=== PATIENT | female | born 1950 | race Caucasian/White ===

== ENCOUNTER → 2020-08-22 09:56 | Outpatient (CLI) | payer MEDICARE, SELFPAY ==
[2020-08-22 10:28] LABS: Color, Urine Yellow (Yellow); Glucose, Dipstick Normal (Normal); Ketone-Dipstick Negative (Negative); Leukocyte Esterase-Dipstick 100 /ul (Negative); Nitrite-Dipstick Negative (Negative); Occult Blood-Urine Negative /ul (Negative); Protein-Dipstick Negative (Negative); Specific Gravity, Urine 1.025 (1.002-1.030); Urine Bilirubin Dipstick Negative (Negative); Urine Clarity Sl. Cloudy (Clear); Urine Urobilinogen Normal (Normal)
[2020-08-22 10:30] LABS: Absolute Lymphocyte Count 1.51 X10^3/uL (0.83-4.51); Absolute Neutrophil Count 2.8 X10^3/uL (2.0-7.7); Basophil# 0.07 X10^3/uL; Basophil% 1.4 % (0-1); Eosinophil# 0.18 X10^3/uL; Eosinophils% 3.5 % (0-5); Hematocrit 39.9 % (37-47); Hemoglobin 13.3 g/dL (12.0-15.0); Lymphocyte # 1.51 X10^3/ul (4.0); Lymphocyte % 29.2 % (19-41); Mean Corp Hgb Conc 33.3 g/dL (32-36); Mean Corpuscular Hgb 30.6 pg (27.0-32.0); Mean Corpuscular Volume 91.9 fL (81-99); Mean Platelet Vol. 11.6 fl (6.2-12.0); Monocyte# 0.58 X10^3/uL; Monocyte% 11.2 % (0-10); NRBC Flagged by Analyzer 0 % (0-5); Neutrophil # 2.82 X10^3/uL (2.7-7.7); Neutrophil % 54.5 % (47-70); Platelet Count 196 K/mm3 (150-450); RBC Distribution Width CV 13.5 % (11.6-14.6); RBC Distribution Width SD 45.6 fl (35.1-43.9); Red Blood Count 4.34 M/mm3 (4.2-5.4); White Blood Count 5.2 K/mm3 (4.4-11.0)
[2020-08-22 11:12] LABS: ALB/GLOB Ratio 1.1 RATIO (0.9-2.4); AST(SGOT) 22 U/L (15-37); Alanine Aminotransfer ALT/SGPT 30 U/L (13-56); Alkaline Phosphatase 77 U/L (45-117); Anion Gap 7 (5-15); BUN 17 mg/dL (7-18); BUN/Creat Ratio 20.6 RATIO (10-20); Calcium,Total 9.1 mg/dL (8.5-10.1); Chloride 108 mmol/L (98-107); Cholesterol 253 mg/dL (200); Creatinine, Serum 0.82 mg/dL (0.55-1.02); EST Glomerular Filtration Rate 73 mL/min (>60); Est Glom Filt Rate - Afr Amer 88 mL/min (>60); Globulin 3.8 g/dL (2.2-4.2); Glucose 106 mg/dL (74-106); High Density Lipoprotein 78 mg/dL; Potassium 3.9 mmol/L (3.5-5.1); Protein, Total 7.8 g/dL (6.4-8.2); Sodium Level 138 mmol/L (136-145); Thyroid Stim Hormone (TSH) 2.66 uIU/mL (0.358-3.74); Triglycerides 74 mg/dL; Very Low Density Lipoprotein 15 mg/dL (5-40)
== END ==
PROVIDERS: PCP Family Medicine; Referring Provider Family Medicine; Visit Provider Family Medicine
DX: Z00.00 Encounter for general adult medical examination without abnormal findings (principal); R03.0 Elevated blood-pressure reading, without diagnosis of hypertension
CPT/HCPCS: 36415; 80053; 80061; 81002; 84443; 85025

== ENCOUNTER → 2020-09-25 09:54 | Outpatient (CLI) | payer MEDICARE, SELFPAY ==
--- NOTE | 2020-09-25 09:57 | ECHOD_ITS ---
Version 2 Reason For Study: Murmur Procedure This was a 2D Doppler, Color Flow transthoracic echocardiogram. Exam performed in department. Left Ventricle Normal LV size. Left ventricular systolic function is lower limits of normal. The estimated ejection fraction is 50 %. Septal motion consistent with IVCD. There is mild global hypokinesis of the left ventricle. Right Ventricle Normal RV size. Normal systolic function. Atria Normal left atrium. Normal right atrium. Mitral Valve Bileaflet diffuse mitral valve thickening. Posterior leaflet mitral valve prolapse. Moderately severe (3+) anteriorly directed mitral valve insufficiency. Tricuspid Valve Normal tricuspid valve. Mild (1+) tricuspid valve insufficiency. Pulmonary artery systolic pressure is 30 mmHg. Pulmonic Valve Normal pulmonic valve. Great Vessels Normal aortic root. The pulmonary artery is normal size. Normal inferior vena cava. Pericardium/Pleural No pericardial effusion. Medication 22 gauge I.V. with prn adaptor inserted into right arm. Performed a rapid injection of agitated mix of 9 cc saline and 1cc air to assess for atrial septal defect. MMode/2D Measurements & Calculations LVIDd: 4.7 cm IVSd: 1.3 cm Ao root diam: 3.5 cm LVIDs: 3.4 cm LVPWd: 1.1 cm RVDd: 3.1 cm FS: 27.7 % LAV(MOD-bp): 47.6 ml LVAd ap4: 28.1 cm2 LVAd ap2: 33.2 cm2 LAV(MOD-bp) Indexed: 26.9 ml/m2 LVLd ap4: 8.0 cm LVLd ap2: 8.1 cm LAV(MOD-sp2): 30.9 ml EDV(MOD-sp4): 82.7 ml EDV(MOD-sp2): 112.8 ml LAV(MOD-sp4): 56.7 ml EDV(sp4-el): 83.2 ml EDV(sp2-el): 115.1 ml LVAs ap4: 19.9 cm2 LVAs ap2: 20.4 cm2 LVLs ap4: 7.0 cm LVLs ap2: 7.0 cm ESV(MOD-sp4): 49.4 ml ESV(MOD-sp2): 50.8 ml ESV(sp4-el): 47.8 ml ESV(sp2-el): 50.0 ml EF(MOD-sp4): 40.3 % EF(MOD-sp2): 55.0 % EF(sp4-el): 42.5 % SV(MOD-sp4): 33.3 ml SV(MOD-sp2): 62.0 ml SV(sp4-el): 35.4 ml LA dimension(2D): 3.4 cm LA A4 area: 18.8 cm2 RA A4 area: 17.1 cm2 Doppler Measurements & Calculations MV E max cam: 76.1 cm/sec Lat Peak E' Cam: 7.9 cm/sec Med Peak E' Cam: 5.0 cm/sec MV A max cam: 117.1 cm/sec E/E' lat: 9.7 E/E' med: 15.3 MV E/A: 0.65 Ao V2 max: 111.6 cm/sec LV V1 max: 88.4 cm/sec PA V2 max: 88.0 cm/sec Ao max P.0 mmHg LV V1 max P.1 mmHg TR max cam: 249.3 cm/sec TR max P.0 mmHg ECHO/Echo Complete Interpretation Summary Normal LV size. Left ventricular systolic function is lower limits of normal. Posterior leaflet mitral valve prolapse. Moderately severe (3+) anteriorly directed mitral valve insufficiency. Pulmonary artery systolic pressure is 30 mmHg. The estimated ejection fraction is 50 %. Septal motion consistent with IVCD. Ordering Physician: Dianne Marmolejo Referring Physician: Dianne Marmolejo Performed By: Heather Goldman RDCS
== END ==
PROVIDERS: PCP Family Medicine; Referring Provider Family Medicine; Visit Provider Family Medicine
DX: R01.1 Cardiac murmur, unspecified (principal)
CPT/HCPCS: 93306; A4216

== ENCOUNTER → 2020-10-23 09:50 | Outpatient (CLI) | payer MEDICARE, SELFPAY ==
[2020-10-03 12:47] VITALS: BMI 30.2
[2020-10-22 10:31] LABS: Anion Gap 8 (5-15); BUN 19 mg/dL (7-18); BUN/Creat Ratio 19.4 RATIO (10-20); Calcium,Total 8.8 mg/dL (8.5-10.1); Chloride 110 mmol/L (98-107); Creatinine, Serum 0.98 mg/dL (0.55-1.02); EST Glomerular Filtration Rate 60 mL/min (>60); Est Glom Filt Rate - Afr Amer 72 mL/min (>60); Glucose 114 mg/dL (74-106); Potassium 3.9 mmol/L (3.5-5.1); Sodium Level 141 mmol/L (136-145)
--- NOTE | 2020-10-23 09:55 | ECHOTEE_ITS ---
Reason For Study: MVP Medication MONTEZ probe 6VT-D (SN [id number]) passed without difficulty. No complications were noted. Cetacaine Topical [place] given X3 orally. Versed 2 mg given slow IVP. Fentanyl 50 mcg given slow IVP. Performed a rapid injection of agitated mix of 9 cc saline and 1cc air to assess for atrial septal defect. Left Ventricle Normal LV size. The estimated ejection fraction is 47 %. There is mild global hypokinesis of the left ventricle. Right Ventricle Normal RV size. Normal systolic function. Atria Normal atrial septum. Bubble contrast study negative for right to left interatrial shunt. Normal left atrium. No thrombus is detected in the left atrial appendage. Normal right atrium. Mitral Valve Posterior leaflet mitral valve prolapse. Moderately severe (3+) anteriorly directed mitral valve insufficiency. Tricuspid Valve Normal tricuspid valve. Mild (1+) tricuspid valve insufficiency. Aortic Valve Normal aortic valve. Trisinus/trileaflet aortic valve. Pulmonic Valve Normal pulmonic valve. Vessels Normal aortic root. Pericardium No pericardial effusion. ECHO/Echo Transesophageal (MONTEZ) Interpretation Summary Normal LV size. There is mild global hypokinesis of the left ventricle. Posterior leaflet mitral valve prolapse. Moderately severe (3+) anteriorly directed mitral valve insufficiency. Mild (1+) tricuspid valve insufficiency. The estimated ejection fraction is 47 %. Ordering Physician: Aubrey Beltre Referring Physician: Dianne Marmolejo Performed By: Heather Goldman RDCS
[2020-10-23 12:55] LABS: Absolute Lymphocyte Count 1.01 X10^3/uL (0.83-4.51); Absolute Neutrophil Count 3.4 X10^3/uL (2.0-7.7); Basophil# 0.05 X10^3/uL; Eosinophil# 0.03 X10^3/uL; Eosinophils% 0.6 % (0-5); Hematocrit 37.8 % (37-47); Hemoglobin 12.5 g/dL (12.0-15.0); Lymphocyte # 1.01 X10^3/ul (0.83-4.51); Lymphocyte % 20.6 % (19-41); Mean Corp Hgb Conc 33.1 g/dL (32-36); Mean Corpuscular Hgb 29.8 pg (27.0-32.0); Mean Platelet Vol. 11.4 fl (6.2-12.0); Monocyte# 0.44 X10^3/uL; NRBC Flagged by Analyzer 0 % (0-5); Neutrophil # 3.36 X10^3/uL (2.7-7.7); Neutrophil % 68.6 % (47-70); Platelet Count 213 K/mm3 (150-450); RBC Distribution Width SD 42.8 fl (35.1-43.9); White Blood Count 4.9 K/mm3 (4.4-11.0)
--- NOTE | 2020-10-23 13:08 | RAD_ITS ---
EXAM: XR CHEST, 2 VIEWS : 1950 CLINICAL INDICATION: dyspnea TECHNIQUE: Frontal and lateral views of the chest. This report was created using [employer] report generation technology. COMPARISON: None. FINDINGS: LUNGS AND PLEURAL SPACES: Unremarkable. No consolidation or edema. No pneumothorax. No effusion. HEART: Moderate enlargement of the cardiac silhouette. MEDIASTINUM: Central airways and mediastinal contour are unremarkable. BONES/JOINTS: Degenerative changes of the spine. SOFT TISSUES: Unremarkable. RAD/Chest PA and Lateral IMPRESSION: No acute findings in the chest. at 0728 Reported and signed by: Clovis Juarez MD Electronically Signed: Clovis Juarez MD at 7:27 EDT Tel , Service support ,
== END ==
PROVIDERS: PCP Family Medicine; Referring Provider Internal Medicine Cardiovascular Disease; Visit Provider Internal Medicine Cardiovascular Disease
DX: I34.1 Nonrheumatic mitral (valve) prolapse (principal); E78.5 Hyperlipidemia, unspecified; I34.0 Nonrheumatic mitral (valve) insufficiency; I44.7 Left bundle-branch block, unspecified; R00.2 Palpitations; R03.0 Elevated blood-pressure reading, without diagnosis of hypertension; U07.1 COVID-19; R93.1 Abnormal findings on diagnostic imaging of heart and coronary circulation
CPT/HCPCS: 36415; 71046; 80048; 85025; 87426; 93312; 93320; 93325; C9803; J7040; A4216

== ENCOUNTER 2020-10-30 10:23 | Day surgery (SDC) | payer MEDICARE, SELFPAY ==
[2020-10-03 12:47] VITALS: BMI 30.2
[2020-10-29 08:27] VITALS: BMI 30.2
--- NOTE | 2020-10-30 13:06 | CL.D_ITS ---
Patient Name: SHINE LAWS Study Date: 10/30/2020 Performing: Aubrey Beltre MD Ht: 61.81 inches 157 cm : 1950 Wt: 165.35 lbs 75 kg Age: 70 Gender: female BSA: 1.76 PROCEDURE(S) PERFORMED [id number]/COR/LV CLINICAL PROFILE AND INDICATIONS Indications: Valvular Disease Heart Failure: None Stress/Imaging Stress/Image Study Performed: No CAD Presentations: Symptom unlikely to be ischemic. CONCLUSIONS Normal coronary arteries Mitral Valve Insufficiency Moderate RECOMMENDATIONS Consult for mitral valve repair DESCRIPTION OF PROCEDURE The patient arrived to the procedure lab. The risks and benefits of the procedure as well as a full d escription of our services here and current unavailability of surgical backup were fully explained to the patient and/or their significant other prior to the catheterization. The Timeout was completed, verifying the correct patient and procedure. The patient's procedural site was prepped and draped in the usual fashion. Local anesthetic was given subcutaneously to right radial region with Lidocaine 2% . Using a modified Seldinger technique, arterial access was obtained via the right radial artery, a 6 Fr sheath was inserted. Left Coronary Artery selective angiography was performed in multiple views u sing a 5 Fr. 4.0 Harvard catheter. Right Coronary Artery selective angiography was then performed in mu ltiple views using a 5 Fr. 4.0 Harvard catheter. Left Ventriculography was performed in DAILY projection using a 5 Fr. Pigtail catheter. LV to AO pullback pressures were then recorded.The arterial sheath was pulled and a TR Band was applied for hemostasis - 13cc air CORONARY ANGIOGRAPHY DOMINANCE: Right Dominant LEFT HEART ASSESSMENT Left Ventricular Ejection Fraction: by LV Gram 55 % Normal LV wall motion Normal Left Ventricular systolic function LEFT MAIN: Angiographically normal LEFT ANTERIOR DESCENDING ARTERY: No significant disease noted CIRCUMFLEX ARTERY: No significant disease noted RIGHT CORONARY ARTERY: No significant disease noted VALVE FINDINGS: Mitral Valve Prolapse Moderate Mitral Valve Insufficiency - Grade 3 COMPLICATIONS No Complications PROCEDURE MEDICATIONS Fentanyl 50 mcg IV Versed 1 mg IV Versed 1 mg IV Oxygen: 2 L/min via nasal cannula Heparin given IA 10/30/2020 12:17:04 Verapamil 2.5mg, Ntg 100mcgs, 3000 units of Heparin given IA 10/30/2020 12:17:04 SUMMARY OF HEMODYNAMIC DATA Time AIR REST ECG 10:49:15 Art 157/74 (104) 12:07:23 AO 134/76 (101) SA 12:19:40 LV 135/0, 13 12:28:44 LV 135/0, 7 12:28:50 LV 133/2, 8 12:30:51 LV 133/3, 10 12:30:56 LVp 149/3, 11 12:31:03 AOp 141/71 (99) 12:31:08 Signed By Aubrey Beltre MD On 10/30/2020 13:05:01 Aubrey Beltre MD
== END 2020-10-30 14:15 | disposition home or self-care (01) ==
PROVIDERS: PCP Family Medicine; Referring Provider Internal Medicine Cardiovascular Disease; Visit Provider Internal Medicine Cardiovascular Disease
DX: I34.0 Nonrheumatic mitral (valve) insufficiency (principal); R06.02 Shortness of breath; E78.5 Hyperlipidemia, unspecified; I44.7 Left bundle-branch block, unspecified; R03.0 Elevated blood-pressure reading, without diagnosis of hypertension; Z86.16 Personal history of COVID-19
CPT/HCPCS: 93005; 93458; 99152; 99153; J7040; Q9967; C1769; C1894

== ENCOUNTER → 2021-03-10 10:01 | Outpatient (CLI) | payer MEDICARE, SELFPAY ==
--- NOTE | 2021-03-10 10:03 | VDLE_ITS ---
Reason For Study: elevated D-Dimer RIGHT LEFT GSV is normal. GSV is normal. CFV is compressible, spontaneous, phasic, CFV is compressible, spontaneous, phasic, competent and demonstrates normal competent, and demonstrates normal augmentation. augmentation. FV is compressible, spontaneous, phasic, FV is compressible, spontaneous, phasic, competent and demonstrates normal competent and demonstrates normal augmentation. augmentation. POP V is compressible, spontaneous, phasic, POP V is compressible, spontaneous, phasic, competent and demonstrates normal competent and demonstrates normal augmentation. augmentation. T/P Trunk is compressible. T/P Trunk is compressible. PTV is compressible. PTV is compressible. RT PerV is compressible. LT PerV is compressible. Procedure This is a venous duplex using B-mode, color flow and spectral Doppler. Exam performed in department. The exam was diagnostic. A preliminary report was called and/or faxed to Dr. Beltre. VL/Venous Duplex US - Jose Extrem Interpretation Summary No evidence for acute deep venous thrombosis bilateral lower extremities with p atent and compressible bilateral great saphenous veins. Ordering Physician: Aubrey Beltre Performed By: Ge Mata RVT
== END ==
PROVIDERS: PCP Family Medicine; Referring Provider Internal Medicine Cardiovascular Disease; Visit Provider Internal Medicine Cardiovascular Disease
DX: R79.89 Other specified abnormal findings of blood chemistry (principal); E78.5 Hyperlipidemia, unspecified; I34.0 Nonrheumatic mitral (valve) insufficiency; I34.1 Nonrheumatic mitral (valve) prolapse; I44.7 Left bundle-branch block, unspecified; R00.2 Palpitations; R03.0 Elevated blood-pressure reading, without diagnosis of hypertension; R55 Syncope and collapse; U07.1 COVID-19; R06.02 Shortness of breath
CPT/HCPCS: 93970

== ENCOUNTER 2021-07-15 10:53 | Outpatient (CLI) | payer MEDICARE, SELFPAY ==
[2021-07-15 12:38] LABS: Anion Gap 6 (5-15); BUN 15 mg/dL (7-18); BUN/Creat Ratio 19.9 RATIO (10-20); Chloride 107 mmol/L (98-107); Creatinine, Serum 0.75 mg/dL (0.55-1.02); EST Glomerular Filtration Rate 80 mL/min (>60); Est Glom Filt Rate - Afr Amer 97 mL/min (>60); Glucose 107 mg/dL (74-106); Magnesium 2.3 mg/dL (1.6-2.6); Sodium Level 140 mmol/L (136-145)
== END 2021-07-15 23:59 | disposition home or self-care (01) ==
PROVIDERS: PCP Family Medicine; Referring Provider Internal Medicine Cardiovascular Disease; Visit Provider Internal Medicine Cardiovascular Disease
DX: R42 Dizziness and giddiness (principal); I42.8 Other cardiomyopathies; I48.91 Unspecified atrial fibrillation; I97.89 Other postprocedural complications and disorders of the circulatory system, not elsewhere classified; Z98.890 Other specified postprocedural states
CPT/HCPCS: 36415; 80048; 83735; 93225; 93226

== ENCOUNTER 2021-08-20 08:57 | Outpatient (CLI) | payer MEDICARE, SELFPAY ==
--- NOTE | 2021-08-20 09:03 | CR.ITP_ITS ---
Diagnosis - General Information Admitting Diagnosis: HEART VALVE REPAIR - MITRAL VALVE Secondary Diagnosis: HYPERLIPIDEMIA, NON-ISCHEMIC CARDIOMYOPATHY, PALPITATIONS, LEFT BUNDLE BRANCH BLOCK, SYNCOPE Personal Learning Style:: Audio/Visual, Written Barriers to Learning: Vision Impairment Stage of change r/t lifestyle modifications:: Action Gave educational material for:: Treating Heart Disease, Emotions & Heart Disease, Stress Management & Relaxation, Sleep Disorders & Heart Disease, How The Heart Works, What it means to have Heart Disease, How Coronary Artery Disease is Diagnosed, Heart Procedures, What Heart Medications Do, Risk Factors & Modifications, Living an Active Life, Nutrition - Education/Goals Individual Counseling: Initial Assessment: Abnormal Cholesterol Levels, High Blood Pressure, Overweight/Obesity - BMI 30.0 Cardiac Rehabilitation Goals: 1. Maintain the individual as the primary focus of care. 2. To improve the patient's quality of life. 3. Identification of cardiac risk factors and provide cardiac risk factor management. 4. Enhance the psychosocial status of the patient. 5. Reconditioning enough to allow the patient to resume customary activities. 6. Control symptoms of cardiac disease Personal Goals: Initial Assessment: Improve energy level, Improve muscle stren gth and endurance, Improve diet and eating habits (eat healthier), Control risk factors (learn risk factor modification) Scale for measuring improvement of personal goals: Enter appropriate number in Comments. 2 = Unchanged. 3 = Slightly Better. 4 = Moderate Improvement. 5 = Met my Goal - Diagnosis & Disease Process Outcomes/Goals: Pt IDs own risk factors & lifestyle modifications by Session 10, Verbalizes symptoms of angina & response by session 3., Pt independently manages Plan/Interventions: Assist Pt to ID & engage in lifestyle modification to reduce CVD risk, Instruct on individual risk factors, Review symptoms of angina & emergency actions - Safety Referral to Physical Therapy: No Referral to [facility] Case Management: No Fall Risk Assessed:: Yes Assistive Devices:: None Exercise - Initial Assessment - Visit Date of Eval: 08/20/21 Session #:: 0 - PRE-CARDIAC REHAB EVALUATION Mets: Pre-: >7 METS for 30 minutes by discharge - Physician Prescribed Exercise Modalities: Treadmill, Airdyne, NuStep, SciFit Frequency: 3x/week for 12 weeks [36 sessions] Intensity: 60-80% of age predicted maximum heart rate reserve Current METSs:: 3.0 Target Heart Rate:: 98-127 Resting Blood Pressure: 143/90 EKG Type: NORMAL SINUS RHYTHM W/LBBB Current Physical Activity or Exercising minutes: PHYSICALLY ACTIVE > 1-HOUR DAILY - Outcomes & Goals Goals:: Verbalizes understanding of THR, RPE & goal METS by session 6, Documents in home exercise log/reports 30 min aerobic 5 day/wk by DC, Demonstrates accurate pulse taking by DC - Intervention & Plan Exercise Program Goals: Instruct on personal THR & RPE, Instruct on MET level & personal MET goal, Show patient to take own pulse /validate performance until accurate, Instruct on home exercise - Physical Activity Home Exercise Physical Activity - Home Exercise: Safe Exercise, Warm-up, Self-monitoring, Cool-Down, Home Exercise > 30 min Daily, Sitting Time <3 hours/daily - Outcomes & Goals Outcomes/Goals: Demonstrates correct Warm-up/exercise Cool-Down (S3) if = 2.5 METs, Verbalizes symptoms of exercise intolerance by Session 3 (S3) - Intervention & Plan Plan/Intervention: Instruct warm-up & cool-down if exercising at > 2 METs, Instruct on symptoms of exercise intolerance & actions to take, Instruct & monitor on saf, Assess intial functional capacity & safety risk Nutrition - Initial Assessment - Program Goals Nutrition Program Goals: LDL <100 optimal. 100 - 129 Near optimal. 130 - 159 Borderline High. 160 - 189 High. Total Cholesterol <200 desirable. 200 - 239 Borderline High. >/= 240 High. HDL < 40 Low >/=60 High. Triglycerides <150 desirable. <199 optimal. VlDL 5 - 40. HgbA1C <7%. BMI <25 Patient has diagnosis of Hyperlipidemia (ICD E78)?: Yes - Visit Date of Assessment:: 08/20/21 Session #:: 0 - PRE-CARDIAC REHAB EVALUATION - Cholesterol/Lipids Triglycerides (mg/dL): 74 - 08/22/2020 Total Cholesterol (mg/dL): 253 LDL Cholesterol (mg/dL): 160 HDL Cholesterol (mg/dL): 78 Determine presence & major risk factors that modify LDL goal: Hypertension or hypertensive medication, Family history of premature CHD in Male < 55 years: female <65 yearsFa, Age men > 45 years; women >/= 55 years Outcomes/Goals: Pt IDs own risk factors & lifestyle modifications by Session 10, Verbalizes symptoms of angina & response by session 3., Pt independently manages Intervention/Plan: Instruct on personal lipid levels & lipid goals/NCEP guidelines, Instruct on cholesterol Referral to dietitian:: Yes - MEDICAL NUTRITION THERAPY - Diabetes (Other Core Measures) Diabetes Type: Not Applicable - Weight Mgt (Other Care) Not Applicable: No Height: 5 ft 2 in Weight:: 162 lb BMI: 29.6 Diagnosis Overweight/Obesity BMI> 30% ICD-10 E66: Yes Diagnosis High BMI/Morbid Obesity BMI> 35% ICD-10 Z68: No Outcomes/Goals: Pt sets, maintains & shows weight loss goal & trend during rehab Intervention/Plan: Instruct on ideal BMI & set weight loss goal w/patient, Assist pt to ID & incorporate diet changes for weight loss by S9, Refer to Structured Weight Loss program as appropriate, Encourage goal of using 250- 300dcal per session for weight loss - Healthy Eating Habits Will attend diet classes:: Yes Outcomes/Goals:: Consume diet rich in vegs,fruits,whole grain/high fiber,fish,lean meat, Limit sat/trans fats,cholesterol & added salts & sugars Intervention/Plan:: Assess current eating habits - Education Gave educational materials for:: Healthy eating Nutrition - 30-Day Assessment Nutrition - 60-Day Assessment Nutrition - 90-Day Assessment Nutrition - Final Assessment Medical - Initial Assessment - Visit Date of Eval: 08/20/21 Session #:: 0 - PRE-CARDIAC REHAB EVALUATION - Medication Compliance H/O mental health issues: depression, anxiety, or addiction?: No Doesn?t believe in the benefits of treatment?: No Believes medications are unnecessary or harmful?: No Has a concern about medication side effects?: No Expresses concern over the cost of medications?: No Outcomes/Goals: Verbalizes medications,desired effect & common side effects @ DC, Pt self-reports following medication regimen, Keeps card in wallet w/medications listed by DC Interventions/plans: Instruct on medication effects & side effects, Review medication list w/patient every two weeks - Tobacco Use Tobacco Use: Non-smoker - Hypertension Resting Blood Pressure:: 143/90 [place] [employer] Hypertension Guidelines: [place] [employer] Hypertension Guidelines. Normal BP Less than 120/80. Elevated BP 120/80. Hypertension Stage 1: BP 130-139/80-89. Hypertesnion Stage 2: BP 140 or higher/90 or higher. Hypertension Crisis: BP higher than 180/120 Outcomes/Goals: Able to verbalize/achieve optimal blood pressure <130/80, Incorporates diet changes & exercise for blood pressure control by DC Interventions/plan: Instruct on optimal blood pressure, hypertension & medications - Tobacco Cessation Referral Smoking Cessation Referral:: No Individual Education/Counseling:: No Education Schedule Given:: Yes Medical- 30-Day Assessment Medical- 60-Day Assessment Medical- 90-Day Assessment Medical - Final Assessment Psychosocial - Initial Assess - VIsit Date of Eval: 08/20/21 Session #:: 0 - PRE-CARDIAC REHAB EVALUATION Not Applicable: Yes History of previous Mental disease:: No History of Emotional Disorders: Anxious, Depression - QUITE A TRAUMATIC EXPERIENCE DEALING WITH DIAGNOSIS AND ON GOING LIGHTHEADEDNESS, BUT HAVE OVERCEOM THOSE EMOTIONS Self-reported stressors: Recent Illness - Psychosocial Test Tool Used:: Text A [employer] QOL Cardiac, PHQ-9 Questionnaire phq-9 Severity: Severity. 1-4 Minimal Depression. 5-9 Mild Depression. 10-14 Moderate Depression. 15-19 Moderately Sever Depression. 20-27 Severe Depression. Rule: - Referral to Behavioral Health PS - Interventions: Yes Attend Stress Management Classes, No Referral to Behavioral Health if PHQ-9 score >9:, No Referral to [facility], No Referral to Physician if PHQ-9 if score is 5-9: - Outcomes/Goals: See list Psychosocial Outcomes/Goals:: ID's personal stressors & 2 strategies to manage stress by discharge - Intervention/Plan: See List Interventions/Plan:: Assess stressors,coping strategies & signs of derpression on admission, Instruct/assist pt to develop coping & personal stress Mgt strategies, Instruct patient to recognize signs & symptoms of depression, Instruct patient to recog Psychosocial - 30-Day Assess Psychosocial - 60-Day Assess Psychosocial - 90-Day Assess Psychosocial - Final Assessmen Patient Health Questionnaire Initial Assessment 1. Little interest or pleasure in doing things: Not at all 2. Feeling down, depressed, or hopeless: Several days 3. Trouble falling or staying asleep, or sleeping too much: Not at all 4. Feeling tired or having little energy: Several days 6. Feeling bad about yourself -- or that you are a failure or have let yourself or your family down: Not at all 7. Trouble concentrating on things, such as reading the newspaper or watching television: Several days 8. Moving or speaking so slowly that other people could have noticed. Or the opposite - being so fidgety or restless that you have been moving around a lot more than usual: Not at all 9. Thoughts that you would be better off , or of hurting yourself in some way: Not at all How difficult have these problems made it for you to do your work, take care of things at home, or get along with other people?: Not difficult at all Total Score: 3 LO-Q SV Test - Statements CAD is a disease of the arteries in the heart: False Examples of risk factors for heart disease: True Angina is chest pain or discomfort: True The benefits of resistance training include: True Eating more meat and dairy products: False Anti-platelet medications such as aspirin are important: True The only effective way to manage stress: False An exercise warm-up slowly increases heart rate: True Prepared, processed foods usually have high sodium: True Depression is common after a heart attack: I Don't Know The statin medications lower cholesterol: True To control blood pressure, lower the amount of sodium: True If someone gets chest discomfort during walking: False Transfats are partially hydrogenated vegetable oils: True Sleep apnea that is not treated increases the risk: True To control cholesterol, one should become a vegetarian: False Someone knows if he/she is exercising at the right level: True Diabetes cannot be prevented with exercise & health eating: False Stress is a large risk for heart attack: True A diet that can help lower blood pressure is rich in: True - Total Score Total Correct Responses: 18 Self-Efficacy Initial Assessment We would like to know how confident you are in doing certain activities. Please select your confidence level for:: Select your confidence level for the following using the scale 1-10 where 1 is not at all confident and 10 is totally confident. Your score is the average of all 6 responses. Fatigue: How confident are you that you can keep the fatigue caused by your disease from interfering with the things you want to do? Select Number: 6 Physical Discomfort or Pain: How confident are you that you can keep the physical discomfort or pain of your disease from interfering with the things you want to do? Select Number: 9 Emotional Distress: How confident are you that you can keep the emotional distress caused by your disease from interfering with the things you want to do? Select Number: 8 Other Symptoms or Health Problems: How confident are you that you can keep other symptoms or health problems from interfering with the things you want to do? Select Number: 8 Different Tasks and Activities: How confident are you that you can do the different tasks and activities needed to manage your health condition so as to reduce your need to see a doctor? Select Number: 9 Medication: How confident are you that you can do things other than just taking medication to reduce how much your illness affects your everyday life? Select Number: 9 Total Score:: 8 Nutrition Survey - Nutrition Survey Initial Have you lost >10 lbs over the past 2 months without trying?: No Are you following a special diet at home for diabetes, low fat, or low salt?: No Are you interested in meeting with a dietitian for help understanding your diet?: No Do you eat less than 3 meals a day?: No Do you eat fatty meats (botello, sausage, ribs, etc), fried foods, desserts, large amounts of salad dressings, margarine, butter, or cheese most days?: Yes Do you have food allergies? [Enter types in comment field]: No Do you eat in restaurants more than 3 times a week?: No Do you season food with salt, seasoning salt, or garlic salt?: Yes Do you used canned, boxed, frozen meals, or soups, seasoning packets?: No Total Score:: 2
--- NOTE | 2021-08-20 09:03 | PCM.CR.HP2 ---
CR - History & Physical - General Arrival date:: 08/20/21 Arrival time:: 09:07 Date of Referral:: 07/20/21 Date of CR Evaluation:: 08/20/21 Referring Physician: DR. AUBREY KEENE Primary Diagnosis: HEART VALVE REPAIR - History of Present Cardiac Event Onset Date: Enter Onset Date of cardiac illnesses in Comment field below Heart valve replacement or repair:: Yes - MITRAL VALVE REPAIRED ON 03/24/2021 Type of Symptoms:: winter: NOTICED PALPITATIONS/SKIPPED BEATS - Interventions with present event:: EKG DONE BY PCP REFERRED TO DR. KEENE Were there any complications?: NONE - Sleep Disorder Evaluation Hx of Sleep Apnea: No Do you snore loudly (louder than talking or can be heard through closed doors)?: No Do you often feel tired/ fatigued/ sleepy during daytime?: Yes Has anyone observed you stop breathing during sleep?: No History of Hypertension (for STOP score): Yes STOP Results: Positive - Medications Home Medications: Ambulatory Orders Medication Instructions Recorded lactobacillus combination no.8 3 3,000 mmu cells PO DAILY 10/03/20 billion cell capsule - Allergies Allergies/Adverse Reactions: Allergies No Known Allergies Allergy (Verified 08/13/21 08:27) Advanced Directives - Advanced Directives Power of Hand Shoe Cutter: Yes Living Will: No Advance Directives Information Provided: No Advance Directives on File: No DNR Order?:: No - MOLST See MOLST form: No Past Medical History - Covid-19 Screening Fever: No Unexplained muscle aches: No Current respiratory symptoms: No Upper respiratory infections symptoms: No Gastro-intestinal symptoms: No Awo-Ygmb-Lnkssu symptoms: No Has tested positive for COVID-19 in last 30 days: No Date of testin05/18/20 - TESTED POSITIVE ASYMPTOMATIC; TWO VACCINES LATER WAITING TO GET THE BOOSTER Had contact w/person w/symptoms or Covid-19 (+) last 14 days: No Has High Risk Exposures ID'd by Health dept/Inf Control team: No 65 years or older:: Yes Lives in Assisted Living facility:: No Has a chronic lung disease or moderate to severe asthma:: No Has a serious heart condition:: Yes Immunocompromised:: No Severely obese (Body Mass Index of 40 or higher):: No Diabetic:: No Has chronic kidney disease undergoing dialysis:: No Has liver disease:: No - Past Medical Illness Medical History: Past Medical History (Last Reviewed 08/13/21 @ 14:[address] Aubery Keene MD) COVID-19 virus detected Onset Date: 05/2020 U07.1 Elevated blood pressure reading in office without diagnosis of hypertension R03.0 Elevated d-dimer R79.89 Hyperlipidemia E78.5 Intermittent palpitations R00.2 Left bundle branch block (LBBB) I44.7 Non-ischemic cardiomyopathy I42.8 Obesity E66.9 Postoperative atrial fibrillation Onset Date: 03/25/21 I97.89, I48.91 brief episode overnight of rate controlled AF, self conversion to SR 03/25/2021 Syncope Onset Date: 03/06/21 R55 - Past Surgical History Surgical History: Past Surgical History (Last Reviewed 08/13/21 @ 14:[address] Aubrey Keene MD) History of carpal tunnel release Z98.890 History of left heart catheterization Onset Date: 10/30/20 Z98.890 History of mitral valve repair Onset Date: 03/24/21 Z98.890 Annuloplasty w/ [place]wick 27 mm Posterior Leaflet Resection Triangular P2 03/23/21 History of tubal ligation Z98.51 - Family History Summary Family History: Family History (Last Reviewed 08/13/21 @ 14:[address] Aubrey Keene MD) Sister Heart disease MVP Brother Heart disease PPM Father Myocardial infarction, Onset Age: 89 Sister Heart disease MVP Son Thyroid disorder Graves disease Son Thyroid disorder Hypothyroid Social History - Smoking History Smoking Status: Never smoker - Alcohol Use Alcohol Usage: No - Substance Abuse Hx Substance Use: No - Occupation Occupation (List type of work in comments):: Retired - Hobbies, Recreation, Social Activities Hobbies: Reading, Other - GARDENING Recreational Activities: I am able to engage in all my recreational activities - NOT TO PREVIOUS ABILITY BUT CAN DO THEM ALL. Social Environment - Status Marital Status: - Current Living Arrangements Living Environment:: Spouse - Children How many children do you have?: 3 Do any of your children live nearby?: Yes - Safety Do you feel safe in your surroundings?: Yes - Assistance Do you need any assistance at home?: NONE Review of Systems - Review of Systems Hints: Right click = Denies (Slash). Left click = Reports ([place]) Review of Present Symptoms: Reports: Shortness of Breath with Exertion - A LITTLE BIT BUT NOT TO THE POINT WHERE IT STOPS MY ACTIVITY., Operative Discomfort - STILL HAVE SOME DISCOMFORT OR TENDERNESS DOING SOME AACTIVITIES NOW HAVEN'T DONE SINCE THE SURGERY., Wound Healing, Dizziness/Lightheadedness - PERIODS OF SYNCOPE; recently taken off all of her medications, most recent was the metoprolol tartrate 24mg BID which she has noticed an increase in her heart rate and blood presures., Fatigue, Heart Arrhythmia/Irregularities - LEFT BUNDLE BRANCH BLOCK, POST OPERATIVE ATRIAL FIBRILLATION, Appetite - Normal, Sleep - Normal. Denies: Shortness of Breath at Rest, Appetite - Special Diet, Sexual Changes - Pain Is Patient Pain Free?: Yes Pain Location: none Pain Level: 0/10 Risk Factor Assessment - Vital Signs Temperature: 97.6 F Respiratory Rate: 18 Pulse Ox: 95 Blood Pressure: 143/90 - Pulse Pulse Rate: 82 Pulse Rhythm: Regular - Hypertension How long have you been treated?: 2020 On medication(s)?: NONE AT PRESENT TIME Blood Pressure Sitting - Left Arm: 143/90 - Blood Cholesterol/Lipids Total Cholesterol (mg/dL) Goal = less than 200 mg/dL: 253 - 08/22/2020 HDL Cholesterol (mg/dL) Goal = less than 40 mg/dL: 78 LDL Cholesterol (mg/dL) Goal = less than 70 mg/dL: 160 Triglycerides (mg/dL) Goal = less than 150 mg/dL: 74 - Diabetes Nutrition Referral for Diabetes: No - Obesity Height: 5 ft 2 in Weight:: 162 lb Weight in Pounds: 162.0 lbs Weight Source: Stated by Patient Body Mass Index (BMI): 29.6 Nutritional Referral for Obesity: Yes - Physical Inactivity Physical Inactivity: Reg Exercise 30 min/day, Recreational activity - Risk Stratification Risk Guidelines: Lowest Risk: Risk Factor for Diabetes, Risk Factor for Sedentary Lifestyle, Risk Factor for Depression, Moderate Risk: Risk Factor for Dyslipidemia, Highest Risk: Risk Factor for Obesity, Risk Factor for Hypertension - Family History Family History: Family History (Last Reviewed 08/13/21 @ 14:[address] Aubrey Keene MD) Sister Heart disease Brother Heart disease Father Myocardial infarction, Onset Age: 89 Sister Heart disease Son Thyroid disorder Son Thyroid disorder Motivation - Motivation to Participate On a scale of 1 to 10, how prepared are you to commit to attending program?: 9 What do you see as the benefits of succesfully completing the program? In other words, what do you hope to get out of participating in the program?: INCREASING MY STAMINA Are there issues you are dealing with that will interfere with completing the program?: LIGHTHEADEDNESS DIZZYNESS NOT SURE OF THE ROOT CAUSE Do you have a spouse or signficant other, family or friends who will help support you to complete the program?: YES
[2021-08-20 09:31] VITALS: BP 143/90; PULSE 82; RESP 18; TEMP 36.4; O2SAT 95; BMI 29.6
[2021-08-20 10:29] VITALS: BP 143/90; BMI 29.6
== END 2021-08-20 23:59 | disposition home or self-care (01) ==
PROVIDERS: PCP Family Medicine; Referring Provider Internal Medicine Cardiovascular Disease; Visit Provider Internal Medicine Cardiovascular Disease
DX: R00.2 Palpitations (principal); I42.9 Cardiomyopathy, unspecified; E78.5 Hyperlipidemia, unspecified; I44.7 Left bundle-branch block, unspecified; R55 Syncope and collapse; E66.9 Obesity, unspecified; Z68.29 Body mass index [BMI] 29.0-29.9, adult

== ENCOUNTER 2021-09-11 10:30 | Outpatient (RCR) | payer MEDICARE, SELFPAY ==
[2021-08-20 10:15] VITALS: BMI 29.6
== END 2021-09-12 23:59 ==
LOC: CR 10:30
PROVIDERS: PCP Family Medicine; Referring Provider Internal Medicine Cardiovascular Disease; Visit Provider Internal Medicine Cardiovascular Disease
DX: R42 Dizziness and giddiness (principal); I97.89 Other postprocedural complications and disorders of the circulatory system, not elsewhere classified; I48.91 Unspecified atrial fibrillation; Z98.890 Other specified postprocedural states; I42.8 Other cardiomyopathies; I34.1 Nonrheumatic mitral (valve) prolapse; I34.0 Nonrheumatic mitral (valve) insufficiency; I44.7 Left bundle-branch block, unspecified; R03.0 Elevated blood-pressure reading, without diagnosis of hypertension; E78.5 Hyperlipidemia, unspecified
CPT/HCPCS: 93798

== ENCOUNTER → 2021-09-16 | Outpatient (CLI) | payer MEDICARE, SELFPAY ==
[2021-08-20 10:29] VITALS: BMI 29.6
--- NOTE | 2021-09-16 12:52 | ECHOD_ITS ---
Reason For Study: MV REPAIR Procedure This was a 2D Doppler, Color Flow transthoracic echocardiogram. Exam performed in department. Left Ventricle Normal LV size. The estimated ejection fraction is 47 %. Septal motion consistent with IVCD. Mid- Anterior : Mildly hypokinetic. Mid-anteroseptal : Mildly hypokinetic. The rest of the wall segments are normal. Right Ventricle Normal RV size. Normal systolic function. Atria Normal left atrium. Normal right atrium. Mitral Valve Trivial eccentric mitral valve insufficiency. Status post mitral valve repair with annuloplasty ring. Tricuspid Valve Normal tricuspid valve. Mild tricuspid valve insufficiency. Aortic Valve Normal aortic valve. Trisinus/trileaflet aortic valve. Pulmonic Valve Normal pulmonic valve. Great Vessels Normal aortic root. The pulmonary artery is normal size. Inferior vena cava collapse with sniff. Pericardium/Pleural No pericardial effusion. MMode/2D Measurements & Calculations LVIDd: 5.5 cm IVSd: 1.3 cm Ao root diam: 3.6 cm LVIDs: 3.7 cm LVPWd: 0.95 cm RVDd: 3.6 cm FS: 31.8 % LAV(MOD-sp4): 46.4 ml LVAd ap4: 26.4 cm2 SV(MOD-sp4): 30.9 ml LVLd ap4: 7.4 cm EDV(MOD-sp4): 90.4 ml EDV(sp4-el): 80.3 ml LVAs ap4: 22.4 cm2 LVLs ap4: 7.6 cm ESV(MOD-sp4): 59.5 ml ESV(sp4-el): 56.2 ml EF(MOD-sp4): 34.1 % EF(sp4-el): 30.1 % SV(sp4-el): 24.1 ml LA A4 area: 16.3 cm2 LA dimension(2D): 3.8 cm RA A4 area: 16.9 cm2 Doppler Measurements & Calculations MV E max cam: 86.6 cm/sec Lat Peak E' Cam: 5.0 cm/sec Med Peak E' Cam: 5.1 cm/sec E/E' lat: 17.4 E/E' med: 17.0 MV V2 max: 187.9 cm/sec MV P1/2t max cam: 178.1 cm/sec Ao V2 max: 95.0 cm/sec MV max P.2 mmHg MV P1/2t: 51.9 msec Ao max P.6 mmHg MV V2 mean: 96.3 cm/sec MV mean P.8 mmHg MV dec slope: 1006 cm/sec2 MV V2 VTI: 27.5 cm MVA(P1/2t): 4.2 cm2 PA V2 max: 56.9 cm/sec TR max cam: 191.9 cm/sec TR max P.7 mmHg ECHO/Echo Complete Interpretation Summary Normal LV size. The estimated ejection fraction is 47 %. Septal motion consistent with IVCD. Status post mitral valve repair with annuloplasty ring. Trivial eccentric mitral valve insufficiency. Ordering Physician: Patt^Aubrey^^^ Performed By: YVON
== END | disposition home or self-care (01) ==
LOC: CVS 12:50
PROVIDERS: PCP Family Medicine; Visit Provider Internal Medicine Cardiovascular Disease
DX: I34.1 Nonrheumatic mitral (valve) prolapse (principal); I42.8 Other cardiomyopathies; I48.91 Unspecified atrial fibrillation; R42 Dizziness and giddiness; I97.89 Other postprocedural complications and disorders of the circulatory system, not elsewhere classified; I34.0 Nonrheumatic mitral (valve) insufficiency; I44.7 Left bundle-branch block, unspecified; R03.0 Elevated blood-pressure reading, without diagnosis of hypertension; E78.5 Hyperlipidemia, unspecified; Z98.890 Other specified postprocedural states
CPT/HCPCS: 93306

== ENCOUNTER 2021-10-09 10:30 | Outpatient (RCR) | payer MEDICARE, SELFPAY ==
--- NOTE | 2021-09-17 10:22 | CR.ITP_ITS ---
Diagnosis Exercise - 30-day Assessment - Visit Date of Eval: 09/17/21 Session #:: 11 - Physician Prescribed Exercise Modalities: Treadmill, NuStep, SciFit Frequency: 3x/week for 12 weeks [36 sessions] Intensity: 60-80% of age predicted maximum heart rate reserve Current METSs:: 2.5 Target Heart Rate:: 98-127 Current RPE:: 12-13 Maximum Excercise HR:: 134 Resting Blood Pressure: 140/84 - Patient currently off all medications highly sensitive. Maximum Exercise Blood Pressure: 160/94 EKG Type: Sinus tachycardia with BBB occasional PVCs T wave inversion Current Physical Activity or Exercising minutes: 42 - Outcomes & Goals Goals:: Verbalizes understanding of THR, RPE & goal METS by session 6, Documents in home exercise log/reports 30 min aerobic 5 day/wk by DC, Demonstrates accurate pulse taking by DC - Intervention & Plan Exercise Program Goals: Instruct on personal THR & RPE, Instruct on MET level & personal MET goal, Show patient to take own pulse /validate performance until accurate, Instruct on home exercise - 30-day Reassessments 30 day Reassessments:: Progressing - Physical Activity Home Exercise Physical Activity - Home Exercise: Safe Exercise, Warm-up, Self-monitoring, Cool-Down, Home Exercise > 30 min Daily, Sitting Time <3 hours/daily - Outcomes & Goals Outcomes/Goals: Demonstrates correct Warm-up/exercise Cool-Down (S3) if = 2.5 METs, Verbalizes symptoms of exercise intolerance by Session 3 (S3), Demonstrate safe equipment use (S3) & follows exercise prescrition (6) - Intervention & Plan Plan/Intervention: Instruct warm-up & cool-down if exercising at > 2 METs, Instruct on symptoms of exercise intolerance & actions to take, Instruct & monitor on saf, Assess intial functional capacity & safety risk - 30-day Reassessments 30 day Reassessments:: Progressing Nutrition - Initial Assessment Nutrition - 30-Day Assessment - Program Goals Nutrition Program Goals: LDL <100 optimal. 100 - 129 Near optimal. 130 - 159 Borderline High. 160 - 189 High. Total Cholesterol <200 desirable. 200 - 239 Borderline High. >/= 240 High. HDL < 40 Low >/=60 High. Triglycerides <150 desirable. <199 optimal. VlDL 5 - 40. HgbA1C <7%. BMI <25 Patient has diagnosis of Hyperlipidemia (ICD E78)?: Yes - Visit Date of Assessment:: 09/17/21 Session #:: 11 - Cholesterol/Lipids Triglycerides (mg/dL): 74 Total Cholesterol (mg/dL): 253 LDL Cholesterol (mg/dL): 160 HDL Cholesterol (mg/dL): 78 Determine presence & major risk factors that modify LDL goal: Age men > 45 years; women >/= 55 years Outcomes/Goals: Pt IDs own risk factors & lifestyle modifications by Session 10, Verbalizes symptoms of angina & response by session 3., Pt independently manages Intervention/Plan: Instruct on personal lipid levels & lipid goals/NCEP guidelines, Instruct on cholesterol Referral to dietitian:: Yes 30-day Reassessments:: Progressing - Weight Mgt (Other Care) Not Applicable: Yes Height: 5 ft 2 in Weight:: 168 lb BMI: 30.7 Diagnosis Overweight/Obesity BMI> 30% ICD-10 E66: Yes Diagnosis High BMI/Morbid Obesity BMI> 35% ICD-10 Z68: No Outcomes/Goals: Pt sets, maintains & shows weight loss goal & trend during rehab Intervention/Plan: Instruct on ideal BMI & set weight loss goal w/patient, Assist pt to ID & incorporate diet changes for weight loss by S9 30 day Reassessments:: Progressing - Healthy Eating Habits Will attend diet classes:: Yes Outcomes/Goals:: Consume diet rich in vegs,fruits,whole grain/high fiber,fish,lean meat, Limit sat/trans fats,cholesterol & added salts & sugars Intervention/Plan:: Assess current eating habits 30-day Reassessments:: Progressing - Education Gave educational materials for:: Healthy eating Nutrition - 60-Day Assessment Nutrition - 90-Day Assessment Nutrition - Final Assessment Medical - Initial Assessment Medical- 30-Day Assessment - Visit Date of Eval: 09/17/21 Session #:: 11 - Medication Compliance Preventative Medication(s):: Aspirin H/O mental health issues: depression, anxiety, or addiction?: No Doesn?t believe in the benefits of treatment?: No Believes medications are unnecessary or harmful?: No Has a concern about medication side effects?: No Expresses concern over the cost of medications?: No Outcomes/Goals: Verbalizes medications,desired effect & common side effects @ DC, Pt self-reports following medication regimen, Keeps card in wallet w/medications listed by DC Comments:: Patient highly sensitive to medications; caused dizziness nausea. Patient is currently not taking anything but her 81mg aspirin. Interventions/plans: Instruct on medication effects & side effects, Review medication list w/patient every two weeks, Instruct importance of taking meds as ordered & assist problem solving 30-day Reassessments:: Progressing - Tobacco Use Tobacco Use: Non-smoker - Hypertension Hypertension Diagnosis:: Hypertension ICD-10 I10 Resting Blood Pressure:: 140/84 [employer] Hypertension Guidelines: [place] [employer] Hypertension Guidelines. Normal BP Less than 120/80. Elevated BP 120/80. Hypertension Stage 1: BP 130-139/80-89. Hypertesnion Stage 2: BP 140 or higher/90 or higher. Hypertension Crisis: BP higher than 180/120 Peak Exercise Blood Pressure:: 160/94 Outcomes/Goals: Able to verbalize/achieve optimal blood pressure <130/80, Incorporates diet changes & exercise for blood pressure control by DC Interventions/plan: Instruct on optimal blood pressure, hypertension & medications, Instruct on effects of sodium, alcohol, stress, exercise &hypertension 30 day Reassessments:: Progressing - Tobacco Cessation Referral Smoking Cessation Referral:: No Individual Education/Counseling:: No Education Schedule Given:: Yes Medical- 60-Day Assessment Medical- 90-Day Assessment Medical - Final Assessment Psychosocial - Initial Assess Psychosocial - 30-Day Assess - VIsit Date of Eval: 09/17/21 Session #:: 11 Not Applicable: Yes History of previous Mental disease:: No - Psychosocial Test Tool Used:: PHQ-9 Questionnaire phq-9 Severity: Severity. 1-4 Minimal Depression. 5-9 Mild Depression. 10-14 Moderate Depression. 15-19 Moderately Sever Depression. 20-27 Severe Depression. Rule: - Referral to Behavioral Health PS - Interventions: Yes Attend Stress Management Classes, No Referral to Behavioral Health if PHQ-9 score >9:, No Referral to [facility], No Referral to Physician if PHQ-9 if score is 5-9: - Outcomes/Goals: See list Psychosocial Outcomes/Goals:: ID's personal stressors & 2 strategies to manage stress by discharge - Intervention/Plan: See List Interventions/Plan:: Assess stressors,coping strategies & signs of derpression on admission, Instruct/assist pt to develop coping & personal stress Mgt strategies, Instruct patient to recognize signs & symptoms of depression, Instruct patient to recog - 30-day Reassessments: 30 day Reassessments:: Progressing Psychosocial - 60-Day Assess Psychosocial - 90-Day Assess Psychosocial - Final Assessmen Patient Health Questionnaire 30-Day Re-eval Assessment 1. Little interest or pleasure in doing things: Not at all 2. Feeling down, depressed, or hopeless: Not at all 3. Trouble falling or staying asleep, or sleeping too much: Not at all 4. Feeling tired or having little energy: Several days 5. Poor appetite or overeating: Not at all 6. Feeling bad about yourself -- or that you are a failure or have let yourself or your family down: Not at all 7. Trouble concentrating on things, such as reading the newspaper or watching television: Not at all 8. Moving or speaking so slowly that other people could have noticed. Or the opposite - being so fidgety or restless that you have been moving around a lot more than usual: Not at all 9. Thoughts that you would be better off , or of hurting yourself in some way: Not at all How difficult have these problems made it for you to do your work, take care of things at home, or get along with other people?: Not difficult at all Total Score: 1 Self-Efficacy 30-Day Re-eval Assessment We would like to know how confident you are in doing certain activities. Please select your confidence level for:: Select your confidence level for the following using the scale 1-10 where 1 is not at all confident and 10 is totally confident. Your score is the average of all 6 responses. Fatigue: How confident are you that you can keep the fatigue caused by your disease from interfering with the things you want to do? Select Number: 7 Physical Discomfort or Pain: How confident are you that you can keep the physical discomfort or pain of your disease from interfering with the things you want to do? Select Number: 8 Emotional Distress: How confident are you that you can keep the emotional distress caused by your disease from interfering with the things you want to do? Select Number: 9 Other Symptoms or Health Problems: How confident are you that you can keep other symptoms or health problems from interfering with the things you want to do? Select Number: 9 Different Tasks and Activities: How confident are you that you can do the different tasks and activities needed to manage your health condition so as to reduce your need to see a doctor? Select Number: 10 Medication: How confident are you that you can do things other than just taking medication to reduce how much your illness affects your everyday life? Select Number: 10 Total Score:: 8 Nutrition Survey
[2021-09-17 10:31] VITALS: BP 140/84; BP 160/94; BMI 30.7
== END 2021-10-13 23:59 ==
LOC: CR 10:30
PROVIDERS: PCP Family Medicine; Referring Provider Internal Medicine Cardiovascular Disease; Visit Provider Internal Medicine Cardiovascular Disease
DX: R42 Dizziness and giddiness (principal); I97.89 Other postprocedural complications and disorders of the circulatory system, not elsewhere classified; I48.91 Unspecified atrial fibrillation; Z98.890 Other specified postprocedural states; I42.8 Other cardiomyopathies; I34.1 Nonrheumatic mitral (valve) prolapse; I34.0 Nonrheumatic mitral (valve) insufficiency; I44.7 Left bundle-branch block, unspecified; R03.0 Elevated blood-pressure reading, without diagnosis of hypertension; E78.5 Hyperlipidemia, unspecified
CPT/HCPCS: 93798

== ENCOUNTER → 2021-10-23 | Outpatient (CLI) | payer MEDICARE, SELFPAY ==
[2021-10-21 07:20] VITALS: BMI 30.4
[2021-10-23 10:19] LABS: Absolute Lymphocyte Count 1.33 X10^3/uL (0.83-4.51); Absolute Neutrophil Count 2.9 X10^3/uL (2.0-7.7); Basophil# 0.05 X10^3/uL; Eosinophil# 0.19 X10^3/uL; Eosinophils% 3.8 % (0-5); Hematocrit 42.2 % (37-47); Hemoglobin 13.7 g/dL (12.0-15.0); Lymphocyte # 1.33 X10^3/ul (0.83-4.51); Lymphocyte % 26.3 % (19-41); Mean Corp Hgb Conc 32.5 g/dL (32-36); Mean Corpuscular Hgb 29.7 pg (27.0-32.0); Mean Corpuscular Volume 91.5 fL (81-99); Mean Platelet Vol. 12.3 fl (6.2-12.0); Monocyte# 0.58 X10^3/uL; Monocyte% 11.5 % (0-10); NRBC Flagged by Analyzer 0 % (0-5); Neutrophil % 57.2 % (47-70); Platelet Count 208 K/mm3 (150-450); RBC Distribution Width CV 14.2 % (11.6-14.6); RBC Distribution Width SD 47.5 fl (35.1-43.9); Red Blood Count 4.61 M/mm3 (4.2-5.4); White Blood Count 5.1 K/mm3 (4.4-11.0)
[2021-10-23 10:39] LABS: Hemoglobin A1c 5.8 % (3.8-5.6)
[2021-10-23 11:05] LABS: AST(SGOT) 19 U/L (15-37); Alanine Aminotransfer ALT/SGPT 31 U/L (13-56); Albumin, Serum 3.7 g/dL (3.2-5.0); Alkaline Phosphatase 70 U/L (45-117); Anion Gap 4 (5-15); BUN 16 mg/dL (7-18); BUN/Creat Ratio 18.3 RATIO (10-20); Calcium,Total 8.9 mg/dL (8.5-10.1); Chloride 107 mmol/L (98-107); Cholesterol 229 mg/dL (200); Creatinine, Serum 0.87 mg/dL (0.55-1.02); EST Glomerular Filtration Rate 68 mL/min (>60); Est Glom Filt Rate - Afr Amer 82 mL/min (>60); Globulin 3.7 g/dL (2.2-4.2); Glucose 93 mg/dL (74-106); High Density Lipoprotein 68 mg/dL; Potassium 4.1 mmol/L (3.5-5.1); Protein, Total 7.4 g/dL (6.4-8.2); Sodium Level 139 mmol/L (136-145); Thyroid Stim Hormone (TSH) 2.79 uIU/mL (0.358-3.74); Triglycerides 78 mg/dL; Very Low Density Lipoprotein 16 mg/dL (5-40)
== END | disposition home or self-care (01) ==
LOC: LAB 09:17
PROVIDERS: PCP Family Medicine; Referring Provider Family Medicine; Visit Provider Family Medicine
DX: E78.5 Hyperlipidemia, unspecified (principal); R73.01 Impaired fasting glucose; R42 Dizziness and giddiness
CPT/HCPCS: 36415; 80053; 80061; 83036; 84443; 85025

== ENCOUNTER 2021-11-11 10:30 | Outpatient (RCR) | payer MEDICARE, SELFPAY ==
[2021-09-17 10:31] VITALS: BMI 30.7
[2021-10-14 01:05] VITALS: BP 140/84; BP 160/94
--- NOTE | 2021-10-21 07:11 | CR.ITP_ITS ---
Diagnosis Exercise - 60-day Assessment - Visit Date of Eval: 10/21/21 Session #:: 24 - Physician Prescribed Exercise Modalities: Treadmill, NuStep, SciFit Frequency: 3x/week for 12 weeks [36 sessions] Intensity: 60-80% of age predicted maximum heart rate reserve Current METSs:: 4.5 Target Heart Rate:: 98-127 Current RPE:: 13-14 Maximum Excercise HR:: 137 Resting Blood Pressure: 126/80 Maximum Exercise Blood Pressure: 142/80 EKG Type: Sinus rhythm to sinus tach w/BBB occasional PVCs. Vent quadrigeminy Current Physical Activity or Exercising minutes: 38:00 - Outcomes & Goals Goals:: Verbalizes understanding of THR, RPE & goal METS by session 6, Documents in home exercise log/reports 30 min aerobic 5 day/wk by DC, Demonstrates accu rate pulse taking by DC - Intervention & Plan Exercise Program Goals: Instruct on personal THR & RPE, Instruct on MET level & personal MET goal, Show patient to take own pulse /validate performance until accurate, Instruct on home exercise - 30-day Reassessments 30 day Reassessments:: Progressing - Physical Activity Home Exercise Physical Activity - Home Exercise: Safe Exercise, Warm-up, Self-monitoring, Cool-Down, Home Exercise > 30 min Daily, Sitting Time <3 hours/daily - Outcomes & Goals Outcomes/Goals: Demonstrates correct Warm-up/exercise Cool-Down (S3) if = 2.5 METs, Verbalizes symptoms of exercise intolerance by Session 3 (S3), Demonstrate safe equipment use (S3) & follows exercise prescrition (6) - Intervention & Plan Plan/Intervention: Instruct warm-up & cool-down if exercising at > 2 METs, Instruct on symptoms of exercise intolerance & actions to take, Instruct & monitor on saf, Assess intial functional capacity & safety risk - 30-day Reassessments 30 day Reassessments:: Progressing - Patient is improving each week. She has made significant improvement since starting CR. Nutrition - Initial Assessment Nutrition - 30-Day Assessment Nutrition - 60-Day Assessment - Program Goals Nutrition Program Goals: LDL <100 optimal. 100 - 129 Near optimal. 130 - 159 Borderline High. 160 - 189 High. Total Cholesterol <200 desirable. 200 - 239 Borderline High. >/= 240 High. HDL < 40 Low >/=60 High. Triglycerides <150 desirable. <199 optimal. VlDL 5 - 40. HgbA1C <7%. BMI <25 Patient has diagnosis of Hyperlipidemia (ICD E78)?: Yes - Visit Date of Assessment:: 10/21/21 Session #:: 21 - Cholesterol/Lipids Determine presence & major risk factors that modify LDL goal: Hypertension or hypertensive medication, Age men > 45 years; women >/= 55 years Outcomes/Goals: Pt IDs own risk factors & lifestyle modifications by Session 10, Verbalizes symptoms of angina & response by session 3. Intervention/Plan: Instruct on personal lipid levels & lipid goals/NCEP guidelines, Instruct on cholesterol - Diabetes (Other Core Measures) Diabetes Type: Not Applicable - Weight Mgt (Other Care) Not Applicable: Yes Height: 5 ft 2 in Weight:: 166 lb 8 oz BMI: 30.4 Diagnosis Overweight/Obesity BMI> 30% ICD-10 E66: Yes Diagnosis High BMI/Morbid Obesity BMI> 35% ICD-10 Z68: No Outcomes/Goals: Pt sets, maintains & shows weight loss goal & trend during rehab Intervention/Plan: Instruct on ideal BMI & set weight loss goal w/patient, Assist pt to ID & incorporate diet changes for weight loss by S9, Refer to Structured Weight Loss program as appropriate, Encourage goal of using 250- 300dcal per session for weight loss, Other additional plan/interventions 30 day Reassessments:: Progressing - Healthy Eating Habits Will attend diet classes:: Yes Outcomes/Goals:: Consume diet rich in vegs,fruits,whole grain/high fiber,fish,lean meat, Limit sat/trans fats,cholesterol & added salts & sugars Intervention/Plan:: Assess current eating habits 30-day Reassessments:: Progressing - Education Gave educational materials for:: Healthy eating Nutrition - 90-Day Assessment Nutrition - Final Assessment Medical - Initial Assessment Medical- 30-Day Assessment Medical- 60-Day Assessment - Visit Date of Eval: 10/21/21 Session #:: 21 - Medication Compliance Preventative Medication(s):: Aspirin, Statin/lipid, Beta radha H/O mental health issues: depression, anxiety, or addiction?: No Doesn?t believe in the benefits of treatment?: No Believes medications are unnecessary or harmful?: No Has a concern about medication side effects?: No Expresses concern over the cost of medications?: No Outcomes/Goals: Verbalizes medications,desired effect & common side effects @ DC, Pt self-reports following medication regimen, Keeps card in wallet w/medications listed by DC Interventions/plans: Instruct on medication effects & side effects, Review medication list w/patient every two weeks, Instruct importance of taking meds as ordered & assist problem solving 30-day Reassessments:: Progressing - Tobacco Use Tobacco Use: Non-smoker - Hypertension Hypertension Diagnosis:: Hypertension ICD-10 I10 Resting Blood Pressure:: 126/80 - controlled [place] [employer] Hypertension Guidelines: [place] [employer] Hypertension Guidelines. Normal BP Less than 120/80. Elevated BP 120/80. Hypertension Stage 1: BP 130-139/80-89. Hypertesnion Stage 2: BP 140 or higher/90 or higher. Hypertension Crisis: BP higher than 180/120 Peak Exercise Blood Pressure:: 140/82 Outcomes/Goals: Able to verbalize/achieve optimal blood pressure <130/80, Incorporates diet changes & exercise for blood pressure control by DC Interventions/plan: Instruct on optimal blood pressure, hypertension & medications, Instruct on effects of sodium, alcohol, stress, exercise &hypertension 30 day Reassessments:: Progressing - Tobacco Cessation Referral Smoking Cessation Referral:: No Individual Education/Counseling:: No Education Schedule Given:: Yes - Actively participating in group education Medical- 90-Day Assessment Medical - Final Assessment Psychosocial - Initial Assess Psychosocial - 30-Day Assess Psychosocial - 60-Day Assess - VIsit Date of Eval: 10/21/21 Session #:: 21 Not Applicable: Yes History of previous Mental disease:: No - Psychosocial Test Tool Used:: PHQ-9 Questionnaire phq-9 Severity: Severity. 1-4 Minimal Depression. 5-9 Mild Depression. 10-14 Moderate Depression. 15-19 Moderately Sever Depression. 20-27 Severe Depression. Rule: - Referral to Behavioral Health PS - Interventions: Yes Attend Stress Management Classes, No Referral to Behavioral Health if PHQ-9 score >9:, No Referral to [facility], No Referral to Physician if PHQ-9 if score is 5-9: - Outcomes/Goals: See list Psychosocial Outcomes/Goals:: ID's personal stressors & 2 strategies to manage stress by discharge - Intervention/Plan: See List Interventions/Plan:: Assess stressors,coping strategies & signs of derpression on admission, Instruct/assist pt to develop coping & personal stress Mgt strategies, Instruct patient to recognize signs & symptoms of depression, Instruct patient to recog - 30-day Reassessments: 30 day Reassessments:: Progressing Psychosocial - 90-Day Assess Psychosocial - Final Assessmen Patient Health Questionnaire 60-Day Re-eval Assessment 1. Little interest or pleasure in doing things: Not at all 2. Feeling down, depressed, or hopeless: Not at all 3. Trouble falling or staying asleep, or sleeping too much: Not at all 4. Feeling tired or having little energy: Several days 5. Poor appetite or overeating: Not at all 6. Feeling bad about yourself -- or that you are a failure or have let yourself or your family down: Not at all 7. Trouble concentrating on things, such as reading the newspaper or watching television: Not at all 8. Moving or speaking so slowly that other people could have noticed. Or the opposite - being so fidgety or restless that you have been moving around a lot more than usual: Not at all 9. Thoughts that you would be better off , or of hurting yourself in some way: Not at all Total Score: 1 Self-Efficacy 60-Day Re-eval Assessment We would like to know how confident you are in doing certain activities. Please select your confidence level for:: Select your confidence level for the following using the scale 1-10 where 1 is not at all confident and 10 is totally confident. Your score is the average of all 6 responses. Fatigue: How confident are you that you can keep the fatigue caused by your disease from interfering with the things you want to do? Select Number: 8 Physical Discomfort or Pain: How confident are you that you can keep the physical discomfort or pain of your disease from interfering with the things you want to do? Select Number: 9 Emotional Distress: How confident are you that you can keep the emotional distress caused by your disease from interfering with the things you want to do? Select Number: 9 Other Symptoms or Health Problems: How confident are you that you can keep other symptoms or health problems from interfering with the things you want to do? Select Number: 9 Different Tasks and Activities: How confident are you that you can do the different tasks and activities needed to manage your health condition so as to reduce your need to see a doctor? Select Number: 9 Medication: How confident are you that you can do things other than just taking medication to reduce how much your illness affects your everyday life? Select Number: 10 Total Score:: 9 Nutrition Survey
[2021-10-21 07:20] VITALS: BP 126/80; BP 140/82; BMI 30.4
== END 2021-11-12 23:59 ==
LOC: CR 10:30
PROVIDERS: PCP Family Medicine; Referring Provider Internal Medicine Cardiovascular Disease; Visit Provider Internal Medicine Cardiovascular Disease
DX: R42 Dizziness and giddiness (principal); I97.89 Other postprocedural complications and disorders of the circulatory system, not elsewhere classified; I48.91 Unspecified atrial fibrillation; I42.8 Other cardiomyopathies; I34.1 Nonrheumatic mitral (valve) prolapse; I34.0 Nonrheumatic mitral (valve) insufficiency; I44.7 Left bundle-branch block, unspecified; E78.5 Hyperlipidemia, unspecified; R03.0 Elevated blood-pressure reading, without diagnosis of hypertension; Z98.890 Other specified postprocedural states
CPT/HCPCS: 93798

== ENCOUNTER 2021-11-18 10:30 | Outpatient (RCR) | payer MEDICARE, SELFPAY ==
[2021-10-21 07:20] VITALS: BMI 30.4
[2021-11-13 00:37] VITALS: BP 126/80; BP 140/82
== END 2021-12-13 23:59 ==
LOC: CR 10:30
PROVIDERS: PCP Family Medicine; Referring Provider Internal Medicine Cardiovascular Disease; Visit Provider Internal Medicine Cardiovascular Disease
DX: R42 Dizziness and giddiness (principal); I97.89 Other postprocedural complications and disorders of the circulatory system, not elsewhere classified; I48.91 Unspecified atrial fibrillation; I42.8 Other cardiomyopathies; I34.1 Nonrheumatic mitral (valve) prolapse; I34.0 Nonrheumatic mitral (valve) insufficiency; I44.7 Left bundle-branch block, unspecified; E78.5 Hyperlipidemia, unspecified; R03.0 Elevated blood-pressure reading, without diagnosis of hypertension; Z98.890 Other specified postprocedural states
CPT/HCPCS: 93798

== ENCOUNTER → 2021-11-27 | Outpatient (CLI) | payer MEDICARE, SELFPAY ==
[2021-09-17 10:31] VITALS: BMI 30.7
[2021-10-21 07:20] VITALS: BMI 30.4
--- NOTE | 2021-11-27 14:01 | CDU_ITS ---
Reason For Study: Dizziness Rt. Velocities/BP Lt. Velocities/BP Prox CCA 79.9/23.9 cm/sec. Prox CCA 70.6/23.4 cm/sec. Mid CCA 72.1/23.9 cm/sec. Mid CCA 61.9/28.9 cm/sec. Dist CCA 44.3/19 cm/sec. Dist CCA 50.9/23.4 cm/sec. Prox ICA 35.2/13.3 cm/sec. Prox ICA 48.5/20.1 cm/sec. Mid ICA 50.9/22.9 cm/sec. Mid ICA 46.6/22 cm/sec. Dist ICA 83.1/35.2 cm/sec. Dist ICA 70.2/33.3 cm/sec. Rt. ICA/CCA = 1.15. Lt. ICA/CCA = 1.13. Prox ECA 49.8/17.9 cm/sec. Prox ECA 52/16.8 cm/sec. Rt. Vert. 19.3 cm/sec. Lt. Vert. 43.6/18.7 cm/sec. Right Extracranial There is intimal thickening but no significant atherosclerotic plaque noted in the right common carotid artery. There is intimal thickening but no significant atherosclerotic plaque noted in the right internal carotid artery. There is intimal thickening but no significant atherosclerotic plaque noted in the right external carotid artery. Antegrade flow is noted in the right vertebral artery. Left Extracranial There is intimal thickening but no significant atherosclerotic plaque noted in the left common carotid artery. There is intimal thickening but no significant atherosclerotic plaque noted in the left internal carotid artery. There is intimal thickening but no significant atherosclerotic plaque noted in the left external carotid artery. Antegrade flow is noted in the left vertebral artery. Procedure Carotid Duplex 29840. This is a Carotid Duplex examination using B-mode, color flow and specral Doppler. Exam performed in department. VL/Carotid Duplex Ultrasound Interpretation Summary Mild (<50%) stenosis right extracranial internal carotid. Mild (<50%) stenosis left extracranial internal carotid. Patent and antegrade vertebrals bilaterally. Ordering Physician: Dianne Marmolejo Referring Physician: Dianne Marmolejo Performed By: Lucy Rivera RVT
== END | disposition home or self-care (01) ==
PROVIDERS: PCP Family Medicine; Referring Provider Family Medicine; Visit Provider Family Medicine
DX: R01.1 Cardiac murmur, unspecified (principal); R42 Dizziness and giddiness
CPT/HCPCS: 93880

== ENCOUNTER → 2022-04-01 | Outpatient (CLI) | payer MEDICARE, SELFPAY ==
[2021-10-21 07:20] VITALS: BMI 30.4
[2022-04-01 10:46] LABS: Hematocrit 41.2 % (37-47); Hemoglobin 13.5 g/dL (12.0-15.0); Mean Corp Hgb Conc 32.8 g/dL (32-36); Mean Corpuscular Hgb 30.8 pg (27.0-32.0); Mean Corpuscular Volume 93.8 fL (81-99); Mean Platelet Vol. 11.7 fl (6.2-12.0); Platelet Count 212 K/mm3 (150-450); RBC Distribution Width SD 45.2 fl (35.1-43.9); Red Blood Count 4.39 M/mm3 (4.2-5.4); White Blood Count 5.7 K/mm3 (4.4-11.0)
[2022-04-01 11:47] LABS: Anion Gap 5 (5-15); BUN 20 mg/dL (7-18); BUN/Creat Ratio 22.8 RATIO (10-20); Calcium,Total 9.2 mg/dL (8.5-10.1); Chloride 106 mmol/L (98-107); Creatinine, Serum 0.88 mg/dL (0.55-1.02); EST Glomerular Filtration Rate 67 mL/min (>60); Est Glom Filt Rate - Afr Amer 82 mL/min (>60); Glucose 118 mg/dL (74-106); Magnesium 2.4 mg/dL (1.6-2.6); Potassium 4.5 mmol/L (3.5-5.1); Sodium Level 139 mmol/L (136-145); Thyroid Stim Hormone (TSH) 3.22 uIU/mL (0.358-3.74)
== END | disposition home or self-care (01) ==
LOC: LAB 10:32
PROVIDERS: PCP Family Medicine; Visit Provider Internal Medicine Cardiovascular Disease
DX: R00.0 Tachycardia, unspecified (principal); I42.8 Other cardiomyopathies; I48.91 Unspecified atrial fibrillation; R55 Syncope and collapse; R42 Dizziness and giddiness; I97.89 Other postprocedural complications and disorders of the circulatory system, not elsewhere classified
CPT/HCPCS: 36415; 80048; 83735; 84443; 85027

== ENCOUNTER → 2022-04-07 | Outpatient (CLI) | payer MEDICARE, SELFPAY ==
[2021-10-21 07:20] VITALS: BMI 30.4
--- NOTE | 2022-04-07 09:55 | ECHOD_ITS ---
Reason For Study: SYNCOPE/NEAR SYNCOPE Procedure This was a 2D Doppler, Color Flow transthoracic echocardiogram. Exam performed in department. Left Ventricle Normal LV size. The estimated ejection fraction is 45 %. Stage 1 diastolic dysfunction. Septal motion consistent with IVCD. There is mild global hypokinesis of the left ventricle. Right Ventricle Normal RV size. Normal systolic function. Atria Normal left atrium. Normal right atrium. Mitral Valve Mild (1+) eccentric mitral valve insufficiency. Status post mitral valve repair with annuloplasty ring. Tricuspid Valve Normal tricuspid valve. Mild tricuspid valve insufficiency. Pulmonary artery systolic pressure is 24 mmHg. Aortic Valve Normal aortic valve. Trisinus/trileaflet aortic valve. Pulmonic Valve Normal pulmonic valve. Great Vessels Normal aortic root. Pericardium/Pleural No pericardial effusion. MMode/2D Measurements & Calculations LVIDd: 5.3 cm IVSd: 0.94 cm Ao root diam: 3.2 cm LVIDs: 4.1 cm LVPWd: 0.86 cm RVDd: 3.7 cm FS: 23.9 % LAV(MOD-bp): 51.8 ml LVAd ap4: 32.9 cm2 SV(MOD-sp4): 49.3 ml LAV(MOD-bp) Indexed: 29.8 ml/m2 LVLd ap4: 8.1 cm LAV(MOD-sp2): 51.4 ml EDV(MOD-sp4): 114.8 ml LAV(MOD-sp4): 52.8 ml EDV(sp4-el): 113.4 ml LVAs ap4: 23.5 cm2 LVLs ap4: 7.3 cm ESV(MOD-sp4): 65.6 ml ESV(sp4-el): 64.5 ml EF(MOD-sp4): 42.9 % EF(sp4-el): 43.1 % SV(sp4-el): 48.9 ml LA A4 area: 17.9 cm2 LA dimension(2D): 4.2 cm RA A4 area: 18.8 cm2 Time Measurements MV dec time: 0.33 sec Doppler Measurements & Calculations MV E max cam: 78.3 cm/sec Lat Peak E' Cam: 9.1 cm/sec Med Peak E' Cam: 5.0 cm/sec MV A max cam: 137.0 cm/sec E/E' lat: 8.6 E/E' med: 15.6 MV E/A: 0.57 MV V2 max: 147.2 cm/sec MV P1/2t max cam: 96.5 cm/sec Ao V2 max: 81.6 cm/sec MV max P.7 mmHg MV P1/2t: 78.3 msec Ao max P.7 mmHg MV V2 mean: 81.7 cm/sec MV mean P.1 mmHg MV dec slope: 360.8 cm/sec2 MV V2 VTI: 35.2 cm MVA(P1/2t): 2.8 cm2 LV V1 max: 64.5 cm/sec PA V2 max: 59.3 cm/sec TR max cam: 229.6 cm/sec LV V1 max P.7 mmHg TR max P.1 mmHg ECHO/Echo Complete Interpretation Summary Status post mitral valve repair with annuloplasty ring. Normal LV size. The estimated ejection fraction is 45 %. There is mild global hypokinesis of the left ventricle. Stage 1 diastolic dysfunction. Pulmonary artery systolic pressure is 24 mmHg. Mild (1+) eccentric mitral valve insufficiency. Compared to previous study, the left ventricular systolic function is the same. . Ordering Physician: Aubrey Beltre Referring Physician: LUIS GRAJEDA Performed By: Jina Brenner RDCS
== END | disposition home or self-care (01) ==
PROVIDERS: PCP Family Medicine; Visit Provider Internal Medicine Cardiovascular Disease
DX: R06.02 Shortness of breath (principal); I42.8 Other cardiomyopathies; R55 Syncope and collapse; R42 Dizziness and giddiness; R00.0 Tachycardia, unspecified; Z98.890 Other specified postprocedural states; I34.1 Nonrheumatic mitral (valve) prolapse; I34.0 Nonrheumatic mitral (valve) insufficiency
CPT/HCPCS: 93306

== ENCOUNTER → 2022-06-10 | Outpatient (CLI) | payer MEDICARE, SELFPAY ==
[2021-10-21 07:20] VITALS: BMI 30.4
== END | disposition home or self-care (01) ==
LOC: LABSPEC 15:58
PROVIDERS: PCP Family Medicine; Visit Provider Family Medicine
DX: R35.0 Frequency of micturition (principal)
CPT/HCPCS: 87086

== ENCOUNTER → 2022-07-30 | Outpatient (CLI) | payer MEDICARE, SELFPAY ==
[2021-10-21 07:20] VITALS: BMI 30.4
[2022-07-30 16:54] LABS: Anion Gap 5 (5-15); BUN 19 mg/dL (7-18); BUN/Creat Ratio 22.9 RATIO (10-20); Calcium,Total 9.2 mg/dL (8.5-10.1); Chloride 110 mmol/L (98-107); Creatinine, Serum 0.83 mg/dL (0.55-1.02); EST Glomerular Filtration Rate 72 mL/min (>60); Est Glom Filt Rate - Afr Amer 87 mL/min (>60); Glucose 112 mg/dL (74-106); Potassium 4.3 mmol/L (3.5-5.1); Sodium Level 142 mmol/L (136-145)
== END | disposition home or self-care (01) ==
LOC: LAB 15:50
PROVIDERS: PCP Family Medicine; Visit Provider Nurse Practitioner Family
DX: I42.8 Other cardiomyopathies (principal); I44.7 Left bundle-branch block, unspecified; R55 Syncope and collapse; Z98.890 Other specified postprocedural states
CPT/HCPCS: 36415; 80048

== ENCOUNTER → 2022-08-19 | Outpatient (CLI) | payer MEDICARE, SELFPAY ==
[2021-10-21 07:20] VITALS: BMI 30.4
--- NOTE | 2022-08-19 15:41 | MRI_ITS ---
STUDY: MRI BRAIN WITH AND WITHOUT CONTRAST (ATTENTION INTERNAL AUDITORY CANALS - I.A.C.''s) REASON FOR EXAM: Female, 72 years old. HEARING LOSS RT EAR TECHNIQUE: Standardized multiplanar fat and water weighted pulse sequences were obtained. 15 mL of IV Clariscan was administered for the contrast portion of the examination. COMPARISON: None. FINDINGS: Normal bilateral temporal bones. Normal bilateral internal auditory canals. There is no demonstrated intracanalicular or cisternal vestibular schwannoma (acoustic neuroma). There is no enhancement of the bilateral VIIth or VIIIth cranial nerves. Normal bilateral cochlea, vestibules and semicircular canals. Normal size of the ventricles and extra-axial spaces for the patient''s age. Few white matter T2 FLAIR hyperintensity foci in the left forceps major more than the right forceps major are chronic white matter ischemic changes. Normal bilateral basal ganglia. Normal thalami. Normal flow voids within the major intracranial circulation suggesting patency by spin echo criteria. Normal venous enhancement. There is no enhancing intra-axial or extra-axial abnormality. There is no extra-axial fluid accumulation. Normal sella turcica, pituitary gland, infundibular stalk, optic chiasm and hypothalamus. Normal tectal plate and pineal gland. Normal midbrain, ayah and medulla. Normal cerebellum. Normal basal cisterns. No demonstrated orbital abnormality, within the constraints of a routine brain study. Normal visualized paranasal sinuses. Normal calvarium and skull base. Normal visualized soft tissue structures. Normal visualized upper cervical spine. MRI/Brain W/WO Contrast IMPRESSION: Chronic white matter ischemic changes in the left forceps major more than the right forceps major otherwise negative unenhanced and enhanced MRI of the bilateral internal auditory canals (I.A.C''s). Electronically Signed: Des Acuna MD at 15:37 EDT ,
== END | disposition home or self-care (01) ==
LOC: MRI 15:24
PROVIDERS: PCP Family Medicine; Referring Provider Family Medicine; Visit Provider Family Medicine
DX: R42 Dizziness and giddiness (principal); H91.91 Unspecified hearing loss, right ear
CPT/HCPCS: 70553; A9575

== ENCOUNTER 2022-10-23 15:31 | Inpatient (IN) | payer MEDICARE, SELFPAY ==
[2021-10-21 07:20] VITALS: BMI 30.4
[2022-10-23] VITALS (14 sets, daily range): BP systolic 127–166; BP diastolic 80–107; PULSE 68–90; RESP 12–18; TEMP 36.6–36.9; O2SAT 95–98; BMI 31.2; BMI 30.6
--- NOTE | 2022-10-23 15:48 | ED.VIS.CHEST ---
HPI History of Present Illness Chief Complaint: Chest Other Informant: patient Onset/Context/Timing Onset: Today and Hours (1) Activity at onset: sudden Timing: Continuous Quality: Positive for Burning and Heaviness Location: - (Upper thoracic back and left arm) Worsened By: Nothing Relieved By: Nothing Associated Symptoms: Positive for Lightheadedness; Negative for Nausea, Vomiting, Diaphoresis, Dyspnea, Cough, Fever, Acid Reflux or Palpitations Narrative Narrative: Patient presents with pain in her upper back and tingling and heaviness in her left arm that began rather suddenly today. Patient states it began approxi-1 hour prior to arrival. Patient states it has been constant. Patient describes it as burning. Patient states nothing makes it better and nothing makes it worse. Patient denies any radiation of pain into her chest. Patient denies any nausea or vomiting. Patient states she felt somewhat clammy initially but did not actually break out into a sweat. Patient denies any cough or fever. Patient denies any shortness of breath. Patient admits to some mild lightheadedness but states she has had that problem intermittently for a while now. CVD Risk Factors: Positive for Hypertension; Negative for Diabetes, Hypercholesterolemia, Family History 1' </=55 or Smoking PE Risk Factors: Negative for Recent Travel/Surgery, Recent Immobilization, Prior DVT or PE or Cancer [facility] Medical History COVID-19 virus detected (05/2020) Elevated blood pressure reading in office without diagnosis of hypertension Elevated d-dimer Hyperlipidemia Intermittent palpitations Left bundle branch block (LBBB) Non-ischemic cardiomyopathy Obesity Postoperative atrial fibrillation (03/25/21) Syncope (03/06/21) Home Medications lactobacillus combination no.8 3 billion cell capsule (Adult Probiotic) 3,000 mmu cells PO DAILY 10/03/20 [History Last Taken Unknown] cholecalciferol (vitamin D3) 25 mcg (1,000 unit) capsule 25 mcg PO DAILY 01/29/22 [History Last Taken Unknown] carvedilol 6.25 mg tablet 6.25 mg PO BID #180 tabs 06/09/22 [Rx Last Taken Unknown] sacubitril 24 mg-valsartan 26 mg tablet (Entresto) 1 tab PO BID #60 tabs 08/04/22 [Rx Last Taken Unknown] Allergy/AdvReac Type Severity Reaction Status Date / Time No Known Allergies Allergy Verified 10/23/22 15:34 Family History (Reviewed 07/30/22 @ 15:26 by Kavin Tanner COMMUNITY MENTAL HEALTH WORKER, COMMUNITY MENTAL HEALTH WORKER-C) Sister Heart disease MVP Brother Heart disease PPM Father Myocardial infarction, Onset Age: 89 Sister Heart disease MVP Son Thyroid disorder Graves disease Son Thyroid disorder Hypothyroid Surgical History History of carpal tunnel release History of left heart catheterization (10/30/20) History of mitral valve repair (03/24/21) History of tubal ligation Social History Smoking Status: Never smoker alcohol intake: never substance use type: does not use caffeine: Yes Type: coffee Number of servings: 1 ROS ROS ED Constitutional Constitutional ED: Denies chills or fever(s) Eyes Eyes: Denies blurry vision or change in vision ENT ENT ED: Denies rhinorrhea or sore throat Cardiovascular Cardiovascular: Denies chest pain or palpitations Respiratory/Chest Respiratory/Chest: Reports dyspnea; Denies cough Gastrointestinal Gastrointestinal: Denies nausea or vomiting Genitourinary Genitourinary ED: Denies dysuria or hematuria Musculoskeletal Musculoskeletal: Reports back pain; Denies neck pain Integumentary Denies abscess or rash Neurologic Neurologic: Denies headache(s) or weakness Allergic/Immunologic Allergic/Immunologic ED: Denies mouth swelling or urticaria EXAM Physical Exam Const Vital Signs: 10/23/22 15:32 10/23/22 16:04 10/23/22 16:15 Temperature 98 F Temperature Source Temporal Pulse Rate 74 74 Respiratory Rate 16 12 Blood Pressure 166/99 H 148/92 H Blood Pressure Mean 121 110 Pulse Ox 98 98 Oxygen Delivery Method Room Air 10/23/22 16:30 10/23/22 17:00 10/23/22 17:15 Temperature Temperature Source Pulse Rate 71 68 Respiratory Rate 16 15 Blood Pressure 138/90 H 128/81 H 135/85 H Blood Pressure Mean 104 96 100 Pulse Ox 97 97 Oxygen Delivery Method 10/23/22 17:30 10/23/22 17:45 10/23/22 18:00 Temperature Temperature Source Pulse Rate 69 68 69 Respiratory Rate 16 17 18 Blood Pressure 127/80 H 131/86 H Blood Pressure Mean 95 101 Pulse Ox 95 97 97 Oxygen Delivery Method 10/23/22 18:15 10/23/22 19:04 10/23/22 19:00 Temperature Temperature Source Pulse Rate 90 85 Respiratory Rate 13 Blood Pressure 140/94 H 133/84 H 133/84 H Blood Pressure Mean 108 100 Pulse Ox 98 Oxygen Delivery Method Room Air Positive well nourished and well developed General Appearance ED: well developed HEENT Reports moist mucous membranes Neck supple and no JVD Resp normal respiratory effort and clear to auscultation bilaterally Cardio regular rate and regular rhythm GI normal to inspection, nondistended, normoactive bowel sounds and non-tender Palpation: soft Extremity normal to inspection General Extremety ED: Negative for edema or tenderness General Extremity: Negative for edema Neuro oriented x3, CN's II-XII intact bilaterally and no sensory deficits noted Sensorium / Orientation: awake and alert Motor Exam: strength 5/5 throughout Psych mental status grossly normal Skin no rashes or lesions noted Heart Score History: Moderately Suspicious ECG: Nonspecific Repolarization Age: >/= 65 years Risk Factors: 1 or 2 Risk Factors Score: 5 MDM MDM MDM Narrative Medical decision making narrative: Differential diagnosis includes cardiac dysrhythmia, cardiac ischemia, pulmonary embolism, aortic dissection, pneumonia, pneumothorax, congestive heart failure, and electrolyte abnormality. EKG will be obtained to assess for cardiac dysrhythmia and cardiac ischemia. Chest x-ray will be obtained to assess for pneumonia and widened mediastinum. CBC will be obtained to assess for leukocytosis and anemia. Basic metabolic profile will be obtained to assess for electrolyte abnormality and renal function. High-sensitivity troponin will be obtained to assess for cardiac ischemia. 2-hour repeat high-sensitivity troponin will be obtained to assess for ongoing cardiac ischemia. D-dimer will be obtained to assess for pulmonary embolism. Lab Data Attestation: I reviewed the patient's lab results. Lab results narrative: CBC was reviewed and was within normal limits. Basic metabolic profile was reviewed and was essentially within normal limits. D-dimer was reviewed and was normal for her age at 0.66. High-sensitivity troponin was reviewed and was normal at 13. 2-hour repeat high-sensitivity troponin was reviewed and was elevated at 266. Labs: Laboratory Results - last 24 hr 10/23/22 10/23/22 10/23/22 15:58 15:58 15:58 WBC 5.0 RBC 4.20 Hgb 13.3 Hct 39.6 MCV 94.3 MCH 31.7 MCHC 33.6 RDW Std Deviation 45.8 H RDW Coeff of Yehuda 13.2 Plt Count 213 MPV 11.6 Immature Gran % (Auto) 0.200 Neut % (Auto) 52.8 Lymph % (Auto) 30.3 [place] % (Auto) 11.3 H Eos % (Auto) 3.6 Baso % (Auto) 1.8 H Absolute Neuts (auto) 2.6 Absolute Lymphs (auto) 1.50 Nucleated RBC % 0 PT INR APTT D-Dimer Quant (PE/DVT) 0.66 H* Sodium 141 Potassium 4.2 Chloride 109 H Carbon Dioxide 26.0 Anion Gap 6 BUN 20 H Creatinine 1.03 H Estim Creat Clear Calc 39.05 Est GFR (MDRD) Af Amer 68 Est GFR (MDRD) Non-Af 56 L BUN/Creatinine Ratio 19.4 Glucose 127 H Calcium 9.3 Troponin I High Sens 13 10/23/22 10/23/22 18:10 18:58 WBC RBC Hgb Hct MCV MCH MCHC RDW Std Deviation RDW Coeff of Yehuda Plt Count MPV Immature Gran % (Auto) Neut % (Auto) Lymph % (Auto) [place] % (Auto) Eos % (Auto) Baso % (Auto) Absolute Neuts (auto) Absolute Lymphs (auto) Nucleated RBC % PT 13.5 INR 1.0 APTT 28.3 D-Dimer Quant (PE/DVT) Sodium Potassium Chloride Carbon Dioxide Anion Gap BUN Creatinine Estim Creat Clear Calc Est GFR (MDRD) Af Amer Est GFR (MDRD) Non-Af BUN/Creatinine Ratio Glucose Calcium Troponin I High Sens 266 H* Radiography Diagnostic Testing: Clinical Impression(s) from Imaging Studies Chest X-Ray 10/23/22 16:10 IMPRESSION: No definite acute or significant abnormality seen. Electronically Signed: Anders Rene MD at 16:48 EDT , Portable 1 view chest x-ray was obtained. On my independent interpretation, lung [place] are clear. There is normal cardiac silhouette. Bony thorax is normal. There is no acute process noted. Radiologist also interpreted the x-ray and agrees. EKG Initial EKG: Attestation: I personally reviewed and interpreted this EKG as follows: Interpretation: Sinus Rhythm (79) and LBBB Comments: EKG was obtained. On my independent interpretation, it showed a normal sinus rhythm with a rate of 79. RI interval was normal at 190 ms. QRS interval slightly prolonged at 154 milliseconds. QTc interval was 486 ms. There is left axis deviation at -44. There are nonspecific ST-T wave changes. Prior EKG tracings: available for review Prior: Unchanged (03/27/2021) Treatment and Re-Evaluation :: Patient was given aspirin and sublingual nitroglycerin here in the emergency department. On reevaluation, patient states that she still feels where the pain in her back was. Patient denies any pain currently. Patient was placed on nitroglycerin ointment. Patient was advised of the need for admission to the hospital. Patient is agreeable with the plan. Case will be discussed with Dr. Beltre who is on-call for cardiology. Case will be discussed with the hospitalist. Dr. Beltre agreed with heparin and admission to the hospitalist. He will see the patient tomorrow in the hospital. He had no further recommendations. Hospitalist will admit the patient to the PCU for further evaluation. Discharge Plan Dx/Rx/DC Orders Clinical Impression: Elevated troponin, Thoracic back pain Disposition Disposition: [facility]
--- NOTE | 2022-10-23 15:56 | EKG12_ITS ---
Test Reason : CP Blood Pressure : / mmHG Vent. Rate : 081 BPM Atrial Rate : 081 BPM P-R Int : 188 ms QRS Dur : 156 ms QT Int : 430 ms P-R-T Axes : 055 -48 103 degrees QTc Int : 499 ms Normal sinus rhythm Left axis deviation Left bundle branch block Abnormal ECG Confirmed by YECENIA GREENE, JALYN ([id number]), writer editor KITA SUH ([id number]) on 10/25/2022 1:21:36 PM Referred By: DEYVI Confirmed By:JALYN KEENE MD
--- NOTE | 2022-10-23 16:02 | NURSING ---
NO OLD EKGS
[2022-10-23 16:07] LABS: Absolute Neutrophil Count 2.6 X10^3/uL (2.0-7.7); Basophil# 0.09 X10^3/uL; Basophil% 1.8 % (0-1); Eosinophil# 0.18 X10^3/uL; Eosinophils% 3.6 % (0-5); Hematocrit 39.6 % (37-47); Hemoglobin 13.3 g/dL (12.0-15.0); Lymphocyte % 30.3 % (19-41); Mean Corp Hgb Conc 33.6 g/dL (32-36); Mean Corpuscular Hgb 31.7 pg (27.0-32.0); Mean Corpuscular Volume 94.3 fL (81-99); Mean Platelet Vol. 11.6 fl (6.2-12.0); Monocyte# 0.56 X10^3/uL; Monocyte% 11.3 % (0-10); NRBC Flagged by Analyzer 0 % (0-5); Neutrophil # 2.61 X10^3/uL (2.7-7.7); Neutrophil % 52.8 % (47-70); Platelet Count 213 K/mm3 (150-450); RBC Distribution Width CV 13.2 % (11.6-14.6); RBC Distribution Width SD 45.8 fl (35.1-43.9)
--- NOTE | 2022-10-23 16:10 | RAD_ITS ---
STUDY: X-RAY CHEST REASON FOR EXAM: Female, 72 years old. chest pain TECHNIQUE: Single AP portable view of the chest. COMPARISON: 10/23/2020. FINDINGS: The lungs are clear and expanded. There is no demonstrated pleural abnormality. There is mild to moderate cardiac enlargement. Since prior study patient has had median sternotomy and placement of prosthetic valve. Normal mediastinum and nicolás. Normal visualized pulmonary arteries. There is atherosclerotic tortuosity of the aortic arch and descending thoracic aorta. Normal visualized thoracic spine. Normal visualized ribs, clavicles, and shoulders. There is no demonstrated abnormality of the visualized soft tissue structures of the upper abdomen. RAD/Chest 1 View (Portable) IMPRESSION: No definite acute or significant abnormality seen. Electronically Signed: Anders Rene MD at 16:48 EDT ,
[2022-10-23] MEDS: Aspirin 81 MG TAB.CHEW 324 MG PO (16:11)
[2022-10-23 16:20] LABS: Anion Gap 6 (5-15); BUN 20 mg/dL (7-18); BUN/Creat Ratio 19.4 RATIO (10-20); Calcium,Total 9.3 mg/dL (8.5-10.1); Chloride 109 mmol/L (98-107); Creatinine, Serum 1.03 mg/dL (0.55-1.02); EST Glomerular Filtration Rate 56 mL/min (>60); Est Glom Filt Rate - Afr Amer 68 mL/min (>60); Estimated Creatinine Clearance 39.05 ml/min; Glucose 127 mg/dL (74-106); Potassium 4.2 mmol/L (3.5-5.1); Sodium Level 141 mmol/L (136-145); Troponin-I HS (w/2H Reflex) 13 pg/mL (3.0-54.0)
[2022-10-23 16:30] LABS: D-Dimer Quantitative (DVT/PE) 0.66 FEU/ug/m (0.27-0.49)
[2022-10-23 18:01] LABS: Reflex Troponin-HS? (from REC) Y
[2022-10-23 18:47] LABS: Troponin-I HS 266 pg/mL (3.0-54.0)
[2022-10-23] MEDS: Nitroglycerin Oint 1 INCH PACKET TRANSDERM. (19:04)
[2022-10-23 19:13] LABS: Partial Thromboplast Time 28.3 Seconds (24.1-36.2); Prothrombin Time (Protime)PT. 13.5 SECONDS (11.7-14.9)
[2022-10-23] MEDS: HEPARIN/D5w 25,000 UNITS 25,000 UNITS/250 ML IV.SOLN. 9 UNITS CONT INF (19:34)
[2022-10-23] MEDS: Heparin Injection (Vial) 5,000 UNIT/ML VIAL 4000 UNIT IV (19:35)
--- NOTE | 2022-10-23 19:49 | EKG12_ITS ---
Test Reason : CHEST OTHER Blood Pressure : / mmHG Vent. Rate : 079 BPM Atrial Rate : 079 BPM P-R Int : 190 ms QRS Dur : 154 ms QT Int : 424 ms P-R-T Axes : 058 -44 100 degrees QTc Int : 486 ms Normal sinus rhythm Left axis deviation Left bundle branch block Abnormal ECG Confirmed by YECENIA GREENE, JALYN ([id number]), film editor KITA SUH ([id number]) on 10/25/2022 1:22:06 PM Referred By: TACHO Confirmed By:JALYN KEENE MD
--- NOTE | 2022-10-23 19:49 | PCM.HP.STD ---
HPI - General General Date of Admission: 10/23/22 Date of Service: 10/23/22 Chief Complaint: Upper back pain HPI Narrative SHINE LAWS, is a 72 F with a significant history of hypertension, and and mitral valve repair who presents emergency department with upper back pain that started about an hour before presentation. The pain radiated to her left arm where she had heaviness and tingling. The pain started suddenly. The pain started after lunch while standing. She rated the pain as 9-10 on onset. The pain remained steady. She denies any aggravating ameliorating factors to the pain. Also she felt hot for a couple of minutes. She denies any nausea, vomiting or shortness of breath with the pain. At the emergency department she was given aspirin and nitroglycerin which she thinks had brought the pain down. 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 Since May 2021 patient has had some lightheadedness on and off for which is a cause has not been found after multiple test. [facility] Medical History COVID-19 virus detected (05/2020) Elevated blood pressure reading in office without diagnosis of hypertension Elevated d-dimer Hyperlipidemia Intermittent palpitations Left bundle branch block (LBBB) Non-ischemic cardiomyopathy Obesity Postoperative atrial fibrillation (03/25/21) Syncope (03/06/21) Home Medications carvedilol 6.25 mg tablet 6.25 mg PO BID #180 tabs 06/09/22 [Rx Last Taken Unknown] sacubitril 24 mg-valsartan 26 mg tablet (Entresto) 1 tab PO BID 10/23/22 [History Last Taken Unknown] Allergy/AdvReac Type Severity Reaction Status Date / Time No Known Allergies Allergy Verified 10/23/22 15:34 Family History Sister Heart disease MVP Brother Heart disease PPM Father Myocardial infarction, Onset Age: 89 Sister Heart disease MVP Son Thyroid disorder Graves disease Son Thyroid disorder Hypothyroid Surgical History History of carpal tunnel release History of left heart catheterization (10/30/20) History of mitral valve repair (03/24/21) History of tubal ligation Social History Smoking Status: Never smoker alcohol intake: never substance use type: does not use caffeine: Yes Type: coffee Number of servings: 1 ROS ROS Narrative Pertinent positives and pertinent negatives as noted in HPI. All other systems were reviewed and are negative Vital Signs Vital Signs Vital Signs: 10/23/22 15:32 10/23/22 16:04 10/23/22 16:15 Temperature 98 F Temperature Source Temporal Pulse Rate 74 74 Respiratory Rate 16 12 Blood Pressure 166/99 H 148/92 H Blood Pressure Mean 121 110 Pulse Ox 98 98 Oxygen Delivery Method Room Air 10/23/22 16:30 10/23/22 17:00 10/23/22 17:15 Temperature Temperature Source Pulse Rate 71 68 Respiratory Rate 16 15 Blood Pressure 138/90 H 128/81 H 135/85 H Blood Pressure Mean 104 96 100 Pulse Ox 97 97 Oxygen Delivery Method 10/23/22 17:30 10/23/22 17:45 10/23/22 18:00 Temperature Temperature Source Pulse Rate 69 68 69 Respiratory Rate 16 17 18 Blood Pressure 127/80 H 131/86 H Blood Pressure Mean 95 101 Pulse Ox 95 97 97 Oxygen Delivery Method 10/23/22 18:15 10/23/22 19:04 10/23/22 19:00 Temperature Temperature Source Pulse Rate 90 85 Respiratory Rate 13 Blood Pressure 140/94 H 133/84 H 133/84 H Blood Pressure Mean 108 100 Pulse Ox 98 Oxygen Delivery Method Room Air 10/23/22 19:30 Temperature 98.5 F Temperature Source Oral Pulse Rate 77 Respiratory Rate 13 Blood Pressure 143/100 H Blood Pressure Mean 113 Pulse Ox 97 Oxygen Delivery Method Room Air Weight Weight: 77.564 kg Body Mass Index (BMI) 31.2 Physical Exam Narrative Physical exam: General: Well-nourished, well-developed. Head: Normocephalic, atraumatic, no tenderness Eyes: Vision is grossly intact. EOMI ENT, no trauma, moist mucous membranes, no rhinorrhea Neck: Nontender, No thyromegaly. CVS: Regular rate and rhythm. S1-S2 present. No murmur, gallop or rub. Respiratory : clear to auscultation bilaterally, chest wall nontender Abdomen: Soft, nontender, nondistended, normal bowel sounds, no masses : Deferred Back: Nontender, no CVA tenderness, no midline spinal tenderness, deformities, step-offs Extremities: Nontender full range of motion, no trauma Skin: Normal color, no trauma, abrasions Neuro: Alert, oriented, cranial nerves II through XII grossly intact. Psychiatry: Normal mood. Normal affect. Not depressed. Not anxious. Results Lab / Micro Data Result Diagrams: 10/23/22 15:58 10/23/22 15:58 Labs: Laboratory Results - last 24 hr 10/23/22 15:58: WBC 5.0, RBC 4.20, Hgb 13.3, Hct 39.6, MCV 94.3, MCH 31.7, MCHC 33.6, RDW Std Deviation 45.8 H, RDW Coeff of Yehuda 13.2, Plt Count 213, MPV 11.6, Immature Gran % (Auto) 0.200, Neut % (Auto) 52.8, Lymph % (Auto) 30.3, [place] % (Auto) 11.3 H, Eos % (Auto) 3.6, Baso % (Auto) 1.8 H, Absolute Neuts (auto) 2.6, Absolute Lymphs (auto) 1.50, Nucleated RBC % 0 10/23/22 15:58: D-Dimer Quant (PE/DVT) 0.66 H* 10/23/22 15:58: Sodium 141, Potassium 4.2, Chloride 109 H, Carbon Dioxide 26.0, Anion Gap 6, BUN 20 H, Creatinine 1.03 H, Estim Creat Clear Calc 39.05, Est GFR (MDRD) Af Amer 68, Est GFR (MDRD) Non-Af 56 L, BUN/Creatinine Ratio 19.4, Glucose 127 H, Calcium 9.3, Troponin I High Sens 13 10/23/22 18:10: Troponin I High Sens 266 H* 10/23/22 18:58: PT 13.5, INR 1.0, APTT 28.3 Radiology Impression Chest X-Ray 10/23/22 16:10 IMPRESSION: No definite acute or significant abnormality seen. Electronically Signed: Anders Rene MD at 16:48 EDT , Assessment & Plan Assessment/Plan (1) Non-STEMI (non-ST elevated myocardial infarction): (2) Elevated troponin: (3) Non-ischemic cardiomyopathy: PLAN: Plan Elevated troponin Non-STEMI Initial high sensitive troponin was 13. 2-hour repeat was 266. Trend. Place on a monitored bed at progressive care unit Actual CXR image was independently visualized. No acute cardiopulmonary process was noted. Agrees with radiology interpretation. Actual EKG tracing was independently visualized. EKG tracing showed left bundle branch block which is unchanged from previous. ASA 81 mg p.o. daily ordered Nitroglycerin ointment placed on patient's at the emergency department and continued. Morphine as needed for pain ordered We will check lipid panel. Statin: Started on high intensity statin. Will check CMP. Anticoagulation: Per cardiology recommendation patient was started on heparin drip at the emergency department, continued. We will keep n.p.o. for now. If pain remains steady and troponin is steady consider resuming diet until then further interventions will be done. Serial cardiac enzymes ordered Stat EKG as needed for chest pain Cardiology consult History of nonischemic cardiomyopathy with borderline reduced ejection fraction. Last echocardiogram on file was on 04/07/2022. Echocardiogram at that time showed ejection fraction of 45% with stage I diastolic dysfunction and septal motion sickness with IVCD. There was mild global hypokinesis of the left ventricle. There was mild 1+ eccentric mitral valve insufficiency. Status post mitral valve repair with annuloplasty ring. Normal transcatheter valve. Mild tricuspid valve insufficiency. Pulm artery study pressure was 24 mmHg. Additionally echocardiogram on 09/16/2021 showed estimated ejection fraction of 47%. Will continue home Entresto and carvedilol. Repeat echocardiogram. Hypertension Blood pressure is not within goal Home blood pressure medication continued. As needed hydralazine ordered. Trend blood pressure and adjust blood pressure medications. DVT prophylaxis: Not indicated as patient has be started on heparin drip from the emergency department; and heparin drip has been continued Charges/Coding Visit Charges Inpatient E&M: 14646 Init Hosp L3
--- NOTE | 2022-10-23 20:22 | ECHOD_ITS ---
Version 2 Reason For Study: Chest pain Procedure This was a 2D Doppler, Color Flow transthoracic echocardiogram. The study was technically difficult. Exam performed portable in ICU/CCU. Left Ventricle Normal LV size. The estimated ejection fraction is 20 %. Severe segmental systolic dysfunction (see wall motion). [place] : Akinetic. Anterior [place] : Severely Hypokinetic. Mid-Anterior : Severely Hypokinetic. Anterio-Basal: Normal. Infero-Basal: Normal. Right Ventricle Normal RV size. Normal systolic function. Atria Normal left atrium. Normal right atrium. Mitral Valve Status post mitral valve repair with annuloplasty ring. Tricuspid Valve Normal tricuspid valve. Mild (1+) tricuspid valve insufficiency. Pulmonary artery systolic pressure is 34 mmHg. Aortic Valve Trisinus/trileaflet aortic valve. Pulmonic Valve Normal pulmonic valve. Great Vessels Normal aortic root. The pulmonary artery is normal size. Normal inferior vena cava. Pericardium/Pleural No pericardial effusion. MMode/2D Measurements & Calculations LVIDd: 5.0 cm IVSd: 0.97 cm Ao root diam: 3.6 cm LVIDs: 4.1 cm LVPWd: 1.2 cm RVDd: 3.3 cm FS: 19.5 % LAV(MOD-bp): 68.8 ml LVAd ap4: 42.5 cm2 LVAd ap2: 37.4 cm2 LAV(MOD-bp) Indexed: 38.5 ml/m2 LVLd ap4: 9.2 cm LVLd ap2: 8.6 cm LAV(MOD-sp2): 56.6 ml EDV(MOD-sp4): 163.3 ml EDV(MOD-sp2): 138.6 ml LAV(MOD-sp4): 81.3 ml EDV(sp4-el): 166.7 ml EDV(sp2-el): 138.9 ml LVAs ap4: 35.4 cm2 LVAs ap2: 31.5 cm2 LVLs ap4: 8.4 cm LVLs ap2: 8.1 cm ESV(MOD-sp4): 123.0 ml ESV(MOD-sp2): 103.4 ml ESV(sp4-el): 126.5 ml ESV(sp2-el): 104.9 ml EF(MOD-sp4): 24.7 % EF(MOD-sp2): 25.4 % EF(sp4-el): 24.1 % SV(MOD-sp4): 40.3 ml SV(MOD-sp2): 35.1 ml SV(sp4-el): 40.2 ml LA dimension(2D): 4.0 cm LA A4 area: 22.4 cm2 RA A4 area: 19.0 cm2 Time Measurements MV dec time: 0.18 sec Doppler Measurements & Calculations MV E max cam: 71.1 cm/sec Lat Peak E' Cam: 4.2 cm/sec Med Peak E' Cam: 3.7 cm/sec MV A max cam: 135.4 cm/sec E/E' lat: 16.8 E/E' med: 19.2 MV E/A: 0.52 MV V2 max: 159.0 cm/sec MV P1/2t max cam: 85.4 cm/sec Ao V2 max: 80.2 cm/sec MV max P.1 mmHg MV P1/2t: 58.1 msec Ao max P.6 mmHg MV V2 mean: 90.8 cm/sec MV dec slope: 430.9 cm/sec2 Ao V2 mean: 67.4 cm/sec MV mean P.9 mmHg Ao mean P.9 mmHg MV V2 VTI: 27.8 cm MVA(P1/2t): 3.8 cm2 Ao V2 VTI: 15.7 cm LV V1 max: 73.9 cm/sec PA V2 max: 48.2 cm/sec PI end-d cam: 155.3 cm/sec LV V1 max P.2 mmHg TR max cam: 273.5 cm/sec TR max P.9 mmHg ECHO/Echo Complete W/ Contrast Interpretation Summary The estimated ejection fraction is 20 %. Normal LV size. Severe segmental systolic dysfunction (see wall motion). Pulmonary artery systolic pressure is 34 mmHg. Mild (1+) tricuspid valve insufficiency. Status post mitral valve repair with annuloplasty ring. Above suggestive of [place]. Compared to previous study, the left ventricular systolic function has worsened.. [place] Physician: Christiano Sapp Referring Physician: Dianne Marmolejo Performed By: Mery Tanner, SANDRA, RVT
[2022-10-23] MEDS: SACUBITRIL/VALSARTAN 24/26 MG TABLET 1 EACH PO (22:08)
[2022-10-23] MEDS: Atorvastatin Calcium 40 MG Tablet PO (22:08)
[2022-10-23] MEDS: Carvedilol 6.25 MG Tablet PO (22:08)
[2022-10-24] VITALS (10 sets, daily range): BP systolic 103–116; BP diastolic 68–80; PULSE 73–82; RESP 16; TEMP 36.1–37; O2SAT 94–97
[2022-10-24] MEDS: Nitroglycerin Oint 1 INCH PACKET TD ×4 (00:09→16:42)
[2022-10-24 01:52] LABS: Partial Thromboplast Time 180.5 Seconds (24.1-36.2)
[2022-10-24 02:05] LABS: Troponin-I HS 5343 pg/mL (3.0-54.0)
[2022-10-24] MEDS: 0.9% Saline Lock 10 ML Syringe IV (03:34)
[2022-10-24 03:48] LABS: Absolute Lymphocyte Count 2.01 X10^3/uL (0.83-4.51); Absolute Neutrophil Count 5.7 X10^3/uL (2.0-7.7); Basophil# 0.06 X10^3/uL; Basophil% 0.7 % (0-1); Eosinophil# 0.15 X10^3/uL; Eosinophils% 1.7 % (0-5); Hematocrit 37.5 % (37-47); Hemoglobin 12.6 g/dL (12.0-15.0); Lymphocyte # 2.01 X10^3/ul (0.83-4.51); Lymphocyte % 22.6 % (19-41); Mean Corp Hgb Conc 33.6 g/dL (32-36); Mean Corpuscular Hgb 31.7 pg (27.0-32.0); Mean Corpuscular Volume 94.2 fL (81-99); Mean Platelet Vol. 12.6 fl (6.2-12.0); Monocyte# 0.92 X10^3/uL; Monocyte% 10.4 % (0-10); NRBC Flagged by Analyzer 0 % (0-5); Neutrophil # 5.72 X10^3/uL (2.7-7.7); Neutrophil % 64.4 % (47-70); Platelet Count 199 K/mm3 (150-450); RBC Distribution Width CV 13.2 % (11.6-14.6); RBC Distribution Width SD 45.5 fl (35.1-43.9); Red Blood Count 3.98 M/mm3 (4.2-5.4); White Blood Count 8.9 K/mm3 (4.4-11.0)
[2022-10-24 04:00] LABS: AST(SGOT) 31 U/L (15-37); Alanine Aminotransfer ALT/SGPT 25 U/L (13-56); Albumin, Serum 3.4 g/dL (3.2-5.0); Alkaline Phosphatase 61 U/L (45-117); Anion Gap 7 (5-15); BUN 20 mg/dL (7-18); Calcium,Total 8.8 mg/dL (8.5-10.1); Chloride 113 mmol/L (98-107); Cholesterol 218 mg/dL (200); Creatinine, Serum 0.74 mg/dL (0.55-1.02); EST Glomerular Filtration Rate 82 mL/min (>60); Est Glom Filt Rate - Afr Amer 99 mL/min (>60); Estimated Creatinine Clearance 40.22 ml/min; Globulin 3.3 g/dL (2.2-4.2); Glucose 95 mg/dL (74-106); High Density Lipoprotein 71 mg/dL; Potassium 3.8 mmol/L (3.5-5.1); Protein, Total 6.7 g/dL (6.4-8.2); Sodium Level 143 mmol/L (136-145); Triglycerides 56 mg/dL; Very Low Density Lipoprotein 11 mg/dL (5-40)
[2022-10-24] MEDS: SACUBITRIL/VALSARTAN 24/26 MG TABLET 1 EACH PO ×2 (08:03→20:33)
[2022-10-24] MEDS: Carvedilol 6.25 MG Tablet PO ×2 (08:03→16:42)
[2022-10-24] MEDS: Aspirin E.C. 81 MG Tablet PO (08:03)
[2022-10-24 09:53] LABS: Partial Thromboplast Time 64.3 Seconds (24.1-36.2)
--- NOTE | 2022-10-24 10:16 | CT_ITS ---
STUDY: CTA CHEST REASON FOR EXAM: Female, 72 years old. NSTEMI, mitral valve repair 2020, A. FIB, hypertension RADIATION DOSAGE (If Supplied By Facility): CTDIvol = ( 9.42 ) mGy, DLP = ( 328.22 ) mGycm TECHNIQUE: The examination was performed with the intravenous administration of IV 100mL Isovue-370. Post-processing of the angiographic images was performed, with multiplanar reformation and 3D reconstruction. Individualized dose optimization techniques were used for this CT. COMPARISON: Chest x-ray FINDINGS: Normal enhancement of the main pulmonary artery and right and left pulmonary arteries. Normal enhancement of the bilateral peripheral pulmonary arteries. There is no demonstrated pulmonary embolism. There is atherosclerotic calcification of the aortic arch with tortuosity. There is no demonstrated aortic dissection. Sternal cerclage wires are present from a prior sternotomy. There is mitral valve prosthesis. There are calcifications of the coronary arteries. Normal mediastinum. Normal hilar regions. Normal visualized trachea and bronchi. The lungs are well expanded. There is lower lung atelectasis. Normal pleura. Normal chest wall structures. There are degenerative changes of thoracic spine. Normal visualized upper abdomen. CT/CTA Chest W/WO Contrast IMPRESSION: CTA chest examination, without a demonstrated pulmonary embolism or arterial dissection. Lower lung atelectasis. Electronically Signed: Pedro Meyer MD at 12:56 EDT ,
--- NOTE | 2022-10-24 10:22 | CON.PCM.CA_ITS ---
Assessment & Plan Assessment/Plan (1) Non-STEMI (non-ST elevated myocardial infarction): PLAN: She presents with chest and back discomfort and has cardiac elevated enzymes suggestive of a non-ST elevation myocardial infarction. She did have normal coronary arteries approximately 2-1/2 years ago. I would like us to obtain a CT scan of the chest to exclude a pulmonary embolism. If this is excluded then we will proceed with a left heart catheterization in the a.m. I have explained this to her and her family they understand and agree to proceed. (2) History of mitral valve repair: PLAN: She is status post mitral valve repair with a Mike annuloplasty ring. P2 was resected. She has had follow-up echocardiograms which have demonstrated well-seated ring and is stable valve apparatus (3) Non-ischemic cardiomyopathy: PLAN: She does have evidence of nonischemic cardiomyopathy with an estimated ejection fraction of 45 to 50%. We will continue her current medication with the beta-radha as well as the Entresto. (4) Left bundle branch block (LBBB): PLAN: She does have a chronic left bundle branch block. We will continue to follow the above Thank you for allowing me to participate in the care of your patient. Please don't hesitate to call if any issues arise. HPI Consult Data Date of Consult: 10/24/22 HPI Narrative HPI Narrative: SHINE LAWS, is a 72 F who presents with chest and back discomfort. She says that she was partaking in her usual activities of daily living when she started having this discomfort with some radiation to the arm. She has not been under any unusual stress and has had occasional dizziness but no diaphoresis no near syncope or syncope she has not had any leg discomfort she has intermittent leg swelling. As you remember she was diagnosed with mitral regurgitation.? She underwent a cardiac catheterization which demonstrated essentially normal coronary arteries.? She was referred to the [facility] and underwent mitral valve repair with annuloplasty ring in March 2021.? She did quite well postoperatively.? ? Her echocardiogram from September 2021 demonstrated an ejection fraction of 47% with global mild systolic dysfunction.? Mitral valve was well-se ated.? She does have a left bundle branch block. She has been on medications and has been investigated for intermittent dizziness. An event monitor demonstrating no significant abnormalities. [facility] Medical History COVID-19 virus detected (05/2020) Elevated blood pressure reading in office without diagnosis of hypertension Elevated d-dimer Hyperlipidemia Intermittent palpitations Left bundle branch block (LBBB) Non-ischemic cardiomyopathy Obesity Postoperative atrial fibrillation (03/25/21) Syncope (03/06/21) Home Medications carvedilol 6.25 mg tablet 6.25 mg PO BID #180 tabs 06/09/22 [Rx Last Taken Unknown] sacubitril 24 mg-valsartan 26 mg tablet (Entresto) 1 tab PO BID 10/23/22 [History Last Taken Unknown] Allergy/AdvReac Type Severity Reaction Status Date / Time No Known Allergies Allergy Verified 10/23/22 15:34 Family History Sister Heart disease MVP Brother Heart disease PPM Father Myocardial infarction, Onset Age: 89 Sister Heart disease MVP Son Thyroid disorder Graves disease Son Thyroid disorder Hypothyroid Surgical History History of carpal tunnel release History of left heart catheterization (10/30/20) History of mitral valve repair (03/24/21) History of tubal ligation Social History Smoking Status: Never smoker alcohol intake: never substance use type: does not use caffeine: Yes Type: coffee Number of servings: 1 ROS Constitutional Constitutional: Denies fever(s) or weight loss Eyes Eyes: Reports systems reviewed and no addt'l complaints, except as documented ENT HEENT: Reports systems reviewed and no addt'l complaints, except as documented Cardiovascular Cardiovascular: Reports chest pain at rest; Denies chest pain with activity, dyspnea at rest, dyspnea on exertion, edema, palpitations or paroxysmal nocturnal dyspnea Respiratory/Chest Respiratory/Chest: Denies dyspnea on exertion, productive cough, shortness of breath at rest or shortness of breath with exertion Gastrointestinal Gastrointestinal: Denies change in bowel habits, nausea, vomiting or weight changes Genitourinary Genitourinary: Denies difficulty urinating Musculoskeletal Musculoskeletal: Denies joint stiffness or muscle weakness Integumentary Integumentary: Denies lesions Neurologic Neurologic: Denies dizziness or syncope Psychiatric Psychiatric: Denies anxiety Endocrine Endocrinology: Denies excessive sweating or fatigue Hematologic/Lymphatic Hematologic/Lymphatic: Denies anemia Allergic/Immunologic Allergic/Immunologic: Denies seasonal rhinorrhea Physical Exam Const alert, oriented x3 and no apparent distress General Appearance: cooperative HEENT hearing grossly normal bilaterally Head and Scalp: atraumatic Eyes EOMs intact bilaterally Neck General: normal visual inspection Chest inspection of chest normal and palpation of chest normal Resp normal respiratory effort Auscultation: clear to auscultation bilaterally Cardio regular rate, regular rhythm, S1 normal heart sound and S2 normal heart sound Jugular Venous Distention: JVD GI normal to inspection, nondistended, normoactive bowel sounds Extremity normal capillary refill and no pedal edema Peripheral Pulses: Yes pulses 2+ throughout and femoral pulses present Skin no rashes or lesions noted Neuro oriented x3 and CN's II-XII intact bilaterally Psych Appearance: grossly normal and appropriate Risk Stratification Risk Stratification Applicable: Yes Age >/= 65: Yes >/= 3 CAD Risk Factors (HTN, HLD, DM, family hx of CAD, or current smoker): No Aspirin Use in the Past 7 Days: No Severe Angina (>/= episodes in 24 hours): No EKG ST Changes >/= 0.5mm: No Positive Cardiac Marker: Yes BELLA Risk Stratification Score: 2 BELLA % Risk: 8% Risk Objective Data Vital Signs: Vital Signs Temp Pulse Resp BP Pulse Ox O2 Del Method 98.6 F 73 16 105/80 97 Room Air 10/24/22 07:52 10/24/22 07:52 10/24/22 07:52 10/24/22 07:52 10/24/22 07:52 10/24/22 07:56 Oxygen Delivery Method Room Air Weight: 167 lb 8.821 oz Body Mass Index (BMI) 30.6 Intake & Output: Intake and Output for Last 24 Hours 10/22/22 10/23/22 10/24/22 23:59 23:59 23:59 Intake Total 57.75 / 57.75 Balance 57.75 / 57.75 Lab / Micro Data Result Diagrams: 10/24/22 01:34 10/24/22 01:34 Labs: Laboratory Results - last 24 hr 10/23/22 15:58: WBC 5.0, RBC 4.20, Hgb 13.3, Hct 39.6, MCV 94.3, MCH 31.7, MCHC 33.6, RDW Std Deviation 45.8 H, RDW Coeff of Yehuda 13.2, Plt Count 213, MPV 11.6, Immature Gran % (Auto) 0.200, Neut % (Auto) 52.8, Lymph % (Auto) 30.3, Sutter % (Auto) 11.3 H, Eos % (Auto) 3.6, Baso % (Auto) 1.8 H, Absolute Neuts (auto) 2.6, Absolute Lymphs (auto) 1.50, Nucleated RBC % 0 10/23/22 15:58: D-Dimer Quant (PE/DVT) 0.66 H* 10/23/22 15:58: Sodium 141, Potassium 4.2, Chloride 109 H, Carbon Dioxide 26.0, Anion Gap 6, BUN 20 H, Creatinine 1.03 H, Estim Creat Clear Calc 39.05, Est GFR (MDRD) Af Amer 68, Est GFR (MDRD) Non-Af 56 L, BUN/Creatinine Ratio 19.4, Glucose 127 H, Calcium 9.3, Troponin I High Sens 13 10/23/22 18:10: Troponin I High Sens 266 H* 10/23/22 18:58: PT 13.5, INR 1.0, APTT 28.3 10/24/22 01:34: WBC 8.9, RBC 3.98 L, Hgb 12.6, Hct 37.5, MCV 94.2, MCH 31.7, MCHC 33.6, RDW Std Deviation 45.5 H, RDW Coeff of Yehuda 13.2, Plt Count 199, MPV 12.6 H, Immature Gran % (Auto) 0.200, Neut % (Auto) 64.4, Lymph % (Auto) 22.6, M lashonda % (Auto) 10.4 H, Eos % (Auto) 1.7, Baso % (Auto) 0.7, Absolute Neuts (auto) 5.7, Absolute Lymphs (auto) 2.01, Nucleated RBC % 0 10/24/22 01:34: Sodium 143, Potassium 3.8, Chloride 113 H, Carbon Dioxide 23.0, Anion Gap 7, BUN 20 H, Creatinine 0.74, Estim Creat Clear Calc 40.22, Est GFR (MDRD) Af Amer 99, Est GFR (MDRD) Non-Af 82, BUN/Creatinine Ratio 27.0 H, Glucose 95, Calcium 8.8, Total Bilirubin 0.50, AST 31, ALT 25, Alkaline Phosphatase 61, Total Protein 6.7, Albumin 3.4, Globulin 3.3, Albumin/Globulin Ratio 1.0, Triglycerides 56, Cholesterol 218 H, LDL Cholesterol 136 H, VLDL Cholesterol 11, HDL Cholesterol 71 10/24/22 01:34: APTT 180.5 H* 10/24/22 01:34: Troponin I High Sens 5343 H* 10/24/22 09:35: APTT 64.3 H Cardiology Labs/Tests 10/23/22 15:58: WBC 5.0, RBC 4.20, Hgb 13.3, Hct 39.6, MCV 94.3, MCH 31.7, MCHC 33.6, Plt Count 213, MPV 11.6, Immature Gran % (Auto) 0.200, Neut % (Auto) 52.8, Lymph % (Auto) 30.3, Sutter % (Auto) 11.3 H, Eos % (Auto) 3.6, Baso % (Auto) 1.8 H , Absolute Neuts (auto) 2.6, Nucleated RBC % 0 10/23/22 15:58: D-Dimer Quant (PE/DVT) 0.66 H* 10/23/22 15:58: Sodium 141, Potassium 4.2, Chloride 109 H, Carbon Dioxide 26.0, Anion Gap 6, BUN 20 H, Creatinine 1.03 H, Est GFR (MDRD) Af Amer 68, Est GFR (MDRD) Non-Af 56 L, BUN/Creatinine Ratio 19.4, Glucose 127 H, Calcium 9.3 10/23/22 18:58: PT 13.5, INR 1.0, APTT 28.3 10/24/22 01:34: WBC 8.9, RBC 3.98 L, Hgb 12.6, Hct 37.5, MCV 94.2, MCH 31.7, MCHC 33.6, Plt Count 199, MPV 12.6 H, Immature Gran % (Auto) 0.200, Neut % ( Auto) 64.4, Lymph % (Auto) 22.6, Sutter % (Auto) 10.4 H, Eos % (Auto) 1.7, Baso % (Auto) 0.7, Absolute Neuts (auto) 5.7, Nucleated RBC % 0 10/24/22 01:34: Sodium 143, Potassium 3.8, Chloride 113 H, Carbon Dioxide 23.0, Anion Gap 7, BUN 20 H, Creatinine 0.74, Est GFR (MDRD) Af Amer 99, Est GFR (MDRD) Non-Af 82, BUN/Creatinine Ratio 27.0 H, Glucose 95, Calcium 8.8, Total Bilirubin 0.50, Triglycerides 56, Cholesterol 218 H, LDL Cholesterol 136 H, VLDL Cholesterol 11, HDL Cholesterol 71 10/24/22 01:34: APTT 180.5 H* 10/24/22 09:35: APTT 64.3 H Rhythm: EKG: ECHO: Stress Test: Cardiac Cath: PCI: CT Surgery: Holter monitor: EPS: PPM: CXR: Chest CT Scan: Radiography Diagnostic Testing: Radiology Impression Chest X-Ray 10/23/22 16:10 IMPRESSION: No definite acute or significant abnormality seen. Electronically Signed: Anders Rene MD at 16:48 EDT ,
--- NOTE | 2022-10-24 11:02 | NURSING ---
pt off floor for CTA chest.
--- NOTE | 2022-10-24 13:16 | PN_ITS ---
Subjective Subjective Patient seen and examined. She was admitted with a complaint of chest pain. She is being admitted to be managed for nonstemi. She hasnt had any chest pain again overnight. Cardiology on board. Objective Data Objective Data Vital Signs: Vital Signs Temp Pulse Resp BP Pulse Ox O2 Del Method 97.7 F L 82 16 112/77 97 Room Air 10/24/22 11:05 10/24/22 11:05 10/24/22 11:05 10/24/22 11:05 10/24/22 11:05 10/24/22 11:05 Oxygen Delivery Method Room Air Weight: 167 lb 8.821 oz Body Mass Index (BMI) 30.6 Intake & Output: Intake and Output for Last 24 Hours 10/22/22 10/23/22 10/24/22 23:59 23:59 23:59 Intake Total 488.48 / 488.48 Balance 488.48 / 488.48 Lab / Micro Data Result Diagrams: 10/24/22 01:34 10/24/22 01:34 Labs: Laboratory Results - last 24 hr 10/23/22 15:58: WBC 5.0, RBC 4.20, Hgb 13.3, Hct 39.6, MCV 94.3, MCH 31.7, MCHC 33.6, RDW Std Deviation 45.8 H, RDW Coeff of Yehuda 13.2, Plt Count 213, MPV 11.6, Immature Gran % (Auto) 0.200, Neut % (Auto) 52.8, Lymph % (Auto) 30.3, Gray % (Auto) 11.3 H, Eos % (Auto) 3.6, Baso % (Auto) 1.8 H, Absolute Neuts (auto) 2.6, Absolute Lymphs (auto) 1.50, Nucleated RBC % 0 10/23/22 15:58: D-Dimer Quant (PE/DVT) 0.66 H* 10/23/22 15:58: Sodium 141, Potassium 4.2, Chloride 109 H, Carbon Dioxide 26.0, Anion Gap 6, BUN 20 H, Creatinine 1.03 H, Estim Creat Clear Calc 39.05, Est GFR (MDRD) Af Amer 68, Est GFR (MDRD) Non-Af 56 L, BUN/Creatinine Ratio 19.4, Glucose 127 H, Calcium 9.3, Troponin I High Sens 13 10/23/22 18:10: Troponin I High Sens 266 H* 10/23/22 18:58: PT 13.5, INR 1.0, APTT 28.3 10/24/22 01:34: WBC 8.9, RBC 3.98 L, Hgb 12.6, Hct 37.5, MCV 94.2, MCH 31.7, MCHC 33.6, RDW Std Deviation 45.5 H, RDW Coeff of Yehuda 13.2, Plt Count 199, MPV 12.6 H, Immature Gran % (Auto) 0.200, Neut % (Auto) 64.4, Lymph % (Auto) 22.6, Gray % (Auto) 10.4 H, Eos % (Auto) 1.7, Baso % (Auto) 0.7, Absolute Neuts (auto) 5.7, Absolute Lymphs (auto) 2.01, Nucleated RBC % 0 10/24/22 01:34: Sodium 143, Potassium 3.8, Chloride 113 H, Carbon Dioxide 23.0, Anion Gap 7, BUN 20 H, Creatinine 0.74, Estim Creat Clear Calc 40.22, Est GFR (MDRD) Af Amer 99, Est GFR (MDRD) Non-Af 82, BUN/Creatinine Ratio 27.0 H, Glucose 95, Calcium 8.8, Total Bilirubin 0.50, AST 31, ALT 25, Alkaline Phosphatase 61, Total Protein 6.7, Albumin 3.4, Globulin 3.3, Albumin/Globulin Ratio 1.0, Triglycerides 56, Cholesterol 218 H, LDL Cholesterol 136 H, VLDL Cholesterol 11, HDL Cholesterol 71 10/24/22 01:34: APTT 180.5 H* 10/24/22 01:34: Troponin I High Sens 5343 H* 10/24/22 09:35: APTT 64.3 H Radiography Diagnostic Testing: Radiology Impression Chest X-Ray 10/23/22 16:10 IMPRESSION: No definite acute or significant abnormality seen. Electronically Signed: Anders Rene MD at 16:48 EDT , Chest CTA 10/24/22 10:16 IMPRESSION: CTA chest examination, without a demonstrated pulmonary embolism or arterial dissection. Lower lung atelectasis. Electronically Signed: Pedro Meyer MD at 12:56 EDT , Physical Exam Const alert, oriented x3 and no apparent distress General Appearance: cooperative HEENT normocephalic, head/scalp atraumatic and moist oral mucous membranes Eyes PERRL and EOMs intact bilaterally Neck no lymphadenopathy and supple Lymph Lymphatic: no lymphadenopathy noted and no lymphedema noted Resp normal respiratory effort, normal air movement and clear to auscultation bilaterally Cardio regular rate, regular rhythm, S1 normal heart sound, S2 normal heart sound and no murmurs GI normal to inspection, nondistended, normoactive bowel sounds, soft to palpation, non-tender and non-distended Extremity normal capillary refill, no clubbing, cyanosis or edema and no calf tenderness Skin General Skin Exam: no breakdown Neuro CN's II-XII intact bilaterally, no focal motor deficits, no sensory deficits noted and deep tendon reflexes 2+ bilaterally Psych thought process normal, cooperative and affect normal Appearance: appropriate Assessment & Plan Assessment/Plan (1) Non-STEMI (non-ST elevated myocardial infarction): PLAN: Plan #Nonstemi * initial troponin was 13, and trended up to a peak of 5343. * on heparin drip. * on aspirin, high intensity statin and carvedilol * cardiology on board * 2D echo ordered * for cardiac cath tomorrow * CTA was negative for any evidence of PE #Hypertension; on #Nonischemic cardiomyopathy * had echo on 04/07/2022 which showed EF of 45% with stage 1 diastolic dysfunction and mild global hypokinesis of the LV * on entresto and carvedilol * repeat echo pending. * #Hyperlipidemia: cholesterol is 218 with LDL of 136 and HDL of 71. On high intensity statin. DVT Prophylaxis; heparin drip Charges/Coding Visit Charges Inpatient E&M: 08051 Subs Hosp L2
[2022-10-24 16:30] LABS: Partial Thromboplast Time 45.8 Seconds (24.1-36.2)
[2022-10-24] MEDS: Atorvastatin Calcium 40 MG Tablet PO (20:34)
[2022-10-24] MEDS: Acetaminophen 325 MG Tablet 650 MG PO (20:34)
[2022-10-24 23:42] LABS: Partial Thromboplast Time 68.1 Seconds (24.1-36.2)
[2022-10-25] VITALS (10 sets, daily range): BP systolic 110–129; BP diastolic 76–89; PULSE 69–88; RESP 15–17; TEMP 36.1–36.6; O2SAT 94–97
[2022-10-25] MEDS: traMADol 50 MG Tablet PO (00:33)
--- NOTE | 2022-10-25 05:55 | EKG12_ITS ---
Test Reason : A.M. EKG Blood Pressure : / mmHG Vent. Rate : 072 BPM Atrial Rate : 072 BPM P-R Int : 200 ms QRS Dur : 152 ms QT Int : 504 ms P-R-T Axes : 060 -51 174 degrees QTc Int : 551 ms Normal sinus rhythm Possible Left atrial enlargement Left axis deviation Left bundle branch block Abnormal ECG When compared with ECG of 23-OCT-2022 20:06, MANUAL COMPARISON REQUIRED, DATA IS UNCONFIRMED Confirmed by YECENIA GREENE, JALYN ([id number]), editor map KITA SUH ([id number]) on 10/27/2022 12:26:10 PM Referred By: TRAY Confirmed By:JALYN KEENE MD
[2022-10-25 06:17] LABS: Partial Thromboplast Time 68.1 Seconds (24.1-36.2)
[2022-10-25] MEDS: Aspirin E.C. 81 MG Tablet PO (06:45)
[2022-10-25] MEDS: Carvedilol 6.25 MG Tablet PO (06:45)
[2022-10-25] MEDS: SACUBITRIL/VALSARTAN 24/26 MG TABLET 1 EACH PO (06:45)
[2022-10-25] MEDS: HEPARIN/D5w 25,000 UNITS 25,000 UNITS/250 ML IV.SOLN. 6 UNITS CONT INF (06:50)
[2022-10-25 08:40] LABS: Absolute Lymphocyte Count 2.46 X10^3/uL (0.83-4.51); Absolute Neutrophil Count 2.4 X10^3/uL (2.0-7.7); Basophil# 0.09 X10^3/uL; Basophil% 1.6 % (0-1); Eosinophil# 0.23 X10^3/uL; Hematocrit 40.3 % (37-47); Hemoglobin 13.2 g/dL (12.0-15.0); Lymphocyte # 2.46 X10^3/ul (0.83-4.51); Lymphocyte % 42.9 % (19-41); Mean Corp Hgb Conc 32.8 g/dL (32-36); Mean Corpuscular Hgb 30.8 pg (27.0-32.0); Mean Corpuscular Volume 94.2 fL (81-99); Mean Platelet Vol. 12.4 fl (6.2-12.0); Monocyte# 0.53 X10^3/uL; Monocyte% 9.2 % (0-10); NRBC Flagged by Analyzer 0 % (0-5); Neutrophil # 2.41 X10^3/uL (2.7-7.7); Neutrophil % 42.1 % (47-70); Platelet Count 190 K/mm3 (150-450); RBC Distribution Width CV 13.2 % (11.6-14.6); RBC Distribution Width SD 45.7 fl (35.1-43.9); Red Blood Count 4.28 M/mm3 (4.2-5.4); White Blood Count 5.7 K/mm3 (4.4-11.0)
[2022-10-25 08:44] LABS: Anion Gap 5 (5-15); BUN 21 mg/dL (7-18); BUN/Creat Ratio 25.1 RATIO (10-20); Calcium,Total 8.6 mg/dL (8.5-10.1); Chloride 113 mmol/L (98-107); Creatinine, Serum 0.84 mg/dL (0.55-1.02); EST Glomerular Filtration Rate 71 mL/min (>60); Est Glom Filt Rate - Afr Amer 86 mL/min (>60); Estimated Creatinine Clearance 47.88 ml/min; Glucose 96 mg/dL (74-106); Sodium Level 140 mmol/L (136-145)
[2022-10-25] MEDS: 0.9% Normal Saline 1,000 ML 15 ML IV (08:49)
[2022-10-25] MEDS: 0.9% Saline Lock 10 ML Syringe IV (08:49)
--- NOTE | 2022-10-25 08:51 | NURSING ---
Report called to James, labeling specialist RN at 0846. Heparin gtt stopped at this time and IV flused.
--- NOTE | 2022-10-25 09:37 | PN.CARD_ITS ---
Subjective Subjective Patient seen and evaluated Objective Data Vital Signs: Vital Signs Temp Pulse Resp BP Pulse Ox O2 Del Method 97.8 F 71 15 110/79 94 Room Air 10/25/22 06:00 10/25/22 06:00 10/25/22 06:00 10/25/22 06:00 10/25/22 06:00 10/25/22 08:00 Oxygen Delivery Method Room Air Weight: 167 lb 8.821 oz Body Mass Index (BMI) 30.6 Intake & Output: Intake and Output for Last 24 Hours 10/23/22 10/24/22 10/25/22 23:59 23:59 23:59 Intake Total 1042.28 / 1042.28 101.55 / 101.55 Balance 1042.28 / 1042.28 101.55 / 101.55 Lab / Micro Data Result Diagrams: 10/25/22 05:58 10/25/22 05:58 Labs: Laboratory Results - last 24 hr 10/24/22 09:35: APTT 64.3 H 10/24/22 15:43: APTT 45.8 H 10/24/22 22:53: APTT 68.1 H 10/25/22 05:58: APTT 68.1 H 10/25/22 05:58: WBC 5.7, RBC 4.28, Hgb 13.2, Hct 40.3, MCV 94.2, MCH 30.8, MCHC 32.8, RDW Std Deviation 45.7 H, RDW Coeff of Yehuda 13.2, Plt Count 190, MPV 12.4 H , Immature Gran % (Auto) 0.200, Neut % (Auto) 42.1 L, Lymph % (Auto) 42.9 H, Gates % (Auto) 9.2, Eos % (Auto) 4.0, Baso % (Auto) 1.6 H, Absolute Neuts (auto) 2.4, Absolute Lymphs (auto) 2.46, Nucleated RBC % 0 10/25/22 05:58: Sodium 140, Potassium 4.0, Chloride 113 H, Carbon Dioxide 22.0, Anion Gap 5, BUN 21 H, Creatinine 0.84, Estim Creat Clear Calc 47.88, Est GFR (MDRD) Af Amer 86, Est GFR (MDRD) Non-Af 71, BUN/Creatinine Ratio 25.1 H, Glucose 96, Calcium 8.6 Cardiology Labs/Tests 10/24/22 09:35: APTT 64.3 H 10/24/22 15:43: APTT 45.8 H 10/24/22 22:53: APTT 68.1 H 10/25/22 05:58: APTT 68.1 H 10/25/22 05:58: WBC 5.7, RBC 4.28, Hgb 13.2, Hct 40.3, MCV 94.2, MCH 30.8, MCHC 32.8, Plt Count 190, MPV 12.4 H, Immature Gran % (Auto) 0.200, Neut % (Auto) 42.1 L, Lymph % (Auto) 42.9 H, Gates % (Auto) 9.2, Eos % (Auto) 4.0, Baso % (Aut o) 1.6 H, Absolute Neuts (auto) 2.4, Nucleated RBC % 0 10/25/22 05:58: Sodium 140, Potassium 4.0, Chloride 113 H, Carbon Dioxide 22.0, Anion Gap 5, BUN 21 H, Creatinine 0.84, Est GFR (MDRD) Af Amer 86, Est GFR (MDRD) Non-Af 71, BUN/Creatinine Ratio 25.1 H, Glucose 96, Calcium 8.6 Rhythm: EKG: ECHO: Stress Test: Cardiac Cath: PCI: CT Surgery: Holter monitor: EPS: PPM: CXR: Chest CT Scan: Radiography Diagnostic Testing: Radiology Impression Chest CTA 10/24/22 10:16 IMPRESSION: CTA chest examination, without a demonstrated pulmonary embolism or arterial dissection. Lower lung atelectasis. Electronically Signed: Pedro Meyer MD at 12:56 EDT , Physical Exam Const alert, oriented x3 and no apparent distress General Appearance: cooperative HEENT normocephalic, head/scalp atraumatic and moist oral mucous membranes Eyes PERRL and EOMs intact bilaterally Neck no lymphadenopathy and supple Lymph Lymphatic: no lymphadenopathy noted and no lymphedema noted Resp normal respiratory effort, normal air movement and clear to auscultation bilaterally Cardio regular rate, regular rhythm, S1 normal heart sound, S2 normal heart sound and no murmurs GI normal to inspection, nondistended, normoactive bowel sounds, soft to palpation, non-tender and non-distended Extremity normal capillary refill, no clubbing, cyanosis or edema and no calf tenderness Skin General Skin Exam: no breakdown Neuro CN's II-XII intact bilaterally, no focal motor deficits, no sensory deficits noted and deep tendon reflexes 2+ bilaterally Psych thought process normal, cooperative and affect normal Appearance: appropriate Assessment & Plan Assessment/Plan (1) Non-STEMI (non-ST elevated myocardial infarction): PLAN: She presents with chest and back discomfort and has cardiac elevated enzymes suggestive of a non-ST elevation myocardial infarction. She did have normal coronary arteries approximately 2-1/2 years ago. Cardiac catheterization today demonstrated essentially normal coronary arteries Left ventricular ejection fraction was markedly reduced suggestive of Takotsubo cardiomyopathy. (2) History of mitral valve repair: PLAN: She is status post mitral valve repair with a Mike annuloplasty ring. P2 was resected. She has had follow-up echocardiograms which have demonstrated well-seated ring and is stable valve apparatus (3) Non-ischemic cardiomyopathy: PLAN: She does have evidence of nonischemic cardiomyopathy and this time appears to be Takotsubo variety with estimated ejection fraction of 25 to 30%. We will continue her current medication with the beta-radha as well as the Entresto. (4) Left bundle branch block (LBBB): PLAN: She does have a chronic left bundle branch block. We will continue to follow the above Thank you for allowing me to participate in the care of your patient. Please don't hesitate to call if any issues arise.
--- NOTE | 2022-10-25 09:46 | CL.D_ITS ---
Patient Name: SHINE LAWS Study Date: 10/25/2022 Performing: Aubrey Beltre MD Ht: 62 inches 157.48 cm : 1950 Wt: 167.55 lbs 76 kg Age: 72 Gender: female BSA: 1.77 PROCEDURE(S) PERFORMED [id number])LHC/COR/LV CLINICAL PROFILE AND INDICATIONS Indications: Suspected CAD Heart Failure: None Stress/Imaging Stress/Image Study Performed: No CAD Presentations: Non-STEMI. Symptom onset Date/Time: 10/23/22 Time Not Available CONCLUSIONS Normal coronary arteries Cardiomyopathy: Takotsubo RECOMMENDATIONS Medical therapy DESCRIPTION OF PROCEDURE The patient arrived to the procedure lab. The risks and benefits of the procedure as well as a full description of our services here and current unavailability of surgical backup were fully explained to the patient and/or their significant other prior to the catheterization. The Timeout was completed, verifying the correct patient and procedure. The patient's procedural site was prepped and draped in the usual fashion. Local anesthetic was given subcutaneously to right radial region with Lidocaine 2%. Using a modified Seldinger technique, arterial access was obtained via the right radial artery, a 6Fr sheath was inserted. Left Coronary Artery selective angiography was performed in multiple views using a 5 Fr. 4.0 Roselle catheter. Right Coronary Artery selective angiography was then performed in multiple views using a 5 Fr. JR 4 catheter. Left Ventriculography was performed in DAILY projection using a 5 Fr. Pigtail catheter. LV to AO pullback pressures were then recorded.The arterial sheath was pulled and a TR Band was applied for hemostasis w/ 10ml air CORONARY ANGIOGRAPHY DOMINANCE: Right Dominant LEFT HEART ASSESSMENT Left Ventricular Ejection Fraction: by LV Gram 25 % Anterior Hypokinesis - Severe. Apical Akinesis Consistent with Takotsubo cardiomyopathy. LEFT MAIN: Angiographically normal LEFT ANTERIOR DESCENDING ARTERY: Mild luminal irregularities CIRCUMFLEX ARTERY: Mild luminal irregularities RIGHT CORONARY ARTERY: Mild luminal irregularities VALVE FINDINGS: Mitral valve repair COMPLICATIONS No Complications PROCEDURE MEDICATIONS Versed 1 mg IV Fentanyl 50 mcg IV Oxygen: 2 L/min via nasal cannula Heparin given IA 10/25/2022 09:17:13 Verapamil 2.5mg, Ntg 100mcgs, 3000 units of Heparin given IA 10/25/2022 09:17:13 SUMMARY OF HEMODYNAMIC DATA Time AIR REST ECG 09:06:55 AO 97/58 (82) SA 09:18:50 LV 91/-2, 8 09:34:08 LV 91/-10, -4 09:34:16 LV 98/-9, -2 09:34:28 LV 0/90, 0 09:35:06 LV 89/-8, -1 09:35:15 LVp 88/-8, -1 09:35:19 AOp 100/53 (74) 09:35:26 Signed By Aubrey Beltre MD On 10/25/2022 09:45:57 Aubrey Beltre MD
--- NOTE | 2022-10-25 10:55 | CASEMGMT ---
RN CM Face to Face with patient for initial transition planning/care coordination assessment. RN CM introduced self and role at [facility]. Patient lying in bed, alert and oriented, family at bedside. Patient willing to participate in assessment and is able to answer all questions appropriately. Care providers, pharmacy, and demographics verified. Patient wishes to discharge home, denies need for home health at this time. Patient states she has no further needs or concerns at this time. CM to follow for discharge planning needs that may arise. 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 Patient states she is independent at home. Transportation: DME/HHC: Patient denies DME in the home. No previous HHC or SNF. Disposition Plan: Patient to discharge home with family support and follow-up plans in place. Will monitor for anticoagulation meds at discharge. Lucy PADILLA, RN, CM
--- NOTE | 2022-10-25 14:15 | CHAPLAIN ---
Type of Pastoral Visit _x__ Initial Visit ___ Follow-up Visit ___ On-call Visit ___ General Patient Visit ___ Spiritual Assessment ___ Family Conference ___ Bereavement ___ Rapid Response ___ Code Blue ___ Other (describe below) Pastoral Care Referral From _x__ Patient ___ Family ___ Nurse ___ Physician ___ Manager Intensive Care Unit ___ Customer Service Supervisor ___ Other (describe below) Sacrament/Intervention ___ Active listening ___ Anointing ___ Jain ___ Bereavement ___ Communion ___ Lilliana exploration ___ ___ Life review ___ Prayer ___ Reconciliation ___ Sacrament of Sick ___ Supportive presence ___ Wedding _x__ Other (describe below) Pastoral Comments several family members and clergy are present in the room at time of visit; offer of support given; support declined at this time due to own portable canteen operator able to give spiritual care
--- NOTE | 2022-10-25 15:10 | DS.PCM_ITS ---
Providers Date of Admission: 10/23/22 Date of Discharge: 10/25/22 Primary Care Physician: Dr. Dianne Marmolejo MD Consultations 10/23/22 20:22 Consult: Cardiology Routine Consulting Provider: Aubrey Beltre Reason for Consult: Chest Pain, NSTEMI EMERGENT Consult: No MD Notified: Yes Date Notified: 10/23/22 Time Notified: 19:44 Method of Notification: ED Physician Initiated Reason For Visit: NSTEMI Diagnosis Discharge Diagnosis (1) Non-STEMI (non-ST elevated myocardial infarction): Status: Acute Code(s): I21.4 - Non-ST elevation (NSTEMI) myocardial infarction (2) History of mitral valve repair: Status: Chronic Code(s): Z98.890 - Other specified postprocedural states (3) Non-ischemic cardiomyopathy: Status: Chronic Code(s): I42.8 - Other cardiomyopathies (4) Left bundle branch block (LBBB): Status: Chronic Code(s): I44.7 - Left bundle-branch block, unspecified Plan #Nonstemi * initial troponin was 13, and trended up to a peak of 5343. * on heparin drip. * on aspirin, high intensity statin and carvedilol * cardiology on board * 2D echo ordered * for cardiac cath tomorrow * CTA was negative for any evidence of PE #Hypertension; on #Nonischemic cardiomyopathy * had echo on 04/07/2022 which showed EF of 45% with stage 1 diastolic dysfunction and mild global hypokinesis of the LV * on entresto and carvedilol * repeat echo pending. * #Hyperlipidemia: cholesterol is 218 with LDL of 136 and HDL of 71. On high intensity statin. DVT Prophylaxis; heparin drip Medications at Discharge Home Medications carvedilol 6.25 mg tablet 6.25 mg PO BID #180 tabs 06/09/22 sacubitril 24 mg-valsartan 26 mg tablet (Entresto) 1 tab PO BID 10/23/22 aspirin 81 mg tablet,delayed release 81 mg PO BREAKFAST #30 tabs 10/25/22 atorvastatin 40 mg tablet 40 mg PO QHS #30 tabs 10/25/22 Hospital Course Operations None Procedures 2-D Echocardiogram and Cardiac catheterization Summary of Care Provided Minutes Spent on Discharge: 50 Hospital Course: Patient is a 72-year-old female with a past medical history as outlined which includes hypertension and mitral valve repair was admitted through the ED on 10/23/2022 with a complaint of upper back pain which radiated to her left arm. She had assisted chest heaviness and tingling. Pain was rated at 9 out of 10. She had no aggravating factors. She denied any nausea or vomiting or shortness of breath. Review of systems otherwise negative. On admission initial troponin was negative but troponin subsequently trended upwards. She was given aspirin and nitroglycerin in the ED which helped with the pain. She was admitted and m anaged for non-STEMI and started on aspirin and high intensity statin as well as heparin drip. Cardiology was consulted. CTA of the chest was negative for any evidence of ischemia. She had cardiac cath which showed clean coronaries and evidence of Takotsubo cardiomyopathy. She was continued on her home Entresto and carvedilol and aspirin and high intensity statin were added on. 2D echo showed EF of 20% with severe segmental systolic dysfunction and pulmonary artery systolic pressure of 34 mmHg. She was discharged home on 10/25/2022 and is to follow-up with her primary care doctor and with cardiology within 1 to 2 weeks. Patient seen and examined prior to discharge. She had no complaints. Review of symptoms otherwise negative. Labs and vitals reviewed. Home medication reviewed and reconciled. Physical Exam Const alert, oriented x3 and no apparent distress General Appearance: cooperative, comfortable and well kempt HEENT normocephalic, head/scalp atraumatic, hearing grossly normal bilaterally and moist oral mucous membranes Mouth: oral and palatal mucosa normal Eyes PERRL and EOMs intact bilaterally Neck no lymphadenopathy and supple Lymph Lymphatic: no lymphadenopathy noted and no lymphedema noted Resp normal respiratory effort, normal air movement and clear to auscultation bilaterally Cardio regular rate, regular rhythm, S1 normal heart sound, S2 normal heart sound and no murmurs GI normal to inspection, nondistended, normoactive bowel sounds, soft to palpation, non-tender and non-distended Extremity normal capillary refill, no clubbing, cyanosis or edema and no calf tenderness Skin General Skin Exam: no breakdown Neuro oriented x3, CN's II-XII intact bilaterally, moves all extremities, no focal motor deficits, no sensory deficits noted and deep tendon reflexes 2+ bilaterally Sensorium / Orientation: awake Psych thought process normal, cooperative and affect normal Appearance: appropriate Weight / BMI Weight Weight: 167 lb 8.821 oz Body Mass Index (BMI) 30.6 ABG / Lab / Microbiology Data Result Diagrams: 10/25/22 05:58 10/25/22 05:58 Laboratory: Laboratory Results - last 24 hr 10/24/22 15:43: APTT 45.8 H 10/24/22 22:53: APTT 68.1 H 10/25/22 05:58: APTT 68.1 H 10/25/22 05:58: WBC 5.7, RBC 4.28, Hgb 13.2, Hct 40.3, MCV 94.2, MCH 30.8, MCHC 32.8, RDW Std Deviation 45.7 H, RDW Coeff of Yehuda 13.2, Plt Count 190, MPV 12.4 H , Immature Gran % (Auto) 0.200, Neut % (Auto) 42.1 L, Lymph % (Auto) 42.9 H, Emery % (Auto) 9.2, Eos % (Auto) 4.0, Baso % (Auto) 1.6 H, Absolute Neuts (auto) 2.4, Absolute Lymphs (auto) 2.46, Nucleated RBC % 0 10/25/22 05:58: Sodium 140, Potassium 4.0, Chloride 113 H, Carbon Dioxide 22.0, Anion Gap 5, BUN 21 H, Creatinine 0.84, Estim Creat Clear Calc 47.88, Est GFR (MDRD) Af Amer 86, Est GFR (MDRD) Non-Af 71, BUN/Creatinine Ratio 25.1 H, Glucose 96, Calcium 8.6 Radiography Diagnostic Testing: Radiology Impression Echocardiogram 10/23/22 20:22 Interpretation Summary The estimated ejection fraction is 20 %. Normal LV size. Severe segmental systolic dysfunction (see wall motion). Pulmonary artery systolic pressure is 34 mmHg. Mild (1+) tricuspid valve insufficiency. Status post mitral valve repair with annuloplasty ring. Above suggestive of takutsobo. Compared to previous study, the left ventricular systolic function has worsened.. Ordering Physician: Christiano Sapp Referring Physician: Dianne Marmolejo Performed By: Mery Tanner RDCS, RVT D/C Instructions Discharge Diet: Low fat / Low cholesterol Discharge Activity: Return to Normal Activity Weight Bearing Status: Weight bearing as tolerated Call your doctor if you observe: Fever of 101 or Higher, Shortness of breath and Swelling in the ankles Meaningful Use Info Meaningful Use Diagnoses (Choose all that apply): None applicable Discharge Plan Admission Admit Date/Time: 10/23/22 19:36 Primary Reason for Your Visit: nonstemi Attending Provider: Linda Mitchell Primary Care Provider: Dianne Marmolejo Consulting Providers: Aubrey Beltre ; Christiano Sapp Instructions Patient Instructions: Takotsubo Cardiomyopathy Discharge Orders/Prescriptions Prescriptions: New atorvastatin 40 mg Tablet 40 mg PO QHS Qty: 30 2RF aspirin 81 mg Tablet,Delayed Release (Dr/Ec) 81 mg PO BREAKFAST Qty: 30 2RF Continued carvedilol 6.25 mg tablet 6.25 mg PO BID Qty: 180 4RF Rx Instructions: must administer with a meal/food Entresto 24-26 mg tablet 1 tab PO BID Label Comments: TAKE ONE TABLET BY MOUTH TWICE DAILY Referrals / Follow Up: Aubrey Beltre MD [Med Staff - Active Staff] - Within 2 Weeks Dianne Marmolejo MD [Primary Care Provider] - Within 2 Weeks Disposition Disposition (needs filled in before D/C Order can be placed): Home, Self Care Charges/Coding Visit Charges Inpatient E&M: 29636 Disch Hosp >30min
--- NOTE | 2022-10-25 15:10 | DCINST_ITS ---
Discharge Instructions Diet Discharge Diet: Low fat / Low cholesterol Activity Discharge Activity: Return to Normal Activity Weight Bearing Status: Weight bearing as tolerated Dressing / Incision Call your doctor if you observe: Fever of 101 or Higher, Shortness of breath and Swelling in the ankles Follow Up Care Test Results: Test results from this visit will be discussed in further detail at your follow- up appointment, if applicable. Discharge Plan Admission Admit Date/Time: 10/23/22 19:36 Primary Reason for Your Visit: nonstemi Attending Provider: Linda Mitchell Primary Care Provider: Dianne Marmolejo Consulting Providers: Aubrey Beltre ; Christiano Sapp Instructions Patient Instructions: Takotsubo Cardiomyopathy Discharge Orders/Prescriptions Prescriptions: New atorvastatin 40 mg Tablet 40 mg PO QHS Qty: 30 2RF aspirin 81 mg Tablet,Delayed Release (Dr/Ec) 81 mg PO BREAKFAST Qty: 30 2RF Continued carvedilol 6.25 mg tablet 6.25 mg PO BID Qty: 180 4RF Rx Instructions: must administer with a meal/food Entresto 24-26 mg tablet 1 tab PO BID Label Comments: TAKE ONE TABLET BY MOUTH TWICE DAILY Referrals / Follow Up: Aubrey Beltre MD [Med Staff - Active Staff] - Within 2 Weeks Dianne Marmolejo MD [Primary Care Provider] - Within 2 Weeks Disposition Disposition (needs filled in before D/C Order can be placed): Home, Self Care
--- NOTE | 2022-10-25 15:26 | PHA.DC.MC ---
Pharmacy Service has performed discharge medication reconciliation and counseling for this patient. 1. ASPIRIN 81MG PO BREAKFAST 2. ATORVASTATIN 40MG PO QHS The patient's discharge medication list was reviewed for discrepancies and discrepancies were resolved. Home Medications carvedilol 6.25 mg tablet 6.25 mg PO BID #180 tabs 06/09/22 sacubitril 24 mg-valsartan 26 mg tablet (Entresto) 1 tab PO BID 10/23/22 aspirin 81 mg tablet,delayed release 81 mg PO BREAKFAST #30 tabs 10/25/22 atorvastatin 40 mg tablet 40 mg PO QHS #30 tabs 10/25/22 The patient was counseled on the following discharge medications and changes in medications for homegoing were reviewed. The Reason for Use, instructions for use, and potential side effects were reviewed for all new medications. The patient's questions regarding all of their medications were answered. The patient was able to verbally demonstrate an understanding of their discharge medications.
== END 2022-10-25 16:42 | disposition home or self-care (01) | DRG 287 ==
LOC: ED 18:58 → PCU 19:56
PROVIDERS: Internal Medicine Cardiovascular Disease; Admitting Provider Hospitalist; Emergency Provider Emergency Medicine; PCP Family Medicine; Visit Provider Student in an Organized Health Care Education/Training Program
DX: I51.81 Takotsubo syndrome (principal); E78.5 Hyperlipidemia, unspecified; I10 Essential (primary) hypertension; Z79.899 Other long term (current) drug therapy; Z86.16 Personal history of COVID-19
CPT/HCPCS: 36415; 71045; 71275; 80048; 80053; 80061; 84484; 85025; 85379; 85610; 85730; 93005; 93306; 93458; 99152; 99153; 99285; J7030; Q9957; Q9967; A4216; C1769; C1894; C8929

== ENCOUNTER → 2023-01-19 | Outpatient (CLI) | payer MEDICARE, SELFPAY ==
[2021-10-21 07:20] VITALS: BMI 30.4
--- NOTE | 2023-01-19 14:57 | ECHOL_ITS ---
Version 2 Reason For Study: CHF, EVAL EF Procedure This was a limited 2D transthoracic echocardiogram. Exam performed in department. Left Ventricle Normal LV size. The estimated ejection fraction is 40 %. Mild global left ventricular systolic dysfunction. No regional wall motion abnormalities noted. Right Ventricle Normal RV size. Normal systolic function. Atria Normal left atrium. Normal right atrium. Mitral Valve Status post mitral valve repair. Tricuspid Valve Normal tricuspid valve. Mild tricuspid valve insufficiency. Aortic Valve Trisinus/trileaflet aortic valve. Pulmonic Valve Normal pulmonic valve. Great Vessels Normal aortic root. The pulmonary artery is normal size. Normal inferior vena cava. Pericardium/Pleural No pericardial effusion. MMode/2D Measurements & Calculations LVIDd: 4.9 cm IVSd: 1.2 cm Ao root diam: 3.5 cm LVIDs: 3.8 cm LVPWd: 1.1 cm RVDd: 3.5 cm FS: 22.2 % LAV(MOD-bp): 53.6 ml EDV(MOD-sp4): 85.6 ml EDV(MOD-sp2): 86.8 ml LAV(MOD-bp) Indexed: 30.3 ml/m2 ESV(MOD-sp4): 49.8 ml ESV(MOD-sp2): 46.0 ml LAV(MOD-sp2): 47.8 ml EF(MOD-sp4): 41.8 % EF(MOD-sp2): 47.0 % LAV(MOD-sp4): 61.7 ml SV(MOD-sp4): 35.8 ml SV(MOD-sp2): 40.8 ml LA A4 area: 18.9 cm2 LA dimension(2D): 4.2 cm RA A4 area: 16.3 cm2 Doppler Measurements & Calculations PA V2 max: 70.4 cm/sec PI dec slope: 123.2 cm/sec2 TR max shandra: 218.9 cm/sec TR max P.2 mmHg ECHO/Echo, Limited Study Interpretation Summary Status post mitral valve repair. Normal LV size. The estimated ejection fraction is 40 %. Mild global left ventricular systolic dysfunction. Mild tricuspid valve insufficiency. Compared to previous study, the left ventricular systolic function has improved .. Ordering Physician: Kavin Tanner Referring Physician: Dianne Marmolejo Performed By: Irma Benitez, SANDRA, RVT
== END | disposition home or self-care (01) ==
LOC: CVS 14:57
PROVIDERS: PCP Family Medicine; Referring Provider Nurse Practitioner Family; Visit Provider Nurse Practitioner Family
DX: I51.81 Takotsubo syndrome (principal); I48.91 Unspecified atrial fibrillation; I97.89 Other postprocedural complications and disorders of the circulatory system, not elsewhere classified; I34.0 Nonrheumatic mitral (valve) insufficiency; E78.5 Hyperlipidemia, unspecified
CPT/HCPCS: 93308

== ENCOUNTER → 2023-01-20 | Outpatient (CLI) | payer MEDICARE, SELFPAY ==
[2021-10-21 07:20] VITALS: BMI 30.4
[2023-01-20 08:42] LABS: Hematocrit 41.7 % (37-47); Hemoglobin 13.4 g/dL (12.0-15.0); Mean Corp Hgb Conc 32.1 g/dL (32-36); Mean Corpuscular Hgb 30.8 pg (27.0-32.0); Mean Corpuscular Volume 95.9 fL (81-99); Mean Platelet Vol. 11.9 fl (6.2-12.0); Platelet Count 209 K/mm3 (150-450); RBC Distribution Width CV 13.3 % (11.6-14.6); RBC Distribution Width SD 47.6 fl (35.1-43.9); Red Blood Count 4.35 M/mm3 (4.2-5.4); White Blood Count 5.1 K/mm3 (4.4-11.0)
[2023-01-20 08:54] LABS: Erythrocyte Sedimentation Rate 10 mm/hr (0-30)
[2023-01-20 09:20] LABS: Vitamin B12 452 pg/mL (211-911)
[2023-01-20 09:30] LABS: AST(SGOT) 39 U/L (15-37); Alanine Aminotransfer ALT/SGPT 61 U/L (13-56); Albumin, Serum 3.6 g/dL (3.2-5.0); Alkaline Phosphatase 109 U/L (45-117); Anion Gap 4 (5-15); BUN 24 mg/dL (7-18); BUN/Creat Ratio 25.9 RATIO (10-20); Calcium,Total 8.9 mg/dL (8.5-10.1); Chloride 111 mmol/L (98-107); Creatinine, Serum 0.92 mg/dL (0.55-1.02); EST Glomerular Filtration Rate 63 mL/min (>60); Est Glom Filt Rate - Afr Amer 77 mL/min (>60); Globulin 3.7 g/dL (2.2-4.2); Glucose 94 mg/dL (74-106); Magnesium 2.5 mg/dL (1.6-2.6); Potassium 4.4 mmol/L (3.5-5.1); Protein, Total 7.3 g/dL (6.4-8.2); Sodium Level 142 mmol/L (136-145); Thyroid Stim Hormone (TSH) 4.26 uIU/mL (0.358-3.74)
[2023-01-23 11:07] LABS: ANTINUCLEAR ANTIBODIES DIRECT Negative (Negative)
[2023-01-24 14:08] LABS: Vitamin B1, Thiamine 109.1 nmol/L (66.5-200.0)
== END | disposition home or self-care (01) ==
LOC: LAB 08:10
PROVIDERS: PCP Family Medicine; Referring Provider Psychiatry & Neurology Neurology; Visit Provider Psychiatry & Neurology Neurology
DX: R53.83 Other fatigue (principal); I42.8 Other cardiomyopathies; R42 Dizziness and giddiness
CPT/HCPCS: 36415; 80053; 82607; 82652; 82746; 83735; 84425; 84443; 85027; 85652; 86038; 86225; 86235

== ENCOUNTER → 2023-06-09 | Outpatient (CLI) | payer MEDICARE, SELFPAY ==
[2021-10-21 07:20] VITALS: BMI 30.4
[2023-06-09 13:43] LABS: AST(SGOT) 26 U/L (15-37); Alanine Aminotransfer ALT/SGPT 40 U/L (13-56); Albumin, Serum 3.6 g/dL (3.2-5.0); Alkaline Phosphatase 94 U/L (45-117); Bilirubin, Direct 0.17 mg/dL (0.00-0.30); Globulin 3.8 g/dL (2.2-4.2); Protein, Total 7.4 g/dL (6.4-8.2); Thyroid Stim Hormone (TSH) 2.67 uIU/mL (0.358-3.74)
== END | disposition home or self-care (01) ==
LOC: MTLAB 10:22
PROVIDERS: PCP Family Medicine; Referring Provider Psychiatry & Neurology Neurology; Visit Provider Psychiatry & Neurology Neurology
DX: R74.01 Elevation of levels of liver transaminase levels (principal); R53.83 Other fatigue
CPT/HCPCS: 36415; 80076; 84443

== ENCOUNTER → 2023-11-15 | Outpatient (CLI) | payer MEDICARE, SELFPAY ==
[2021-10-21 07:20] VITALS: BMI 30.4
[2023-11-15 09:00] LABS: Absolute Lymphocyte Count 1.62 X10^3/uL (0.83-4.51); Absolute Neutrophil Count 3.2 X10^3/uL (2.0-7.7); Basophil# 0.06 X10^3/uL; Basophil% 1.1 % (0-1); Eosinophil# 0.25 X10^3/uL; Eosinophils% 4.4 % (0-5); Hematocrit 43.3 % (37-47); Hemoglobin 14.1 g/dL (12.0-15.0); Lymphocyte # 1.62 X10^3/ul (0.83-4.51); Lymphocyte % 28.7 % (19-41); Mean Corp Hgb Conc 32.6 g/dL (32-36); Mean Corpuscular Hgb 30.5 pg (27.0-32.0); Mean Corpuscular Volume 93.7 fL (81-99); Mean Platelet Vol. 12.1 fl (6.2-12.0); Monocyte# 0.53 X10^3/uL; Monocyte% 9.4 % (0-10); NRBC Flagged by Analyzer 0 % (0-5); Neutrophil # 3.17 X10^3/uL (2.7-7.7); Platelet Count 196 K/mm3 (150-450); RBC Distribution Width CV 13.4 % (11.6-14.6); RBC Distribution Width SD 45.6 fl (35.1-43.9); Red Blood Count 4.62 M/mm3 (4.2-5.4); White Blood Count 5.7 K/mm3 (4.4-11.0)
[2023-11-15 09:19] LABS: ALB/GLOB Ratio 0.9 RATIO (0.9-2.4); AST(SGOT) 32 U/L (15-37); Alanine Aminotransfer ALT/SGPT 46 U/L (13-56); Albumin, Serum 3.7 g/dL (3.2-5.0); Alkaline Phosphatase 99 U/L (45-117); Anion Gap 6 (5-15); BUN 23 mg/dL (7-18); Chloride 109 mmol/L (98-107); Cholesterol 162 mg/dL (200); EST Glomerular Filtration Rate 58 mL/min (>60); Est Glom Filt Rate - Afr Amer 70 mL/min (>60); Globulin 3.9 g/dL (2.2-4.2); Glucose 99 mg/dL (74-106); High Density Lipoprotein 73 mg/dL; Potassium 4.2 mmol/L (3.5-5.1); Protein, Total 7.6 g/dL (6.4-8.2); Sodium Level 140 mmol/L (136-145); Triglycerides 53 mg/dL; Very Low Density Lipoprotein 11 mg/dL (5-40)
[2023-11-18 11:08] LABS: Vitamin D 1,25-Dihydroxy 38.5 pg/mL (24.8-81.5)
== END | disposition home or self-care (01) ==
LOC: LAB 07:58
PROVIDERS: Psychiatry & Neurology Neurology; PCP Family Medicine; Visit Provider Family Medicine
DX: Z00.00 Encounter for general adult medical examination without abnormal findings (principal); E78.5 Hyperlipidemia, unspecified; R03.0 Elevated blood-pressure reading, without diagnosis of hypertension; I51.81 Takotsubo syndrome
CPT/HCPCS: 36415; 80053; 80061; 82533; 82652; 85025

== ENCOUNTER → 2025-04-25 | Outpatient (CLI) | payer MEDICARE, SELFPAY ==
[2021-10-21 07:20] VITALS: BMI 30.4
--- NOTE | 2025-04-25 14:56 | ECHOD_ITS ---
Reason For Study Reason For Study: MV Repair/ Evaluate EF Procedure This was a 2D Doppler, Color Flow transthoracic echocardiogram. The patient is in an irregular rhythm. The study was technically difficult. Exam performed in department. Left Ventricle Normal LV size. Mild global left ventricular systolic dysfunction. Stage 1 diastolic dysfunction. The left ventricular ejection fraction is 45 %. Right Ventricle Normal RV size. Normal systolic function. Atria Normal left atrium. Normal right atrium. Mitral Valve Mean transmitral valve gradient 3.3 mmHg. Trivial mitral valve insufficiency. Status post mitral valve repair. Tricuspid Valve Normal tricuspid valve. Mild (1+) tricuspid valve insufficiency. Pulmonary artery systolic pressure is 23 mmHg. Aortic Valve Trisinus/trileaflet aortic valve. Pulmonic Valve Normal pulmonic valve. Trivial pulmonic valve insufficiency. Great Vessels Normal sized aortic root. The pulmonary artery is normal size. Inferior vena cava collapse with respiration. Pericardium/Pleural No pericardial effusion. MMode/2D Measurements & Calculations LVIDd: 4.9 cm IVSd: 1.0 cm Ao root diam: 3.6 cm LVIDs: 3.7 cm LVPWd: 0.89 cm FS: 24.9 % LAV(MOD-bp): 44.6 ml LA A4 area: 15.1 cm2 LA dimension(2D): 4.4 cm LAV(MOD-bp) Indexed: 25.5 ml/m2 LAV(MOD-sp2): 50.6 ml LAV(MOD-sp4): 40.3 ml Time Measurements MV dec time: 0.30 sec Doppler Measurements & Calculations MV E max cam: 70.3 cm/sec Lat Peak E' Cam: 8.3 cm/sec Med Peak E' Cam: 6.3 cm/sec MV A max cam: 141.7 cm/sec E/E' lat: 8.4 E/E' med: 11.1 MV E/A: 0.50 MV V2 max: 169.9 cm/sec MV P1/2t max cam: 91.2 cm/sec Ao V2 max: 100.4 cm/sec MV max P.5 mmHg MV P1/2t: 101.9 msec Ao max P.0 mmHg MV V2 mean: 80.9 cm/sec MV dec slope: 262.3 cm/sec2 Ao V2 mean: 72.0 cm/sec MV mean P.3 mmHg MVA(P1/2t): 2.2 cm2 Ao mean P.4 mmHg MV V2 VTI: 36.5 cm Ao V2 VTI: 21.0 cm AV (velocity ratio): 0.77 LV V1 max: 72.9 cm/sec MR max cam: 578.5 cm/sec PA V2 max: 72.0 cm/sec LV V1 max P.1 mmHg MR max P.9 mmHg LV V1 mean P.1 mmHg MR mean cam: 431.3 cm/sec LV V1 mean: 49.5 cm/sec MR mean P.2 mmHg LV V1 VTI: 16.1 cm MR VTI: 183.7 cm TR max cam: 224.5 cm/sec TR max P.2 mmHg ECHO/Echo Complete Interpretation Summary Normal LV size. Stage 1 diastolic dysfunction. Mild (1+) tricuspid valve insufficiency. Status post mitral valve repair. The left ventricular ejection fraction is 45 %. Compared to prior study, there is no significant change. Ordering Physician: Kavin Tanner Referring Physician: Kavin Tanner Performed By: Chandra Campo RCS
--- OUTSIDE RECORDS SUMMARY | 2025-04-25 17:54 | XMS RPT_ITS | CCD ---
Author Organization [facility] Care Team Providers Care Heel Cutter Name Role Phone Dr. Dianne Marmolejo Primary Care Provider [phone] Dr. Dianne Marmolejo Referring Provider [phone] Dr. Aubrey Beltre Attending Provider [phone] Dr. Dianne Marmolejo Primary Care Provider [phone] Dr. Aubrey Beltre Attending Provider [phone] Dianne Marmolejo Referring Provider [phone] Dr. Dianne Marmolejo Primary Care Provider [phone] Dr. Aubrey Beltre Attending Provider [phone] Dr. Dianne Marmolejo Primary Care Provider [phone] Dr. Aubrey Beltre Attending Provider [phone] Dr. Dianne Marmolejo Primary Care Provider [phone] Dr. Aubrey Beltre Attending Provider [phone] Dr. Dianne Marmolejo Referring Provider [phone] Dr. Ulices Pulliam Attending Provider [phone] Dr. Dianne Marmolejo Primary Care Provider [phone] Dr. Dianne Marmolejo Referring Provider [phone] Dr. Aubrey Beltre Attending Provider [phone] Dianne Marmolejo Primary Care Provider [phone] Dr. Aubrey Beltre Attending Provider [phone] Dianne Marmolejo Referring Provider Roof SAND SHOVELER, SAND SHOVELER-Sharon Campbell Attending Provider Dr. Dianne Marmolejo Primary Care Provider [phone] Dr. Aubrey Beltre Attending Provider Dr. Aubrey Beltre Referring Provider Dr. Dianne Marmolejo Referring Provider Roof SAND SHOVELER, SAND SHOVELER-Sharon Campbell Attending Provider Dr. Dianne Marmolejo Primary Care Provider [phone] Dr. Aubrey Beltre Attending Provider [phone] Dainne Marmolejo Primary Care Provider [phone] Dr. Ulices Clayton Emergency Provider Dr. Christiano Sapp Admit Provider Dr. Christiano Sapp Attending Provider Dr. Christiano Sapp Other Provider Dr. Aubrey Beltre Other Provider Dr. Aubrey Beltre Attending Provider Dr. Linda Mitchell Other Provider Dr. Linda Mitchell Attending Provider Patt, Dr. Burgos Referring Provider [phone] Dianne Marmolejo Referring Provider Roof SAND SHOVELER, NASH-Sharon Campbell Attending Provider Dr. Uri Crain Attending Provider Uri Crain Attending Unavailable Dianne Marmolejo Referring Unavailable Dianne Marmolejo Primary Care Unavailable Dianne Marmolejo Primary Care Unavailable Uri Crain Attending Unavailable Dianne Marmolejo Referring Unavailable LEAH FLOREZ MD Admitting Unavailable LEAH FLOREZ MD Primary Care Unavailable LEAH FLOREZ MD Attending Unavailable DIANNE MARMOLEJO Consulting Unavailable PROVIDER, UNKNOWN Consulting Unavailable PROVIDER, UNKNOWN Consulting Unavailable DIANNE MARMOLEJO Admitting Unavailable DIANNE MARMOLEJO Primary Care Unavailable DIANNE MARMOLEJO Consulting Unavailable DIANNE MARMOLEJO Attending Unavailable PROVIDER, UNKNOWN Consulting Unavailable PROVIDER, UNKNOWN Consulting Unavailable Medications Current Medications Medication Drug Class(es) Dates Sig (Normalized) Sig (Original) aspirin 81 mg delayed release oral tablet (15 sources) Platelet Aggregation Inhibitor, Nonsteroidal Anti-inflammatory Drug Start: 10-25-2022 take 81 mg by mouth at breakfast Aspirin Active 81 MG PO WITH BREAKFAST 30 October 25, 2022 12:00am Start: 10-23-2020 End: 08-13-2021 Aspirin (Adult Low Dose Aspi rin) 81 mg tablet,delayed release (DR/EC) Discontinued 81 MG PO DAILY October 23, 2020 12:00am August 13, 2021 2:16pm atorvastatin 40 mg oral tablet (4 sources) HMG-CoA Reductase Inhibitor Start: 10-25-2022 End: 01-13-2023 take 40 mg by mouth at bedtime Atorvastatin Active 40 MG PO AT BEDTIME 90 January 13, 2023 2:13pm carvedilol 6.25 mg oral tablet (20 sources) alpha-Adrenergic Bhumi, beta-Adrenergic Bhumi Start: 06-09-2022 take 6.25 mg by mouth twice daily at mealtime Carvedilol Active 6.25 MG PO TWICE A DAY 180 June 09, 2022 12:40pm must administer with a meal/food Start: 06-03-2022 End: 06-09-2022 take 12.5 mg by mouth twice daily at mealtime Carvedilol Discontinued 12.5 MG PO TWICE A DAY 60 June 03, 2022 5:27pm June 09, 2022 12:46pm must administer with a meal/food Start: 05-31-2022 End: 06-03-2022 take 25 mg by mouth twice daily at mealtime Carvedilol Discontinued 25 MG PO TWICE A DAY 60 May 31, 2022 6:06pm June 03, 2022 5:27pm must administer with a meal/food Start: 04-13-2022 End: 05-31-2022 take 12.5 mg by mouth twice daily at mealtime Carvedilol Discontinued 12.5 MG PO TWICE A DAY 60 April 14, 2022 4:08pm May 31, 2022 6:07pm must administer with a meal/food Start: 09-17-2021 End: 04-13-2022 take 1 tablet by mouth twice daily at mealtime Carvedilol (Coreg) 6.25 mg tablet Discontinued 6.25 MG PO TWICE A DAY 60 February 10, 2022 12:29pm April 13, 2022 2:42pm must administer with a meal/food cholecalciferol 0.025 mg oral capsule (18 sources) Vitamin D Start: 01-29-2022 take 25 ug by mouth once daily Cholecalciferol (Vitamin D3) Active 25 MCG PO DAILY January 29, 2022 12:00am Start: 10-03-2020 End: 05-14-2021 take 25 ug by mouth once daily Cholecalciferol (Vitamin D3) Discontinued 25 MCG PO DAILY October 03, 2020 12:00am May 14, 2021 10:54am dapagliflozin 10 mg oral tablet (4 sources) Sodium-Glucose Cotransporter 2 Inhibitor Start: 11-15-2022 End: 01-13-2023 take 1 tablet by mouth once daily Dapagliflozin Propanediol (Farxiga) 10 mg tablet Active 10 MG PO DAILY 90 January 13, 2023 2:13pm Lactobacillus Combination No.8 (Adult Probiotic) 3 billion cell capsule (11 sources) Start: 10-03-2020 take 3 capsules by mouth once daily Lactobacillus Combination No.8 (Adult Probiotic) 3 billion cell capsule Active 3000 MMU CELLS PO DAILY October 03, 2020 12:34pm administer with a meal Start: 10-03-2020 take 3 capsules by m outh once daily Lactobacillus Combination No.8 (Adult Probiotic) 3 billion cell capsule Active 3000 MMU CELLS PO DAILY October 02, 2020 11:00pm administer with a meal Start: 10-03-2020 take 3 capsules by m outh once daily Lactobacillus Combination No.8 (Adult Probiotic) 3 billion cell capsule Active 3000 MMU CELLS PO DAILY October 03, 2020 12:00am administer with a meal sacubitril 24 mg / valsartan 26 mg oral tablet (20 sources) Angiotensin 2 Receptor Bhumi Start: 10-23-2022 End: 01-13-2023 take 1 tablet by mouth twice daily Sacubitril-Valsartan (Entresto) 24-26 mg tablet Active 1 TABLET PO TWICE A DAY 180 January 13, 2023 2:11pm Start: 07-07-2022 End: 08-04-2022 take 1 tablet by mouth twice daily Sacubitril-Valsartan (Entresto) 24-26 mg tablet Discontinued 1 TABLET PO TWICE A DAY 60 July 07, 2022 1:00am August 04, 2022 11:33am Start: 06-23-2022 End: 07-07-2022 take 1 tablet by mouth twice daily Sacubitril-Valsartan (Entresto) 49-51 mg tablet Discontinued 1 TABLET PO TWICE A DAY 60 June 23, 2022 1:00am July 07, 2022 9:27am Start: 06-09-2022 End: 06-23-2022 take 1 tablet by mouth twice daily Sacubitril-Valsartan (Entresto) 24-26 mg tablet Discontinued 1 TABLET PO TWICE A DAY 60 June 09, 2022 1:00am June 23, 2022 2:43pm Completed/Discontinued Medications Medication Drug Class(es) Dates Sig (Normalized) Sig (Original) amoxicillin 500 mg oral capsule (13 sources) Penicillin-class Antibacterial Start: 11-10-2020 End: 08-20-2021 take 2000 mg by mouth every hour Amoxicillin Discontinued 2000 MG PO .COMPLEX 4 November 10, 2020 12:00am August 20, 2021 9:11am 2,000 mg PO 1 hour prior to dental procedure; magnesium oxide 400 mg oral capsule (20 sources) Start: 03-30-2021 End: 07-07-2021 take 400 mg by mouth twice daily Magnesium Oxide Discontinued 400 MG PO TWICE A DAY 180 April 17, 2021 10:54am July 07, 2021 2:51pm metoprolol tartrate 25 mg oral tablet (20 sources) beta-Adrenergic Bhumi Start: 03-30-2021 End: 08-13-2021 take 25 mg by mouth twice daily Metoprolol Tartrate Discontinued 25 MG PO TWICE A DAY 180 April 17, 2021 10:55am August 13, 2021 2:16pm Zinc (13 sources) Start: 10-03-2020 End: 05-14-2021 take 50 mg by mouth once daily Zinc Discontinued 50 MG PO DAILY October 03, 2020 3:47pm May 14, 2021 10:54am Start: 10-03-2020 End: 05-14-2021 take 50 mg by mouth once daily Zinc Discontinued 50 MG PO DAILY October 02, 2020 11:00pm May 14, 2021 9:54am Start: 10-03-2020 End: 05-14-2021 take 50 mg by mouth once daily Zinc Discontinued 50 MG PO DAILY October 03, 2020 12:00am May 14, 2021 10:54am Problems Active Problems Problem Classification Problem Date Documented Da te Episodic/Chronic Acute myocardial infarction (4 sources) Myocardial infarction; Translations: [Non-ST elevation (NSTEMI) myocardial infarction] Onset: 10-23-2022 11-02-2022 Chronic Cardiac dysrhythmias (20 sources) Intermittent palpitations; Translations: [Palpitations] 03-18-2021 Episodic Conditions associated with dizziness or vertigo (15 sources) Lightheadedness; Translations: [Dizziness and giddiness] 07-07-2021 Episodic Conduction disorders (20 sources) Left bundle branch block; Translations: [Left bundle-branch block, unspecified] Chronic Disorders of lipid metabolism (15 sources) Hyperlipidemia; Translations: [Hyperlipidemia, unspecified] 10-03-2020 Chronic Heart valve disorders (20 sources) Mitral valve prolapse; Translations: [Nonrheumatic mitral (valve) prolapse] 10-03-2020 Chronic Malaise and fatigue (4 sources) Fatigue; Translations: [Other fatigue] 01-16-2023 Episodic Other and ill-defined heart disease (2 sources) Takotsubo cardiomyopathy; Translations: [Takotsubo syndrome] Onset: 10-25-2022 10-26-2022 Chronic Other and ill-defined heart disease (2 sources) Takotsubo syndrome; Translations: [Takotsubo syndrome] Onset: 10-25-2022 11-15-2022 Chronic Other circulatory disease (13 sources) Elevated blood-pressure reading without diagnosis of hypertension; Translations: [Elevated blood-pressure reading, without diagnosis of hypertension] 10-03-2020 Episodic Other screening for suspected conditions (not mental disorders or infectious disease) (13 sources) D-dimer above reference range; Translations: [Other specified abnormal findings of blood chemistry] 03-18-2021 Episodic Janell-; endo-; and myocarditis; cardiomyopathy (except that caused by tuberculosis or sexually transmitted disease) (20 sources) Cardiomyopathy; Translations: [Other cardiomyopathies] Chronic Spondylosis; intervertebral disc disorders; other back problems (4 sources) Thoracic back pain; Translations: [Pain in thoracic spine] 11-02-2022 Episodic Syncope (20 sources) Syncope; Translations: [Syncope and collapse] Onset: 03-06-2021 03-31-2022 Episodic Past or Other Problems Problem Classification Problem Date Documented Date Episodic/Chronic Complications of surgical procedures or medical care (15 sources) Atrial fibrillation; Translations: [Other postprocedural complications and disorders of the circulatory system, not elsewhere classified] Onset: 03-25-2021 03-30-2021 Episodic Other hematologic conditions (2 sources) Raised cardiac enzyme or marker; Translations: [Other specified abnormalities of plasma proteins] Onset: 10-23-2022 11-02-2022 Episodic Other hematologic conditions (2 sources) Other specified abnormalities of plasma proteins; Translations: [Other abnormal blood chemistry] Onset: 10-23-2022 10-25-2022 Episodic Residual codes; unclassified (13 sources) History of repair of mitral valve; Translations: [Other specified postprocedural states] Onset: 03-24-2021 06-09-2022 Episodic Residual codes; unclassified (13 sources) Other specified postprocedural states; Translations: [Personal history of surgery to heart and great vessels, presenting hazards to health] Onset: 03-24-2021 Episodic Viral infection (13 sources) COVID-19; Translations: [Severe acute respiratory syndrome coronavirus 2 (SARS-CoV-2) detected] Onset: 05-16-2020 03-18-2021 Episodic Results Test Name Value Interpretation Reference Range Facility 3D MAMM BILAT SCREENon 03-20 3D MAMM BILAT SCREEN [address] ? [place] [address] ? Patient: SHINE GROSS Phone#: : [phone] Age: 75 Gender: F Pt. Type: Out Account: [id number] Location: [facility] Ordering: LEAH FLOREZ Exam Date: 03/20/2025/14:02 Family Phys: DIANNE MARMOLEJO Charge Code: 391331 Physician: [place] Order #: [id number] Dose#: PROCEDURE: BILATERAL SCREENING BREAST TOMOSYNTHESIS MAMMOGRAM WITH CAD COMPARISON: [facility], , 3D BILAT SCREEN, 12/08/2023, 13:09. INDICATIONS: Screening. BREAST COMPOSITION: There are scattered areas of fibroglandular density FINDINGS: DIAGNOSTIC CATEGORY 1--NEGATIVE NO CHANGE FROM COMPARISON ASSESSMENT. RIGHT BREAST: No significant suspicious finding. No significant change has occurred. LEFT BREAST: No significant suspicious finding. No significant change has occurred. RECOMMENDATIONS: ROUTINE MAMMOGRAM AND CLINICAL EVALUATION IN 12 MONTHS. PLEASE NOTE: CLICK HERE IF HIGH RISK A NORMAL MAMMOGRAM DOES NOT EXCLUDE THE POSSIBILITY OF BREAST CANCER. A CLINICALLY SUSPICIOUS PALPABLE LUMP SHOULD BE BIOPSIED. THIS FACILITY UTILIZES A REMINDER SYSTEM TO ENSURE THAT ALL PATIENTS RECEIVE REMINDER LETTERS FOR APPOINTMENTS. THIS INCLUDES REMINDERS FOR ROUTINE MAMMOGRAMS, DIAGNOSITC MAMMOGRAMS, OR OTHER BREAST IMAGING INTERVENTIONS WHEN APPROPRIATE. THIS PATIENT WILL BE PLACED IN THE APPROPRIATE REMINDER SYSTEM. Dictated by: Leidy Casillas MD on 03/20/2025 at 17:37 Approved by: Leidy Casillas MD on 03/20/2025 at 17:39 Normal [facility] Neurology Visit Reporton Neurology Visit Report [facility] [address] [place] [address], [address] [place] [address] OFFICE VISIT Date of Service: 03/14/25 MR#: [id number] Acct: [id number] Name: SHINE GROSS Rep #: [id number] : 1950 Provider: Dr. Uri freeman MD Age/Sex: 75/F Location: [facility] Status: Signed HPI [facility] Chief Complaint: Details: Interim History: Shine returns for follow-up visit. She has a history of hypertension, hyperlipidemia, left bundle branch block and mitral insufficiency status post mitral valve repair in 2020 who presents for evaluation of lightheadedness and unsteadiness of gait. In February 2021, she had a syncopal episode (she had preceding mild upset stomach and minimal nausea and felt warm and lightheaded; she was then witnessed to appear pale and lose consciousness while seated on a stool; she had diaphoresis). On further evaluation, she was found to have mitral insufficiency and mild reduced left ventricular ejection fraction. On 03/24/2021, she underwent mitral valvuloplasty with annuloplasty ring for treatment of moderate mitral valve regurgitation. A hospital discharge summary reports a diagnosis of paroxysmal atrial fibrillation on 03/26/2021 (no further details are given). She had been experiencing episodic lightheadedness; this diminished in frequency, but did not resolve completely. Her lightheadedness occurs when she is standing and lasts from a few seconds to 1 minute per episode; these episodes have also occurred while sitting. She also describes the episodes as disequilibrium. Her episodes occurred up to several times per day. She had a 48-hour Holter monitor and 30-day cardiac event monitor and these did not reveal rhythm abnormalities to account for her lightheadedness. On prior cardiac echo (March 2022), she was found to have a left ventricular ejection fraction of 46% and her subsequent cardiac echo (October 2022) revealed a left ventricular ejection fraction of 20%. A subsequent cardiac echo in January 2023 revealed improvement of her left ventricular ejection fraction to 40%. She has been diagnosed with nonischemic cardiomyopathy. She denied having vertigo, visual field loss, hearing loss, headaches, neck pain or tinnitus. She has some blurred distance vision that she states is in part to a macular wrinkle which has been diagnosed on prior eye examination. She has not had change in level of consciousness with her episodes of lightheadedness/disequ ilibrium. She does not experience palpitations. She reported that she has, at times, checked her blood pressure immediately following episodes of lightheadedness/disequ ilibrium and no hypotension was noted. Compression stockings were not of benefit. Her episodes of lightheadedness/disequ ilibrium also occur when transitioning from a bright environment to a dimmed environment and she also reports that these episodes appear to be more frequent during winter months. Currently, her episodes of lightheadedness/disequ ilibrium occur nearly daily and may occur up to 3 or 4 times per day. She reported that her legs feel heavy. She has fatigue. She has had occasional low back pain. She denied having radicular pain in the lower extremities. She denied having numbness. She has had occasional left foot tingling. A head MRI revealed mild diffuse cerebral atrophy and mild bilateral subcortical chronic small vessel ischemic disease. She does not have a history of clinically manifested stroke. She had a COVID-19 infection in May 2020. She was hospitalized in October 2022 for evaluation of pain in her upper back and tingling and heaviness in the left arm. She was found to have elevated troponin and was diagnosed with non-STEMI and was started on aspirin and a statin. She had a cardiac catheterization that showed clean coronary arteries and evidence of Takotsubo cardiomyopathy. She was continued on her home medication of Entresto and carvedilol along with aspirin and a statin. A B12 1500 mcg IM injection was not of benefit for her fatigue. Prior laboratory studies revealed mildly elevated liver transaminases and mildly elevated TSH. A subsequent TSH and liver profile were normal. She raises the possibility that some degree of anxiety or emotional stress may be contributing to her her symptoms. Physical Exam: Neuro: The patient is awake and alert and responds appropriately Neck: No bruits Heart: Regular rate and rhythm Supplemental Info Bilateral lower extremity venous Doppler study (03/10/2021): No evidence for acute deep venous thrombosis bilateral lower extremities with patent and compressible bilateral great saphenous veins. Cardiac echo (03/16/2021): Technically difficult exam due to body habitus. The left ventricle is normal in size. Left ventricular systolic function is mildly decreased. Ejection fraction equals 46???5% (2D biplane). Left ventricular diastolic function was not evaluated (more content not included)... Normal [facility] CBC + DIFFon 02-20-2025 Baso # 0.01 x10EE3/UL Normal 0.00 - 0.10 [facility] Comment on above: Performed By: #### 2 [id number] #### [facility],[address] [place] [address] Basophils/100 WBC (Bld) 0.1 % Normal 0.0 - 2.0 [facility] Comment on above: Performed By: #### 2 [id number] #### [place] [address] CBC + DIFF Normal [facility] Comment on above: Result Comment: CBC- COMPLETE BLOOD COUNT Performed By: #### 2 30836 #### [facility],[address] [place] [address] EO # 0.19 x10EE3/UL Normal 0.00 - 0.50 [facility] Comment on above: Performed By: #### 2 13587 #### [facility],[address] [place] [address] Eosinophils/100 WBC (Bld) 3.5 % Normal 0.0 - 7.0 [facility] Comment on above: Performed By: #### 2 53819 #### [facility],[address] [place] [address] Erythrocyte distribution width (RBC) [Ratio] 13.1 % Normal 12.0 - 15.6 [facility] Comment on above: Performed By: #### 2 65372 #### [facility],[address] [place] [address] Hematocrit (Bld) [Volume fraction] 39.5 % Normal 34.0 - 46.0 [facility] Comment on above: Performed By: #### 2 54703 #### [facility],[address] [place] [address] Hemoglobin (Bld) [Mass/Vol] 13.4 g/dL Normal 12.0 - 16.0 [facility] Comment on above: Performed By: #### 2 55373 #### [facility],[address] [place] [address] Lymph # 1.68 x10EE3/UL Normal 0.80 - 2.80 [facility] Comment on above: Performed By: #### 2 59575 #### [facility],[address] [place] [address] Lymphocytes/100 WBC (Bld) 30.7 % Normal 20.0 - 45.0 [facility] Comment on above: Performed By: #### 2 51900 #### [facility],[address] [place], [place] [id number] MANUAL DIFF N/A Normal [facility] Comment on above: Performed By: #### 2 11103 #### [facility],[address] [place] [address] MCH (RBC) [Entitic mass] 31 pg Normal 27 - 33 [facility] Comment on above: Performed By: #### 2 22548 #### [facility],[address] [place] [address] MCHC 34 X10 3 Normal 32 - 36 [facility] Comment on above: Performed By: #### 2 27249 #### [facility],[address] [place] [address] MCV (RBC) [Entitic vol] 91 fL Normal 80 - 99 [facility] Comment on above: Performed By: #### 2 51002 #### [facility],[address] [place] [address] [place] # 0.48 x10EE3/UL Normal 0.20 - 1.00 [facility] Comment on above: Performed By: #### 2 40447 #### [facility],[address] [place] [address] MONOS % 8.8 % Normal 0.0 - 10.0 [facility] Comment on above: Performed By: #### 2 54822 #### [facility],[address] [place] [address] Morphology Allen (Bld) [Interp] N/A Normal [facility] Comment on above: Performed By: #### 2 42597 #### [facility],[address] [place] [address] Neut # 3.10 x10EE3/UL Normal 1.50 - 7.10 [facility] Comment on above: Performed By: #### 2 11060 #### [facility],[address] [place] [address] Neutrophils/100 WBC (Bld) 56.9 % Normal 46.0 - 76.0 [facility] Comment on above: Performed By: #### 2 86811 #### [facility],[address] [place] [address]605 PLATELET 214 x10EE3/UL Normal 150 - 450 [facility] Comment on above: Performed By: #### 2 69035 #### [facility],[address] [place] [address]18 Platelet mean volume (Bld) [Entitic vol] 10.1 fL Normal 6.6 - 10.5 [facility] Comment on above: Result Comment: AUTO MATED DIFFERENTIAL Performed By: #### 2 32749 #### [facility],[address] [place] [address]221 RBC 4.34 x 10EE6/UL Normal 4.10 - 5.30 [facility] Comment on above: Performed By: #### 2 13273 #### [facility],[address] [place] [address]1972 WBC 5.5 x 10EE3/UL Normal 4.5 - 10.8 [facility] Comment on above: Performed By: #### 2 78079 #### [facility],[address] [place] [address]129 CMP with eGFRon 02-20-2025 AGE 75 years Normal [facility] Comment on above: Performed By: #### 2 89728 #### [facility],[address] [place] [address] 17865 Albumin [Mass/Vol] 3.6 g/dL Normal 3.4 - 5.0 [facility] Comment on above: Performed By: #### 2 12549 #### [facility],[address] [place] [address]25 Albumin/Globulin [Mass ratio] 1.1 {ratio} Normal 0.9 - 1.6 [facility] Comment on above: Performed By: #### 2 57333 #### [facility],[address] [place] [address]28 ALK PHOS 68 U/L Normal 46 - 116 [facility] Comment on above: Performed By: #### 2 77116 #### [facility],[address] [place] [address] 77890 ALT [Catalytic activity/Vol] 40 U/L Normal 16 - 63 [facility] Comment on above: Performed By: #### 2 20737 #### [facility],[address] [place] [address] 47627 Anion gap [Moles/Vol] 11 mmol/L Normal 10 - 20 [facility] Comment on above: Performed By: #### 2 99219 #### [facility],[address] [place] [address] 80502 AST [Catalytic activity/Vol] 22 U/L Normal 13 - 39 [facility] Comment on above: Performed By: #### 2 27849 #### [facility],[address] [place] [address] 31907 B/C RATIO 22 ratio Normal 0 - 30 [facility] Comment on above: Performed By: #### 2 48075 #### [facility],[address] [place] [address] 65398 Bilirubin [Mass/Vol] 0.6 mg/dL Normal 0.2 - 1.0 [facility] Comment on above: Performed By: #### 2 87070 #### [facility],[address] [place] [address] 78331 Calcium [Mass/Vol] 8.8 mg/dL Normal 8.5 - 10.1 [facility] Comment on above: Performed By: #### 2 [id number] #### [facility],[address] [place] [address]74 Chloride [Moles/Vol] 108 mmol/L High 98 - 107 [facility] Comment on above: Performed By: #### 2 [id number] #### [facility],[address] [place] [address]3444 CMP with eGFR Normal [facility] Comment on above: Result Comment: COMP REHENSIVE METABOLIC PANEL Performed By: #### 2 [id number] #### [facility],[address] [place] [address] 49948 CO2 [Moles/Vol] 27.2 mmol/L Normal 21.0 - 32.0 [facility] Comment on above: Performed By: #### 2 [id number] #### [facility],[address] [place] [address]127 Creatinine [Mass/Vol] 1.02 mg/dL Normal 0.55 - 1.02 [facility] Comment on above: Performed By: #### 2 [id number] #### [facility],[address] [place] [address] 24146 eGFR 53 ML/MINUTE Low 60 - 999 [facility] Comment on above: Performed By: #### 2 [id number] #### [address] [address] GFR/1.73 sq M.predicted among non-blacks MDRD (S/P/Bld) [Vol rate/Area] mL/min/{1.73_m2} Normal 60 - 999 [facility] Comment on above: Result Comment: ACCO RDING TO THE NATIONAL KIDNEY DISEASE EDUCATION PROGRAM(NKDE), A NORMAL eGFR IS A VALUE GREATER THAN OR EQUAL TO 60 ML/MIN/1.73 SQ METERS. CHRONIC KIDNEY DISEASE: <60mL/MIN/1.73 SQ METERS KIDNEY FAILURE: <15mL/MIN/1.73 SQ METERS THIS TEST SHOULD ONLY BE USED FOR PATIENTS 18 YEARS OF AGE AND OLDER. Performed By: #### 2 [id number] #### [facility],[address] [place] [address] Globulin (S) [Mass/Vol] 3.2 g/dL Normal 1.5 - 3.8 [facility] Comment on above: Performed By: #### 2 [id number] #### [facility],[address] [place] [address]91 Glucose [Mass/Vol] 97 mg/dL Normal 74 - 106 [facility] Comment on above: Performed By: #### 2 [id number] #### [facility],[address] [place] [address]9418 Potassium [Moles/Vol] 4.3 mmol/L Normal 3.5 - 5.1 [facility] Comment on above: Performed By: #### 2 75011 #### [facility],[address] [place] [address] 52781 Protein [Mass/Vol] 6.8 g/dL Normal 6.4 - 8.2 [facility] Comment on above: Performed By: #### 2 00026 #### [facility],[address] [place] [address] 6[address]32 Sodium [Moles/Vol] 142 mmol/L Normal 136 - 145 [facility] Comment on above: Performed By: #### 2 50247 #### [facility],[address] [place] [address] 21941 Urea nitrogen [Mass/Vol] 22 mg/dL High 7 - 18 [facility] Comment on above: Performed By: #### 2 17289 #### [facility],[address] [place] [address] 12796 LIPID PROFILEon 02-20-2025 Cholesterol [Mass/Vol] 210 mg/dL Normal 0 - 240 [facility] Comment on above: Performed By: #### 2 61944 #### [facility],[address] [place] [address]9993 Cholesterol in HDL [Mass/Vol] 78 mg/dL High 40 - 60 [facility] Comment on above: Performed By: #### 2 [id number] #### [facility],[address] [place] [address] 66971 Cholesterol in LDL [Mass/Vol] 120 mg/dL Normal 0 - 129 [facility] Comment on above: Performed By: #### 2 54215 #### [facility],[address] [place] [address]1131 Cholesterol.total/Cho lesterol in HDL [Mass ratio] 2.7 {ratio} Normal 0.0 - 5.0 [facility] Comment on above: Performed By: #### 2 [id number] #### [facility],[address] [place] [address] 13523 Lipid 1996 panel Normal [facility] Comment on above: Result Comment: LIPI D PROFILE Performed By: #### 2 91181 #### [address] [address] Triglyceride [Mass/Vol] 58 mg/dL Normal 0 - 150 [facility] Comment on above: Performed By: #### 2 13226 #### [address] [address] Neurology Visit Reporton Neurology Visit Report [facility] [address] [place] [address], [address] [place] [address] OFFICE VISIT Date of Service: 05/01/24 MR#: [id number] Acct: [id number] Name: SHINE GROSS Rep #: [id number] : 1950 Provider: Dr. Uri freeman MD Age/Sex: 74/F Location: [facility] Status: Signed HPI [facility] Chief Complaint: Details: Interim History: Shine returns for follow-up visit. She has a history of hypertension, hyperlipidemia, left bundle branch block and mitral insufficiency status post mitral valve repair in 2020 who presents for evaluation of lightheadedness and unsteadiness of gait. In February 2021, she had a syncopal episode (she had preceding mild upset stomach and minimal nausea and felt warm and lightheaded; she was then witnessed to appear pale and lose consciousness while seated on a stool; she had diaphoresis). On further evaluation, she was found to have mitral insufficiency and mild reduced left ventricular ejection fraction. On 03/24/2021, she underwent mitral valvuloplasty with annuloplasty ring for treatment of moderate mitral valve regurgitation. A hospital discharge summary reports a diagnosis of paroxysmal atrial fibrillation on 03/26/2021 (no further details are given). She had been experiencing episodic lightheadedness; this diminished in frequency, but did not resolve completely. Her lightheadedness occurs when she is standing and lasts from a few seconds to 1 minute per episode; these episodes have also occurred while sitting. She also describes the episodes as disequilibrium. Her episodes occurred up to several times per day She had a 48-hour Holter monitor and 30-day cardiac event monitor and these did not reveal rhythm abnormalities to account for her lightheadedness. On prior cardiac echo (March 2022), she was f ound to have a left ventricular ejection fraction of 46% and her subsequent cardiac echo (October 2022) revealed a left ventricular ejection fraction of 20%. A subsequent cardiac echo in January 2023 revealed improvement of her left ventricular ejection fraction to 40%. She has been diagnosed with nonischemic cardiomyopathy. She denied having vertigo, visual field loss, hearing loss, headaches, neck pain or tinnitus. She has some blurred distance vision that she states is in part to a macular wrinkle which has been diagnosed on prior eye examination. She has not had change in level of consciousness with her episodes of lightheadedness/disequ ilibrium. She does not experience palpitations. She reported that she has, at times, checked her blood pressure immediately following episodes of lightheadedness/disequ ilibrium and no hypotension was noted. She has tried compression stockings and these were not of significant benefit. She now reports that her episodes of lightheadedness/disequ ilibrium also occur when transitioning from a bright environment to a dimmed environment and she also reports that these episodes appear to be more frequent during winter months. She reported that her legs feel heavy. She has fatigue. She experiences occasional low back pain. She denied having radicular pain in the lower extremities. She denied having numbness. She reported having some swelling in the legs (left greater than right). She experiences occasional left foot tingling. A head MRI revealed mild diffuse cerebral atrophy and mild bilateral subcortical chronic small vessel ischemic disease. She does not have a history of clinically manifested stroke. Her lightheadedness has occasionally occurred while seated. She had a COVID-19 infection in May 2020. She was hospitalized in October 2022 for evaluation of pain in her upper back and tingling and heaviness in the left arm. She was found to have elevated troponin and was diagnosed with non-STEMI and was started on aspirin and a statin. She had a cardiac catheterization that showed clean coronary arteries and evidence of Takotsubo cardiomyopathy. She was continued on her home medication of Entresto and carvedilol along with aspirin and a statin. A B12 1500 mcg IM injection was not of significant benefit for her fatigue. Laboratory studies revealed mildly elevated liver transaminases and mildly elevated TSH. A subsequent TSH and liver profile were normal. She raises the possibility that some degree of anxiety or emotional stress may be contributing to her her symptoms. Physical Exam: Neuro: The patient is awake and alert and responds appropriately; speech is fluent; EOMI; no nystagmus Neck: No bruits Heart: Regular rate and rhythm Supplemental Info Bilateral lower extremity venous Doppler study (03/10/2021): No evidence for acute deep venous thrombosis bilateral lower extremities with patent and compressible bilateral great saphenous veins. Cardiac echo (03/16/2021): Technically difficult exam due to body habitus. The left ventricle is normal in size. Left ventricular systolic functi (more content not included)... Normal [facility] Basophil percentageOrdered B y: Uri Crain on 01-20-2023 Basophil percentage Not Reportable [facility] Bilirubin [Mass/Vol] 0.50 mg/dL 0.20-1.00 [facility] Comment on above: For patients on eltr ombopag therapy, use of Dimension [place] TBIL is not recommended. Chloride [Moles/Vol] 111 mmol/L 98-107 [facility] Glucose [Mass/Vol] 94 mg/dL 74-106 [facility] Potassium [Moles/Vol] 4.4 mmol/L 3.5-5.1 [facility] Protein [Mass/Vol] 7.3 g/dL 6.4-8.2 [facility] Sodium [Moles/Vol] 142 mmol/L 136-145 [facility] WBC (Bld) [#/Vol] 5.1 10*3/uL 4.4-11.0 [facility] Blood erythrocytes count (nu mber/volume)Ordered By: Uri Crain on 01-20-2023 RBC (Bld) [#/Vol] 4.35 10*6/uL 4.2-5.4 [facility] Blood hemoglobin measurement (mass/volume)Ordered By: Uri Crain on 01-20-2023 Hemoglobin (Bld) [Mass/Vol] 13.4 g/dL 12.0-15.0 [facility] Blood platelet mean volumeOr dered By: Uri Crain on 01-20-2023 Platelet mean volume (Bld) [Entitic vol] 11.9 fL 6.2-12.0 [facility] Determination of erythrocyte mean corpuscular volume (MCV)Ordered By: Uri Crain on 01-20-2023 MCV (RBC) [Entitic vol] 95.9 fL 81-99 [facility] Erythrocyte sedimentation ra teOrdered By: Uri Crain on 01-20-2023 ESR (Bld) [Velocity] 10 mm/h 0-30 [facility] Hematocrit Auto (Bld) [Volum e fraction]Ordered By: Uri Crain on 01-20-2023 Hematocrit (Bld) [Volume fraction] 41.7 % 37-47 [facility] Laboratory - Chemistry and C hemistry - challengeOrdered By: Uri Crain on 01-20-2023 ALP [Catalytic activity/Vol] 109 U/L 45-117 [facility] ALT [Catalytic activity/Vol] 61 U/L 13-56 [facility] CO2 [Moles/Vol] 27.0 mmol/L 21.0-32.0 [facility] Cobalamin (Vitamin B12) [Mass/Vol] 452 pg/mL 211-911 [facility] Globulin (S) [Mass/Vol] 3.7 g/dL 2.2-4.2 [facility] Magnesium [Mass/Vol] 2.5 mg/dL 1.6-2.6 [facility] Urea nitrogen/Creatinine [Mass ratio] 25.9 mg/mg 10-20 [facility] Laboratory - Hematology and Cell countsOrdered By: Uri Crain on 01-20-2023 Erythrocyte distribution width (RBC) [Entitic vol] 47.6 fL 35.1-43.9 [facility] Erythrocyte distribution width (RBC) [Ratio] 13.3 % 11.6-14.6 [facility] MCH (RBC) [Entitic mass] 30.8 pg 27.0-32.0 [facility] ([facility]) [Mass/Vol]Or dered By: Uri Crain on 01-20-2023 MCHC (RBC) [Mass/Vol] 32.1 g/dL 32-36 [facility] No Panel InformationOrdered By: Uri Crain on 01-20-2023 Anti-Nuclear Antibody Screen Negative Negative [facility] Comment on above: Performed at: [facility] [address] [id number] Director: Nay Monzon MD, Phone: [phone] at: [employer] [facility] [id number] Director: Kemar Milian PhD, Phone: [phone] [facility] Antibody Not Reportable [facility] Estimated GFR (MDRD) Amer 77 mL/min >60 [facility] Comment on above: GFR Calc Estimated GFR (MDRD) Non-Af Amer 63 mL/min >60 [facility] Comment on above: Non- GFR Calc [employer] Antibody Not Reportable [facility] Thyroid Stimulating Hormone (TSH) 4.26 uIU/mL 0.358-3.74 [facility] Whole Blood Vitamin B1 Level 109.1 nmol/L 66.5-200.0 [facility] Comment on above: Performed at: [facility] [address] [id number] Director: Nay Monzon MD, Phone: [phone] Platelets bldOrdered By: Sandro Crain on 01-20-2023 Platelets (Bld) [#/Vol] 209 10*3/uL 150-450 [facility] Serum DNA double strand anti body assay (units/volume)Ordered By: Uri Crain on 01-20-2023 DNA double strand Ab Qn (S) Not Reportable [facility] Serum Arin-1 antibody assay (u nits/volume)Ordered By: Uri Crain on 01-20-2023 Arin-1 extractable nuclear Ab Qn (S) Not Reportable [facility] Serum Scl-70 extractable nuc lear antibody assay (units/volume)Ordered By: Uri Crain on 01-20-2023 SCL-70 extractable nuclear Ab Qn (S) Not Reportable [facility] Serum Dominguez extractable nucl ear antibody detectionOrdered By: Uri Crain on 01-20-2023 Dominguez extractable nuclear Ab Ql (S) Not Reportable [facility] Serum or plasma albumin renee urement (mass/volume)Ordered By: Uri Crain on 01-20-2023 Albumin [Mass/Vol] 3.6 g/dL 3.2-5.0 [facility] Serum or plasma albumin/glob ulin mass ratioOrdered By: Uri Crain on 01-20-2023 Albumin/Globulin [Mass ratio] 1.0 {ratio} 0.9-2.4 [facility] Serum or plasma calcitriol m easurement (mass/volume)Ordered By: Uri Crain on 01-20-2023 1,25-dihydroxyvitamin D3 [Mass/Vol] 35.0 pg/mL 24.8-81.5 [facility] Serum or plasma calcium renee urement (mass/volume)Ordered By: Uri Crain on 01-20-2023 Calcium [Mass/Vol] 8.9 mg/dL 8.5-10.1 [facility] Serum or plasma creatinine m easurement (mass/volume)Ordered By: Uri Crain on 01-20-2023 Creatinine [Mass/Vol] 0.92 mg/dL 0.55-1.02 [facility] Comment on above: The validity of the calculated GFR & GFRAA in patients over 70 years has not been determined. Clinical correlation is essential. Serum or plasma folate measu rement (mass/volume)Ordered By: Uri Crain on 01-20-2023 Folate [Mass/Vol] 16.30 ng/mL 3.1-55.4 [facility] Serum or plasma urea nitroge n measurement (mass/volume)Ordered By: Uri Crain 01-20-2023 Urea nitrogen [Mass/Vol] 24 mg/dL 7-18 [facility] Thin prep Papanicolaou smear with manual screeningOrdered By: Uri Crain 01-20-2023 Thin prep Papanicolaou smear with manual screening 39 U/L 15-37 [facility] Thin prep Papanicolaou smear with manual screening 4 5-15 [facility] Absolute lymphocyte countOrd ered By: Linda Mitchell on 10-25-2022 Lymphocytes Auto (Unsp spec) [#/Vol] 2.46 10*3/uL 0.83-4.51 [facility] Basophil percentageOrdered B y: Linda Mitchell on 10-25-2022 Basophils/100 WBC (Bld) 1.6 % 0-1 [facility] Chloride [Moles/Vol] 113 mmol/L 98-107 [facility] Eosinophils/100 WBC (Bld) 4.0 % 0-5 [facility] Glucose [Mass/Vol] 96 mg/dL 74-106 [facility] Neutrophils (Bld) [#/Vol] 2.4 10*3/uL 2.0-7.7 [facility] Neutrophils/100 WBC (Bld) 42.1 % 47-70 [facility] Potassium [Moles/Vol] 4.0 mmol/L 3.5-5.1 [facility] Sodium [Moles/Vol] 140 mmol/L 136-145 [facility] WBC (Bld) [#/Vol] 5.7 10*3/uL 4.4-11.0 [facility] Blood erythrocytes count (nu mber/volume)Ordered By: Linda Mitchell on 10-25-2022 RBC (Bld) [#/Vol] 4.28 10*6/uL 4.2-5.4 [facility] Blood hemoglobin measurement (mass/volume)Ordered By: Linda Mitchell on 10-25-2022 Hemoglobin (Bld) [Mass/Vol] 13.2 g/dL 12.0-15.0 [facility] Blood lymphocytes/100 leukoc ytesOrdered By: Linda Mitchell on 10-25-2022 Lymphocytes/100 WBC (Bld) 42.9 % 19-41 [facility] Blood monocytes/100 leukocyt esOrdered By: Linda Mitchell on 10-25-2022 Monocytes/100 WBC (Bld) 9.2 % 0-10 [facility] Blood platelet mean volumeOr dered By: Linda Mitchell on 10-25-2022 Platelet mean volume (Bld) [Entitic vol] 12.4 fL 6.2-12.0 [facility] Determination of erythrocyte mean corpuscular volume (MCV)Ordered By: Linda Mitchell on 10-25-2022 MCV (RBC) [Entitic vol] 94.2 fL 81-99 [facility] Hematocrit Auto (Bld) [Volum e fraction]Ordered By: Linda Mitchell on 10-25-2022 Hematocrit (Bld) [Volume fraction] 40.3 % 37-47 [facility] Laboratory - Chemistry and C hemistry - challengeOrdered By: Linda Mitchell on 10-25-2022 CO2 [Moles/Vol] 22.0 mmol/L 21.0-32.0 [facility] Urea nitrogen/Creatinine [Mass ratio] 25.1 mg/mg 10-20 [facility] Laboratory - CoagulationOrde red By: Christiano Sapp on 10-25-2022 aPTT Coag (Bld) [Time] 68.1 s 24.1-36.2 [facility] Laboratory - Hematology and Cell countsOrdered By: Linda Mitchell on 10-25-2022 Erythrocyte distribution width (RBC) [Entitic vol] 45.7 fL 35.1-43.9 [facility] Erythrocyte distribution width (RBC) [Ratio] 13.2 % 11.6-14.6 [facility] Immature granulocytes/100 WBC (Bld) 0.200 % 0.0-0.9 [facility] Comment on above: IG% - Immature Granu locytes (promyelocytes, myelocytes and metamyelocytes) > 1% indicates that a LEFT SHIFT is Present. MCH (RBC) [Entitic mass] 30.8 pg 27.0-32.0 [facility] Nucleated RBC/100 WBC (Bld) [Ratio] 0 % 0-5 [facility] MCHC Auto (RBC) [Mass/Vol]Or dered By: Linda Mitchell on 10-25-2022 MCHC (RBC) [Mass/Vol] 32.8 g/dL 32-36 [facility] No Panel InformationOrdered By: Linda Mitchell on 10-25-2022 Estimated Creatinine Clearance Calc 47.88 ml/min [facility] Estimated GFR (MDRD) Amer 86 mL/min >60 [facility] Comment on above: GFR Calc Estimated GFR (MDRD) Non-Af Amer 71 mL/min >60 [facility] Comment on above: Non- GFR Calc Platelets bldOrdered By: Denise Mitchell on 10-25-2022 Platelets (Bld) [#/Vol] 190 10*3/uL 150-450 [facility] Serum or plasma calcium renee urement (mass/volume)Ordered By: Linda Mitchell on 10-25-2022 Calcium [Mass/Vol] 8.6 mg/dL 8.5-10.1 [facility] Serum or plasma creatinine m easurement (mass/volume)Ordered By: Linda Mitchell on 10-25-2022 Creatinine [Mass/Vol] 0.84 mg/dL 0.55-1.02 [facility] Comment on above: The validity of the calculated GFR & GFRAA in patients over 70 years has not been determined. Clinical correlation is essential. Serum or plasma urea nitroge n measurement (mass/volume)Ordered By: Linda Mitchell on 10-25-2022 Urea nitrogen [Mass/Vol] 21 mg/dL 7-18 [facility] Thin prep Papanicolaou smear with manual screeningOrdered By: Linda Mitchell on 10-25-2022 Thin prep Papanicolaou smear with manual screening 5 5-15 [facility] Basophil percentageOrdered B y: Christiano Sapp on 10-24-2022 Bilirubin [Mass/Vol] 0.50 mg/dL 0.20-1.00 [facility] Comment on above: For patients on eltr ombopag therapy, use of Dimension [place] TBIL is not recommended. Cholesterol [Mass/Vol] 218 mg/dL <200 [facility] Comment on above: <200 mg/dL Desirable 200-240 mg/dL Borderline >240 mg/dL High Risk Protein [Mass/Vol] 6.7 g/dL 6.4-8.2 [facility] Triglyceride [Mass/Vol] 56 mg/dL <199 [facility] Comment on above: The drugs N-Acetylcy steine and Metamizole may falsely depress this assay.Serum Triglycerides Reference Interval Normal <150 mg/dL Borderline high 150 - 199 mg/dL High 200 - 499 mg/dL Very High > or = 500 mg/dL Laboratory - Chemistry and C hemistry - challengeOrdered By: Christiano Sapp on 10-24-2022 ALP [Catalytic activity/Vol] 61 U/L 45-117 [facility] ALT [Catalytic activity/Vol] 25 U/L 13-56 [facility] Globulin (S) [Mass/Vol] 3.3 g/dL 2.2-4.2 [facility] No Panel InformationOrdered By: Christiano Sapp on 10-24-2022 Troponin I High Sensitivity 5343 pg/mL 3.0-54.0 [facility] Comment on above: Critical Result(s) C alled at: 02:11:55 10/24/2022 by: REG MARIA TO Sim TOMPKINS RN ([facility]) . Results read back by same. Please Note: New Test Units and Gender Specific Reference Ranges. For more information see Policy Stat Procedure [place] High Sensitivity Troponin (TNIH) and attachments. Serum or plasma albumin renee urement (mass/volume)Ordered By: Christiano Sapp on 10-24-2022 Albumin [Mass/Vol] 3.4 g/dL 3.2-5.0 [facility] Serum or plasma albumin/glob ulin mass ratioOrdered By: Christiano Sapp on 10-24-2022 Albumin/Globulin [Mass ratio] 1.0 {ratio} 0.9-2.4 [facility] Serum or plasma cholesterol in HDL measurement (mass/volume)Ordered By: Christiano Sapp on 10-24-2022 Cholesterol in HDL [Mass/Vol] 71 mg/dL >40 [facility] Comment on above: The drugs N-Acetylcy steine and Metamizole may falsely depress this assay. Reference Range HDL <40 mg/dL Low HDL Cholesterol HDL >or= 60 mg/dL High HDL Cholesterol Serum or plasma cholesterol in VLDL measurement (mass/volume)Ordered By: Christiano Sapp on 10-24-2022 Cholesterol in VLDL [Mass/Vol] 11 mg/dL 5-40 [facility] [facility] Serum or plasma low density lipoprotein (LDL) cholesterol measurement (mass/volume)Ordered By: Christiano Sapp on 10-24-2022 Cholesterol in LDL [Mass/Vol] 136 mg/dL 0-130 [facility] Thin prep Papanicolaou smear with manual screeningOrdered By: Christiano Sapp on 10-24-2022 Thin prep Papanicolaou smear with manual screening 31 U/L 15-37 [facility] INR in Blood by Coagulation assayOrdered By: Ulices Clayton on 10-23-2022 INR Coag (Bld) [Relative time] 1.0 {INR} [facility] Laboratory - CoagulationOrde red By: Ulices Clayton on 10-23-2022 PT Coag (PPP) [Time] 13.5 s 11.7-14.9 [facility] No Panel InformationOrdered By: Ulices Clayton on 10-23-2022 D-Dimer Quantitative (PE/DVT) 0.66 FEU/ug/m 0.27-0.49 [facility] Comment on above: CRITICAL VALUE VERIF IED. CALLED TO ALVINA MEDELLIN RN ED10/23/22 1630 [place].RESULTS READ BACK BY SAME . D-Dimer ELEVATED (>0.49): Additional studies and clinicalassessments are indicated to conclude diagnosis of:Deep Vein Thrombosis (DVT) or Pulmonary Embolism (PE) Basophil percentageOrdered B y: Kavin Tanner on 07-30-2022 Chloride [Moles/Vol] 110 mmol/L 98-107 [facility] Glucose [Mass/Vol] 112 mg/dL 74-106 [facility] Comment on above: Fasting Glucose resu lt from 100 to 125 mg/dL suggests IMPAIRED HOMEOSTASIS per A.D.A. criteria. Potassium [Moles/Vol] 4.3 mmol/L 3.5-5.1 [facility] Sodium [Moles/Vol] 142 mmol/L 136-145 [facility] Laboratory - Chemistry and C hemistry - challengeOrdered By: Kavin Tanner on 07-30-2022 CO2 [Moles/Vol] 27.0 mmol/L 21.0-32.0 [facility] Urea nitrogen/Creatinine [Mass ratio] 22.9 mg/mg 10-20 [facility] No Panel InformationOrdered By: Kavin Tanner on 07-30-2022 Estimated GFR (MDRD) Amer 87 mL/min >60 [facility] Comment on above: GFR Calc Estimated GFR (MDRD) Non-Af Amer 72 mL/min >60 [facility] Comment on above: Non- GFR Calc Serum or plasma calcium renee urement (mass/volume)Ordered By: Kavin Tanner on 07-30-2022 Calcium [Mass/Vol] 9.2 mg/dL 8.5-10.1 [facility] Serum or plasma creatinine m easurement (mass/volume)Ordered By: Kavin Tanner on 07-30-2022 Creatinine [Mass/Vol] 0.83 mg/dL 0.55-1.02 [facility] Comment on above: The validity of the calculated GFR & GFRAA in patients over 70 years has not been determined. Clinical correlation is essential. Serum or plasma urea nitroge n measurement (mass/volume)Ordered By: Kavin Tanner on 07-30-2022 Urea nitrogen [Mass/Vol] 19 mg/dL 7-18 [facility] Thin prep Papanicolaou smear with manual screeningOrdered By: Kavin Tanner on 07-30-2022 Thin prep Papanicolaou smear with manual screening 5 5-15 [facility] Culture, urineOrdered By: Dr Gayathri Marmolejo on 06-12-2022 Bacteria identified Cx Nom (U) Culture exhibits no growth. [facility] Basophil percentageOrdered B y: Dr. Beltre on 04-01-2022 Chloride [Moles/Vol] 106 mmol/L 98-107 [facility] Glucose [Mass/Vol] 118 mg/dL 74-106 [facility] Comment on above: Fasting Glucose resu lt from 100 to 125 mg/dL suggests IMPAIRED HOMEOSTASIS per A.D.A. criteria. Potassium [Moles/Vol] 4.5 mmol/L 3.5-5.1 [facility] Sodium [Moles/Vol] 139 mmol/L 136-145 [facility] WBC (Bld) [#/Vol] 5.7 10*3/uL 4.4-11.0 [facility] Blood erythrocytes count (nu mber/volume)Ordered By: Dr. Beltre on 04-01-2022 RBC (Bld) [#/Vol] 4.39 10*6/uL 4.2-5.4 [facility] Blood hemoglobin measurement (mass/volume)Ordered By: Dr. Beltre on 04-01-2022 Hemoglobin (Bld) [Mass/Vol] 13.5 g/dL 12.0-15.0 [facility] Blood platelet mean volumeOr dered By: Dr. Beltre on 04-01-2022 Platelet mean volume (Bld) [Entitic vol] 11.7 fL 6.2-12.0 [facility] Determination of erythrocyte mean corpuscular volume (MCV)Ordered By: Dr. Beltre on 04-01-2022 MCV (RBC) [Entitic vol] 93.8 fL 81-99 [facility] Hematocrit Auto (Bld) [Volum e fraction]Ordered By: Dr. Beltre on 04-01-2022 Hematocrit (Bld) [Volume fraction] 41.2 % 37-47 [facility] Laboratory - Chemistry and C hemistry - challengeOrdered By: Dr. Beltre on 04-01-2022 CO2 [Moles/Vol] 28.0 mmol/L 21.0-32.0 [facility] Magnesium [Mass/Vol] 2.4 mg/dL 1.6-2.6 [facility] Urea nitrogen/Creatinine [Mass ratio] 22.8 mg/mg 10-20 [facility] Laboratory - Hematology and Cell countsOrdered By: Dr. Beltre on 04-01-2022 Erythrocyte distribution width (RBC) [Entitic vol] 45.2 fL 35.1-43.9 [facility] Erythrocyte distribution width (RBC) [Ratio] 13.0 % 11.6-14.6 [facility] MCH (RBC) [Entitic mass] 30.8 pg 27.0-32.0 [facility] MCHC Auto (RBC) [Mass/Vol]Or dered By: Dr. Beltre on 04-01-2022 MCHC (RBC) [Mass/Vol] 32.8 g/dL 32-36 [facility] No Panel InformationOrdered By: Dr. Beltre on 04-01-2022 Estimated GFR (MDRD) Amer 82 mL/min >60 [facility] Comment on above: GFR Calc Estimated GFR (MDRD) Non-Af Amer 67 mL/min >60 [facility] Comment on above: Non- GFR Calc Thyroid Stimulating Hormone (TSH) 3.22 uIU/mL 0.358-3.74 [facility] Platelets bldOrdered By: Dr. Beltre on 04-01-2022 Platelets (Bld) [#/Vol] 212 10*3/uL 150-450 [facility] Serum or plasma calcium renee urement (mass/volume)Ordered By: Dr. Beltre on 04-01-2022 Calcium [Mass/Vol] 9.2 mg/dL 8.5-10.1 [facility] Serum or plasma creatinine m easurement (mass/volume)Ordered By: Dr. Beltre on 04-01-2022 Creatinine [Mass/Vol] 0.88 mg/dL 0.55-1.02 [facility] Comment on above: The validity of the calculated GFR & GFRAA in patients over 70 years has not been determined. Clinical correlation is essential. Serum or plasma urea nitroge n measurement (mass/volume)Ordered By: Dr. Beltre on 04-01-2022 Urea nitrogen [Mass/Vol] 20 mg/dL 7-18 [facility] Thin prep Papanicolaou smear with manual screeningOrdered By: Dr. Beltre on 04-01-2022 Thin prep Papanicolaou smear with manual screening 5 5-15 [facility] Absolute lymphocyte counton 10-23-2021 Lymphocytes Auto (Unsp spec) [#/Vol] 1.33 10*3/uL 0.83-4.51 [facility] Work Phone: Basophil percentageon 2021 Basophils/100 WBC (Bld) 1.0 % 0-1 [facility] Work Phone: Bilirubin [Mass/Vol] 0.70 mg/dL 0.20-1.00 [facility] Work Phone: Comment on above: For patients on eltr ombopag therapy, use of Dimension [place] TBIL is not recommended. Chloride [Moles/Vol] 107 mmol/L 98-107 [facility] Work Phone: Cholesterol [Mass/Vol] 229 mg/dL <200 [facility] Work Phone: Comment on above: <200 mg/dL Desirable 200-240 mg/dL Borderline >240 mg/dL High Risk Eosinophils/100 WBC (Bld) 3.8 % 0-5 [facility] Work Phone: Glucose [Mass/Vol] 93 mg/dL 74-106 [facility] Work Phone: [phone] Neutrophils (Bld) [#/Vol] 2.9 10*3/uL 2.0-7.7 [facility] Work Phone: Neutrophils/100 WBC (Bld) 57.2 % 47-70 [facility] Work Phone: [phone] Potassium [Moles/Vol] 4.1 mmol/L 3.5-5.1 [facility] Work Phone: Protein [Mass/Vol] 7.4 g/dL 6.4-8.2 [facility] Work Phone: [phone] Sodium [Moles/Vol] 139 mmol/L 136-145 [facility] Work Phone: [phone] Triglyceride [Mass/Vol] 78 mg/dL <199 [facility] Work Phone: Comment on above: The drugs N-Acetylcy steine and Metamizole may falsely depress this assay.Serum Triglycerides Reference Interval Normal <150 mg/dL Borderline high 150 - 199 mg/dL High 200 - 499 mg/dL Very High > or = 500 mg/dL WBC (Bld) [#/Vol] 5.1 10*3/uL 4.4-11.0 [facility] Work Phone: Blood erythrocytes count (nu mber/volume)on 10-23-2021 RBC (Bld) [#/Vol] 4.61 10*6/uL 4.2-5.4 [facility] Work Phone: Blood hemoglobin measurement (mass/volume)on 10-23-2021 Hemoglobin (Bld) [Mass/Vol] 13.7 g/dL 12.0-15.0 [facility] Work Phone: Blood lymphocytes/100 leukoc yteson 10-23-2021 Lymphocytes/100 WBC (Bld) 26.3 % 19-41 [facility] Work Phone: [phone] Blood monocytes/100 leukocyt eson 10-23-2021 Monocytes/100 WBC (Bld) 11.5 % 0-10 [facility] Work Phone: [phone] Blood platelet mean volumeon 10-23-2021 Platelet mean volume (Bld) [Entitic vol] 12.3 fL 6.2-12.0 [facility] Work Phone: [phone] Determination of erythrocyte mean corpuscular volume (MCV)on 10-23-2021 MCV (RBC) [Entitic vol] 91.5 fL 81-99 [facility] Work Phone: [phone] Hematocrit Auto (Bld) [Volum e fraction]on 10-23-2021 Hematocrit (Bld) [Volume fraction] 42.2 % 37-47 [facility] Work Phone: Laboratory - Chemistry and C hemistry - challengeon 10-23-2021 ALP [Catalytic activity/Vol] 70 U/L 45-117 [facility] Work Phone: [phone] ALT [Catalytic activity/Vol] 31 U/L 13-56 [facility] Work Phone: [phone] CO2 [Moles/Vol] 28.0 mmol/L 21.0-32.0 [facility] Work Phone: Globulin (S) [Mass/Vol] 3.7 g/dL 2.2-4.2 [facility] Work Phone: [phone] Urea nitrogen/Creatinine [Mass ratio] 18.3 mg/mg 10-20 [facility] Work Phone: [phone] Laboratory - Hematology and Cell countson 10-23-2021 Erythrocyte distribution width (RBC) [Entitic vol] 47.5 fL 35.1-43.9 [facility] Work Phone: [phone] Erythrocyte distribution width (RBC) [Ratio] 14.2 % 11.6-14.6 [facility] Work Phone: Immature granulocytes/100 WBC (Bld) 0.200 % 0.0-0.9 [facility] Work Phone: Comment on above: IG% - Immature Granu locytes (promyelocytes, myelocytes and metamyelocytes) > 1% indicates that a LEFT SHIFT is Present. MCH (RBC) [Entitic mass] 29.7 pg 27.0-32.0 [facility] Work Phone: Nucleated RBC/100 WBC (Bld) [Ratio] 0 % 0-5 [facility] Work Phone: MCHC Auto (RBC) [Mass/Vol]on 10-23-2021 MCHC (RBC) [Mass/Vol] 32.5 g/dL 32-36 [facility] Work Phone: No Panel Informationon 10-23 Estimated GFR (MDRD) Amer 82 mL/min >60 [facility] Work Phone: Comment on above: GFR Calc Estimated GFR (MDRD) Non-Af Amer 68 mL/min >60 [facility] Work Phone: Comment on above: Non- GFR Calc Thyroid Stimulating Hormone (TSH) 2.79 uIU/mL 0.358-3.74 [facility] Work Phone: Platelets bldon 10-23-2021 Platelets (Bld) [#/Vol] 208 10*3/uL 150-450 [facility] Work Phone: Serum or plasma albumin renee urement (mass/volume)on 10-23-2021 Albumin [Mass/Vol] 3.7 g/dL 3.2-5.0 [facility] Work Phone: Serum or plasma albumin/glob ulin mass ratioon 10-23-2021 Albumin/Globulin [Mass ratio] 1.0 {ratio} 0.9-2.4 [facility] Work Phone: Serum or plasma calcium renee urement (mass/volume)on 10-23-2021 Calcium [Mass/Vol] 8.9 mg/dL 8.5-10.1 [facility] Work Phone: Serum or plasma cholesterol in HDL measurement (mass/volume)on 10-23-2021 Cholesterol in HDL [Mass/Vol] 68 mg/dL >40 [facility] Work Phone: Comment on above: The drugs N-Acetylcy steine and Metamizole may falsely depress this assay. Reference Range HDL <40 mg/dL Low HDL Cholesterol HDL >or= 60 mg/dL High HDL Cholesterol Serum or plasma cholesterol in VLDL measurement (mass/volume)on 10-23-2021 Cholesterol in VLDL [Mass/Vol] 16 mg/dL 5-40 [facility] Work Phone: Serum or plasma creatinine m easurement (mass/volume)on 10-23-2021 Creatinine [Mass/Vol] 0.87 mg/dL 0.55-1.02 [facility] Work Phone: Comment on above: The validity of the calculated GFR & GFRAA in patients over 70 years has not been determined. Clinical correlation is essential. Serum or plasma low density lipoprotein (LDL) cholesterol measurement (mass/volume)on 10-23-2021 Cholesterol in LDL [Mass/Vol] 145 mg/dL 0-130 [facility] Work Phone: Serum or plasma urea nitroge n measurement (mass/volume)on 10-23-2021 Urea nitrogen [Mass/Vol] 16 mg/dL 7-18 [facility] Work Phone: Thin prep Papanicolaou smear with manual screeningon 10-23-2021 Thin prep Papanicolaou smear with manual screening 19 U/L 15-37 [facility] Work Phone: Thin prep Papanicolaou smear with manual screening 4 5-15 [facility] Work Phone: Whole blood hemoglobin A1c/t otal hemoglobin ratio (mass fraction)on 10-23-2021 HbA1c (Bld) [Mass fraction] 5.8 % 3.8-5.6 [facility] Work Phone: Comment on above: Normal < 5.7 % Predi abetic 5.7 - 6.4 % Diabetic >or= 6.5 % Please note range changes. Basophil percentageon 2021 Chloride [Moles/Vol] 107 mmol/L 98-107 [facility] Work Phone: Glucose [Mass/Vol] 107 mg/dL 74-106 [facility] Work Phone: Comment on above: Fasting Glucose resu lt from 100 to 125 mg/dL suggests IMPAIRED HOMEOSTASIS per A.D.A. criteria. Potassium [Moles/Vol] 4.0 mmol/L 3.5-5.1 [facility] Work Phone: Sodium [Moles/Vol] 140 mmol/L 136-145 [facility] Work Phone: Laboratory - Chemistry and C hemistry - challengeon 07-15-2021 CO2 [Moles/Vol] 27.0 mmol/L 21.0-32.0 [facility] Work Phone: Magnesium [Mass/Vol] 2.3 mg/dL 1.6-2.6 [facility] Work Phone: Urea nitrogen/Creatinine [Mass ratio] 19.9 mg/mg 10-20 [facility] Work Phone: No Panel Informationon 07-15 Estimated GFR (MDRD) Amer 97 mL/min >60 [facility] Work Phone: Comment on above: GFR Calc Estimated GFR (MDRD) Non-Af Amer 80 mL/min >60 [facility] Work Phone: Comment on above: Non- GFR Calc Serum or plasma calcium renee urement (mass/volume)on 07-15-2021 Calcium [Mass/Vol] 9.0 mg/dL 8.5-10.1 [facility] Work Phone: Serum or plasma creatinine m easurement (mass/volume)on 07-15-2021 Creatinine [Mass/Vol] 0.75 mg/dL 0.55-1.02 [facility] Work Phone: Comment on above: The validity of the calculated GFR & GFRAA in patients over 70 years has not been determined. Clinical correlation is essential. Serum or plasma urea nitroge n measurement (mass/volume)on 07-15-2021 Urea nitrogen [Mass/Vol] 15 mg/dL 7-18 [facility] Work Phone: Thin prep Papanicolaou smear with manual screeningon 07-15-2021 Thin prep Papanicolaou smear with manual screening 09-27 [facility] Work Phone: CBCon 04-02-2021 Absolute nRBC <0.01 Normal <0.01 [facility] Comment on above: Performed By: #### C MP, CBC ####[place] [address] [place], [place] [phone] Erythrocyte distribution width (RBC) [Ratio] 13.5 % Normal 11.5-15.0 [facility] Comment on above: Performed By: #### C MP, CBC ####[place] [address] [address] [place], [place] [phone] Hematocrit (Bld) [Volume fraction] 35.1 % Low 36.0-46.0 [facility] Comment on above: Performed By: #### C MP, CBC ####[place] [address] [address] [place], [place] [phone] Hemoglobin (Bld) [Mass/Vol] 11.3 g/dL Low 11.5-15.5 [facility] Comment on above: Performed By: #### C MP, CBC ####[place] [address] [address] [place], [place] [phone] MCH 30.1 pG Normal 26.0-34.0 [facility] Comment on above: Performed By: #### C MP, CBC ####[place] [address] [address] [place], [place] [phone] MCHC (RBC) [Mass/Vol] 32.2 g/dL Normal 30.5-36.0 [facility] Comment on above: Performed By: #### C MP, CBC ####[place] [address] [address] [place], [place] [phone] MCV (RBC) [Entitic vol] 93.4 fL Normal 80.0-100.0 [facility] Comment on above: Performed By: #### C MP, CBC ####[place] [address] [address], [place] [phone] Platelet mean volume (Bld) [Entitic vol] 11.0 fL Normal 9.0-12.7 [facility] Comment on above: Performed By: #### C MP, CBC ####[place] [address] [address] [place], [place] [phone] Platelets (Bld) [#/Vol] 343 10*3/uL Normal 150-400 [facility] Comment on above: Performed By: #### C MP, CBC ####[place] [id number] [place], [place] [phone] RBC (Bld) [#/Vol] 3.76 10*6/uL Low 3.90-5.20 [facility] Comment on above: Performed By: #### C MP, CBC ####[place] [address] [address] [place], [place] [phone] WBC (Bld) [#/Vol] 8.90 10*3/uL Normal 3.70-11.00 [facility] Comment on above: Performed By: #### C MP, CBC ####[facility] [place], [place] [phone] CNOVon 04-02-2021 CNOV Office Visit (DELMY ) SHINE GROSS ([id number]) 1950 F Date Time Provider Department 04/02/21 2:00 PM AIRAM SANTIAGO During your visit today, we recorded the following information about you: Temperature Pulse Blood pressure Weight 97.8 degrees 84/minute 120/78 70.5 kg Height 1.575 m Airam SantiagoSAGAR.MATERIAL HANDLER 2ND SHIFT 04/02/2021 3:02 PM Signed [facility] Department of Cardiovascular Medicine DEPARTMENT OF CARDIAC SURGERY OUTPATIENT VISIT DATE April 02, 2021 OUTPATIENT VISIT TYPE POSTOPERATIVE Shine Gross is a 71 year old female who presents who is here for post operative follow up HPI: S/P on 03/24/2021 * Cristin Jasso MD - Primary * Tung Hemphill MD - Assisting ? CTS OP REPORTS ? PROCEDURE(S): Mitral Valve Repair ? Discharged on 03/28/2021 PAST MEDICAL HISTORY Diagnosis Date - - - Hypertension - LBBB (left bundle branch block) - Mitral valve prolapse - Mitral valve regurgitation - PONV (postoperative nausea and vomiting) family history of No past surgical history on file. ALLERGIES No Known Allergies Current Outpatient Medications Medication Sig - acetaminophen (TYLENOL) 500 mg tablet Take 2 tablets by mouth every 6 hours as needed (for mild pain; do not exceed more than 4000mg of Tylenol oleg 24 hr period.). - aspirin 81 mg chewable tablet Take 1 tablet by mouth once daily. - ibuprofen (MOTRIN) 600 mg tablet Take 1 tablet by mouth every 8 hours as needed (for moderate pain; take with food as able.). - magnesium oxide (MAG-OX) 400 mg (241.3 mg magnesium) tablet Take 1 tablet by mouth twice daily. - metoprolol tartrate, short acting, (LOPRESSOR) 25 mg tablet Take 1 tablet by mouth every 12 hours. - scopolamine (TRANSDERM-SCOP) patch 1.5 mg/72 hr (1 mg over 3 days) Apply 1 Patch as directed every 72 hours. - furosemide (LASIX) 20 mg tablet Take 1 tablet by mouth once daily for 7 days. - potassium chloride (K-TAB) 10 mEq tablet Take 1 tablet by mouth once daily for 7 days. While taking Lasix only. - amoxicillin (POLYMOX, AMOXIL) 500 mg capsule TAKE FOUR CAPSULES BY MOUTH ONE HOUR PRIOR TO APPOINTMENT (Patient not taking: Reported on 04/02/2021) Current Facility-Administered Medications Medication Dose Route Frequency - perflutren lipid microspheres 1.3 mL in NaCl (PF) 0.9% 10 mL injection (DEFINITY) INTRAVENOUS DIRECTED PRN - sodium chloride 0.9 % (flush) 10 mL (BD POSIFLUSH) 10 mL INTRAVENOUS DIRECTED PRN Chief Complaints: Discharge Post Operative Course: Pain scale :No: 0 on a scale of 0 to 10 Appetite: appetite good Activity: Walking ad sherri around the house Elimination: normal, no constipation Sleep: no problems with sleep Mood: normal Incisions/Wounds: Not applicable Review of Systems: HEENT: No complaints offered and Negative for fevers since discharge Cardiac: Denies significant problems Respiratory: denies patient denies a history of any respiratory problems Musculoskeletal: No history of joint swelling, joint pain, or loss of range of motion. Neuro: Denies neurological complaints Physical Exam: BP 120/78 Pulse 84 Temp 36.6 ?C (97.8 ?F) (Oral) Ht 157.5 cm (5' 2) Wt 70.5 kg (155 lb 8 oz) SpO2 98% BMI 28.44 kg/m? Appearance: well developed, well nourished Neck: No neck vein distention Cardiac: regular S1, S2 Lungs: Clear breath sounds bilaterally without wheeze or dullness Abdomen: soft, non tender Extremities: No edema Sternum: stable Sternotomy site: healing Procedures: N/A Sutures removed from chest tube sites without difficulty. IMPRESSION AND PLAN: S/P on 03/24/2021 * Cristin Jasso MD - Primary * Tung Hemphill MD - Assisting ? CTS OP REPORTS ? PROCEDURE(S): Mitral Valve Repair ? Discharged on 03/28/2021 Post op Echo 03/26/2021 - Exam indication: S/P MVr - The left ventricle is normal in size. Left ventricular systolic function is mildly decreased. EF = 50 ? 5% (visual est.) - The right ventricle is normal in size. Right ventricular systolic function is normal. - Post mitral valve repair. [place] Mitral Valve Annuloplasty Ring (size #27). There ?is trace mitral valve regurgitation. The peak gradient is 7 mmHg and the mean gradient is 4 mmHg. - Exam was compared with the prior echocardiographic exam performed on 03/16/2021. Now s/p MV repair. 1. Paroxysmal atrial fibrillation (HCC) (primary encounter diagnosis): brief episode overnight of rate controlled AF, self conversion to SR. Increase BB as tolerated. ECG 04/02/2021 NORMAL SINUS RHYTHM POSSIBLE LEFT ATRIAL ENLARGEMENT LEFT AXIS DEVIATION COMPLETE LEFT BUNDLE BRANCH BLOCK ABNORMAL ECG 2. Atelectasis: Chest XR 04/02/2021- in process, reviewed 3. Postoperative pain; controlled on motrin and tylenol Summary: Post op care and discharge orders review (more content not included)... Normal [facility] Comp Metabolic Panelon 04-02 Albumin [Mass/Vol] 4.3 g/dL Normal 3.9-4.9 [facility] Comment on above: Performed By: #### C MP, CBC ####[place] [address] [address], [place] [phone] ALP [Catalytic activity/Vol] 121 U/L Normal 34-123 [facility] Comment on above: Performed By: #### C MP, CBC ####[place] [address] [address], [place] [phone] ALT [Catalytic activity/Vol] 47 U/L High 7-38 [facility] Comment on above: Performed By: #### C MP, CBC ####[place] [address] [address] [place], [place] [phone] Anion gap [Moles/Vol] 14 mmol/L Normal 9-18 [facility] Comment on above: Performed By: #### C MP, CBC ####[place] [address] [address], [place] [phone] AST [Catalytic activity/Vol] 39 U/L High 13-35 [facility] Comment on above: Performed By: #### C MP, CBC ####[facility], [place] [phone] Bilirubin [Mass/Vol] 0.3 mg/dL Normal 0.2-1.3 [facility] Comment on above: Performed By: #### C MP, CBC ####[place] [address] [address], [place] [phone] Calcium [Mass/Vol] 9.7 mg/dL Normal 8.5-10.2 [facility] Comment on above: Performed By: #### C MP, CBC ####[place] [address] [address], [place] [phone] Chloride [Moles/Vol] 103 mmol/L Normal 97-105 [facility] Comment on above: Performed By: #### C MP, CBC ####[place] [address] [place], [place] [phone] CO2 [Moles/Vol] 23 mmol/L Normal 22-30 [facility] Comment on above: Performed By: #### C MP, CBC ####[address] [phone] Creatinine [Mass/Vol] 0.79 mg/dL Normal 0.58-0.96 [facility] Comment on above: Performed By: #### C MP, CBC ####[address] [phone] eGFR- Amer. >60 Normal [facility] Comment on above: Result Comment: Note : On 07/11/2021, the eGFR calculation will be updated to the NKF-ASN Task Force recommended 2020 CKD-EPI creatinine equation which does not include a race variable. For more information or to access a 2020 CKD-EPI calculator, visit the National Kidney Foundation website at kidney.org/professionals/kdoqi/gfr_calculator. Performed By: #### C MP, CBC ####[address] [phone] eGFR-All Other Races >60 Normal [facility] Comment on above: Result Comment: eGFR (Estimated GFR) Units of measure: mL/min/1.73 meters squared eGFR is derived from the reexpressed MDRD Study equation using the following parameters: serum creatinine, age, gender and race. The creatinine assay has been calibrated to be traceable to IDMS. An eGFR <60 mL/min/1.73m2 for >3 months is consistent with chronic kidney disease. Refer to KDOQI guidelines for clinical interpretation. In patients with unstable renal function, e.g. those with acute kidney injury, the eGFR may not accurately reflect actual GFR. Note: On 07/11/2021, the eGFR calculation will be updated to the NKF-ASN Task Force recommended 2020 CKD-EPI creatinine equation which does not include a race variable. For more information or to access a 2020 CKD-EPI calculator, visit the National Kidney [employer] website at kidney.org/professionals/kdoqi/gfr_calculator. Performed By: #### C MP, CBC ####[facility] [place] [address] [phone] Glucose [Mass/Vol] 119 mg/dL High 74-99 [facility] Comment on above: Result Comment: The [place] Diabetes Association (ADA) provides guidance for cutoff values for fasting glucose and random glucose. The ADA defines fasting as no caloric intake for at least 8 hours. Fasting plasma glucose results between 100 to 125 mg/dL indicate increased risk for diabetes (prediabetes). Fasting plasma glucose results greater than or equal to 126 mg/dL meet the criteria for diagnosis of diabetes. In the absence of unequivocal hyperglycemia, results should be confirmed by repeat testing. In a patient with classic symptoms of hyperglycemia or hyperglycemic crisis, random plasma glucose results greater than or equal to 200 mg/dL meet the criteria for diagnosis of diabetes. Reference: Standards of Medical Care in Diabetes 2016, [place] [employer]. Diabetes Care. 2016.39(Suppl 1). Performed By: #### C MP, CBC ####[facility] [place], [place] [phone] Potassium [Moles/Vol] 4.4 mmol/L Normal 3.7-5.1 [facility] Comment on above: Performed By: #### C MP, CBC ####[facility] [place] [address] [phone] Protein [Mass/Vol] 7.3 g/dL Normal 6.3-8.0 [facility] Comment on above: Performed By: #### C MP, CBC ####[facility] [place], [place] [phone] Sodium [Moles/Vol] 140 mmol/L Normal 136-144 [facility] Comment on above: Performed By: #### C MP, CBC ####[facility] [place], [place] [phone] Urea nitrogen [Mass/Vol] 14 mg/dL Normal 7-21 [facility] Comment on above: Performed By: #### C MP, CBC ####[facility], [place] [phone] XR CHEST 2V FRONTAL/LATon XR CHEST 2V FRONTAL/LAT * * *Final Report* * * DATE OF EXAM: Apr 02 2021 1:46PM JIX [id number] - XR CHEST 2V FRONTAL/LAT / PROCEDURE REASON: Surgery follow-up * * * * Physician Interpretation * * * * EXAMINATION: CHEST RADIOGRAPH (2 VIEW FRONTAL and LATERAL) CLINICAL HISTORY: Surgery follow-up MQ: XC2_6 EXAM DATE/TIME: 04/02/2021 1:46 PM COMPARISON: 6 days prior RESULT: Lines, tubes, and devices: None. Lungs and pleura: Increase in size of small right pleural effusion. Decrease and/or shift of small left pleural effusion. Resolution of previously seen small to moderate right pneumothorax. Improvement of basilar atelectasis. Cardiomediastinal silhouette: Heart remains enlarged. Thoracic aorta is tortuous. Bones and soft tissues: Median sternotomy. Generalized osteopenia. IMPRESSION: As above Health Advocate: PSCB Transcribe Date/Time: Apr 03 2021 1:08A Dictated by : VERÓNICA BARNES MD This examination was interpreted and the report reviewed and electronically signed by: VERÓNICA BARNES MD on Apr 03 2021 1:09AM EST [id number] Normal [facility] CNCOon 03-31-2021 CNCO Letter Text Normal [facility] CNDSon 03-28-2021 CNDS HNO ID: [id number] Author: Serina Bethea APRN.[employer] 2ND [employer]IFT Service: Cardiac Surgery Author Type: Nurse Practitioner Type: Discharge Summary Filed: 03/28/2021 2:12 PM Note Text: Attestation signed by Cristin Jasso MD at 04/01/2021 1:38 PM Approve Department of Cardiothoracic Surgery Discharge Summary PATIENT NAME: Shine Gross ADMISSION DATE: 03/24/2021 DISCHARGE DATE: 03/28/2021 Attending Physician/Surgeon: Cristin Jasso MD Primary Service: Hvi Cts Team B Code Status: Not on file [facility] Primary Hand Alterations Seamstress: Dr. Petra Rdz Admission Diagnosis: Mitral valve disorder [I05.9] Discharge Diagnosis: Mitral valve disorder [I05.9] Reason for Hospitalization: Ms. Gross is a 71 y/o female with known history of HTN, MR, COVID-19, LBBB who presents for surgical intervention of her mitral valve disease. After discussion of the risks, benefits, personnel, and procedures by Dr. Jasso, she elected to proceed with below named operation. Operations during Hospitalization: 04/03/2021: Mitral valve repair Hospital Course: * How was the Reason for Hospitalization Addressed: Patient underwent the above noted surgery. The OR course was uncomplicated. Operative findings revealed a P1-P2 cleft with P2 prolapse, P2-P3 prolapse with moderate MR. Chest tube inserted intra-operatively weas removed in the normal course of care. Post op imaging included echocardiogram was completed showing satisfactory results. * What were the Active Issues: Patient remained hemodynamically stable, tolerating a diet and demonstrated return of bowel function. Oxygen saturation was within normal limits on RA. Post operative pain was well managed and volume status was improved leading up to day of discharge after receiving short course of IV diuresis. Overall, Ms. Gross demonstrated appropriate clinical progression and stability such that she was deemed appropriate for discharge to home. 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 * Hospital Course Complicated by: Uncomplicated hospital course * Extended Hospital Stay Due to: Hospital stay not extended * Specific Medication Changes: Discharge medication reconciliation included below. * Pain: Well controlled on Motrin, Tylenol at discharge. Patient has undergone cardiac surgical procedure with pain medication requirements necessarily exceeding the 30 MED limit established by the [facility] (#4731-03-28). The patient is being prescribed for a maximum of 7 days with no refills and has been provided with weaning instructions emphasizing the use of non-narcotic alternatives that are medically tolerable. The patient will be re-evaluated at follow up in 3-10 days from discharge to reassess his/her pain management and clinical status. * Surgical Incisions/Wounds: Mediastinal incision. Clean, dry, and intact. Open to air. * Patient Condition at Discharge: Stable * Disposition: Home/Self Care Problem List: Patient Active Hospital Problem List: Nonrheumatic mitral valve regurgitation (03/24/2021) Encounter for support and coordination of transition of care (03/26/2021) Mitral valve prolapse (03/24/2021) Atelectasis (03/24/2021) Paroxysmal atrial fibrillation (HCC) (03/26/2021) PONV (postoperative nausea and vomiting) (03/26/2021) Postoperative pain (03/24/2021) Discharge planning issues (03/17/2021) Consults: None Procedures Performed and Major Radiology: - Echocardiogram: - The left ventricle is normal in size. Left ventricular systolic function is mildly decreased. EF = 50 ? 5% (visual est.) - The right ventricle is normal in size. Right ventricular systolic function is normal. - Post mitral valve repair. Hardwick Mitral Valve Annuloplasty Ring (size #27). There is trace mitral valve regurgitation. The peak gradient is 7 mmHg and the mean gradient is 4 mmHg. - Exam was compared with the prior echocardiographic exam performed on 03/16/2021. Now s/p MV repair. Information Provided to the Patient: Patient given copy of After Visit Summary which included activity instructions, diet instructions, wound care instructions, medication instructions and follow up appointment ALLERGIES No Known Allergies Discharge Medications: Current Discharge Medication List START taking these medications acetaminophen (TYLENOL) 1,000 mg Take 1,000 mg by mouth every 6 hours as needed (for mild pain; do not exceed more than 4000mg of Tylenol oleg 24 hr period.). Qty: 100 tablet Refills: 0 aspirin 81 mg Take 81 mg by mouth once daily. Qty: 90 tablet Refills: 0 ibuprofen (MOTRIN) 600 mg Take 600 mg by mouth every 8 hours as needed (for moderate pain; take with food as able.). Qty: 45 tablet Refills: 0 magnesium oxide (more content not included)... Normal [facility] CBCon 03-27-2021 Absolute nRBC <0.01 Normal <0.01 [facility] Comment on above: Performed By: #### C RONALD, CMP ####[place] [phone] Erythrocyte distribution width (RBC) [Ratio] 13.6 % Normal 11.5-15.0 [facility] Comment on above: Performed By: #### C RONALD, CMP ####[place] [phone] Hematocrit (Bld) [Volume fraction] 30.9 % Low 36.0-46.0 [facility] Comment on above: Performed By: #### C RONALD, CMP ####[address] [phone] Hemoglobin (Bld) [Mass/Vol] 10.4 g/dL Low 11.5-15.5 [facility] Comment on above: Performed By: #### C RONALD, CMP ####[place] [phone] MCH 30.4 pG Normal 26.0-34.0 [facility] Comment on above: Performed By: #### C RONALD, CMP ####[address] [phone] MCHC (RBC) [Mass/Vol] 33.7 g/dL Normal 30.5-36.0 [facility] Comment on above: Performed By: #### C BC, CMP ####[facility], [place] [phone] MCV (RBC) [Entitic vol] 90.4 fL Normal 80.0-100.0 [facility] Comment on above: Performed By: #### C BC, CMP ####[facility], [place] [phone] Platelet mean volume (Bld) [Entitic vol] 12.6 fL Normal 9.0-12.7 [facility] Comment on above: Performed By: #### C BC, CMP ####[facility], [place] [phone] Platelets (Bld) [#/Vol] 107 10*3/uL Low 150-400 [facility] Comment on above: Performed By: #### C BC, CMP ####[facility], [place] [phone] RBC (Bld) [#/Vol] 3.42 10*6/uL Low 3.90-5.20 [facility] Comment on above: Performed By: #### C BC, CMP ####[facility], [place] [phone] WBC (Bld) [#/Vol] 7.95 10*3/uL Normal 3.70-11.00 [facility] Comment on above: Performed By: #### C BC, CMP ####[facility], [place] [phone] Comp Metabolic Panelon 03-27 Albumin [Mass/Vol] 3.4 g/dL Low 3.9-4.9 [facility] Comment on above: Performed By: #### C BC, CMP ####[facility], [place] [phone] ALP [Catalytic activity/Vol] 58 U/L Normal 34-123 [facility] Comment on above: Performed By: #### C BC, CMP ####[place] [address] [address], [place] [phone] ALT [Catalytic activity/Vol] 8 U/L Normal 7-38 [facility] Comment on above: Performed By: #### C BC, CMP ####[place] [address] [address], [place] [phone] Anion gap [Moles/Vol] 10 mmol/L Normal 9-18 [facility] Comment on above: Performed By: #### C BC, CMP ####[place] [address] [address], [place] [phone] AST [Catalytic activity/Vol] 18 U/L Normal 13-35 [facility] Comment on above: Performed By: #### C BC, CMP ####[place] [address] [address], [place] [phone] Bilirubin [Mass/Vol] 0.4 mg/dL Normal 0.2-1.3 [facility] Comment on above: Performed By: #### C BC, CMP ####[place] [address], [place] [phone] Calcium [Mass/Vol] 8.4 mg/dL Low 8.5-10.2 [facility] Comment on above: Performed By: #### C BC, CMP ####[place] [address], [place] [phone] Chloride [Moles/Vol] 104 mmol/L Normal 97-105 [facility] Comment on above: Performed By: #### C BC, CMP ####[place] [address], [place] [phone] CO2 [Moles/Vol] 24 mmol/L Normal 22-30 [facility] Comment on above: Performed By: #### C BC, CMP ####[place] [address] [place], [place] [phone] Creatinine [Mass/Vol] 0.69 mg/dL Normal 0.58-0.96 [facility] Comment on above: Performed By: #### C RONALD, CMP ####[facility] [place] [address] [phone] eGFR- Amer. >60 Normal [facility] Comment on above: Performed By: #### C RONALD, CMP ####[address] [phone] eGFR-All Other Races >60 Normal [facility] Comment on above: Result Comment: eGFR (Estimated GFR) Units of measure: mL/min/1.73 meters squared eGFR is derived from the reexpressed MDRD Study equation using the following parameters: serum creatinine, age, gender and race. The creatinine assay has been calibrated to be traceable to IDMS. An eGFR <60 mL/min/1.73m2 for >3 months is consistent with chronic kidney disease. Refer to KDOQI guidelines for clinical interpretation. In patients with unstable renal function, e.g. those with acute kidney injury, the eGFR may not accurately reflect actual GFR. Performed By: #### C RONALD, CMP ####[facility] [place] [address] [phone] Glucose [Mass/Vol] 100 mg/dL High 74-99 [facility] Comment on above: Result Comment: The [place] Diabetes Association (ADA) provides guidance for cutoff values for fasting glucose and random glucose. The ADA defines fasting as no caloric intake for at least 8 hours. Fasting plasma glucose results between 100 to 125 mg/dL indicate increased risk for diabetes (prediabetes). Fasting plasma glucose results greater than or equal to 126 mg/dL meet the criteria for diagnosis of diabetes. In the absence of unequivocal hyperglycemia, results should be confirmed by repeat testing. In a patient with classic symptoms of hyperglycemia or hyperglycemic crisis, random plasma glucose results greater than or equal to 200 mg/dL meet the criteria for diagnosis of diabetes. Reference: Standards of Medical Care in Diabetes 2016, [place] [employer]. Diabetes Care. 2016.39(Suppl 1). Performed By: #### C BC, CMP ####[facility] [place], [place] [phone] Potassium [Moles/Vol] 3.8 mmol/L Normal 3.7-5.1 [facility] Comment on above: Performed By: #### C BC, CMP ####[facility] [place], [place] [phone] Protein [Mass/Vol] 5.8 g/dL Low 6.3-8.0 [facility] Comment on above: Performed By: #### C BC, CMP ####[place] [id number] [place], [place] [phone] Sodium [Moles/Vol] 138 mmol/L Normal 136-144 [facility] Comment on above: Performed By: #### C BC, CMP ####[facility] [place], [place] [phone] Urea nitrogen [Mass/Vol] 21 mg/dL Normal 7-21 [facility] Comment on above: Performed By: #### C BC, CMP ####[facility] [place] [address] [phone] THERAPY NTon 03-27-2021 THERAPY NT HNO ID: [id number] Author: Charlene Aldana, PT Service: Physical Therapy Author Type: Physical Therapist Type: Therapy (PT/OT/Speech/Resp) Filed: 03/27/2021 9:05 AM Note Text: Physical Therapy Evaluation SERVICE DATE: 03/27/2021 SERVICE TIME: 0820 to 0900 ROOM: [place] [address] Recommended Discharge Disposition: Home Anticipated Discharge Needs: Physical Assist at Home Physical Assist at Home for: Cleaning;Laundry;Shopp ing;Transportation PT 6 Clicks Score: 21 Precautions/Activity Restrictions: Cardiac;Fall Risk;Sternal Current Hospital Course: 03/24/2021: MVr (#27 [place]wick) Reason for Hospital Admission: scheduled surgery Relevant Past Medical History: HTN, MR, MVP, COVID-19, LBBB Response to Therapy Interventions: Good participation in activities Continue skilled needs due to: Functional mobility/skill impairments Physical Therapy Problem List: Education Deficit;Decreased Activity Tolerance;Functional Mobility Impairment;Decreased Strength;Balance Impaired Treatment Interventions: Education;Self Care / Home Management;Energy Conservation Training;Strengthening ;Functional Mobility Training;Balance Training Plan for next visit: Bed mobility,Chair transfer training,Sit to Stand Transfers,Gait training,Standing Tolerance,Standing Balance Home Environment Patient Lives With: Spouse Assistance Available: 24 Hour (Spouse, daughter, sons) Entry To Home: Stairs;With Rail Number Of Stairs Into Home: 2 Number Of Stairs To Bed/Bath: 0 Tub/Shower Type: walk-in shower (what patient typically uses) and tub-shower options Equipment Owned: (none) Prior Functional Level: Within Functional Limits Prior Functional Level Comments: Ind with I/ADLs. Ambulates w/o device. Drives. Enjoys reading, gardening, and spending time with her family. Patient Report: agreeable to PT CURRENT FUNCTIONAL STATUS: Most recent performance Current Functional Mobility Assist Level Additional Information Rolling Supine to Sit Contact Guard Assistance Sit to Supine Minimal Assistance Scooting Sit to Stand Supervision Stand to Sit Supervision Bed to Chair Toilet/Commode Gait Stand By Assistance Gait Device: Hand Held Assist;None, progressed to ambulation without AD, mild path deviation, no LOB Gait Distance (feet): 150 Stairs Curb Step Car Transfer Blank obregon indicate activity not attempted General Deviations/Observation s: Ana decreased;Step length decreased JH-HLM: 7: Walk 25 feet or more Learning/Educational Needs: Discharge Plan;Equipment;Functio nal Activities/Mobility;Pl an of Care;Precautions;Rehab ilitation Techniques and Procedures;Safety Goals for Plan of Care: Patient /Caregiver Goals: Go Home;Walk Goals: Patient will demonstrate progress with functional mobility to allow safe discharge to home with available support and/or physical assistance. Progress Toward Goals: Progressing as expected Rehab Potential: Good Patient will be discontinued from Physical Therapy when no further skilled needs are identified in this setting. PLAN: PT Frequency: 2 times per week Plan of Care developed with: Patient TREATMENT INTERVENTIONS: Therapy Diagnosis: Reduced mobility-other Interventions Provided: Evaluation;Therapeutic Activity (01808);Gait Training (41255) $ Evaluation-Low (14140) Billed Units: 1 unit Therapeutic Activity (02214) Treatment Minutes: 17 $ Therapeutic Activity (57577) Billed Units: 1 unit Gait Training (22382) Treatment Minutes: 8 $ Gait Training (85055) Billed Units: 1 unit Training AND education provided in: Anatomy and impact on deficits,Assistive device use,Bed mobility,Benefits of in-hospital mobility,Discharge planning,Energy conservation,Equipment ,Exercise program,Expected functional level,Falls prevention,Gait pattern, reduction of deviations,Home safety,Role of Physical Therapy,Treatment protocol,Transfers The following therapeutic skills were used: Activity dosing,Assessment of tolerance including vitals response to activity,Cues for sequencing/proper technique for activity,Cuing visual,Cuing verbal,Cuing tactile,Movement facilitation,Physical assist,Task analysis learning,Teach-back for education Timed Code Treatment (minutes): 25 Skilled Treatment Time (minutes): 40 Please see discipline specific clinical documentation flowsheet for complete details for this therapy evaluation/treatment. SIGNATURE: Charlene Aldana PT PATIENT NAME: Shine Gross DATE: March 27, 2021 TIME: 9:05 AM Normal [facility] XR CHEST 2V FRONTAL/LATon XR CHEST 2V FRONTAL/LAT * * *Final Report* * * DATE OF EXAM: Mar 27 2021 2:16PM JIX [id number] - XR CHEST 2V FRONTAL/LAT / PROCEDURE REASON: Post-operative / post-procedure assessment, asymptomatic * * * * Physician Interpretation * * * * EXAMINATION: CHEST RADIOGRAPH (2 VIEW FRONTAL and LATERAL) CLINICAL HISTORY: Post-operative / post-procedure assessment, asymptomatic MQ: XC2_6 EXAM DATE/TIME: 03/27/2021 2:16 PM COMPARISON: 1 day prior RESULT: Lines, tubes, and devices: Removal of right IJ catheter mediastinal drains. Lungs and pleura: Increase in size of trace right pneumothorax, currently approximately 15-20% with pleural separation of 2 cm. Improvement of basilar atelectasis. Improving superimposed edema inflammation cannot be excluded. Decrease and/or shift of small pleural effusions. Cardiomediastinal silhouette: Heart is enlarged. Thoracic aorta is tortuous. Bones and soft tissues: Median sternotomy. Generalized osteopenia. IMPRESSION: As above Health Advocate: VALENTÍN Transcribe Date/Time: Mar 27 2021 11:56P Dictated by : VERÓNICA BARNES MD This examination was interpreted and the report reviewed and electronically signed by: VERÓNICA BARNES MD on Mar 27 2021 11:57PM EST [id number] Normal [facility] CBCon 03-26-2021 Absolute nRBC <0.01 Normal <0.01 [facility] Comment on above: Performed By: #### C MP, CBC ####[place] [address] [address], [place] [phone] Erythrocyte distribution width (RBC) [Ratio] 13.7 % Normal 11.5-15.0 [facility] Comment on above: Performed By: #### C MP, CBC ####[place] [address] [address], [place] [phone] Hematocrit (Bld) [Volume fraction] 29.8 % Low 36.0-46.0 [facility] Comment on above: Performed By: #### C MP, CBC ####[place] [address] [address], [place] [phone] Hemoglobin (Bld) [Mass/Vol] 9.9 g/dL Low 11.5-15.5 [facility] Comment on above: Performed By: #### C MP, CBC ####[place] [address] [address] [place], [place] [phone] MCH 30.7 pG Normal 26.0-34.0 [facility] Comment on above: Performed By: #### C MP, CBC ####[place] [address] [place], [place] [phone] MCHC (RBC) [Mass/Vol] 33.2 g/dL Normal 30.5-36.0 [facility] Comment on above: Performed By: #### C MP, CBC ####[place] [address] [address], [place] [phone] MCV (RBC) [Entitic vol] 92.3 fL Normal 80.0-100.0 [facility] Comment on above: Performed By: #### C MP, CBC ####[facility] [address], [place] [phone] Platelet mean volume (Bld) [Entitic vol] 12.5 fL Normal 9.0-12.7 [facility] Comment on above: Performed By: #### C MP, CBC ####[facility], [place] [phone] Platelets (Bld) [#/Vol] 87 10*3/uL Low 150-400 [facility] Comment on above: Result Comment: No c lot detected. Performed By: #### C MP, CBC ####[place] [address] [address], [place] [phone] RBC (Bld) [#/Vol] 3.23 10*6/uL Low 3.90-5.20 [facility] Comment on above: Performed By: #### C MP, CBC ####[place] [address] [address], [place] [phone] WBC (Bld) [#/Vol] 7.71 10*3/uL Normal 3.70-11.00 [facility] Comment on above: Performed By: #### C MP, CBC ####[facility], [place] [phone] Comp Metabolic Panelon 03-26 Albumin [Mass/Vol] 3.0 g/dL Low 3.9-4.9 [facility] Comment on above: Performed By: #### C MP, CBC ####[place] [address], [place] [phone] ALP [Catalytic activity/Vol] 47 U/L Normal 34-123 [facility] Comment on above: Performed By: #### C MP, CBC ####[facility] [address]leveland[address], [place] [phone] ALT [Catalytic activity/Vol] 9 U/L Normal 7-38 [facility] Comment on above: Performed By: #### C MP, CBC ####[place] [address] [place], [place] [phone] Anion gap [Moles/Vol] 7 mmol/L Low 9-18 [facility] Comment on above: Performed By: #### C MP, CBC ####[place] [address] [address] [place] [phone] AST [Catalytic activity/Vol] 23 U/L Normal 13-35 [facility] Comment on above: Performed By: #### C MP, CBC ####[place] [address] [address], [place] [phone] Bilirubin [Mass/Vol] 0.4 mg/dL Normal 0.2-1.3 [facility] Comment on above: Performed By: #### C MP, CBC ####[place] [address] [address], [place] [phone] Calcium [Mass/Vol] 8.0 mg/dL Low 8.5-10.2 [facility] Comment on above: Performed By: #### C MP, CBC ####[place] [address] [address], [place] [phone] Chloride [Moles/Vol] 108 mmol/L High 97-105 [facility] Comment on above: Performed By: #### C MP, CBC ####[place] [address] [place], [place] [phone] CO2 [Moles/Vol] 22 mmol/L Normal 22-30 [facility] Comment on above: Performed By: #### C MP, CBC ####[place] [address] [place], [place] [phone] Creatinine [Mass/Vol] 0.62 mg/dL Normal 0.58-0.96 [facility] Comment on above: Performed By: #### C MP, CBC ####[place] [address] [place], [place] [phone] eGFR- Amer. >60 Normal [facility] Comment on above: Performed By: #### C MP, CBC ####[facility] [place], [place] [phone] eGFR-All Other Races >60 Normal [facility] Comment on above: Result Comment: eGFR (Estimated GFR) Units of measure: mL/min/1.73 meters squared eGFR is derived from the reexpressed MDRD Study equation using the following parameters: serum creatinine, age, gender and race. The creatinine assay has been calibrated to be traceable to IDMS. An eGFR <60 mL/min/1.73m2 for >3 months is consistent with chronic kidney disease. Refer to KDOQI guidelines for clinical interpretation. In patients with unstable renal function, e.g. those with acute kidney injury, the eGFR may not accurately reflect actual GFR. Performed By: #### C MP, CBC ####[facility] [place], [place] [phone] Glucose [Mass/Vol] 92 mg/dL Normal 74-99 [facility] Comment on above: Result Comment: The [place] Diabetes Association (ADA) provides guidance for cutoff values for fasting glucose and random glucose. The ADA defines fasting as no caloric intake for at least 8 hours. Fasting plasma glucose results between 100 to 125 mg/dL indicate increased risk for diabetes (prediabetes). Fasting plasma glucose results greater than or equal to 126 mg/dL meet the criteria for diagnosis of diabetes. In the absence of unequivocal hyperglycemia, results should be confirmed by repeat testing. In a patient with classic symptoms of hyperglycemia or hyperglycemic crisis, random plasma glucose results greater than or equal to 200 mg/dL meet the criteria for diagnosis of diabetes. Reference: Standards of Medical Care in Diabetes 2016, [place] [employer]. Diabetes Care. 2016.39(Suppl 1). Performed By: #### C MP, CBC ####[facility] [place], [place] [phone] Potassium [Moles/Vol] 4.1 mmol/L Normal 3.7-5.1 [facility] Comment on above: Performed By: #### C MP, CBC ####[facility] [place], [place] [phone] Protein [Mass/Vol] 4.9 g/dL Low 6.3-8.0 [facility] Comment on above: Performed By: #### C MP, CBC ####[facility], [place] [phone] Sodium [Moles/Vol] 137 mmol/L Normal 136-144 [facility] Comment on above: Performed By: #### C MP, CBC ####[facility], [place] [phone] Urea nitrogen [Mass/Vol] 12 mg/dL Normal 7-21 [facility] Comment on above: Performed By: #### C MP, CBC ####[facility], [place] [phone] NURSING PROGon 03-26-2021 NURSING PROG HNO ID: [id number] Author: Niles Perez RN Service: Nursing Author Type: Registered Nurse Type: Nursing Progress Note Filed: 03/26/2021 6:53 PM Note Text: Nursing Progress Note Patient Name: Shine Gross Patient Location: [address]6-1-04 __ Transfer Note: Patient transferred into room/unit J61-4 in stable condition. Actions taken: Patient belongings with patient. Educated patient on falls protocol and function of call light and patient verbalized understanding. Skin assessed with KRISTINE Marroquin. This note was completed by: Niles Perez Normal [facility] THERAPY NTon 03-26-2021 THERAPY NT HNO ID: [id number] Author: Sandi Garcia OT/L Service: Occupational Therapy Author Type: Occupational Therapist Type: Therapy (PT/OT/Speech/Resp) Filed: 03/26/2021 9:41 AM Note Text: Occupational Therapy Evaluation SERVICE DATE: 03/26/2021 SERVICE TIME: 813 ROOM: [place] [address] Recommended Discharge Disposition: Unable to determine due to critical care status Anticipated Discharge Needs: Undetermined Recommended Discharge Equipment: To Be Determined OT 6 Clicks Score: 18 Precautions/Activity Restrictions: Cardiac;Fall Risk;Lines/Tubes/Drain s;Sternal Current Hospital Course: 03/24/2021: MVr (#[address]) Reason for Hospital Admission: scheduled surgery Relevant Past Medical History: HTN, MR, MVP, COVID-19, LBBB Response to Therapy Interventions: Good participation in activities Continue skilled needs due to: Continued monitoring of vital signs during mobility required,Family training required,Functional impairment Occupational Therapy Problem List: Safety Deficits;Decreased Activity Tolerance;Impaired Self Care;Decreased Strength;Functional Mobility Impairment;Balance Impaired Cognition/Communicatio n Deficits Orientation Deficits: (AANDOX4) Responsiveness: Alert,Awake Follows Commands: 2-step Commands Confusion Assessment Method (CAM - ICU Score): Negative Psychosocial Deficit: addressed coping needs due to hospitalization Cognitive Activities Performed: skilled education regarding importance of engaging in cognitive stimulating activities and strategies for sleep/wake cycles Treatment Interventions: Self Care / Home Management;Education;S trengthening;Joint Mobility;Energy Conservation Training;Balance Training;Functional Mobility Training Plan for next visit: Chair/commode transfer training,Bed mobility,Dressing training,Toileting instruction,Standing tolerance,Standing balance Home Environment Patient Lives With: Spouse Assistance Available: 24 Hour Entry To Home: Stairs;With Rail Number Of Stairs Into Home: 2 Number Of Stairs To Bed/Bath: 0 Tub/Shower Type: walk-in shower (what patient typically uses) and tub-shower options Equipment Owned: (none) Prior Functional Level: Within Functional Limits Prior Functional Level Comments: Ind with I/ADLs. Ambulates w/o device. Drives. Enjoys reading, gardening, and spending time with her family. Patient Report: Is it normal to feel a little out of it? I really do feel better after all of that. Thank you for helping me. (re: ADLs) CURRENT FUNCTIONAL STATUS: Most recent performance Current Activities of Daily Living Assist Level Additional Information Feeding Set Up Grooming Set Up Bathing Upper Body Minimal Assistance Bathing Lower Body Moderate Assistance Dressing Upper Body Minimal Assistance Dressing Lower Body Moderate Assistance Toileting Minimal Assistance Instrumental Activities of Daily Living Assist Level Additional Information Meal/Beverage Prep Cleaning Laundry Medication Management with Strategies Functional Mobility Assist Level Additional Information Rolling Supine to Sit Sit to Supine Scooting Sit to Stand Stand to Sit Bed to Chair Toilet/Commode Shower Functional Mobility Blank obregon indicate activity not attempted Learning/Educational Needs: Functional Activities/Mobility;Fa zayra Education/Training;Rylan abilitation Techniques and Procedures;Precautions ;Safety;Self Care Goals for Plan of Care: Patient /Caregiver Goals: Go Home;Care For Self Goals: Patient will demonstrate progress to optimize self-care activities, cognitive and/or coping to maximize function upon discharge. Progress Toward Goals: Progressing as expected Rehab Potential: Good Patient will be discontinued from Occupational Therapy when no further skilled needs are identified in this setting. PLAN: OT Frequency: 3 times per week (2) Plan of Care developed with: Patient;Family TREATMENT INTERVENTIONS: Therapy Diagnosis: Reduced mobility-other;Decreas ed activities of daily living (ADL);Muscle Weakness (generalized) Interventions Provided: Evaluation;Therapeutic Activity (65434);Self Shelter Management (20626);Cognitive Training (15177 and 94598) $ Evaluation-Moderate (51091) Billed Units: 1 unit Therapeutic Activity (92763) Treatment Minutes: 15 $ Therapeutic Activity (16122) Billed Units: 1 unit Self Shelter Management (03295) Treatment Minutes: 25 $ Self Shelter Management (86694) Billed Units: 2 units Cognitive Training Per First 15 Minutes (18921) : 15 $ Cognitive Training Per First 15 Minutes Billed Units (72620) 2020: 1 unit Training AND education provided in: Activity adaption / compensatory strategies,Cognitive prosthetics,Coping skills,Cognitive skills,Benefits of in-hospital mobility,Grooming tasks,Feeding tasks,Expected functional level,Exercise program,Energy conservation,Disease specific education,Role of Occupational Therapy,Precautions/re stri (more content not included)... Normal [facility] XR CHEST 1V FRONTAL PORTon 1 05-26-2020 XR CHEST 1V FRONTAL PORT * * *Final Report* * * DATE OF EXAM: Mar 26 2021 3:48AM JIX [id number] - XR CHEST 1V FRONTAL PORT / PROCEDURE REASON: Post-operative / post-procedure assessment, asymptomatic * * * * Physician Interpretation * * * * EXAMINATION: CHEST RADIOGRAPH (PORTABLE SINGLE VIEW AP) Exam Date/Time: 03/26/2021 3:48 AM Clinical History: Post-operative / post-procedure assessment, asymptomatic MQ: [id number] Comparison: 1 day prior RESULT: Lines, tubes, and devices: Right chest tube and PA catheter removed in the interval. Right IJ sheath/catheter terminates in the lower SVC. Otherwise stable life support devices. Obliquely oriented radiopaque marker overlying left lower hemithorax is no longer visible and presumably removed. Patient is status post median sternotomy and right atrial annuloplasty/valve repair. Lungs and pleura: Miniscule right apical pneumothorax noted. No deep sulcus sign noted on this supine radiograph. Persistent left greater than right basilar opacities suggestive of atelectasis and probable left pleural effusion. Left hemidiaphragm appears indistinct/silhouette out. Other processes such as aspiration not excluded if clinical picture fits. Cardiomediastinal silhouette: Stable prominent cardiomediastinal silhouette. There may be focal atherosclerotic calcifications of the aortic arch. Other: . IMPRESSION: See result. Health Advocate: [place] Transcribe Date/Time: Mar 26 2021 9:44A Dictated by : KING NUNO MD This examination was interpreted and the report reviewed and electronically signed by: KING NUNO MD on Mar 26 2021 9:47AM EST [id number] Normal [facility] ANES Ajit 03-25-2021 ANES POST HNO ID: [id number] Author: Kavin Galicia MD Service: Anesthesiology Author Type: Anesthesiologist Type: Anesthesia PostOp Filed: 03/25/2021 11:19 AM Note Text: POST ANESTHESIA EVALUATION NOTE SERVICE DATE: 03/25/2021 SERVICE TIME: 11:19 AM : 1950 Vitals: 03/24/21 0526 03/25/21 0300 03/25/21 0700 Temp: 36.7 ?C (98.1 ?F) 36.6 ?C (97.9 ?F) 36.8 ?C (98.2 ?F) 03/25/21 0903/25/21 0930 03/25/21 1000 03/25/21 1030 Arterial BP 1: 126/60 109/57 117/53 125/56 BP: 107/57 03/25/21 0900 03/25/21 0930 03/25/21 1000 03/25/21 1030 Pulse: 80 74 72 72 03/25/2189903/25/21 0930 03/25/21 1000 03/25/21 1030 Resp: 24 22 12 13 03/25/21 0900 03/25/21 0930 03/25/21 1000 03/25/21 1030 SpO2: 98% 96% 97% 99% Validated Vital Signs: Yes POST ANES STATUS: No apparent anesthetic complications. The patient is appropriately hydrated with stable respiratory and cardiovascular status. Patient has safe and adequate airway control. The patient has appropriate pain relief and no significant post operative nausea or vomiting. The patient has achieved baseline mental status. Intra-Operative Events: No Significant Anesthesia Events Further assessment by Anesthesia Service: None Other Remarks: SIGNATURE: Kavin Galicia MD PATIENT NAME: Shine Gross DATE: March 25, 2021 TIME: 11:19 AM PAGER/CONTACT #: Normal [facility] CBCon 03-25-2021 Absolute nRBC <0.01 Normal <0.01 [facility] Comment on above: Performed By: #### T NT, CMP, MG1, CBC ####[place] [id number] [place], [place] [phone] Erythrocyte distribution width (RBC) [Ratio] 13.5 % Normal 11.5-15.0 [facility] Comment on above: Performed By: #### T NT, CMP, MG1, CBC ####[facility] [place], [place] [phone] Hematocrit (Bld) [Volume fraction] 31.4 % Low 36.0-46.0 [facility] Comment on above: Performed By: #### T NT, CMP, MG1, CBC ####[place] [address] [place], [place] [phone] MCH 30.6 pG Normal 26.0-34.0 [facility] Comment on above: Performed By: #### T NT, CMP, MG1, CBC ####[place] [address] [place], [place] [phone] MCHC (RBC) [Mass/Vol] 32.8 g/dL Normal 30.5-36.0 [facility] Comment on above: Performed By: #### T NT, CMP, MG1, CBC ####[place] [address] [place], [place] [phone] MCV (RBC) [Entitic vol] 93.2 fL Normal 80.0-100.0 [facility] Comment on above: Performed By: #### T NT, CMP, MG1, CBC ####[address] [phone] Platelet mean volume (Bld) [Entitic vol] 12.2 fL Normal 9.0-12.7 [facility] Comment on above: Performed By: #### T NT, CMP, MG1, CBC ####[place] [address] [address], [place] [phone] Platelets (Bld) [#/Vol] 98 10*3/uL Low 150-400 [facility] Comment on above: Result Comment: No c lot detected. Performed By: #### T NT, CMP, MG1, CBC ####[place] [address] [place], [place] [phone] RBC (Bld) [#/Vol] 3.37 10*6/uL Low 3.90-5.20 [facility] Comment on above: Performed By: #### T NT, CMP, MG1, CBC ####[place] [address] [place], [place] [phone] WBC (Bld) [#/Vol] 9.66 10*3/uL Normal 3.70-11.00 [facility] Comment on above: Performed By: #### T NT, CMP, MG1, CBC ####[place] [address] [address], [place] [phone] Hemoglobin (Bld) [Mass/Vol] 10.3 g/dL Low 11.5-15.5 [facility] Comment on above: Performed By: #### T NT, CMP, MG1, CBC ####[place] [address] [address], [place] [phone] Performed By: #### A LLBG ####[place] [address] [address], [place] [phone] CNCOon 03-25-2021 CNCO Letter Text Normal [facility] Comp Metabolic Panelon 03-25 Albumin [Mass/Vol] 3.4 g/dL Low 3.9-4.9 [facility] Comment on above: Performed By: #### T NT, CMP, MG1, CBC ####[place] [address] [address], [place] [phone] ALP [Catalytic activity/Vol] 47 U/L Normal 34-123 [facility] Comment on above: Performed By: #### T NT, CMP, MG1, CBC ####[place] [address] [address], [place] [phone] ALT [Catalytic activity/Vol] 14 U/L Normal 7-38 [facility] Comment on above: Performed By: #### T NT, CMP, MG1, CBC ####[facility], [place] [phone] Anion gap [Moles/Vol] 9 mmol/L Normal 9-18 [facility] Comment on above: Performed By: #### T NT, CMP, MG1, CBC ####[place] [address] [address], [place] [phone] AST [Catalytic activity/Vol] 34 U/L Normal 13-35 [facility] Comment on above: Performed By: #### T NT, CMP, MG1, CBC ####[place] [address] [address] [place] [phone] Bilirubin [Mass/Vol] 0.3 mg/dL Normal 0.2-1.3 [facility] Comment on above: Performed By: #### T NT, CMP, MG1, CBC ####[place] [address] [address] [place] [phone] Calcium [Mass/Vol] 8.5 mg/dL Normal 8.5-10.2 [facility] Comment on above: Performed By: #### T NT, CMP, MG1, CBC ####[place] [address] [address] [place] [phone] Chloride [Moles/Vol] 110 mmol/L High 97-105 [facility] Comment on above: Performed By: #### T NT, CMP, MG1, CBC ####[place] [address] [address] [place] [phone] CO2 [Moles/Vol] 19 mmol/L Low 22-30 [facility] Comment on above: Performed By: #### T NT, CMP, MG1, CBC ####[place] [address] [address] [place] [phone] Creatinine [Mass/Vol] 0.64 mg/dL Normal 0.58-0.96 [facility] Comment on above: Performed By: #### T NT, CMP, MG1, CBC ####[facility] [place] [phone] eGFR- Amer. >60 Normal [facility] Comment on above: Performed By: #### T NT, CMP, MG1, CBC ####[place] [address] [address] [place] [phone] eGFR-All Other Races >60 Normal [facility] Comment on above: Result Comment: eGFR (Estimated GFR) Units of measure: mL/min/1.73 meters squared eGFR is derived from the reexpressed MDRD Study equation using the following parameters: serum creatinine, age, gender and race. The creatinine assay has been calibrated to be traceable to IDMS. An eGFR <60 mL/min/1.73m2 for >3 months is consistent with chronic kidney disease. Refer to KDOQI guidelines for clinical interpretation. In patients with unstable renal function, e.g. those with acute kidney injury, the eGFR may not accurately reflect actual GFR. Performed By: #### T NT, CMP, MG1, CBC ####[facility], [place] [phone] Glucose [Mass/Vol] 141 mg/dL High 74-99 [facility] Comment on above: Result Comment: The [place] Diabetes Association (ADA) provides guidance for cutoff values for fasting glucose and random glucose. The ADA defines fasting as no caloric intake for at least 8 hours. Fasting plasma glucose results between 100 to 125 mg/dL indicate increased risk for diabetes (prediabetes). Fasting plasma glucose results greater than or equal to 126 mg/dL meet the criteria for diagnosis of diabetes. In the absence of unequivocal hyperglycemia, results should be confirmed by repeat testing. In a patient with classic symptoms of hyperglycemia or hyperglycemic crisis, random plasma glucose results greater than or equal to 200 mg/dL meet the criteria for diagnosis of diabetes. Reference: Standards of Medical Care in Diabetes 2016, [place] [employer]. Diabetes Care. 2016.39(Suppl 1). Performed By: #### T NT, CMP, MG1, CBC ####[facility] [address], [place] [phone] Protein [Mass/Vol] 5.0 g/dL Low 6.3-8.0 [facility] Comment on above: Performed By: #### T NT, CMP, MG1, CBC ####[facility] [address] [place], [place] [phone] Sodium [Moles/Vol] 138 mmol/L Normal 136-144 [facility] Comment on above: Performed By: #### T NT, CMP, MG1, CBC ####[facility], [place] [phone] Urea nitrogen [Mass/Vol] 9 mg/dL Normal 7-21 [facility] Comment on above: Performed By: #### T NT, CMP, MG1, CBC ####[place] [address], [place] [phone] Potassium [Moles/Vol] 3.8 mmol/L Normal 3.5-5.0 [facility] Comment on above: Performed By: #### T NT, CMP, MG1, CBC ####[place] [address] [address], [place] [phone] Performed By: #### A LLBG ####[place] [address] [address] [place] [phone] GASA + All FOR RADIANCE USE ONLYon 03-25-2021 Base Excess Negative Normal [facility] Comment on above: Performed By: #### A LLBG ####[place] [address] [address] [place] [phone] Blood Gas Comm, Art . Normal [facility] Comment on above: Performed By: #### A LLBG ####[address] [place] [phone] Body temperature 98.42 [degF] Normal [facility] Comment on above: Performed By: #### A LLBG ####[place] [address] [address], [place] [phone] Calcium [Moles/Vol] 1.21 mmol/L Normal 1.08-1.30 [facility] Comment on above: Performed By: #### A LLBG ####[place] [address] [place] [phone] Carboxyhemoglobin,Art 1.6 % Normal <2.1 [facility] Comment on above: Performed By: #### A LLBG ####[place] [address] [address], [place] [phone] CO2 [Moles/Vol] 22 mmol/L Normal 22.0-28.0 [facility] Comment on above: Performed By: #### A LLBG ####[place] [address], [place] [phone] Glucose [Mass/Vol] 120 mg/dL High 60-105 [facility] Comment on above: Performed By: #### A LLBG ####[place] [address] [address], [place] [phone] HCO3 (Bld) [Moles/Vol] 21 mmol/L Low 22-26 [facility] Comment on above: Performed By: #### A LLBG ####[place] [address] [address], [place] [phone] Hematocrit (Bld) [Volume fraction] 32.6 % Low 36.0-46.0 [facility] Comment on above: Performed By: #### A LLBG ####[place] [address] [address] [place] [phone] Hemoglobin (Bld) [Mass/Vol] 10.6 g/dL Low 11.5-15.5 [facility] Comment on above: Performed By: #### A LLBG ####[place] [address] [address], [place] [phone] Lactate [Moles/Vol] 1.0 mmol/L Normal 0.5-2.2 [facility] Comment on above: Performed By: #### A LLBG ####[place] [address] [address], [place] [phone] Methemoglobin 1.4 % Normal <1.6 [facility] Comment on above: Performed By: #### A LLBG ####[place] [address] [address], [place] [phone] O2 Administered 1LNC Normal [facility] Comment on above: Performed By: #### A LLBG ####[place] [address] [address] [place] [phone] Oxyhemoglobin, Art. 94 % Low 95-98 [facility] Comment on above: Performed By: #### A LLBG ####[place] [address] [address] [place] [phone] pCO2 33 mm Hg Low 34-46 [facility] Comment on above: Performed By: #### A LLBG ####[place] [address] [address] [place] [phone] pCO2, Temp Correct 33 mm Hg Low 34-46 [facility] Comment on above: Performed By: #### A LLBG ####[place] [address] [address] [phone] pH (Bld) 7.41 [pH] Normal 7.35-7.45 [facility] Comment on above: Performed By: #### A LLBG ####[place] [address] [address] [place] [phone] pH, Temp Corrected 7.41 Normal 7.35-7.45 [facility] Comment on above: Performed By: #### A LLBG ####[place] [address] [address] [place] [phone] pO2 82 mm Hg Low 85-95 [facility] Comment on above: Performed By: #### A LLBG ####[place] [address] [address], [place] [phone] pO2, Temp Corrected 82 mm Hg Low 85-95 [facility] Comment on above: Performed By: #### A LLBG ####[place] [address] [address], [place] [phone] Potassium [Moles/Vol] 4.2 mmol/L Normal 3.5-5.0 [facility] Comment on above: Performed By: #### A LLBG ####[facility], [place] [phone] Sodium [Moles/Vol] 136 mmol/L Normal 136-144 [facility] Comment on above: Performed By: #### A LLBG ####[place] [phone], [place] [phone] Base Excess Negative Normal [facility] Comment on above: Performed By: #### A LLBG ####[place] [address], [place] [phone] Blood Gas Comm, Art . Normal [facility] Comment on above: Performed By: #### A LLBG ####[place] [address] [address], [place] [phone] Body temperature 98.24 [degF] Normal [facility] Comment on above: Performed By: #### A LLBG ####[place] [address] [address], [place] [phone] Calcium [Moles/Vol] 1.23 mmol/L Normal 1.08-1.30 [facility] Comment on above: Performed By: #### A LLBG ####[place] [address] [address], [place] [phone] Carboxyhemoglobin,Art 1.2 % Normal <2.1 [facility] Comment on above: Performed By: #### A LLBG ####[place] [phone], [place] [phone] CO2 [Moles/Vol] 21 mmol/L Low 22.0-28.0 [facility] Comment on above: Performed By: #### A LLBG ####[place] [address], [place] [phone] Glucose [Mass/Vol] 138 mg/dL High 60-105 [facility] Comment on above: Performed By: #### A LLBG ####[place] [address] [address], [place] [phone] HCO3 (Bld) [Moles/Vol] 20 mmol/L Low 22-26 [facility] Comment on above: Performed By: #### A LLBG ####[place] [address], [place] [phone] Hematocrit (Bld) [Volume fraction] 33.3 % Low 36.0-46.0 [facility] Comment on above: Performed By: #### A LLBG ####[place] [address] [place] [phone] Hemoglobin (Bld) [Mass/Vol] 10.8 g/dL Low 11.5-15.5 [facility] Comment on above: Performed By: #### A LLBG ####[place] [address] [place] [phone] Lactate [Moles/Vol] 0.7 mmol/L Normal 0.5-2.2 [facility] Comment on above: Performed By: #### A LLBG ####[place] [address] [address] [phone] Methemoglobin 0.6 % Normal <1.6 [facility] Comment on above: Performed By: #### A LLBG ####[place] [address] [place] [phone] O2 Administered 1L NC Normal [facility] Comment on above: Performed By: #### A LLBG ####[place] [address], [place] [phone] Oxyhemoglobin, Art. 97 % Normal 95-98 [facility] Comment on above: Performed By: #### A LLBG ####[place] [address], [place] [phone] pCO2 35 mm Hg Normal 34-46 [facility] Comment on above: Performed By: #### A LLBG ####[place] [address] [place], [place] [phone] pCO2, Temp Correct 34 mm Hg Normal 34-46 [facility] Comment on above: Performed By: #### A LLBG ####[place] [address] [place], [place] [phone] pH (Bld) 7.38 [pH] Normal 7.35-7.45 [facility] Comment on above: Performed By: #### A LLBG ####[place] [address] [place], [place] [phone] pH, Temp Corrected 7.38 Normal 7.35-7.45 [facility] Comment on above: Performed By: #### A LLBG ####[place] [address] [address], [place] [phone] pO2 121 mm Hg High 85-95 [facility] Comment on above: Performed By: #### A LLBG ####[place] [address] [address], [place] [phone] pO2, Temp Corrected 120 mm Hg High 85-95 [facility] Comment on above: Performed By: #### A LLBG ####[address] [phone] Potassium [Moles/Vol] 3.9 mmol/L Normal 3.5-5.0 [facility] Comment on above: Performed By: #### A LLBG ####[place] [address] [address], [place] [phone] Sodium [Moles/Vol] 136 mmol/L Normal 136-144 [facility] Comment on above: Performed By: #### A LLBG ####[address] [phone] Base Excess Negative Normal [facility] Comment on above: Performed By: #### A LLBG ####[place] [address], [place] [phone] Blood Gas Comm, Art . Normal [facility] Comment on above: Performed By: #### A LLBG ####[place] [address], [place] [phone] Body temperature 98.6 [degF] Normal [facility] Comment on above: Performed By: #### A LLBG ####[place] [address], [place] [phone] Calcium [Moles/Vol] 1.23 mmol/L Normal 1.08-1.30 [facility] Comment on above: Performed By: #### A LLBG ####[place] [address] [place] [phone] Carboxyhemoglobin,Art 1.2 % Normal <2.1 [facility] Comment on above: Performed By: #### A LLBG ####[place] [address] [place] [phone] CO2 [Moles/Vol] 21 mmol/L Low 22.0-28.0 [facility] Comment on above: Performed By: #### A LLBG ####[place] [address] [place] [phone] Glucose [Mass/Vol] 135 mg/dL High 60-105 [facility] Comment on above: Performed By: #### A LLBG ####[place] [address] [place] [phone] HCO3 (Bld) [Moles/Vol] 20 mmol/L Low 22-26 [facility] Comment on above: Performed By: #### A LLBG ####[place] [address] [place] [phone] Hematocrit (Bld) [Volume fraction] 32.8 % Low 36.0-46.0 [facility] Comment on above: Performed By: #### A LLBG ####[place] [address], [place] [phone] Hemoglobin (Bld) [Mass/Vol] 10.6 g/dL Low 11.5-15.5 [facility] Comment on above: Performed By: #### A LLBG ####[place] [address] [place] [phone] Lactate [Moles/Vol] 0.6 mmol/L Normal 0.5-2.2 [facility] Comment on above: Performed By: #### A LLBG ####[place] [address] [place] [phone] Methemoglobin 1.2 % Normal <1.6 [facility] Comment on above: Performed By: #### A LLBG ####[place] [address] [place] [phone] Oxyhemoglobin, Art. 96 % Normal 95-98 [facility] Comment on above: Performed By: #### A LLBG ####[place] [address] [place] [phone] pCO2 35 mm Hg Normal 34-46 [facility] Comment on above: Performed By: #### A LLBG ####[place] [address] [place] [phone] pCO2, Temp Correct 35 mm Hg Normal 34-46 [facility] Comment on above: Performed By: #### A LLBG ####[place] [address] [place] [phone] pH (Bld) 7.37 [pH] Normal 7.35-7.45 [facility] Comment on above: Performed By: #### A LLBG ####[place] [address] [place] [phone] pH, Temp Corrected 7.37 Normal 7.35-7.45 [facility] Comment on above: Performed By: #### A LLBG ####[place] [address] [place], [place] [phone] pO2 103 mm Hg High 85-95 [facility] Comment on above: Performed By: #### A LLBG ####[place] [address] [address] [place] [phone] pO2, Temp Corrected 103 mm Hg High 85-95 [facility] Comment on above: Performed By: #### A LLBG ####[place] [phone] Potassium [Moles/Vol] 4.1 mmol/L Normal 3.5-5.0 [facility] Comment on above: Performed By: #### A LLBG ####[place] [address] [address] [place] [phone] Sodium [Moles/Vol] 136 mmol/L Normal 136-144 [facility] Comment on above: Performed By: #### A LLBG ####[address] [phone] Base Excess Negative Normal [facility] Comment on above: Performed By: #### A LLBG ####[address] [phone] Blood Gas Comm, Art . Normal [facility] Comment on above: Performed By: #### A LLBG ####[address] [phone] Body temperature 98.6 [degF] Normal [facility] Comment on above: Performed By: #### A LLBG ####[place] [phone] Calcium [Moles/Vol] 1.23 mmol/L Normal 1.08-1.30 [facility] Comment on above: Performed By: #### A LLBG ####[place] [address], [place] [phone] Carboxyhemoglobin,Art 1.3 % Normal <2.1 [facility] Comment on above: Performed By: #### A LLBG ####[place] [address], [place] [phone] CO2 [Moles/Vol] 21 mmol/L Low 22.0-28.0 [facility] Comment on above: Performed By: #### A LLBG ####[place] [address], [place] [phone] Glucose [Mass/Vol] 142 mg/dL High 60-105 [facility] Comment on above: Performed By: #### A LLBG ####[place] [address], [place] [phone] HCO3 (Bld) [Moles/Vol] 20 mmol/L Low 22-26 [facility] Comment on above: Performed By: #### A LLBG ####[place] [address], [place] [phone] Hematocrit (Bld) [Volume fraction] 31.8 % Low 36.0-46.0 [facility] Comment on above: Performed By: #### A LLBG ####[place] [address], [place] [phone] Lactate [Moles/Vol] 0.6 mmol/L Normal 0.5-2.2 [facility] Comment on above: Performed By: #### A LLBG ####[place] [address], [place] [phone] Methemoglobin 1.1 % Normal <1.6 [facility] Comment on above: Performed By: #### A LLBG ####[facility]ClevelMc[place], [place] [phone] Oxyhemoglobin, Art. 96 % Normal 95-98 [facility] Comment on above: Performed By: #### A LLBG ####[facility]ClevelandC[place], [place] [phone] pCO2 36 mm Hg Normal 34-46 [facility] Comment on above: Performed By: #### A LLBG ####[place] [address], [place] [phone] pCO2, Temp Correct 36 mm Hg Normal 34-46 [facility] Comment on above: Performed By: #### A LLBG ####[place] [address], [place] [phone] pH (Bld) 7.36 [pH] Normal 7.35-7.45 [facility] Comment on above: Performed By: #### A LLBG ####[place] [address], [place] [phone] pH, Temp Corrected 7.36 Normal 7.35-7.45 [facility] Comment on above: Performed By: #### A LLBG ####[place] [address], [place] [phone] pO2 102 mm Hg High 85-95 [facility] Comment on above: Performed By: #### A LLBG ####[facility], [place] [phone] pO2, Temp Corrected 102 mm Hg High 85-95 [facility] Comment on above: Performed By: #### A LLBG ####[facility], [place] [phone] Sodium [Moles/Vol] 137 mmol/L Normal 136-144 [facility] Comment on above: Performed By: #### A LLBG ####[place] [address] [address], [place] [phone] GASV + ALLon 03-25-2021 Base Excess Negative Normal [facility] Comment on above: Performed By: #### V ALLBG ####[address], [place] [phone] Blood Gas Comm, Migue . Normal [facility] Comment on above: Performed By: #### V ALLBG ####[address] [phone] Body temperature 98.6 [degF] Normal [facility] Comment on above: Performed By: #### V ALLBG ####[address] [phone] Calcium [Moles/Vol] 1.23 mmol/L Normal 1.08-1.30 [facility] Comment on above: Performed By: #### V ALLBG ####[address] [phone] Carboxyhemoglobin,Migue 1.0 % Normal <2.1 [facility] Comment on above: Performed By: #### V ALLBG ####[address] [phone] CO2 [Moles/Vol] 23 mmol/L Low 25-29 [facility] Comment on above: Performed By: #### V ALLBG ####[place] [address] [address], [place] [phone] Glucose [Mass/Vol] 113 mg/dL High 60-105 [facility] Comment on above: Performed By: #### V ALLBG ####[address] [phone] HCO3 (Bld) [Moles/Vol] 21 mmol/L Low 24-28 [facility] Comment on above: Performed By: #### V ALLBG ####[place] [address]ClevelMc[place], [place] [phone] Hematocrit (Bld) [Volume fraction] 31.1 % Low 36.0-46.0 [facility] Comment on above: Performed By: #### V ALLBG ####[place] [address], [place] [phone] Hemoglobin (Bld) [Mass/Vol] 10.1 g/dL Low 11.5-15.5 [facility] Comment on above: Performed By: #### V ALLBG ####[place] [address] [phone] Lactate [Moles/Vol] 0.8 mmol/L Normal 0.5-2.2 [facility] Comment on above: Performed By: #### V ALLBG ####[place] [address] [place] [phone] Methemoglobin 1.1 % Normal <1.6 [facility] Comment on above: Performed By: #### V ALLBG ####[place] [address] [place] [phone] O2 Administered RA Normal [facility] Comment on above: Performed By: #### V ALLBG ####[place] [address], [place] [phone] Oxyhemoglobin, Migue. 67 % Normal 60-85 [facility] Comment on above: Performed By: #### V ALLBG ####[place] [address]Cprom[facility] hospitalandBro[place] [phone] pCO2 40 mm Hg Low 42-55 [facility] Comment on above: Performed By: #### V ALLBG ####[facility]C[place], [place] [phone] pCO2, Temp Correct 40 mm Hg Low 42-55 [facility] Comment on above: Performed By: #### V ALLBG ####[facility], [place] [phone] pH (Bld) 7.35 [pH] Normal 7.32-7.42 [facility] Comment on above: Performed By: #### V ALLBG ####[place] [address], [place] [phone] pH, Temp Corrected 7.35 Normal 7.32-7.42 [facility] Comment on above: Performed By: #### V ALLBG ####[place] [address] [phone] pO2 39 mm Hg Normal 35-45 [facility] Comment on above: Performed By: #### V ALLBG ####[place] [address], [place] [phone] pO2, Temp Corrected 39 mm Hg Normal 35-45 [facility] Comment on above: Performed By: #### V ALLBG ####[place] [address] [place] [phone] Potassium [Moles/Vol] 3.9 mmol/L Normal 3.5-5.0 [facility] Comment on above: Performed By: #### V ALLBG ####[place] [address] [place] [phone] Sodium [Moles/Vol] 136 mmol/L Normal 136-144 [facility] Comment on above: Performed By: #### V ALLBG ####[place] [address], [place] [phone] Base Excess Negative Normal [facility] Comment on above: Performed By: #### V ALLBG ####[place] [address], [place] [phone] Blood Gas Comm, Migue . Normal [facility] Comment on above: Performed By: #### V ALLBG ####[place] [address], [place] [phone] Body temperature 98.6 [degF] Normal [facility] Comment on above: Performed By: #### V ALLBG ####[place] [address], [place] [phone] Calcium [Moles/Vol] 1.22 mmol/L Normal 1.08-1.30 [facility] Comment on above: Performed By: #### V ALLBG ####[place] [address] [address]ia[place], [place] [phone] Carboxyhemoglobin,Migue 1.2 % Normal <2.1 [facility] Comment on above: Performed By: #### V ALLBG ####[address] [phone] CO2 [Moles/Vol] 22 mmol/L Low 25-29 [facility] Comment on above: Performed By: #### V ALLBG ####[place] [address] [address], [place] [phone] Glucose [Mass/Vol] 132 mg/dL High 60-105 [facility] Comment on above: Performed By: #### V ALLBG ####[place] [address], [place] [phone] HCO3 (Bld) [Moles/Vol] 21 mmol/L Low 24-28 [facility] Comment on above: Performed By: #### V ALLBG ####[place] [address] [place], [place] [phone] Hematocrit (Bld) [Volume fraction] 32.4 % Low 36.0-46.0 [facility] Comment on above: Performed By: #### V ALLBG ####[place] [address] [place], [place] [phone] Hemoglobin (Bld) [Mass/Vol] 10.5 g/dL Low 11.5-15.5 [facility] Comment on above: Performed By: #### V ALLBG ####[facility]CHe[address] [place] [phone] Lactate [Moles/Vol] 0.6 mmol/L Normal 0.5-2.2 [facility] Comment on above: Performed By: #### V ALLBG ####[facility]CHe[address] [place] [phone] Methemoglobin 1.1 % Normal <1.6 [facility] Comment on above: Performed By: #### V ALLBG ####[place] [phone]CHe[place] [phone] Oxyhemoglobin, Migue. 82 % Normal 60-85 [facility] Comment on above: Performed By: #### V ALLBG ####[facility] [place] [phone] pCO2 40 mm Hg Low 42-55 [facility] Comment on above: Performed By: #### V ALLBG ####[facility] [place] [phone] pCO2, Temp Correct 40 mm Hg Low 42-55 [facility] Comment on above: Performed By: #### V ALLBG ####[facility] [place] [phone] pH (Bld) 7.33 [pH] Normal 7.32-7.42 [facility] Comment on above: Performed By: #### V ALLBG ####[facility] [address] AveClevelSheryl [place] [phone] pH, Temp Corrected 7.33 Normal 7.32-7.42 [facility] Comment on above: Performed By: #### V ALLBG ####[facility] [place] [phone] pO2 54 mm Hg High 35-45 [facility] Comment on above: Performed By: #### V ALLBG ####[facility], [place] [phone] pO2, Temp Corrected 54 mm Hg High 35-45 [facility] Comment on above: Performed By: #### V ALLBG ####[facility], [place] [phone] Potassium [Moles/Vol] 4.0 mmol/L Normal 3.5-5.0 [facility] Comment on above: Performed By: #### V ALLBG ####[place] [address] [address] [place] [phone] Sodium [Moles/Vol] 137 mmol/L Normal 136-144 [facility] Comment on above: Performed By: #### V ALLBG ####[facility] [place] [phone] Base Excess Negative Normal [facility] Comment on above: Performed By: #### V ALLBG ####[facility], [place] [phone] Blood Gas Comm, Migue . Normal [facility] Comment on above: Performed By: #### V ALLBG ####[facility] [place] [phone] Body temperature 98.6 [degF] Normal [facility] Comment on above: Performed By: #### V ALLBG ####[facility] [place] [phone] Calcium [Moles/Vol] 1.20 mmol/L Normal 1.08-1.30 [facility] Comment on above: Performed By: #### V ALLBG ####[place] [phone]CHe[place] [phone] Carboxyhemoglobin,Migue 1.1 % Normal <2.1 [facility] Comment on above: Performed By: #### V ALLBG ####[place] [address] [address], [place] [phone] CO2 [Moles/Vol] 23 mmol/L Low 25-29 [facility] Comment on above: Performed By: #### V ALLBG ####[place] [address], [place] [phone] Glucose [Mass/Vol] 142 mg/dL High 60-105 [facility] Comment on above: Performed By: #### V ALLBG ####[place] [address] [address], [place] [phone] HCO3 (Bld) [Moles/Vol] 21 mmol/L Low 24-28 [facility] Comment on above: Performed By: #### V ALLBG ####[place] [address], [place] [phone] Hematocrit (Bld) [Volume fraction] 32.2 % Low 36.0-46.0 [facility] Comment on above: Performed By: #### V ALLBG ####[place] [address] [place] [phone] Hemoglobin (Bld) [Mass/Vol] 10.4 g/dL Low 11.5-15.5 [facility] Comment on above: Performed By: #### V ALLBG ####[place] [address], [place] [phone] Lactate [Moles/Vol] 0.6 mmol/L Normal 0.5-2.2 [facility] Comment on above: Performed By: #### V ALLBG ####[place] [address], [place] [phone] Methemoglobin 0.9 % Normal <1.6 [facility] Comment on above: Performed By: #### V ALLBG ####[place] [address] [phone] Oxyhemoglobin, Migue. 77 % Normal 60-85 [facility] Comment on above: Performed By: #### V ALLBG ####[place] [address]C[place], [place] [phone] pCO2 41 mm Hg Low 42-55 [facility] Comment on above: Performed By: #### V ALLBG ####[place] [address] [address] [address], [place] [phone] pCO2, Temp Correct 41 mm Hg Low 42-55 [facility] Comment on above: Performed By: #### V ALLBG ####[place] [address] [address], [place] [phone] pH (Bld) 7.33 [pH] Normal 7.32-7.42 [facility] Comment on above: Performed By: #### V ALLBG ####[place] [address] [address], [place] [phone] pH, Temp Corrected 7.33 Normal 7.32-7.42 [facility] Comment on above: Performed By: #### V ALLBG ####[place] [address] [address], [place] [phone] pO2 46 mm Hg High 35-45 [facility] Comment on above: Performed By: #### V ALLBG ####[place] [address] [address], [place] [phone] pO2, Temp Corrected 46 mm Hg High 35-45 [facility] Comment on above: Performed By: #### V ALLBG ####[place] [address] [address], [place] [phone] Potassium [Moles/Vol] 3.7 mmol/L Normal 3.5-5.0 [facility] Comment on above: Performed By: #### V ALLBG ####[place] [address] [address], [place] [phone] Sodium [Moles/Vol] 137 mmol/L Normal 136-144 [facility] Comment on above: Performed By: #### V ALLBG ####[facility] [place], [place] [phone] Magnesiumon 03-25-2021 Magnesium [Mass/Vol] 2.5 mg/dL High 1.7-2.3 [facility] Comment on above: Performed By: #### T NT, CMP, MG1, CBC ####[facility] [place], [place] [phone] Troponin Ton 03-25-2021 Troponin T.cardiac [Mass/Vol] 0.623 ug/L High 0.000-0.029 [facility] Comment on above: Result Comment: Call ed to and read back by: Markell Ko Q50 03/25/21 01:43 Aditya Performed By: #### T NT, CMP, MG1, CBC ####[facility] [place], [place] [phone] XR CHEST 1V FRONTAL PORTon 1 05-25-2020 XR CHEST 1V FRONTAL PORT * * *Final Report* * * DATE OF EXAM: Mar 25 2021 3:29AM JIX [id number] - XR CHEST 1V FRONTAL PORT / PROCEDURE REASON: Post-operative / post-procedure assessment, asymptomatic * * * * Physician Interpretation * * * * EXAMINATION: CHEST RADIOGRAPH (PORTABLE SINGLE VIEW AP) Exam Date/Time: 03/25/2021 3:29 AM Clinical History: Post-operative / post-procedure assessment, asymptomatic MQ: [id number] Comparison: 1 day prior RESULT: Lines, tubes, and devices: Interval extubation and removal of NG/orogastric tube. Other support tubes and lines are unchanged in positions. Lungs and pleura: Interval worsening of left basilar atelectases and a small left pleural effusion. No new consolidative in the right lung and no right pleural effusion. No definite pneumothorax. Cardiomediastinal silhouette: Stable cardiomediastinal silhouette. Mitral annuloplasty. Other: Median sternotomy with normal alignment of sternal wires.. IMPRESSION: See result. Health Advocate: VALENTÍN Transcribe Date/Time: Mar 25 2021 11:35A Dictated by : ADAN MORTON MD This examination was interpreted and the report reviewed and electronically signed by: ADAN MORTON MD on Mar 25 2021 11:35AM EST [id number] Normal [facility] ALLIED HEALTHon 03-24-2021 ALLIED HEALTH HNO ID: [id number] Author: Chaplain Maribel Lee Service: Spiritual Care Author Type: Student Type: Allied Health Filed: 03/24/2021 7:05 AM Note Text: SPIRITUAL CARE Spiritual Care Visit Record Name: Shine Gross Date: March 24, 2021 Type of Visit: Preoperative Prayer/Visit Visit was with (pt, family, other) and name(s): Pt and daughter. Ministry Provided During Visit: Prayer / Meditation Spiritual Presence / Support Notes: Referrals: No referral made Will See: As Needed Only Follow-up Notes: Informed patient and family of Electrician Maintenance availability Electrician Maintenance Signature: Chaplain Jesus Student To contact the Spiritual Care Department: Please call [phone] or Page the On-Call Electrician Maintenance at pager [phone] Thank you for the opportunity to be of service. This is an electronically created document. IF PRINTED, PLEASE DO NOT REMOVE FROM THE CHART OR MODIFY PRINTED COPY. Normal [facility] GASA + All FOR RADIANCE USE ONLYon 03-24-2021 Base Excess Negative Normal [facility] Comment on above: Performed By: #### A LLBG ####[facility] [id number] [place], [place] [phone] Blood Gas Comm, Art . Normal [facility] Comment on above: Performed By: #### A LLBG ####[facility] [id number] [place], [place] [phone] Body temperature 98.6 [degF] Normal [facility] Comment on above: Performed By: #### A LLBG ####[address] [phone] Calcium [Moles/Vol] 1.24 mmol/L Normal 1.08-1.30 [facility] Comment on above: Performed By: #### A LLBG ####[address] [phone] Carboxyhemoglobin,Art 0.8 % Normal <2.1 [facility] Comment on above: Performed By: #### A LLBG ####[place] [address] [address], [place] [phone] CO2 [Moles/Vol] 22 mmol/L Normal 22.0-28.0 [facility] Comment on above: Performed By: #### A LLBG ####[address] [phone] Glucose [Mass/Vol] 157 mg/dL High 60-105 [facility] Comment on above: Performed By: #### A LLBG ####[address] [phone] HCO3 (Bld) [Moles/Vol] 20 mmol/L Low 22-26 [facility] Comment on above: Performed By: #### A LLBG ####[place] [address] [address], [place] [phone] Hematocrit (Bld) [Volume fraction] 35.7 % Low 36.0-46.0 [facility] Comment on above: Performed By: #### A LLBG ####[address] [phone] Hemoglobin (Bld) [Mass/Vol] 11.6 g/dL Normal 11.5-15.5 [facility] Comment on above: Performed By: #### A LLBG ####[place] [address] [address], [place] [phone] Lactate [Moles/Vol] 0.7 mmol/L Normal 0.5-2.2 [facility] Comment on above: Performed By: #### A LLBG ####[place] [address] [address], [place] [phone] Methemoglobin 0.7 % Normal <1.6 [facility] Comment on above: Performed By: #### A LLBG ####[place] [address] [address] [place] [phone] Oxyhemoglobin, Art. 96 % Normal 95-98 [facility] Comment on above: Performed By: #### A LLBG ####[place] [address] [place] [phone] pCO2 37 mm Hg Normal 34-46 [facility] Comment on above: Performed By: #### A LLBG ####[place] [address] [place] [phone] pCO2, Temp Correct 37 mm Hg Normal 34-46 [facility] Comment on above: Performed By: #### A LLBG ####[place] [address] [place] [phone] pH (Bld) 7.36 [pH] Normal 7.35-7.45 [facility] Comment on above: Performed By: #### A LLBG ####[place] [address] [address] [place] [phone] pH, Temp Corrected 7.36 Normal 7.35-7.45 [facility] Comment on above: Performed By: #### A LLBG ####[place] [address] [place] [phone] pO2 97 mm Hg High 85-95 [facility] Comment on above: Performed By: #### A LLBG ####[place] [address] [address] [place] [phone] pO2, Temp Corrected 97 mm Hg High 85-95 [facility] Comment on above: Performed By: #### A LLBG ####[place] [address] [place] [phone] Potassium [Moles/Vol] 4.1 mmol/L Normal 3.5-5.0 [facility] Comment on above: Performed By: #### A LLBG ####[place] [address] [address] [place] [phone] Sodium [Moles/Vol] 136 mmol/L Normal 136-144 [facility] Comment on above: Performed By: #### A LLBG ####[address] [phone] Base Excess Negative Normal [facility] Comment on above: Performed By: #### A LLBG ####[place] [phone] Blood Gas Comm, Art . Normal [facility] Comment on above: Performed By: #### A LLBG ####[place] [phone] Body temperature 97.34 [degF] Normal [facility] Comment on above: Performed By: #### A LLBG ####[place] [address] [address] [place] [phone] Calcium [Moles/Vol] 1.27 mmol/L Normal 1.08-1.30 [facility] Comment on above: Performed By: #### A LLBG ####[place] [address] [address] [place] [phone] Carboxyhemoglobin,Art 1.0 % Normal <2.1 [facility] Comment on above: Performed By: #### A LLBG ####[place] [phone] CO2 [Moles/Vol] 24 mmol/L Normal 22.0-28.0 [facility] Comment on above: Performed By: #### A LLBG ####[place] [address], [place] [phone] Glucose [Mass/Vol] 111 mg/dL High 60-105 [facility] Comment on above: Performed By: #### A LLBG ####[place] [address] [address] [place] [phone] HCO3 (Bld) [Moles/Vol] 23 mmol/L Normal 22-26 [facility] Comment on above: Performed By: #### A LLBG ####[place] [address] [place] [phone] Hematocrit (Bld) [Volume fraction] 36.0 % Normal 36.0-46.0 [facility] Comment on above: Performed By: #### A LLBG ####[place] [address] [place] [phone] Hemoglobin (Bld) [Mass/Vol] 11.7 g/dL Normal 11.5-15.5 [facility] Comment on above: Performed By: #### A LLBG ####[place] [address] [place] [phone] Lactate [Moles/Vol] 1.0 mmol/L Normal 0.5-2.2 [facility] Comment on above: Performed By: #### A LLBG ####[place] [address] [place] [phone] Methemoglobin 0.6 % Normal <1.6 [facility] Comment on above: Performed By: #### A LLBG ####[place] [address], [place] [phone] O2 Administered 1L NC Normal [facility] Comment on above: Performed By: #### A LLBG ####[facility], [place] [phone] Oxyhemoglobin, Art. 97 % Normal 95-98 [facility] Comment on above: Performed By: #### A LLBG ####[facility], [place] [phone] pCO2 41 mm Hg Normal 34-46 [facility] Comment on above: Performed By: #### A LLBG ####[place] [phone], [place] [phone] pCO2, Temp Correct 40 mm Hg Normal 34-46 [facility] Comment on above: Performed By: #### A LLBG ####[place] [address], [place] [phone] pH (Bld) 7.36 [pH] Normal 7.35-7.45 [facility] Comment on above: Performed By: #### A LLBG ####[place] [address], [place] [phone] pH, Temp Corrected 7.37 Normal 7.35-7.45 [facility] Comment on above: Performed By: #### A LLBG ####[place] [address], [place] [phone] pO2 127 mm Hg High 85-95 [facility] Comment on above: Performed By: #### A LLBG ####[facility], [place] [phone] pO2, Temp Corrected 123 mm Hg High 85-95 [facility] Comment on above: Performed By: #### A LLBG ####[facility], [place] [phone] Potassium [Moles/Vol] 3.9 mmol/L Normal 3.5-5.0 [facility] Comment on above: Performed By: #### A LLBG ####[facility], [place] [phone] Sodium [Moles/Vol] 137 mmol/L Normal 136-144 [facility] Comment on above: Performed By: #### A LLBG ####[place] [address], [place] [phone] Base Excess Negative Normal [facility] Comment on above: Performed By: #### A LLBG ####[place] [address], [place] [phone] Blood Gas Comm, Art . Normal [facility] Comment on above: Performed By: #### A LLBG ####[place] [address], [place] [phone] Body temperature 98.6 [degF] Normal [facility] Comment on above: Performed By: #### A LLBG ####[place] [address], [place] [phone] Calcium [Moles/Vol] 1.28 mmol/L Normal 1.08-1.30 [facility] Comment on above: Performed By: #### A LLBG ####[place] [address], [place] [phone] Carboxyhemoglobin,Art 0.7 % Normal <2.1 [facility] Comment on above: Performed By: #### A LLBG ####[place] [address], [place] [phone] CO2 [Moles/Vol] 23 mmol/L Normal 22.0-28.0 [facility] Comment on above: Performed By: #### A LLBG ####[place] [address], [place] [phone] Glucose [Mass/Vol] 134 mg/dL High 60-105 [facility] Comment on above: Performed By: #### A LLBG ####[facility] [place] [phone] HCO3 (Bld) [Moles/Vol] 22 mmol/L Normal 22-26 [facility] Comment on above: Performed By: #### A LLBG ####[place] [address] [place] [phone] Hematocrit (Bld) [Volume fraction] 34.0 % Low 36.0-46.0 [facility] Comment on above: Performed By: #### A LLBG ####[place] [address] [place] [phone] Hemoglobin (Bld) [Mass/Vol] 11.0 g/dL Low 11.5-15.5 [facility] Comment on above: Performed By: #### A LLBG ####[place] [address] [place] [phone] Lactate [Moles/Vol] 2.1 mmol/L Normal 0.5-2.2 [facility] Comment on above: Performed By: #### A LLBG ####[place] [address] [place] [phone] Methemoglobin 0.7 % Normal <1.6 [facility] Comment on above: Performed By: #### A LLBG ####[place] [address] [place] [phone] Oxyhemoglobin, Art. 97 % Normal 95-98 [facility] Comment on above: Performed By: #### A LLBG ####[place] [address] [place] [phone] pCO2 36 mm Hg Normal 34-46 [facility] Comment on above: Performed By: #### A LLBG ####[place] [address] [place] [phone] pCO2, Temp Correct 36 mm Hg Normal 34-46 [facility] Comment on above: Performed By: #### A LLBG ####[facility], [place] [phone] pH (Bld) 7.40 [pH] Normal 7.35-7.45 [facility] Comment on above: Performed By: #### A LLBG ####[facility], [place] [phone] pH, Temp Corrected 7.40 Normal 7.35-7.45 [facility] Comment on above: Performed By: #### A LLBG ####[place] [address] [place] [phone] pO2 129 mm Hg High 85-95 [facility] Comment on above: Performed By: #### A LLBG ####[place] [address], [place] [phone] pO2, Temp Corrected 129 mm Hg High 85-95 [facility] Comment on above: Performed By: #### A LLBG ####[place] [id number] [place] [phone] Potassium [Moles/Vol] 3.9 mmol/L Normal 3.5-5.0 [facility] Comment on above: Performed By: #### A LLBG ####[facility] [place] [phone] Sodium [Moles/Vol] 137 mmol/L Normal 136-144 [facility] Comment on above: Performed By: #### A LLBG ####[facility], [place] [phone] Base Excess Negative Normal [facility] Comment on above: Performed By: #### A LLBG ####[facility], [place] [phone] Blood Gas Comm, Art . Normal [facility] Comment on above: Performed By: #### A LLBG ####[facility], [place] [phone] Body temperature 94.1 [degF] Normal [facility] Comment on above: Performed By: #### A LLBG ####[place] [address], [place] [phone] Calcium [Moles/Vol] 1.12 mmol/L Normal 1.08-1.30 [facility] Comment on above: Performed By: #### A LLBG ####[place] [address] [place] [phone] Carboxyhemoglobin,Art 0.5 % Normal <2.1 [facility] Comment on above: Performed By: #### A LLBG ####[place] [address] [place] [phone] CO2 [Moles/Vol] 23 mmol/L Normal 22.0-28.0 [facility] Comment on above: Performed By: #### A LLBG ####[place] [address] [place] [phone] Glucose [Mass/Vol] 171 mg/dL High 60-105 [facility] Comment on above: Performed By: #### A LLBG ####[place] [address] [place] [phone] HCO3 (Bld) [Moles/Vol] 22 mmol/L Normal 22-26 [facility] Comment on above: Performed By: #### A LLBG ####[place] [address], [place] [phone] Hematocrit (Bld) [Volume fraction] 33.5 % Low 36.0-46.0 [facility] Comment on above: Performed By: #### A LLBG ####[place] [address] [place] [phone] Hemoglobin (Bld) [Mass/Vol] 10.9 g/dL Low 11.5-15.5 [facility] Comment on above: Performed By: #### A LLBG ####[place] [address] [place] [phone] Lactate [Moles/Vol] 2.9 mmol/L High 0.5-2.2 [facility] Comment on above: Performed By: #### A LLBG ####[place] [address] [place] [phone] Methemoglobin 0.6 % Normal <1.6 [facility] Comment on above: Performed By: #### A LLBG ####[place] [address] [address] [place] [phone] O2 Administered 40% Normal [facility] Comment on above: Performed By: #### A LLBG ####[place] [address] [place] [phone] Oxyhemoglobin, Art. 97 % Normal 95-98 [facility] Comment on above: Performed By: #### A LLBG ####[place] [address] [place] [phone] pCO2 40 mm Hg Normal 34-46 [facility] Comment on above: Performed By: #### A LLBG ####[place] [address] [place] [phone] pCO2, Temp Correct 36 mm Hg Normal 34-46 [facility] Comment on above: Performed By: #### A LLBG ####[place] [address] [place] [phone] pH (Bld) 7.36 [pH] Normal 7.35-7.45 [facility] Comment on above: Performed By: #### A LLBG ####[place] [address] [place] [phone] pH, Temp Corrected 7.39 Normal 7.35-7.45 [facility] Comment on above: Performed By: #### A LLBG ####[place] [address], [place] [phone] pO2 116 mm Hg High 85-95 [facility] Comment on above: Performed By: #### A LLBG ####[place] [address], [place] [phone] pO2, Temp Corrected 102 mm Hg High 85-95 [facility] Comment on above: Performed By: #### A LLBG ####[place] [address] [place] [phone] Potassium [Moles/Vol] 3.5 mmol/L Normal 3.5-5.0 [facility] Comment on above: Performed By: #### A LLBG ####[place] [address] [place] [phone] Sodium [Moles/Vol] 137 mmol/L Normal 136-144 [facility] Comment on above: Performed By: #### A LLBG ####[place] [address], [place] [phone] Base Excess Negative Normal [facility] Comment on above: Performed By: #### A LLBG ####[place] [address], [place] [phone] Blood Gas Comm, Art . Normal [facility] Comment on above: Performed By: #### A LLBG ####[place] [address], [place] [phone] Body temperature 98.6 [degF] Normal [facility] Comment on above: Performed By: #### A LLBG ####[place] [address], [place] [phone] Calcium [Moles/Vol] 1.10 mmol/L Normal 1.08-1.30 [facility] Comment on above: Performed By: #### A LLBG ####[place] [address] [address], [place] [phone] Carboxyhemoglobin,Art 1.4 % Normal <2.1 [facility] Comment on above: Performed By: #### A LLBG ####[place] [address] [address], [place] [phone] CO2 [Moles/Vol] 24 mmol/L Normal 22.0-28.0 [facility] Comment on above: Performed By: #### A LLBG ####[place] [address] [address], [place] [phone] Glucose [Mass/Vol] 206 mg/dL High 60-105 [facility] Comment on above: Performed By: #### A LLBG ####[place] [address] [address], [place] [phone] HCO3 (Bld) [Moles/Vol] 23 mmol/L Normal 22-26 [facility] Comment on above: Performed By: #### A LLBG ####[place] [address] [address], [place] [phone] Hematocrit (Bld) [Volume fraction] 30.8 % Low 36.0-46.0 [facility] Comment on above: Performed By: #### A LLBG ####[place] [address], [place] [phone] Hemoglobin (Bld) [Mass/Vol] 10.0 g/dL Low 11.5-15.5 [facility] Comment on above: Performed By: #### A LLBG ####[place] [address] [address], [place] [phone] Lactate [Moles/Vol] 1.4 mmol/L Normal 0.5-2.2 [facility] Comment on above: Performed By: #### A LLBG ####[place] [address], [place] [phone] Methemoglobin 0.8 % Normal <1.6 [facility] Comment on above: Performed By: #### A LLBG ####[place] [phone], [place] [phone] Oxyhemoglobin, Art. 98 % Normal 95-98 [facility] Comment on above: Performed By: #### A LLBG ####[place] [address] [place] [phone] pCO2 41 mm Hg Normal 34-46 [facility] Comment on above: Performed By: #### A LLBG ####[place] [address], [place] [phone] pCO2, Temp Correct 41 mm Hg Normal 34-46 [facility] Comment on above: Performed By: #### A LLBG ####[place] [address] [place] [phone] pH (Bld) 7.36 [pH] Normal 7.35-7.45 [facility] Comment on above: Performed By: #### A LLBG ####[place] [address], [place] [phone] pH, Temp Corrected 7.36 Normal 7.35-7.45 [facility] Comment on above: Performed By: #### A LLBG ####[place] [address], [place] [phone] pO2 260 mm Hg High 85-95 [facility] Comment on above: Performed By: #### A LLBG ####[place] [address], [place] [phone] pO2, Temp Corrected 260 mm Hg High 85-95 [facility] Comment on above: Performed By: #### A LLBG ####[place] [address], [place] [phone] Potassium [Moles/Vol] 3.5 mmol/L Normal 3.5-5.0 [facility] Comment on above: Performed By: #### A LLBG ####[place] [address] [place], [place] [phone] Sodium [Moles/Vol] 136 mmol/L Normal 136-144 [facility] Comment on above: Performed By: #### A LLBG ####[place] [address], [place] [phone] Base Excess Negative Normal [facility] Comment on above: Performed By: #### A LLBG ####[address] [phone] Blood Gas Comm, Art . Normal [facility] Comment on above: Performed By: #### A LLBG ####[place] [address] [address], [place] [phone] Body temperature 98.6 [degF] Normal [facility] Comment on above: Performed By: #### A LLBG ####[address] [phone] Calcium [Moles/Vol] 1.04 mmol/L Low 1.08-1.30 [facility] Comment on above: Performed By: #### A LLBG ####[place] [address] [address], [place] [phone] Carboxyhemoglobin,Art 1.0 % Normal <2.1 [facility] Comment on above: Performed By: #### A LLBG ####[place] [address] [address], [place] [phone] CO2 [Moles/Vol] 26 mmol/L Normal 22.0-28.0 [facility] Comment on above: Performed By: #### A LLBG ####[place] [address] [address] [place], [place] [phone] Glucose [Mass/Vol] 201 mg/dL High 60-105 [facility] Comment on above: Performed By: #### A LLBG ####[place] [id number], [place] [phone] HCO3 (Bld) [Moles/Vol] 25 mmol/L Normal 22-26 [facility] Comment on above: Performed By: #### A LLBG ####[place] [address] [address] [place] [phone] Hematocrit (Bld) [Volume fraction] 26.4 % Low 36.0-46.0 [facility] Comment on above: Performed By: #### A LLBG ####[place] [address] [address], [place] [phone] Hemoglobin (Bld) [Mass/Vol] 8.5 g/dL Low 11.5-15.5 [facility] Comment on above: Performed By: #### A LLBG ####[place] [address] [address] [place] [phone] Lactate [Moles/Vol] 1.1 mmol/L Normal 0.5-2.2 [facility] Comment on above: Performed By: #### A LLBG ####[place] [address] [address], [place] [phone] Methemoglobin 1.2 % Normal <1.6 [facility] Comment on above: Performed By: #### A LLBG ####[place] [id number], [place] [phone] Oxyhemoglobin, Art. 97 % Normal 95-98 [facility] Comment on above: Performed By: #### A LLBG ####[place] [address], [place] [phone] pCO2 47 mm Hg High 34-46 [facility] Comment on above: Performed By: #### A LLBG ####[facility], [place] [phone] pCO2, Temp Correct 47 mm Hg High 34-46 [facility] Comment on above: Performed By: #### A LLBG ####[place] [address] [address], [place] [phone] pH (Bld) 7.34 [pH] Low 7.35-7.45 [facility] Comment on above: Performed By: #### A LLBG ####[place] [address] [address], [place] [phone] pH, Temp Corrected 7.34 Low 7.35-7.45 [facility] Comment on above: Performed By: #### A LLBG ####[place] [address] [address], [place] [phone] pO2 283 mm Hg High 85-95 [facility] Comment on above: Performed By: #### A LLBG ####[place] [address] [address], [place] [phone] pO2, Temp Corrected 283 mm Hg High 85-95 [facility] Comment on above: Performed By: #### A LLBG ####[place] [address] [address], [place] [phone] Potassium [Moles/Vol] 4.4 mmol/L Normal 3.5-5.0 [facility] Comment on above: Performed By: #### A LLBG ####[place] [address] [address], [place] [phone] Sodium [Moles/Vol] 130 mmol/L Low 136-144 [facility] Comment on above: Performed By: #### A LLBG ####[place] [address] [address], [place] [phone] Base Excess Negative Normal [facility] Comment on above: Performed By: #### A LLBG ####[place] [address], [place] [phone] Blood Gas Comm, Art . Normal [facility] Comment on above: Performed By: #### A LLBG ####[place] [address] [address], [place] [phone] Body temperature 98.6 [degF] Normal [facility] Comment on above: Performed By: #### A LLBG ####[place] [address] [address], [place] [phone] Calcium [Moles/Vol] 1.18 mmol/L Normal 1.08-1.30 [facility] Comment on above: Performed By: #### A LLBG ####[place] [address] [address], [place] [phone] Carboxyhemoglobin,Art 1.0 % Normal <2.1 [facility] Comment on above: Performed By: #### A LLBG ####[place] [address] [address] [place] [phone] CO2 [Moles/Vol] 23 mmol/L Normal 22.0-28.0 [facility] Comment on above: Performed By: #### A LLBG ####[place] [address] [address], [place] [phone] Glucose [Mass/Vol] 109 mg/dL High 60-105 [facility] Comment on above: Performed By: #### A LLBG ####[place] [address] [address], [place] [phone] HCO3 (Bld) [Moles/Vol] 22 mmol/L Normal 22-26 [facility] Comment on above: Performed By: #### A LLBG ####[place] [address] [address], [place] [phone] Hematocrit (Bld) [Volume fraction] 39.2 % Normal 36.0-46.0 [facility] Comment on above: Performed By: #### A LLBG ####[facility] [place] [phone] Hemoglobin (Bld) [Mass/Vol] 12.7 g/dL Normal 11.5-15.5 [facility] Comment on above: Performed By: #### A LLBG ####[place] [address] [place] [phone] Lactate [Moles/Vol] 1.0 mmol/L Normal 0.5-2.2 [facility] Comment on above: Performed By: #### A LLBG ####[place] [address] [address] [place] [phone] Methemoglobin 0.9 % Normal <1.6 [facility] Comment on above: Performed By: #### A LLBG ####[place] [address] [place] [phone] Oxyhemoglobin, Art. 97 % Normal 95-98 [facility] Comment on above: Performed By: #### A LLBG ####[place] [address] [place] [phone] pCO2 33 mm Hg Low 34-46 [facility] Comment on above: Performed By: #### A LLBG ####[facility] [place] [phone] pCO2, Temp Correct 33 mm Hg Low 34-46 [facility] Comment on above: Performed By: #### A LLBG ####[facility]levelSheryl [place] [phone] pH (Bld) 7.43 [pH] Normal 7.35-7.45 [facility] Comment on above: Performed By: #### A LLBG ####[facility]leveland[address], [place] [phone] pH, Temp Corrected 7.43 Normal 7.35-7.45 [facility] Comment on above: Performed By: #### A LLBG ####[place] [address] [address] [place] [phone] pO2 129 mm Hg High 85-95 [facility] Comment on above: Performed By: #### A LLBG ####[place] [address], [place] [phone] pO2, Temp Corrected 129 mm Hg High 85-95 [facility] Comment on above: Performed By: #### A LLBG ####[place] [address] [place] [phone] Potassium [Moles/Vol] 3.5 mmol/L Normal 3.5-5.0 [facility] Comment on above: Performed By: #### A LLBG ####[place] [address] [place] [phone] Sodium [Moles/Vol] 139 mmol/L Normal 136-144 [facility] Comment on above: Performed By: #### A LLBG ####[place] [address] [address] [place] [phone] GASV + ALLon 03-24-2021 Base Excess Negative Normal [facility] Comment on above: Performed By: #### V ALLBG ####[place] [address] [address] [place] [phone] Blood Gas Comm, Migue . Normal [facility] Comment on above: Performed By: #### V ALLBG ####[place] [address] [address], [place] [phone] Body temperature 98.6 [degF] Normal [facility] Comment on above: Performed By: #### V ALLBG ####[place] [address] [address], [place] [phone] Calcium [Moles/Vol] 1.26 mmol/L Normal 1.08-1.30 [facility] Comment on above: Performed By: #### V ALLBG ####[place] [address] [place], [place] [phone] Carboxyhemoglobin,Migue 0.9 % Normal <2.1 [facility] Comment on above: Performed By: #### V ALLBG ####[place] [address], [place] [phone] CO2 [Moles/Vol] 23 mmol/L Low 25-29 [facility] Comment on above: Performed By: #### V ALLBG ####[place] [address] [address], [place] [phone] Glucose [Mass/Vol] 159 mg/dL High 60-105 [facility] Comment on above: Performed By: #### V ALLBG ####[place] [address] [address], [place] [phone] HCO3 (Bld) [Moles/Vol] 22 mmol/L Low 24-28 [facility] Comment on above: Performed By: #### V ALLBG ####[place] [address] [place], [place] [phone] Hematocrit (Bld) [Volume fraction] 35.6 % Low 36.0-46.0 [facility] Comment on above: Performed By: #### V ALLBG ####[place] [address] [address], [place] [phone] Hemoglobin (Bld) [Mass/Vol] 11.6 g/dL Normal 11.5-15.5 [facility] Comment on above: Performed By: #### V ALLBG ####[place] [address] [place], [place] [phone] Lactate [Moles/Vol] 0.6 mmol/L Normal 0.5-2.2 [facility] Comment on above: Performed By: #### V ALLBG ####[place] [address] [address], [place] [phone] Methemoglobin 0.8 % Normal <1.6 [facility] Comment on above: Performed By: #### V ALLBG ####[place] [address], [place] [phone] Oxyhemoglobin, Migue. 79 % Normal 60-85 [facility] Comment on above: Performed By: #### V ALLBG ####[place] [address] [address] [place] [phone] pCO2 43 mm Hg Normal 42-55 [facility] Comment on above: Performed By: #### V ALLBG ####[place] [address], [place] [phone] pCO2, Temp Correct 43 mm Hg Normal 42-55 [facility] Comment on above: Performed By: #### V ALLBG ####[place] [address] [address] [place] [phone] pH (Bld) 7.33 [pH] Normal 7.32-7.42 [facility] Comment on above: Performed By: #### V ALLBG ####[place] [address] [address], [place] [phone] pH, Temp Corrected 7.33 Normal 7.32-7.42 [facility] Comment on above: Performed By: #### V ALLBG ####[place] [address], [place] [phone] pO2 50 mm Hg High 35-45 [facility] Comment on above: Performed By: #### V ALLBG ####[place] [address], [place] [phone] pO2, Temp Corrected 50 mm Hg High 35-45 [facility] Comment on above: Performed By: #### V ALLBG ####[place] [address], [place] [phone] Potassium [Moles/Vol] 4.1 mmol/L Normal 3.5-5.0 [facility] Comment on above: Performed By: #### V ALLBG ####[place] [address], [place] [phone] Sodium [Moles/Vol] 136 mmol/L Normal 136-144 [facility] Comment on above: Performed By: #### V ALLBG ####[place] [address] [address], [place] [phone] Base Excess Negative Normal [facility] Comment on above: Performed By: #### V ALLBG ####[address] [place], [place] [phone] Blood Gas Comm, Migue . Normal [facility] Comment on above: Performed By: #### V ALLBG ####[place] [address] [address], [place] [phone] Body temperature 98.6 [degF] Normal [facility] Comment on above: Performed By: #### V ALLBG ####[place] [address] [address], [place] [phone] Calcium [Moles/Vol] 1.28 mmol/L Normal 1.08-1.30 [facility] Comment on above: Performed By: #### V ALLBG ####[place] [address] [address], [place] [phone] Carboxyhemoglobin,Migue 0.8 % Normal <2.1 [facility] Comment on above: Performed By: #### V ALLBG ####[place] [address], [place] [phone] CO2 [Moles/Vol] 25 mmol/L Normal 25-29 [facility] Comment on above: Performed By: #### V ALLBG ####[place] [address], [place] [phone] Glucose [Mass/Vol] 134 mg/dL High 60-105 [facility] Comment on above: Performed By: #### V ALLBG ####[place] [address] [address], [place] [phone] HCO3 (Bld) [Moles/Vol] 23 mmol/L Low 24-28 [facility] Comment on above: Performed By: #### V ALLBG ####[place] [address] [address] [place] [phone] Hematocrit (Bld) [Volume fraction] 33.3 % Low 36.0-46.0 [facility] Comment on above: Performed By: #### V ALLBG ####[place] [address], [place] [phone] Hemoglobin (Bld) [Mass/Vol] 10.8 g/dL Low 11.5-15.5 [facility] Comment on above: Performed By: #### V ALLBG ####[place] [address] [place] [phone] Lactate [Moles/Vol] 2.0 mmol/L Normal 0.5-2.2 [facility] Comment on above: Performed By: #### V ALLBG ####[place] [address], [place] [phone] Methemoglobin 0.7 % Normal <1.6 [facility] Comment on above: Performed By: #### V ALLBG ####[place] [address], [place] [phone] Oxyhemoglobin, Migue. 79 % Normal 60-85 [facility] Comment on above: Performed By: #### V ALLBG ####[place] [address]Clevel[address], [place] [phone] pCO2 42 mm Hg Normal 42-55 [facility] Comment on above: Performed By: #### V ALLBG ####[place] [address]ClevelMc[place], [place] [phone] pCO2, Temp Correct 42 mm Hg Normal 42-55 [facility] Comment on above: Performed By: #### V ALLBG ####[place] [address], [place] [phone] pH (Bld) 7.37 [pH] Normal 7.32-7.42 [facility] Comment on above: Performed By: #### V ALLBG ####[place] [address], [place] [phone] pH, Temp Corrected 7.37 Normal 7.32-7.42 [facility] Comment on above: Performed By: #### V ALLBG ####[place] [address], [place] [phone] pO2 48 mm Hg High 35-45 [facility] Comment on above: Performed By: #### V ALLBG ####[place] [address], [place] [phone] pO2, Temp Corrected 48 mm Hg High 35-45 [facility] Comment on above: Performed By: #### V ALLBG ####[place] [address], [place] [phone] Potassium [Moles/Vol] 3.7 mmol/L Normal 3.5-5.0 [facility] Comment on above: Performed By: #### V ALLBG ####[place] [address], [place] [phone] Sodium [Moles/Vol] 137 mmol/L Normal 136-144 [facility] Comment on above: Performed By: #### V ALLBG ####[place] [address], [place] [phone] Base Excess Negative Normal [facility] Comment on above: Performed By: #### V ALLBG ####[place] [address], [place] [phone] Blood Gas Comm, Migue . Normal [facility] Comment on above: Performed By: #### V ALLBG ####[place] [address], [place] [phone] Body temperature 94.1 [degF] Normal [facility] Comment on above: Performed By: #### V ALLBG ####[place] [address] [place] [phone] Calcium [Moles/Vol] 1.12 mmol/L Normal 1.08-1.30 [facility] Comment on above: Performed By: #### V ALLBG ####[address], [place] [phone] Carboxyhemoglobin,Migue 0.6 % Normal <2.1 [facility] Comment on above: Performed By: #### V ALLBG ####[place] [address] [address] [place] [phone] CO2 [Moles/Vol] 25 mmol/L Normal 25-29 [facility] Comment on above: Performed By: #### V ALLBG ####[place] [address], [place] [phone] Glucose [Mass/Vol] 180 mg/dL High 60-105 [facility] Comment on above: Performed By: #### V ALLBG ####[place] [address], [place] [phone] HCO3 (Bld) [Moles/Vol] 23 mmol/L Low 24-28 [facility] Comment on above: Performed By: #### V ALLBG ####[place] [address], [place] [phone] Hematocrit (Bld) [Volume fraction] 33.0 % Low 36.0-46.0 [facility] Comment on above: Performed By: #### V ALLBG ####[facility] [place] [phone] Hemoglobin (Bld) [Mass/Vol] 10.7 g/dL Low 11.5-15.5 [facility] Comment on above: Performed By: #### V ALLBG ####[facility], [place] [phone] Lactate [Moles/Vol] 2.9 mmol/L High 0.5-2.2 [facility] Comment on above: Performed By: #### V ALLBG ####[place] [address] [place] [phone] Methemoglobin 0.6 % Normal <1.6 [facility] Comment on above: Performed By: #### V ALLBG ####[place] [address] [place] [phone] O2 Administered 40% Normal [facility] Comment on above: Performed By: #### V ALLBG ####[place] [address] [place] [phone] Oxyhemoglobin, Migue. 75 % Normal 60-85 [facility] Comment on above: Performed By: #### V ALLBG ####[facility]ClevelandBro[place] [phone] pCO2 47 mm Hg Normal 42-55 [facility] Comment on above: Performed By: #### V ALLBG ####[facility]C[place], [place] [phone] pCO2, Temp Correct 42 mm Hg Normal 42-55 [facility] Comment on above: Performed By: #### V ALLBG ####[facility], [place] [phone] pH (Bld) 7.31 [pH] Low 7.32-7.42 [facility] Comment on above: Performed By: #### V ALLBG ####[facility]He[address] [place] [phone] pH, Temp Corrected 7.35 Normal 7.32-7.42 [facility] Comment on above: Performed By: #### V ALLBG ####[place] [address], [place] [phone] pO2 46 mm Hg High 35-45 [facility] Comment on above: Performed By: #### V ALLBG ####[place] [address] [place] [phone] pO2, Temp Corrected 39 mm Hg Normal 35-45 [facility] Comment on above: Performed By: #### V ALLBG ####[place] [address] [place] [phone] Potassium [Moles/Vol] 3.4 mmol/L Low 3.5-5.0 [facility] Comment on above: Performed By: #### V ALLBG ####[place] [address] [place] [phone] Sodium [Moles/Vol] 137 mmol/L Normal 136-144 [facility] Comment on above: Performed By: #### V ALLBG ####[place] [address], [place] [phone] Base Excess Negative Normal [facility] Comment on above: Performed By: #### V ALLBG ####[place] [address], [place] [phone] Blood Gas Comm, Migue . Normal [facility] Comment on above: Performed By: #### V ALLBG ####[place] [address], [place] [phone] Body temperature 98.6 [degF] Normal [facility] Comment on above: Performed By: #### V ALLBG ####[place] [address], [place] [phone] Calcium [Moles/Vol] 1.05 mmol/L Low 1.08-1.30 [facility] Comment on above: Performed By: #### V ALLBG ####[place] [address], [place] [phone] Carboxyhemoglobin,Migue 1.0 % Normal <2.1 [facility] Comment on above: Performed By: #### V ALLBG ####[place] [address], [place] [phone] CO2 [Moles/Vol] 27 mmol/L Normal 25-29 [facility] Comment on above: Performed By: #### V ALLBG ####[place] [address], [place] [phone] Glucose [Mass/Vol] 200 mg/dL High 60-105 [facility] Comment on above: Performed By: #### V ALLBG ####[place] [address], [place] [phone] HCO3 (Bld) [Moles/Vol] 25 mmol/L Normal 24-28 [facility] Comment on above: Performed By: #### V ALLBG ####[place] [address], [place] [phone] Hematocrit (Bld) [Volume fraction] 26.7 % Low 36.0-46.0 [facility] Comment on above: Performed By: #### V ALLBG ####[place] [address], [place] [phone] Hemoglobin (Bld) [Mass/Vol] 8.6 g/dL Low 11.5-15.5 [facility] Comment on above: Performed By: #### V ALLBG ####[place] [address], [place] [phone] Lactate [Moles/Vol] 1.1 mmol/L Normal 0.5-2.2 [facility] Comment on above: Performed By: #### V ALLBG ####[facility] [place] [phone] Methemoglobin 1.2 % Normal <1.6 [facility] Comment on above: Performed By: #### V ALLBG ####[place] [address]CHe[place] [phone] Oxyhemoglobin, Migue. 91 % High 60-85 [facility] Comment on above: Performed By: #### V ALLBG ####[place] [address] [place] [phone] pCO2 54 mm Hg Normal 42-55 [facility] Comment on above: Performed By: #### V ALLBG ####[place] [address] [place] [phone] pCO2, Temp Correct 54 mm Hg Normal 42-55 [facility] Comment on above: Performed By: #### V ALLBG ####[place] [address] [place] [phone] pH (Bld) 7.29 [pH] Low 7.32-7.42 [facility] Comment on above: Performed By: #### V ALLBG ####[place] [address] [place] [phone] pH, Temp Corrected 7.29 Low 7.32-7.42 [facility] Comment on above: Performed By: #### V ALLBG ####[place] [address] [phone] pO2 72 mm Hg High 35-45 [facility] Comment on above: Performed By: #### V ALLBG ####[facility] [place] [phone] pO2, Temp Corrected 72 mm Hg High 35-45 [facility] Comment on above: Performed By: #### V ALLBG ####[facility] [id number] [place], [place] [phone] Potassium [Moles/Vol] 4.2 mmol/L Normal 3.5-5.0 [facility] Comment on above: Performed By: #### V ALLBG ####[facility] [id number], [place] [phone] Sodium [Moles/Vol] 130 mmol/L Low 136-144 [facility] Comment on above: Performed By: #### V ALLBG ####[facility] [id number], [place] [phone] OPERATIVE NOon 03-24-2021 OPERATIVE NO HNO ID: [id number] Author: Tung Hemphill MD Service: Cardiac Surgery Author Type: Physician Type: Operative Report Filed: 03/24/2021 10:34 AM Note Text: Attestation signed by Cristin Jasso MD at 04/01/2021 1:37 PM Approve [facility] CARDIO-THORACICSURGERY OPERATIVE/PROCEDURE REPORT LOG ID: [id number] SURGERY/PROCEDURE DATE: 03/24/2021 INCISION/PROCEDURE START TIME: 8:20 AM INCISION CLOSE/PROCEDURE END TIME: SURGEON(S)/PROCEDURALI ST(S) AND JUDO TEACHER(S): Surgeon(s) and Role: * Cristin Jasso MD - Primary * Tung Hemphill MD - Assisting Physician Research Laboratory Specialist: Airam Quintero PA-C; Karina Lynn PA-C Registered Nurse Ice Cream Truck Driver: Desirae Mendez RN ANESTHESIA: General CTS OP REPORTS PROCEDURE(S): Mitral Valve Repair PREOPERATIVE DIAGNOSIS: Mitral Valve Regurgitation POSTOPERATIVE DIAGNOSIS: Same as preop FINDINGS: P1-P2 cleft, P2 prolapse, P2-P3 prolapse with moderate MR DESCRIPTION OF PROCEDURE: Operative Approach: Full Conventional Sternotomy Reoperation: No previous surgeries PUMP: ON PUMP Arterial Cannulation: Aortic Venous Cannulation: Right Atrial CARDIOPLEGIA: Buckberg Cardioplegia Delivery: Antegrade MITRAL VALVE PROCEDURE: Mitral Valve Approach: Inter-atrial groove Repair Type(s): Annuloplasty Annuloplasty Type: Hardwick Hardwick Size: 27 Posterior Leaflet Resection Triangular P2 Number of Cardiopulmonary Bypass Runs: 1 Mitral Valve Procedure Findings: Plication of P3 added for some residual MR post Ring placement POST-BYPASS: Aortic Occlusion: Aortic cross clamp WEANING FROM BYPASS: Requiring inotropes PACING WIRES: None CHEST TUBES/DRAINS: Right chest tube and Mediastinal chest tube CLOSURE: Routine with sternal wires POST-PROCEDURE DETAILS: Patient Tolerance of Procedure: tolerated well, no immediate complications Sponge/Instrument/Need le Counts: Final Counts Correct Estimated Blood Loss: 250 mL of shed blood was preserved by cardiopulmonary bypass pump and the cell saver. Specimens Collected: mitral leaflet SURGEON/JUDO TEACHER PARTICIPATION: The primary Surgeon/Proceduralist performed the procedure with assistance. No qualified Resident/Fellow was available. 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 COMMENT A Movat stain was performed to assess tissue architecture with adequate controls. Histologic sections show fragments of an atrioventricular valve leaflet with trilaminar architecture as demonstrated in the Movat stain. The Movat stain shows diffuse, marked deposition of myxoid material within the fibrosa and spongiosa layers of the leaflet and within and around the chorda tendineae. Microscopic Lambl's excrescences are on the leaflet surface. There is elastosis extending to the free edge of the leaflet. There is no acute or chronic inflammation and there are no vegetations, granulomas, or giant cells. Nita Cardenas M.D. (Electronic Signature) _ SPECIMEN SUBMITTED A: MITRAL LEAFLET CLINICAL DATA 3+-4+ MITRAL REGURGITATION GROSS DESCRIPTION A. Received in formalin designated mitral leaflet is a segment of atrioventricular valve measuring 2 cm along the free edge and 1.5 cm from free edge to base. The leaflet is billowed and thickened. There is no calcification. There are no vegetations or perforations. The chordae are irregularly thickened. Apigee Developer sections are submitted in one cassette. SANTOS/[facility] 03/25/2021 Gross examination performed at [facility], [address] [place] [address] Date of Report: 03/26/2021 Date of Procedure: 03/24/2021 Date of Receipt: 03/24/2021 Submitted by: CRISTIN JASSO MD Location: [facility] Diagnostic interpretation performed at [place] [address]. CLIA Number: [id number] Normal [facility] Staph aureus PCRon 1 MRSA PCR Negative Normal [facility] Comment on above: Performed By: #### S APCR ####[place] [id number] [place], [place] [phone] S aureus Spec Source Nasal Normal [facility] Comment on above: Performed By: #### S APCR ####[address] [place], [place] [phone] Staph aureus PCR Positive Critically abnormal [facility] Comment on above: Performed By: #### S APCR ####[facility] [address] [place], [place] [phone] XR CHEST 1V FRONTAL PORTon 1 05-24-2020 XR CHEST 1V FRONTAL PORT * * *Final Report* * * DATE OF EXAM: Mar 24 2021 12:22PM JIX [id number] - XR CHEST 1V FRONTAL PORT / PROCEDURE REASON: Post-operative / post-procedure assessment, asymptomatic * * * * Physician Interpretation * * * * EXAMINATION: CHEST RADIOGRAPH (PORTABLE SINGLE VIEW AP) Exam Date/Time: 03/24/2021 12:22 PM Clinical History: Post-operative / post-procedure assessment, asymptomatic MQ: [id number] Comparison: 03/16/2021 RESULT: Lines, tubes, and devices: The patient is status post median sternotomy with mitral valve repair. Endotracheal tube, NG/OG tube, right pulmonary arterial catheter, mediastinal drains and right chest tube are in place. Lungs and pleura: There is central pulmonary venous congestion without overt edema. Patchy opacities are noted at the lung bases, likely related to atelectasis. Trace left pleural effusion is noted. No pneumothorax. Cardiomediastinal silhouette: Stable borderline enlarged cardiomediastinal silhouette. Other: . IMPRESSION: See result. Health Advocate: VALENTÍN Transcribe Date/Time: Mar 24 2021 1:36P Dictated by : JENNIFER QUEZADA MD This examination was interpreted and the report reviewed and electronically signed by: JENNIFER QUEZADA MD on Mar 24 2021 1:37PM EST [id number] Normal [facility] HOSPon 03-23-2021 HOSP Patient:Mira Gross MRN: Height:5' 2(1.575 m) Weight:156 lb (70.761 kg) Outpatient Medications as of 03/24/21: amoxicillin (POLYMOX, AMOXIL) 500 mg capsule Admission/Clinic Administered Medications as of 03/24/21: Patient has no admission medications. Problem List: Discharge planning issues [Z02.9] Pre-op testing [Z01.818] Allergies: No Known Allergies Date Verified:03/24/21 Lab Values Lab Value Units Date High Low POTA* 4.4 mmol/L 03/16/2021 5.1 3.7 FOREIGN* 41.9 % 03/16/2021 46.0 36.0 Progress Notes ([facility]): Cristin Jasso MD 03/23/2021 1:34 PM Signed I met with Ms. Gross and her daughter today. She is a 71-year-old female with severe degenerative mitral valve prolapse and a calcified posterior mitral leaflet and annulus. She has clean coronary arteries. Ejection fraction is in the 40 to 45% range. There is no other valvular heart disease. She was booked for open mitral valve repair, possible replacement with a bioprosthetic valve by Dr. Hudson today. Due to an emergency in the operating room the surgery has been delayed until tomorrow. Dr. Hudson asked me to take over care due to simultaneous commitments booke din the operating room tomorrow. I went to the preoperative holding area to meet with the patient and her daughter. We reviewed the indications, risks, benefits and alternatives of open mitral valve repair, possible replacement with a biological valve. I explained that there would be a 99% chance of valve repair only limited by the degree of valve/annular calcification. I also explained that it is somewhat unusual that her left ventricular ejection fraction is depressed in the 40 to 45% range-which leads me to believe that there was latent left ventricular dysfunction clinically unapparent given her mild palpitation-like symptoms alone.The consequence of this is that following elimination of severe mitral valve regurgitation after repair there may be a higher likelihood of depression of left ventricular systolic function postoperatively. I explained that this would be managed with medications and involvement of our heart failure team as necessary. We reviewed the informed consent which is been signed by Dr. Hudson and uploaded in the chart. We have answered all the patient and her daughter's questions to their satisfaction. We will proceed with surgery in an A round slot tomorrow morning. Thank you very much for the opportunity to be involved in the care of this patient. Progress Notes ([facility]): Marleny Mason 03/17/2021 12:01 PM Signed AMBULATORY PATIENT EDUCATION READINESS TO LEARN Cognitive Ability: Alert and oriented Motivation To Learn: Interested Family Support: High - Very involved in pt care Instruction Provided To: Patient AND Family Patient Learns Best By: Multiple Methods Factors Affecting Learning: None Physical Limitations Affecting Learning: None LEARNING RESPONSE Diagnosis: MR/MVP Education Topic: Pre-Op Open Heart Surgery Instructions Teaching Points: Logistics / Protocols /Complication Prevention How prepared do you feel you are for this visit: 6 Instruction/Supplement al Materials: Cardiac Surgery Information Binder Individual Instruction Patient/Family Response: Somewhat Follow up plan: Patient/Family to call [facility] with any further questions Referral (Recommendation): None Teach completed, topic: Patient provided with Cardiac Surgery binder and reviewed pre-operative instructions. Patient advised to call [facility] with any further questions Normal [facility] NURSING PROGon 03-23-2021 NURSING PROG HNO ID: [id number] Author: Wood Prieto RN Service: Nursing Author Type: Registered Nurse Type: Nursing Progress Note Filed: 03/23/2021 12:50 PM Note Text: Surgery cancelled. Patient given body wash and mouth wash to use once rescheduled. Patient and daughter updated by CT material scheduler. Patient stable ready to be discharged. Normal [facility] Intermed Rapid COVIDon 03-22 SARS-CoV-2 (COVID-19) RNA JUAN F+probe Ql (Unsp spec) UPPER RESPIRATORY TRACT SWAB Normal [facility] Comment on above: Performed By: #### I TCOVD ####[id number] [place], [place] [phone] SARS-CoV-2 (COVID-19) RNA JUAN F+probe Ql (Unsp spec) Negative for COVID19 (SARS CoV2) by RT-PCR or equivalent method. Normal Negative for COVID19 (SARS CoV2) by RT-PCR or equivalent method. [facility] Comment on above: Result Comment: This test was developed and its performance characteristics determined by [facility]'s [facility] [place]. This test has been authorized by FDA under an Emergency Use Authorization (EUA). This test has been validated in accordance with the FDA's Guidance Document Policy for Diagnostics Testing in Laboratories Certified to Perform High Complexity Testing under CLIA prior to Emergency use Authorization for Coronavirus Disease 2019 during the Public Health Emergency issued on July 14, 2019. Test performed by [facility], [facility] [place], [address], [place] [address]. Performed By: #### I TCOVD ####[facility] [id number] [place], [place] [phone] CNCOon 03-18-2021 CNCO Letter Text Normal [facility] CNOVon 03-17-2021 CNOV Office Visit (TOHSMN ) SHINE GROSS ([id number]) 1950 F Date Time Provider Department 03/17/21 12:00 PM Ebony HUDSON [facility] During your visit today, we recorded the following information about you: Ebony Hudson MD 03/17/2021 11:54 AM Signed [facility] [place] DEPARTMENT OF CARDIAC SURGERY OUTPATIENT VISIT DATE March 17, 2021 OUTPATIENT VISIT Patient Type: Consult Visit to determine Surgery: Yes PCP: Dianne Marmolejo MD [address] [place] [address] Referring Physician:: Aubrey Beltre MD ([facility]) [address] [address] HPI: Ms. Shine Gross is a 71 year old female seen in consultation at the request of Aubrey Beltre for opinion regarding treatment options for Mitral Insufficiency. Comorbidities include MAC and reduced LVEF. The echocardiogram reveals: Last ECHO Result Conclusion ECHO Collected: 03/16/2021 9:19 AM (Final result) Impression: CONCLUSIONS: - Technically difficult exam due to body habitus. - Exam indication: pre op mitral valve surgery - The left ventricle is normal in size. Left ventricular systolic function is mildly decreased. EF = 46 ? 5% (2D biplane) Left ventricular diastolic function was not evaluated due to >2+ MR. - The right ventricle is normal in size. Right ventricular systolic function is normal. - The left atrial cavity is mildly dilated. - The visualized aorta is borderline dilated with a maximal dimension of 3.8 cm. - There is severe (3+ - 4+) mitral valve regurgitation due to prolapse. Regurgitant orifice area (PISA) is 0.85 cm?. There is severe prolapse of the posterior leaflet, with eccentric anteriorly directed MR, which is likely understimated in regards to the severity as the MR jet is not entirely visualized. Mild posterior MAC. - The patient has not had a prior CC echocardiographic exam for comparison. * * * Final * * * Complete Results Based on my evaluation she is a high risk for cardiac surgery. Impression: Mitral Insufficiency Plan: Full Sternotomy. MV repair or SJ Biocor. Note MAC and reduced LVEF. Buckberg antegrade and retrograde (Pettersson retrograde). Iced slush. MONTEZ. [place]. [place]. I spent more than 50% of the visit face to face counseling the patient on the plan and treatment options. The time spent counseling was 30 minutes. The total time of the face to face visit was 30 minutes. The risks, benefits and anticipated outcomes of the procedure, the risks and benefits of the alternatives to the procedure, and the roles and tasks of the personnel to be involved, were discussed with the patient, and the patient consents to the procedure and agrees to proceed. We discussed the possibility that there could be two patients undergoing surgery in two separate rooms (concurrent surgery) and that I would be present for the critical components of all operations. We also discussed that in an emergency situation, a qualified backup surgeon is available and in the rare event of such a serious situation, that colleague might take over the operation. These findings will be communicated back to the requesting physician via electronic medical record Ebony Hudson MD Referring Provider: AUBREY BELTRE [[id number]] Allergies As of Date: 03/17/2021 (No Known Allergies) Date Reviewed: 03/17/2021 Reviewed by: Norma Almazan - Fully Assessed Visit Diagnoses:Pre-operativ e cardiovascular examination [Z01.810] Mitral valve disorder [I05.9] Order(s):CONSULT TO CARDIOTHORACIC SURG [] Order #: [id number]: 1 Prescriptions as of 03/17/2021 - mupirocin (BACTROBAN) 2% oint Use 0.5 g in the nose twice daily for 3 doses. Apply intranasally two times the day before surgery and one time the morning of surgery - amoxicillin (POLYMOX, AMOXIL) 500 mg capsule TAKE FOUR CAPSULES BY MOUTH ONE HOUR PRIOR TO APPOINTMENT Problem List As Of Date 03/17/2021 Noted Resolved Discharge planning issues [Z02.9] 03/17/2021 Pre-op testing [Z01.818] 03/17/2021 Encounter Status:Closed by Ebony HUDSON on 03/17/21 [facility] CNOV Office Visit (CARTMN ) SHINE GROSS ([id number]) 1950 F Date Time Provider Department 03/17/21 11:40 AM ANESTHESIA CLEARANCE CARTMN During your visit today, we recorded the following information about you: Liliane Rodríguez MD 03/17/2021 1:27 PM Signed [facility] PREOP EVALUATION CARDIOTHORACIC ANESTHESIA CARDIAC SURGERY SERVICE DATE: 03/17/2021 SERVICE TIME: 10:59 AM Proposed Surgical Procedure: Mitral Valve Surgery Re-do: No ASA Class: 4 Surgeon: Carl Surgery Date: 03/23/21 Last Wt 03/16/21 : 70.8 kg (156 lb) Last Ht 03/16/21 : 157.5 cm (5' 2) Estimated body mass index is 28.53 kg/m? as calculated from the following: Height as of 03/16/21: 157.5 cm (5' 2). Weight as of 03/16/21: 70.8 kg (156 lb). Melissa body weight: 50.1 kg (110 lb 7.2 oz) Adjusted ideal body weight: 58.4 kg (128 lb 10.7 oz) Estimated body surface area is 1.76 meters squared as calculated from the following: Height as of 03/16/21: 157.5 cm (5' 2). Weight as of 03/16/21: 70.8 kg (156 lb). 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 Endorses dyspnea and palpitations. PAST MEDICAL HISTORY Diagnosis Date - - Hypertension - LBBB (left bundle branch block) - Mitral valve prolapse - Mitral valve regurgitation No past surgical history on file. Social History Tobacco Use - Smoking status: Never Smoker - Smokeless tobacco: Never Used Substance Use Topics - Alcohol use: Not Currently - Drug use: Not Currently ALLERGIES No Known Allergies ANESTHETIC HISTORY: History of general anesthesia without complications. AIRWAY ASSESSMENT: Airway History: No abnormal airway history Airway Exam: General: Normal appearance Mallampati Score: CLASS I Dentition: Upper denture Mouth: Normal tongue size Temporo-Mandibular Displacement Test: Position A (lower teeth can be advanced beyond upper teeth) Thyromental Distance: 3 cm Neck Circumference: < 20 cm Cervical Mobility: Normal Facial Hair: No ANTICIPATED DIFFICULT AIRWAY: NO Lines, Drains, Airway: Lines, Drains, and Airways None LABS: Lab Results Past 6 Months Component Value Date HB 13.6 03/16/2021 HCT 41.9 03/16/2021 PLT 212 03/16/2021 WBC 6.31 03/16/2021 NA 140 03/16/2021 K 4.4 03/16/2021 CREAT 0.79 03/16/2021 CA 9.9 03/16/2021 APTT 26.2 03/16/2021 INR 1.0 03/16/2021 Lab Results Past 6 Months Component Value Date GLUC 107 (H) 03/16/2021 K 4.4 03/16/2021 NA 140 03/16/2021 CHLOR 105 03/16/2021 CO2 22 03/16/2021 CREAT 0.79 03/16/2021 BUN 16 03/16/2021 ANION 13 03/16/2021 CA 9.9 03/16/2021 TPROT 7.5 03/16/2021 ALB 4.6 03/16/2021 TBILI 0.4 03/16/2021 ALKPHOS 80 03/16/2021 AST 25 03/16/2021 ALT 22 03/16/2021 ABO/RH(D) (no units) Date Value 03/16/2021 O POSITIVE Antibody Screen (no units) Date Value 03/16/2021 NEG Historical Ab Scr Status (no units) Date Value 03/16/2021 NEGATIVE Anticipated Blood Products Ordered: No blood product orders needed. Will the Patient Accept Blood: Yes IMAGING AND TESTS: See cardiology note 03/16/21 DEVICES: none MEDICATIONS: Current Outpatient Medications Medication Sig - amoxicillin (POLYMOX, AMOXIL) 500 mg capsule TAKE FOUR CAPSULES BY MOUTH ONE HOUR PRIOR TO APPOINTMENT No current facility-administered medications for this visit. Is the patient currently on any anticoagulant medications: No Additional Comments: none I have reviewed the Cardiothoracic Surgical Assessment and agree with its findings. During the course of the encounter the patient was prepared for anesthetic care. This conversation included anesthetic options, possible use of invasive monitoring, the risks, benefits, alternatives, and personnel that will be present for the anesthetic encounter. The patient agreed to proceed with the planned anesthetic. Instructed to take no with a small sip of water on the morning of surgery. ANESTHESIA CONCERNS: None BETA BHUMI COMPLIANCE: Is the Patient Scheduled for a CABG: No SIGNATURE: Liliane Rodríguez MD PATIENT NAME: Shine Gross DATE: March 17, 2021 TIME: 10:59 AM Referring Provider: Ebony HUDSON [[id number]] Allergies As of Date: 03/17/2021 (No Known Allergies) Date Reviewed: 03/17/2021 Reviewed by: Marleny Mason - Fully Assessed Primary Visit Diagnosis:Encounter for preoperative anesthesiology assessment for cardiac surgery [Z01.818] Order(s):mupirocin (BACTROBAN) 2% ointUse 0.5 g in the nose twice daily for 3 doses. Apply intranasally two times the day before surgery and one time the morning of surgeryDisp: 3 gRfl: 0 Prescriptions as of 03/17/2021 - mupirocin (BACTROBAN) 2% oint Use 0.5 g in the nose twice daily for 3 doses. Apply intranasally two times the day before surgery and one time the morning of surger (more content not included)... Normal [facility] CNOV Office Visit (CARTMN ) EMERITASHINE GARCIAGayathri ([id number]) 1950 F Date Time Provider Department 03/17/21 11:[address] [facility] During your visit today, we recorded the following information about you: Marleny Mason 03/17/2021 12:25 PM Signed CHART COPY-DO NOT DISCARD CARDIOVASCULAR SURGERY PRE-OPERATIVE ASSESSMENT NAME: Shine Gross Alert Notes: DATE: 03/17/2021 SEX: female : 1950 AGE: [age] year old Estimated body mass index is 28.53 kg/m? as calculated from the following: Height as of 03/16/21: 157.5 cm (5' 2). Weight as of 03/16/21: 70.8 kg (156 lb). STS Score PHYSICIAN: Peña Hudson M.D. [facility] MD: Rishabh Rdz M.D. Intended Procedure: MVr REDO: No Patient scheduled for surgery on: 03/23/2021. CHIEF COMPLAINT: Pre-Op Open Heart Surgery MEDICATIONS: Current Outpatient Medications: - amoxicillin (POLYMOX, AMOXIL) 500 mg capsule - mupirocin (BACTROBAN) 2% oint ALLERGIES: ALLERGIES No Known Allergies LATEX ALLERGY: No FOOD SENSITIVITIES: No ANTICOAGULANTS: No STEROIDS: No HISTORIES: FAMILY HISTORY Problem Relation Age of Onset - No Known Problems Mother - Heart Father fast and hard heartbeat no diagnosis - Heart Attack Father at 89 - Diabetes Sister Type 2 - Heart Sister MVP - Heart Sister MVP - Diabetes Maternal Grandmother - Heart Brother PPM - Heart Son - No Known Problems Son - No Known Problems Daughter PAST MEDICAL HISTORY Diagnosis Date - COVID-19 - Hypertension - LBBB (left bundle branch block) - Mitral valve prolapse - Mitral valve regurgitation No past surgical history on file. 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 Lost consciousness while sitting down. Began feeling hot and lightheaded GI: Denies Gastrointestinal Complaints : Nephrolithiasis remote history ENDO: Denies Endocrine Complaints HEME: Denies Hematological complaints MUSC/SKEL: Arthritis mild generalized PVD: Denies PVD Varicose Veins: Yes, mild LLE BRUITS (Carotid): No PULSES: Pedal Left 2 Right 2 NYHA CLASSIFICATION: Class 1 FAMILY HISTORY OF CAD: No ? PERFUSION INDEX: LT: RT: DOMINANT HAND: right-handed Pacer Check: NA CARDIAC EVALUATION: Cardiac Cath: Date - 10/30/2020 Ultrasound: Date - PFT: Date - ECHO: Date - 03/16/2021 CT Scan: Date - MRI: Date - CXR: Date - 03/16/2021 EKG: Date - 03/16/2021 Dental: cleared - in scanned documents ? Recent Labs 03/16/21 1118 03/16/21 1110 WBC -- 6.31 HB -- 13.6 HCT -- 41.9 PLT -- 212 INR -- 1.0 APTT -- 26.2 PTSEC -- 10.6 NA -- 140 K -- 4.4 BUN -- 16 CREAT -- 0.79 ABORHD O POSITIVE O POSITIVE Pre Op Instructions per protocol reviewed and handout given to patient . Patient Education completed and documented. Instructed to start Bactroban per protocol. Emotional support provided to patient and family. All questions and concerns adressed. Signature: Marleny Mason See Cardiology History and Physical dated 03/16/2021 Referring Provider: Ebony HUDSON [[id number]] Allergies As of Date: 03/17/2021 (No Known Allergies) Date Reviewed: 03/17/2021 Reviewed by: Marleny Mason - Fully Assessed Primary Visit Diagnosis:Pre-op testing [Z01.818] Prescriptions as of 03/17/2021 - mupirocin (BACTROBAN) 2% oint Use 0.5 g in the nose twice daily for 3 doses. Apply intranasally two times the day before surgery and one time the morning of surgery - amoxicillin (POLYMOX, AMOXIL) 500 mg capsule TAKE FOUR CAPSULES BY MOUTH ONE HOUR PRIOR TO APPOINTMENT Problem List As Of Date 03/17/2021 Noted Resolved Discharge planning issues [Z02.9] 03/17/2021 Pre-op testing [Z01.818] 03/17/2021 Encounter Status:Closed by MARLENY MASON on 03/17/21 Normal [facility] Staph aureus PCRon MRSA PCR Negative Normal [facility] Comment on above: Performed By: #### S APCR ####[address] [phone] S aureus Spec Source Nasal Normal [facility] Comment on above: Performed By: #### S APCR ####[address] [phone] Staph aureus PCR Positive Critically abnormal [facility] Comment on above: Performed By: #### S APCR ####[address] [phone] APTTon 03-16-2021 aPTT Coag (Bld) [Time] 26.2 s Normal 23.0-32.4 [facility] Comment on above: Result Comment: Unfr actionated Heparin Therapeutic Ranges: Standard Heparin Nomogram: 53 to 78 seconds (anti-Xa level of 0.3 to 0.7 U/ml) Low Dose/ACS Nomogram: 49 to 67 seconds (anti-Xa level of 0.2 to 0.5 U/ml) Stroke Treatment Nomogram: 49 to 67 seconds (anti-Xa level of 0.2 to 0.5 U/ml) Note: The APTT therapeutic range has been determined for the current lot of laboratory APTT reagent in use throughout the [facility]. Performed By: #### P T, LD6, CMP, CBCDIF, PTT ####[place] [id number] [address], [place] [phone] CBC and Differentialon 03-16 Abs Baso 0.08 k/uL Normal <0.11 [facility] Comment on above: Performed By: #### P T, LD6, CMP, CBCDIF, PTT ####[place] [address] [address] [place] [phone] Abs [place] 0.50 k/uL Normal <0.87 [facility] Comment on above: Performed By: #### P T, LD6, CMP, CBCDIF, PTT ####[place] [address] [address] [place] [phone] Abs Neut 4.47 k/uL Normal 1.45-7.50 [facility] Comment on above: Performed By: #### P T, LD6, CMP, CBCDIF, PTT ####[place] [address] [address] [place] [phone] Absolute nRBC <0.01 Normal <0.01 [facility] Comment on above: Performed By: #### P T, LD6, CMP, CBCDIF, PTT ####[place] [address] [address] [place] [phone] Basophils/100 WBC (Bld) 1.3 % Normal [facility] Comment on above: Performed By: #### P T, LD6, CMP, CBCDIF, PTT ####[place] [address] [address] [place] [phone] DTYPE Auto Diff Normal [facility] Comment on above: Performed By: #### P T, LD6, CMP, CBCDIF, PTT ####[place] [address] [address] [place] [phone] Eosinophils (Bld) [#/Vol] 0.04 10*3/uL Normal <0.46 [facility] Comment on above: Performed By: #### P T, LD6, CMP, CBCDIF, PTT ####[facility], [place] [phone] Eosinophils/100 WBC (Bld) 0.6 % Normal [facility] Comment on above: Performed By: #### P T, LD6, CMP, CBCDIF, PTT ####[place] [address] [address], [place] [phone] Erythrocyte distribution width (RBC) [Ratio] 13.4 % Normal 11.5-15.0 [facility] Comment on above: Performed By: #### P T, LD6, CMP, CBCDIF, PTT ####[place] [address] [address], [place] [phone] Hematocrit (Bld) [Volume fraction] 41.9 % Normal 36.0-46.0 [facility] Comment on above: Performed By: #### P T, LD6, CMP, CBCDIF, PTT ####[place] [address] [address], [place] [phone] Hemoglobin (Bld) [Mass/Vol] 13.6 g/dL Normal 11.5-15.5 [facility] Comment on above: Performed By: #### P T, LD6, CMP, CBCDIF, PTT ####[place] [address] [address], [place] [phone] Lymphocytes (Bld) [#/Vol] 1.20 10*3/uL Normal 1.00-4.00 [facility] Comment on above: Performed By: #### P T, LD6, CMP, CBCDIF, PTT ####[place] [id number], [place] [phone] Lymphocytes/100 WBC (Bld) 19.0 % Normal [facility] Comment on above: Performed By: #### P T, LD6, CMP, CBCDIF, PTT ####[facility], [place] [phone] MCH 29.8 pG Normal 26.0-34.0 [facility] Comment on above: Performed By: #### P T, LD6, CMP, CBCDIF, PTT ####[place] [address] [address] [place] [phone] MCHC (RBC) [Mass/Vol] 32.5 g/dL Normal 30.5-36.0 [facility] Comment on above: Performed By: #### P T, LD6, CMP, CBCDIF, PTT ####[place] [address] [address] [place] [phone] MCV (RBC) [Entitic vol] 91.9 fL Normal 80.0-100.0 [facility] Comment on above: Performed By: #### P T, LD6, CMP, CBCDIF, PTT ####[place] [address] [address], [place] [phone] Monocytes/100 WBC (Bld) 7.9 % Normal [facility] Comment on above: Performed By: #### P T, LD6, CMP, CBCDIF, PTT ####[place] [address] [address], [place] [phone] Neutrophils/100 WBC (Bld) 71.2 % Normal [facility] Comment on above: Performed By: #### P T, LD6, CMP, CBCDIF, PTT ####[facility], [place] [phone] NRBCs 0.0 /100 WBC Normal 0 [facility] Comment on above: Performed By: #### P T, LD6, CMP, CBCDIF, PTT ####[place] [id number], [place] [phone] Platelet mean volume (Bld) [Entitic vol] 12.3 fL Normal 9.0-12.7 [facility] Comment on above: Performed By: #### P T, LD6, CMP, CBCDIF, PTT ####[place] [address], [place] [phone] Platelets (Bld) [#/Vol] 212 10*3/uL Normal 150-400 [facility] Comment on above: Performed By: #### P T, LD6, CMP, CBCDIF, PTT ####[facility] [place], [place] [phone] RBC (Bld) [#/Vol] 4.56 10*6/uL Normal 3.90-5.20 [facility] Comment on above: Performed By: #### P T, LD6, CMP, CBCDIF, PTT ####[facility] [place], [place] [phone] WBC (Bld) [#/Vol] 6.31 10*3/uL Normal 3.70-11.00 [facility] Comment on above: Performed By: #### P T, LD6, CMP, CBCDIF, PTT ####[place] [address], [place] [phone] CNOVon 03-16-2021 CNOV Office Visit (SYLWIA ) SHINE GROSS ([id number]) 1950 F Date Time Provider Department 03/16/21 1:[address] During your visit today, we recorded the following information about you: Pulse Blood pressure Weight Height 106/minute 150/100 70.8 kg 1.575 m Petra Rdz MD 03/16/2021 2:22 PM Signed [facility] Department of Cardiovascular Medicine SECTION OF CARDIOVASCULAR IMAGING March 16, 2021 Visit Type: New patient Reason for visit: MR HPI: 71 year old pleasant lady with significant MR referred to Dr. Hudson for MV surgery NURSING HISTORY INTAKE: Mrs. Gross is a 71 year old female from [place], [place], presenting today for pre-operative cardiac evaluation prior to mitral valve surgery with Dr. Hudson on . 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 Mrs. Gross states that in late 2019 she started noticing an increase in shortness of breath and palpitations. She went to her PCP who found a heart murmur and skipped heartbeats. Her PCP had her follow up with cardiology. She underwent an echocardiogram which revealed global hypokinesis, posterior mitral valve leaflet and 3+ eccentric mitral valve regurgitation. She presents today with complaints of her heart skipping beats and pounding in her chest when she sits down. She also states she sometimes has some discomfort or shortness of breath upon extreme exertion and occasional lightheadedness at times. About a week and a half ago she states she had an episode of which she passed out and the ED she went to diagnosised the episode as a vaso vagel response. Relevant Studies: Outside cath with normal cors REVIEW OF SYSTEMS: Positive in BOLD GENERAL: Negative for: Weight loss or gain, Fever or Chills, Weakness and Sleep difficulties. HEENT: Negative for: Headache, Impaired Vision, Glasses (reading), Hearing Impairment, Ringing in Ears, Nosebleeds, Poor dental care, Bleeding Gums, Dentures (uppers) NECK: Negative for: Swelling, Pain, Stiffness RESPIRATORY: Negative for: Cough, Blood in Sputum, Shortness of breath, Wheezing, Apnea GASTROINTESTINAL: Negative for: Trouble swallowing, Heartburn, Change in bowel habits, Blood in stool, Dark black stools MUSCULOSKELETAL: Negative for: Muscle or joint pain, Stiffness , Joint swelling NEUROLOGIC/PSYCHIATRIC : Negative for: Weakness, Paralysis, Numbness, Tingling, Tremor, Nervousness, Depressed mood, Memory loss SKIN: Negative for: Rashes, Itching HEMATOLOGICAL/LYMPHATI C: Negative for: Easy bruising , Easy bleeding ENDOCRINE: Negative for: Heat or cold intolerance, Excessive sweating, Frequent urination, Frequent thirst Medical History: PAST MEDICAL HISTORY Diagnosis Date - COVID-19 - Hypertension - LBBB (left bundle branch block) - Mitral valve prolapse - Mitral valve regurgitation Surgical History: History reviewed. No pertinent surgical history. Family History: FAMILY HISTORY Problem Relation Age of Onset - No Known Problems Mother - Heart Father fast and hard heartbeat no diagnosis - Heart Attack Father at 89 - Diabetes Sister Type 2 - Heart Sister MVP - Heart Sister MVP - Diabetes Maternal Grandmother - Heart Brother PPM - Heart Son - No Known Problems Son - No Known Problems Daughter Social History: Social History Tobacco Use - Smoking status: Never Smoker - Smokeless tobacco: Never Used Substance Use Topics - Alcohol use: Not Currently - Drug use: Not Currently Allergies: ALLERGIES No Known Allergies Current Medications amoxicillin (POLYMOX, AMOXIL) 500 mg capsule TAKE FOUR CAPSULES BY MOUTH ONE HOUR PRIOR TO APPOINTMENT Physical Exam BP 150/100 (BP Site: Left Arm, BP Position: Sitting, BP Cuff Size: Regular Adult) Pulse 106 Ht 157.5 cm (5' 2) Wt 70.8 kg (156 lb) SpO2 97% BMI 28.53 kg/m? GENERAL: Alert, no distress, cooperative. SKIN: Skin color, texture, turgor normal. No rashes or lesions. HEENT: Normocephalic. No masses, lesions. Conjunctivae/corneas clear. NECK: No jugulovenous distention. No carotid bruits. Carotid pulse normal contour. Supple. LUNGS: Lungs clear to auscultation. No wheezing or rhonchi. CARDIAC: Normal S1 and S2; Severe systolic murmur ABDOMEN: Abdomen soft, non-tender. No masses or organomegaly. EXTREMITIES: Extremities normal, no deformities, edema, clubbing or skin discoloration. Distal pulses present bilaterally. NEURO: Oriented to person, place and time, cooperative. No focal deficits. PSYCH: Pleasant; affect, mood and behavior appropriate. ECG, Labs and Imaging tests were reviewed. Last ECHO Result Conclusion ECHO Collected: 03/16/2021 9:19 AM (Final result) Impression: CONCLUSIONS: - Technically difficult (more content not included)... Normal [facility] Comp Metabolic Panelon 03-16 Albumin [Mass/Vol] 4.6 g/dL Normal 3.9-4.9 [facility] Comment on above: Performed By: #### P T, LD6, CMP, CBCDIF, PTT ####[place] [address] [address] [place] [phone] ALP [Catalytic activity/Vol] 80 U/L Normal 34-123 [facility] Comment on above: Performed By: #### P T, LD6, CMP, CBCDIF, PTT ####[place] [address] [address] [place] [phone] ALT [Catalytic activity/Vol] 22 U/L Normal 7-38 [facility] Comment on above: Performed By: #### P T, LD6, CMP, CBCDIF, PTT ####[place] [address] [address] [place] [phone] Anion gap [Moles/Vol] 13 mmol/L Normal 9-18 [facility] Comment on above: Performed By: #### P T, LD6, CMP, CBCDIF, PTT ####[place] [address] [address] [place] [phone] AST [Catalytic activity/Vol] 25 U/L Normal 13-35 [facility] Comment on above: Performed By: #### P T, LD6, CMP, CBCDIF, PTT ####[place] [address] [address], [place] [phone] Bilirubin [Mass/Vol] 0.4 mg/dL Normal 0.2-1.3 [facility] Comment on above: Performed By: #### P T, LD6, CMP, CBCDIF, PTT ####[place] [address] [address], [place] [phone] Calcium [Mass/Vol] 9.9 mg/dL Normal 8.5-10.2 [facility] Comment on above: Performed By: #### P T, LD6, CMP, CBCDIF, PTT ####[place] [address] [address] [place] [phone] Chloride [Moles/Vol] 105 mmol/L Normal 97-105 [facility] Comment on above: Performed By: #### P T, LD6, CMP, CBCDIF, PTT ####[facility], [place] [phone] CO2 [Moles/Vol] 22 mmol/L Normal 22-30 [facility] Comment on above: Performed By: #### P T, LD6, CMP, CBCDIF, PTT ####[place] [address] [address] [place] [phone] Creatinine [Mass/Vol] 0.79 mg/dL Normal 0.58-0.96 [facility] Comment on above: Performed By: #### P T, LD6, CMP, CBCDIF, PTT ####[place] [address] [address], [place] [phone] eGFR- Amer. >60 Normal [facility] Comment on above: Performed By: #### P T, LD6, CMP, CBCDIF, PTT ####[place] [address] [address] [place] [phone] eGFR-All Other Races >60 Normal [facility] Comment on above: Result Comment: eGFR (Estimated GFR) Units of measure: mL/min/1.73 meters squared eGFR is derived from the reexpressed MDRD Study equation using the following parameters: serum creatinine, age, gender and race. The creatinine assay has been calibrated to be traceable to IDMS. An eGFR <60 mL/min/1.73m2 for >3 months is consistent with chronic kidney disease. Refer to KDOQI guidelines for clinical interpretation. In patients with unstable renal function, e.g. those with acute kidney injury, the eGFR may not accurately reflect actual GFR. Performed By: #### P T, LD6, CMP, CBCDIF, PTT ####[place] [address] [address], [place] [phone] Glucose [Mass/Vol] 107 mg/dL High 74-99 [facility] Comment on above: Result Comment: The [place] Diabetes Association (ADA) provides guidance for cutoff values for fasting glucose and random glucose. The ADA defines fasting as no caloric intake for at least 8 hours. Fasting plasma glucose results between 100 to 125 mg/dL indicate increased risk for diabetes (prediabetes). Fasting plasma glucose results greater than or equal to 126 mg/dL meet the criteria for diagnosis of diabetes. In the absence of unequivocal hyperglycemia, results should be confirmed by repeat testing. In a patient with classic symptoms of hyperglycemia or hyperglycemic crisis, random plasma glucose results greater than or equal to 200 mg/dL meet the criteria for diagnosis of diabetes. Reference: Standards of Medical Care in Diabetes 2016, [place] [employer] Association. Diabetes Care. 2016.39(Suppl 1). Performed By: #### P T, LD6, CMP, CBCDIF, PTT ####[facility] [place] [address] [phone] Potassium [Moles/Vol] 4.4 mmol/L Normal 3.7-5.1 [facility] Comment on above: Performed By: #### P T, LD6, CMP, CBCDIF, PTT ####[facility], [place] [phone] Protein [Mass/Vol] 7.5 g/dL Normal 6.3-8.0 [facility] Comment on above: Performed By: #### P T, LD6, CMP, CBCDIF, PTT ####[facility] [place], [place] [phone] Sodium [Moles/Vol] 140 mmol/L Normal 136-144 [facility] Comment on above: Performed By: #### P T, LD6, CMP, CBCDIF, PTT ####[place] [address], [place] [phone] Urea nitrogen [Mass/Vol] 16 mg/dL Normal 7-21 [facility] Comment on above: Performed By: #### P T, LD6, CMP, CBCDIF, PTT ####[place] [address] [place], [place] [phone] Confirm Blood Typeon 021 ABO/RH(D) Positive Normal [facility] Comment on above: Performed By: #### C ONABO ####[facility] [place], [place] [phone] LDon 03-16-2021 LD 230 U/L High 135-214 [facility] Comment on above: Performed By: #### P T, LD6, CMP, CBCDIF, PTT ####[place] [address] [place], [place] [phone] Protimeon 03-16-2021 PT INR 1.0 Normal 0.9-1.3 [facility] Comment on above: Result Comment: Kaycee min K Antagonist (VKA) Therapeutic Range: INR 2 to 3 (Target INR of 2.5) Note: For patients treated with VKA drugs, such as warfarin, the [place] [employer] 2012 Guideline recommends a therapeutic INR range of 2 to 3 (target INR of 2.5). This recommendation includes high-risk patients with antiphospholipid syndrome with previous arterial or venous thromboembolism, current-generation mechanical or bioprosthetic aortic heart valve replacement. Note: Patients with mechanical aortic valve replacement and additional risk factors for thromboembolic events (atrial fibrillation, previous thromboembolism, LV dysfunction, hypercoagulable conditions) or an older generation mechanical AVR (i.e., ball in-Cage) or any mechanical MVR should have a INR therapeutic range of 2.5 to 3.5 (target INR of 3). Thanh GALICIA, et al. Chest 2012, 141:7S-47S Sneha RA, et al. [facility] 2017, 70: 252-289 Performed By: #### P T, LD6, CMP, CBCDIF, PTT ####[facility] [place], [place] [phone] PT Sec 10.6 sec Normal 9.7-13.0 [facility] Comment on above: Performed By: #### P T, LD6, CMP, CBCDIF, PTT ####[place] [id number] [phone] Type and SCR (30D)on 021 ABO/RH(D) Positive Normal [facility] Comment on above: Performed By: #### T SCR30 ####[place] [address] [address] [place] [phone] Urinalysison 03-16-2021 Bilirubin, Urine Negative Normal Negative [facility] Comment on above: Performed By: #### U A ####[place] [address] [address] [place] [phone] Clarity (U) Clear Normal Clear [facility] Comment on above: Performed By: #### U A ####[place] [address] [address] [place] [phone] Color (U) Straw Critically abnormal Yellow [facility] Comment on above: Performed By: #### U A ####[place] [address] [address] [place] [phone] Comments SEE COMMENT Normal [facility] Comment on above: Result Comment: Micr oscopic not warranted Performed By: #### U A ####[place] [address] [address] [place] [phone] Glucose Ql (U) Negative Normal Negative [facility] Comment on above: Performed By: #### U A ####[place] [address] [address] [place] [phone] Hemoglobin/Blood,Ur Negative Normal Negative [facility] Comment on above: Performed By: #### U A ####[place] [address] [address] [place] [phone] Ketones Ql (U) Negative Normal Negative [facility] Comment on above: Performed By: #### U A ####[place] [address] [address] [place] [phone] Leukest Negative Normal Negative [facility] Comment on above: Performed By: #### U A ####[place] [address] [address], [place] [phone] Nitrite Ql (U) Negative Normal Negative [facility] Comment on above: Performed By: #### U A ####[address] [phone] pH (U) 7.0 [pH] Normal 5.0-8.0 [facility] Comment on above: Performed By: #### U A ####[address] [phone] Protein, Urine Negative Normal Negative [facility] Comment on above: Performed By: #### U A ####[address] [phone] Specific [place], Ur 1.012 Normal 1.005-1.030 [facility] Comment on above: Performed By: #### U A ####[address] [phone] Urine Fredy Comment SEE COMMENT Normal [facility] Comment on above: Result Comment: N/A Performed By: #### U A ####[address] [phone] Urobilinogen (U) [Mass/Vol] Negative Normal Negative [facility] Comment on above: Performed By: #### U A ####[place] [address] [address], [place] [phone] XR CHEST 2V FRONTAL/LATon XR CHEST 2V FRONTAL/LAT * * *Final Report* * * DATE OF EXAM: Mar 16 2021 10:41AM JIX [id number] - XR CHEST 2V FRONTAL/LAT / PROCEDURE REASON: multiple diagnoses * * * * Physician Interpretation * * * * EXAMINATION: CHEST RADIOGRAPH (2 VIEW FRONTAL and LATERAL) CLINICAL HISTORY: Pre-operative cardiovascular examination Mitral valve disorder MQ: XC2_6 EXAM DATE/TIME: 03/16/2021 10:41 AM COMPARISON: No relevant prior studies available. RESULT: Lines, tubes, and devices: None. Lungs and pleura: No consolidation. No lung mass. No pleural effusion. No pneumothorax. Cardiomediastinal silhouette: The cardiomediastinal silhouette is mildly enlarged. Tortuosity of the descending aorta noted. Bones and soft tissues: Unremarkable. IMPRESSION: No acute radiographic abnormality. Health Advocate: PSCB Transcribe Date/Time: Mar 16 2021 11:10A Dictated by : ADAN MORTON MD This examination was interpreted and the report reviewed and electronically signed by: ADAN MORTON MD on Mar 16 2021 11:10AM EST [id number] Normal [facility] 12-29-2020 [facility] Telephone ([facility]) SHINE GROSS ([id number]) 1950 F Date Time Provider Department 12/29/20 Ebony HUDSON [facility] During your visit today, we recorded the following information about you: Akanksha Del Real RN 12/29/2020 10:15 AM Signed Spoke on the phone with Shine Gross regarding scheduling her surgery with Dr. Hudson on 03/23. We will mail the dental clearance form. I instructed Shine that her last dose of ASA and any vitamins, supplements, and NSAIDs should be on 03/17. Akanksha Del Real RN Cardiac Surgery PreOp Checklist Patient Name: Shine M. Ginny OR Surgery Date: 03/23/21 [facility] Appt. Date: 03/22/21 Primary Care Provider: No primary care provider on file. Definition Comments Diabetes/Insulin Pump A1-c and Endo consult (need for pump pt) n/a Hypothyroid/thyroid nodules TSH/US of thyroid if new nodule n/a Stroke (CVA) Neurology consult n/a Dysphagia, stricture w/no recent dilation, White's Esophagus GI consult n/a Von Willebrand/thrombocyto penia/ Blood... Hematology consult n/a Abnormal labs from outside Place any necessary consults n/a Cardiac Cath Correct birthday/include all images/moving if outside cath Outside cath in [facility] under Get Images Redo OHS/Robotic surgery/radiation to chest CT or CTA/if outside CT will need in-house CXR, Cardiac MRI n/a Mechanical valve Admit for Heparin/Lovenox bridge n/a Female <50 y/o HCG n/a Heparin allergy hx of HIT Vascular Medicine consult n/a Nickel/Metal allergy Dermatology consult n/a Breast implants/Robotic candidates Plastic Surgery consult n/a Urinary strictures Urology consult/Urology consult to OR n/a All stimulators/spinal stimulator Type of stimulator n/a PPM/AICD Device check n/a Valve/TAVR/TEVAR/Myect bailey/ascending aorta Dental clearance/Dental Consult at F Discussed CABG surgery with previous CABG/varicose vein/vein stripping Leg vein mapping n/a LMT disease > 30% or Carotid Bruits Carotid ultrasound n/a Descending Aneurysm/TEVAR/TAA Pre-admit/hydration/sp inal drain to be placed: IR/OR/Not Needed n/a Dialysis patient IHD day prior to OHS n/a CABG with no ECHO results Discussion w/surgeon results for dental clearance: preop/postop n/a Advanced Directives Instructions given to patient n/a FMLA Forward to AA n/a Test/Consult not needed Communicate in Epic or Access n/a Record of decreased PFTs, known lung disease Any pulmonary consult n/a Pulmonary embolectomy Needs US/Duplex BLE, VQ scan RHC, possible LHC, Pulmonary and/or Vascular consult n/a Abnormal CT All>1cm if further workup/consult needed n/a CC-Bio Repostitory Notification of packet and general knowledge given to pt n/a Norma Almazan 03/17/2021 11:50 AM Signed Addended by: NORMA ALMAZAN on: 03/17/2021 11:50 AM Modules accepted: Orders Allergies As of Date: 12/29/2020 (Not on File) Date Reviewed: Never Reviewed Reason for Visit: Pre-Op CTHO Consult [1544] Cardiac Preop Checklist [3817] Visit Diagnoses:Pre-operativ e cardiovascular examination [Z01.810] Mitral valve disorder [I05.9] Order(s):SURGICAL REQUEST - ELECTIVE (12/2019) [1386006] Order #: [id number]: 1 CONSULT TO CARDIOLOGY [9004] Order #: [id number]: 1 FUTURE CONSULT TO CARDIOTHORACIC SURG [] Order #: [id number]: 1 FUTURE COMP METABOLIC PANEL [SQCMP] Order #: [id number] FUTURE LD LACTATE DEHYDRO [SQLD6] Order #: [id number] FUTURE CBC + DIFF [SQCBCDIF] Order #: [id number] FUTURE URINALYSIS, DIPSTICK ONLY [SQUA] Order #: [id number] FUTURE TYPE AND SCREEN,30 DAY [ROKFGC81] Order #: [id number] FUTURE PROTHROMBIN TIME/PT [SQPT] Order #: [id number] FUTURE ACTIVATED PTT [SQPTT] Order #: [id number] FUTURE CONFIRM BLOOD TYPE [SQCONABO] Order #: [id number] FUTURE XR CHEST 2V FRONTAL/LAT [6449507] Order #: [id number] FUTURE ECG COMPLETE [ECG01] Order #: [id number] FUTURE ECHO [294751] Order #: [id number]: 1 FUTURE PRE-PROCEDURE AND PRE-OPERATIVE COVID [SQPOCOVD] Order #: [id number] FUTURE STAPH AUREUS PCR [SQSAPCR] Order #: [id number] FUTURE Prescriptions as of 03/17/2021 - mupirocin (BACTROBAN) 2% oint Use 0.5 g in the nose twice daily for 3 doses. Apply intranasally two times the day before surgery and one time the morning of surgery - amoxicillin (POLYMOX, AMOXIL) 500 mg capsule TAKE FOUR CAPSULES BY MOUTH ONE HOUR PRIOR TO APPOINTMENT Problem List As Of Date: 12/29/2020 (None) Disposition: Return for [facility] appointment with Anesthesia. Follow-up and Disposition History Recorded Encounter Status:Closed by AKANKSHA DEL REAL on 12/29/20 [facility] 12-29-2020 HOSP Patient:Mira Gross M. MRN: Height:5' 2(1.575 m) Weight:156 lb (70.761 kg) Outpatient Medications as of 03/23/21: amoxicillin (POLYMOX, AMOXIL) 500 mg capsule Admission/Clinic Administered Medications as of 03/23/21: Patient has no admission medications. Problem List: Discharge planning issues [Z02.9] Pre-op testing [Z01.818] Allergies: No Known Allergies Date Verified:03/17/21 Lab Values Lab Value Units Date High Low POTA* 4.4 mmol/L 03/16/2021 5.1 3.7 FOREIGN* 41.9 % 03/16/2021 46.0 36.0 Progress Notes ([facility]): Marleny Mason 03/17/2021 12:01 PM Signed AMBULATORY PATIENT EDUCATION READINESS TO LEARN Cognitive Ability: Alert and oriented Motivation To Learn: Interested Family Support: High - Very involved in pt care Instruction Provided To: Patient AND Family Patient Learns Best By: Multiple Methods Factors Affecting Learning: None Physical Limitations Affecting Learning: None LEARNING RESPONSE Diagnosis: MR/MVP Education Topic: Pre-Op Open Heart Surgery Instructions Teaching Points: Logistics / Protocols /Complication Prevention How prepared do you feel you are for this visit: 6 Instruction/Supplement al Materials: Cardiac Surgery Information Binder Individual Instruction Patient/Family Response: Somewhat Follow up plan: Patient/Family to call [facility] with any further questions Referral (Recommendation): None Teach completed, topic: Patient provided with Cardiac Surgery binder and reviewed pre-operative instructions. Patient advised to call [facility] with any further questions Progress Notes ([facility]): Ebony Hudson MD 03/17/2021 11:54 AM Signed [facility] [place] DEPARTMENT OF CARDIAC SURGERY OUTPATIENT VISIT DATE March 17, 2021 OUTPATIENT VISIT Patient Type: Consult Visit to determine Surgery: Yes PCP: Dianne Marmolejo MD [address] [place] [address] Referring Physician:: Aubrey Beltre MD ([facility]) [address] [place] [address] HPI: Ms. Shine Gross is a 71 year old female seen in consultation at the request of [place] Patt for opinion regarding treatment options for Mitral Insufficiency. Comorbidities include MAC and reduced LVEF. The echocardiogram reveals: Last ECHO Result Conclusion ECHO Collected: 03/16/2021 9:19 AM (Final result) Impression: CONCLUSIONS: - Technically difficult exam due to body habitus. - Exam indication: pre op mitral valve surgery - The left ventricle is normal in size. Left ventricular systolic function is mildly decreased. EF = 46 ? 5% (2D biplane) Left ventricular diastolic function was not evaluated due to >2+ MR. - The right ventricle is normal in size. Right ventricular systolic function is normal. - The left atrial cavity is mildly dilated. - The visualized aorta is borderline dilated with a maximal dimension of 3.8 cm. - There is severe (3+ - 4+) mitral valve regurgitation due to prolapse. Regurgitant orifice area (PISA) is 0.85 cm?. There is severe prolapse of the posterior leaflet, with eccentric anteriorly directed MR, which is likely understimated in regards to the severity as the MR jet is not entirely visualized. Mild posterior MAC. - The patient has not had a prior CC echocardiographic exam for comparison. * * * Final * * * Complete Results Based on my evaluation she is a high risk for cardiac surgery. Impression: Mitral Insufficiency Plan: Full Sternotomy. MV repair or SJ Biocor. Note MAC and reduced LVEF. Buckberg antegrade and retrograde (Pettersson retrograde). Iced slush. MONTEZ. [place]. Amicar. I spent more than 50% of the visit face to face counseling the patient on the plan and treatment options. The time spent counseling was 30 minutes. The total time of the face to face visit was 30 minutes. The risks, benefits and anticipated outcomes of the procedure, the risks and benefits of the alternatives to the procedure, and the roles and tasks of the personnel to be involved, were discussed with the patient, and the patient consents to the procedure and agrees to proceed. We discussed the possibility that there could be two patients undergoing surgery in two separate rooms (concurrent surgery) and that I would be present for the critical components of all operations. We also discussed that in an emergency situation, a qualified backup surgeon is available and in the rare event of such a serious situation, that colleague might take over the operation. These findings will be communicated back to the requesting physician via electronic medical record Ebony Hudson MD Normal [facility] Beni 12-19-2020 CNPN Telephone (TOHSMN) SHINE GROSS ([id number]) 1950 F Date Time Provider Department 12/19/20 Ebony HU[facility] During your visit today, we recorded the following information about you: Brittany Nieves 12/19/2020 7:40 AM Signed PLease register. Thank you. Brittany Jang 12/19/2020 8:46 AM Signed IN Allergies As of Date: 12/19/2020 (Not on File) Date Reviewed: Never Reviewed Reason for Visit: Insurance Authorization [[id number]] Problem List As Of Date: 12/19/2020 (None) Encounter Status:Closed by GIRMA JANG on 12/19/20 Normal [facility] XA-Cardiac IMPORTon 10-31-19 XA-Cardiac IMPORT Images were obtained outside of [facility] [id number] Normal [facility] US-Echo Transesophageal (MONTEZ ) IMPORTon 10-23-2020 US-Echo Transesophageal (MONTEZ) IMPORT Images were obtained outside of [facility] [id number] Normal [facility] SR-Echo Complete IMPORTon SR-Echo Complete IMPORT Images were obtained outside of [facility] [id number] Normal [facility] Coronavirus 2019on COVID 19 Result SAND SHOVELER Abnormal Negative for COVID19 (SARS CoV2) by PCR. [facility] Reference Lab Comment on above: Result Comment: Posi tive for This test was developed and its performance characteristics determined by [facility]'s Ayden Galilea [facility] [place]. This test has been authorized by FDA under an Emergency Use Authorization (EUA). This test has been validated in accordance with the FDA's Guidance Document Policy for Diagnostics Testing in Laboratories Certified to Perform High Complexity Testing under CLIA prior to Emergency use Authorization for Coronavirus Disease 2019 during the Public Health Emergency issued on July 14, 2019. COVID19 (SARS This test was developed and its performance characteristics determined by [facility]'s [facility] [place]. This test has been authorized by FDA under an Emergency Use Authorization (EUA). This test has been validated in accordance with the FDA's Guidance Document Policy for Diagnostics Testing in Laboratories Certified to Perform High Complexity Testing under CLIA prior to Emergency use Authorization for Coronavirus Disease 2019 during the Public Health Emergency issued on July 14, 2019. CoV2) by This test was developed and its performance characteristics determined by [facility]'s [facility] [place]. This test has been authorized by FDA under an Emergency Use Authorization (EUA). This test has been validated in accordance with the FDA's Guidance Document Policy for Diagnostics Testing in Laboratories Certified to Perform High Complexity Testing under CLIA prior to Emergency use Authorization for Coronavirus Disease 2019 during the Public Health Emergency issued on July 14, 2019. PCR.(*) This test was developed and its performance characteristics determined by [facility]'s [facility] [place]. This test has been authorized by FDA under an Emergency Use Authorization (EUA). This test has been validated in accordance with the FDA's Guidance Document Policy for Diagnostics Testing in Laboratories Certified to Perform High Complexity Testing under CLIA prior to Emergency use Authorization for Coronavirus Disease 2019 during the Public Health Emergency issued on July 14, 2019. Coronavirus 2019on 1 COVID 19 Source SAND SHOVELER SAND SHOVELER [facility] Vital Signs Date Time Vital Sign Value Performing Clinician Valeriai juan j 01-11-2023 21:37-0400 Diastolic blood pressure 84 mm[Hg] Dr. Dianne Marmolejo Work Phone: [facility] 01-11-2023 21:37-0400 Heart rate 82 /min Dr. Dianne Marmolejo Work Phone: [facility] 01-11-2023 21:37-0400 Systolic blood pressure 120 mm[Hg] Dr. Dianne aMrmolejo Work Phone: [facility] 01-11-2023 09:59-0400 Body height 157.[address] Dianne Marmolejo Work Phone: [facility] 01-11-2023 09:59-0400 Body mass index (BMI) [Ratio] 30.5 kg/m2 Dr. Dianne Marmolejo Work Phone: [facility] 01-11-2023 09:59-0400 Body temperature 98.4 [degF] Dr. Dianne Marmolejo Work Phone: [facility] 01-11-2023 09:59-0400 Body weight 75.[address] Dianne Marmolejo Work Phone: [facility] 01-11-2023 09:59-0400 Respiratory rate 17 /min Dr. Dianne Marmolejo Work Phone: [facility] 01-11-2023 09:59-0400 SaO2% (BldA) [Mass fraction] 97 % Dr. Dianne Marmolejo Work Phone: [facility] 11-15-2022 09:57-0400 Body mass index (BMI) [Ratio] 30.9 kg/m2 Dr. Dianne Marmolejo Work Phone: [facility] 11-15-2022 09:57-0400 Body weight 76.[address] Dianne Marmolejo Work Phone: [facility] 11-15-2022 09:57-0400 Diastolic blood pressure 84 mm[Hg] Dr. Dianne Marmolejo Work Phone: [facility] 11-15-2022 09:57-0400 Heart rate 70 /min Dr. Dianne Marmolejo Work Phone: [facility] 11-15-2022 09:57-0400 Respiratory rate 18 /min Dr. Dianne Marmolejo Work Phone: [facility] 11-15-2022 09:57-0400 Systolic blood pressure 125 mm[Hg] Dr. Dianne Marmolejo Work Phone: [facility] 10-25-2022 15:58-0400 Body temperature 97.9 [degF] Dr. Dianne Marmolejo Work Phone: [facility] 10-25-2022 15:58-0400 Diastolic blood pressure 80 mm[Hg] Dr. Dianne Marmolejo Work Phone: [facility] 10-25-2022 15:58-0400 Heart rate 77 /min Dr. Dianne Marmolejo Work Phone: [facility] 10-25-2022 15:58-0400 Respiratory rate 16 /min Dr. Dianne Marmolejo Work Phone: [facility] 10-25-2022 15:58-0400 SaO2% (BldA) [Mass fraction] 96 % Dr. Dianne Marmolejo Work Phone: [facility] 10-25-2022 15:58-0400 Systolic blood pressure 113 mm[Hg] Dr. Dianne Marmolejo Work Phone: [facility] 10-23-2022 20:22-0400 Body mass index (BMI) [Ratio] 30.6 kg/m2 Dr. Dianne Marmolejo Work Phone: [facility] 10-23-2022 20:22-0400 Body weight [address] Dianne Marmolejo Work Phone: [facility] 07-30-2022 14:35-0400 Body height 157.[address] Dianne Marmolejo Work Phone: [facility] 07-30-2022 14:35-0400 Body mass index (BMI) [Ratio] 30.5 kg/m2 Dr. Dianne Marmolejo Work Phone: [facility] 07-30-2022 14:35-0400 Body weight 75.[address] Dianne Marmolejo Work Phone: [facility] 07-30-2022 14:35-0400 Diastolic blood pressure 89 mm[Hg] Dr. Dianne Marmolejo Work Phone: [facility] 07-30-2022 14:35-0400 Heart rate 80 /min Dr. Dianne Marmolejo Work Phone: [facility] 07-30-2022 14:35-0400 Respiratory rate 18 /min Dr. Dianne Marmolejo Work Phone: [facility] 07-30-2022 14:35-0400 SaO2% (BldA) [Mass fraction] 95 % Dr. Dianne Marmolejo Work Phone: [facility] 07-30-2022 14:35-0400 Systolic blood pressure 137 mm[Hg] Dr. Dianne Marmolejo Work Phone: [facility] 06-09-2022 10:25-0500 Body height 157.[address] Dianne Marmolejo Work Phone: [facility] 06-09-2022 10:25-0500 Body mass index (BMI) [Ratio] 30.7 kg/m2 Dr. Dianne Marmolejo Work Phone: [facility] 06-09-2022 10:25-0500 Body weight 76.[address] Dianne Marmolejo Work Phone: [facility] 06-09-2022 10:25-0500 Diastolic blood pressure 92 mm[Hg] Dr. Dianne Marmolejo Work Phone: [facility] 06-09-2022 10:25-0500 Heart rate 77 /min Dr. Dianne Marmolejo Work Phone: [facility] 06-09-2022 10:25-0500 Respiratory rate 18 /min Dr. Dianne Marmolejo Work Phone: [facility] 06-09-2022 10:25-0500 SaO2% (BldA) [Mass fraction] 96 % Dr. Dianne Marmolejo Work Phone: [facility] 06-09-2022 10:25-0500 Systolic blood pressure 161 mm[Hg] Dr. Dianne Marmolejo Work Phone: [facility] 01-29-2022 14:39-0400 Body height 157.[address] Dianne Marmolejo Work Phone: [facility] Work Phone: 01-29-2022 14:39-0400 Body mass index (BMI) [Ratio] 29.2 kg/m2 Dr. Dianne Marmolejo Work Phone: [facility] Work Phone: 01-29-2022 14:39-0400 Body weight 72.[address] Dianne Marmolejo Work Phone: [facility] Work Phone: 01-29-2022 14:39-0400 Diastolic blood pressure 91 mm[Hg] Dr. Dianne Marmolejo Work Phone: [facility] Work Phone: 01-29-2022 14:39-0400 Heart rate 72 /min Dr. Dianne Marmolejo Work Phone: [facility] Work Phone: 01-29-2022 14:39-0400 Respiratory rate 16 /min Dr. Dianne Marmolejo Work Phone: [facility] Work Phone: 01-29-2022 14:39-0400 Systolic blood pressure 141 mm[Hg] Dr. Dianne Marmolejo Work Phone: [facility] Work Phone: 11-13-2021 00:37-0400 Body weight 75.[address] Dianne Marmolejo Work Phone: [facility] Work Phone: 10-21-2021 07:20-0400 Body height 157.[address] Dianne Marmolejo Work Phone: [facility] Work Phone: 10-21-2021 07:20-0400 Body weight 75.[address] Dianne Marmolejo Work Phone: [facility] Work Phone: 10-21-2021 07:20-0400 Body height 157.[address] Dianne Marmolejo Work Phone: [facility] Work Phone: 10-21-2021 07:20-0400 Body weight 75.[address] Dianne Marmolejo Work Phone: [facility] Work Phone: 09-17-2021 10:31-0400 Body weight 76.[address] Dianne Marmolejo Work Phone: [facility] Work Phone: 09-17-2021 10:31-0400 Body height 157.[address] Dianne Marmolejo Work Phone: [facility] Work Phone: 09-17-2021 10:31-0400 Body weight 76.[address] Dianne Marmolejo Work Phone: [facility] Work Phone: 08-20-2021 10:29-0400 Body weight 73.[address] Dianne Marmolejo Work Phone: [facility] Work Phone: 08-20-2021 10:29-0400 Body height 157.[address] Dianne Marmolejo Work Phone: [facility] Work Phone: 08-20-2021 10:29-0400 Body weight 73.[address] Dianne Marmolejo Work Phone: [facility] Work Phone: 08-20-2021 09:31-0400 Body mass index (BMI) [Ratio] 29.6 kg/m2 Dr. Dianne Marmolejo Work Phone: [facility] Work Phone: 08-20-2021 09:31-0400 Body temperature 97.6 [degF] Dr. Dianne Marmolejo Work Phone: [facility] Work Phone: 08-20-2021 09:31-0400 Diastolic blood pressure 90 mm[Hg] Dr. Dianne Marmolejo Work Phone: [facility] Work Phone: 08-20-2021 09:31-0400 Heart rate 82 /min Dr. Dianne Marmolejo Work Phone: [facility] Work Phone: 08-20-2021 09:31-0400 Respiratory rate 18 /min Dr. Dianne Marmolejo Work Phone: [facility] Work Phone: 08-20-2021 09:31-0400 SaO2% (BldA) [Mass fraction] 95 % Dr. Dianne Marmolejo Work Phone: [facility] Work Phone: 08-20-2021 09:31-0400 Systolic blood pressure 143 mm[Hg] Dr. Dianne Marmolejo Work Phone: [facility] Work Phone: 08-20-2021 09:31-0400 Body mass index (BMI) [Ratio] 29.6 kg/m2 Dr. Dianne Marmolejo Work Phone: [facility] Work Phone: 08-20-2021 09:31-0400 Body temperature 97.6 [degF] Dr. Dianne Marmolejo Work Phone: [facility] Work Phone: 08-20-2021 09:31-0400 Diastolic blood pressure 90 mm[Hg] Dr. Dianne Marmolejo Work Phone: [facility] Work Phone: 08-20-2021 09:31-0400 Heart rate 82 /min Dr. Dianne Marmolejo Work Phone: [facility] Work Phone: 08-20-2021 09:31-0400 Respiratory rate 18 /min Dr. Dianne Marmolejo Work Phone: [facility] Work Phone: 08-20-2021 09:31-0400 SaO2% (BldA) [Mass fraction] 95 % Dr. Dianne Marmolejo Work Phone: [facility] Work Phone: 08-20-2021 09:31-0400 Systolic blood pressure 143 mm[Hg] Dr. Dianne Marmolejo Work Phone: [facility] Work Phone: 08-13-2021 13:53-0400 Diastolic blood pressure 100 mm[Hg] Dr. Dianne Marmolejo Work Phone: [facility] Work Phone: 08-13-2021 13:53-0400 Heart rate 92 /min Dr. Dianne Marmolejo Work Phone: [facility] Work Phone: 08-13-2021 13:53-0400 Systolic blood pressure 150 mm[Hg] Dr. Dianne Marmolejo Work Phone: [facility] Work Phone: 08-13-2021 13:53-0400 Diastolic blood pressure 100 mm[Hg] Dr. Dianne Marmolejo Work Phone: [facility] Work Phone: 08-13-2021 13:53-0400 Heart rate 92 /min Dr. Dianne Marmolejo Work Phone: [facility] Work Phone: 08-13-2021 13:53-0400 Systolic blood pressure 150 mm[Hg] Dr. Dianne Marmolejo Work Phone: [facility] Work Phone: 08-13-2021 08:25-0400 Body mass index (BMI) [Ratio] 31.1 kg/m2 Dr. Dianne Marmolejo Work Phone: [facility] Work Phone: 08-13-2021 08:25-0400 Body weight 77.[address] Dianne Marmolejo Work Phone: [facility] Work Phone: 08-13-2021 08:25-0400 Respiratory rate 16 /min Dr. Dianne Marmolejo Work Phone: [facility] Work Phone: 08-13-2021 08:25-0400 SaO2% (BldA) [Mass fraction] 95 % Dr. Dianne Marmolejo Work Phone: [facility] Work Phone: 08-13-2021 08:25-0400 Body mass index (BMI) [Ratio] 31.1 kg/m2 Dr. Dianne Marmolejo Work Phone: [facility] Work Phone: 08-13-2021 08:25-0400 Body weight 77.[address] Dianne Marmolejo Work Phone: [facility] Work Phone: 08-13-2021 08:25-0400 Respiratory rate 16 /min Dr. Dianne Marmolejo Work Phone: [facility] Work Phone: 08-13-2021 08:25-0400 SaO2% (BldA) [Mass fraction] 95 % Dr. Dianne Marmolejo Work Phone: [facility] Work Phone: 05-14-2021 08:50-0500 Body mass index (BMI) [Ratio] 29.6 kg/m2 Dr. Dianne Marmolejo Work Phone: [facility] Work Phone: 05-14-2021 08:50-0500 Body weight 73.[address] Dianne Marmolejo Work Phone: [facility] Work Phone: 05-14-2021 08:50-0500 Diastolic blood pressure 90 mm[Hg] Dr. Dianne Marmolejo Work Phone: [facility] Work Phone: 05-14-2021 08:50-0500 Heart rate 79 /min Dr. Dianne Marmolejo Work Phone: [facility] Work Phone: 05-14-2021 08:50-0500 Respiratory rate 18 /min Dr. Dianne Marmolejo Work Phone: [facility] Work Phone: 05-14-2021 08:50-0500 SaO2% (BldA) [Mass fraction] 95 % Dr. Dianne Marmolejo Work Phone: [facility] Work Phone: 05-14-2021 08:50-0500 Systolic blood pressure 143 mm[Hg] Dr. Dianne Marmolejo Work Phone: [facility] Work Phone: Encounters Encounter Date Encounter Type Care Provider Facility Start: 03-20-2025 End: 03-20-2025 ambulatory LEAH FLOREZ [facility] Start: 03-14-2025 End: 03-14-2025 ambulatory Dianne Neeusebio Facility:[facility] [place] Start: 02-20-2025 End: 02-20-2025 ambulatory DIANNE MARMOLEJO [facility] Start: 05-01-2024 End: 05-01-2024 ambulatory Uri Crain Facility:[facility] [place] Start: 01-20-2023 Non-patient / Non-visit Dr. Jayant Marmolejo Work Phone: [facility] Work Phone: Start: 01-20-2023 End: 01-20-[address] Dianne Marmolejo Work Phone: [facility] Work Phone: Start: 01-20-2023 End: 01-20-[address] Dianne Marmolejo Work Phone: [facility]-Laboratory Work Phone: Start: 01-19-2023 Non-patient / Non-visit Dr. Jayant Marmolejo Work Phone: [facility] Start: 01-19-2023 End: 01-19-[address] Dianne Marmolejo Work Phone: [facility] Work Phone: Start: 01-19-2023 End: 01-19-[address] Dianne Marmolejo Work Phone: [facility]-Cardiovascular Services Work Phone: Start: 01-11-2023 End: 01-11-[address] Dianne Marmolejo Work Phone: [facility] Neurology Work Phone: Start: 11-15-2022 End: 11-15-[address] Dianne Marmolejo Work Phone: [facility] Work Phone: Start: 10-26-2022 Non-patient / Non-visit Dr. Jayant Marmolejo Work Phone: [facility] Start: 10-25-2022 Non-patient / Non-visit Dr. Jayant Marmolejo Work Phone: [facility] Inpatient Physicians Work Phone: Start: 10-25-2022 Non-patient / Non-visit Dr. Jayant Marmolejo Work Phone: [facility] Start: 10-24-2022 Non-patient / Non-visit Dr. Jayant Marmolejo Work Phone: [facility] Work Phone: Start: 10-24-2022 Non-patient / Non-visit Dr. Jayant Marmolejo Work Phone: [facility] Start: 10-23-2022 Non-patient / Non-visit Dr. Jayant Marmolejo Work Phone: [facility] Work Phone: Start: 10-23-2022 End: 10-25-2022 Evaluation and management of inpatient Dr. Dianne Marmolejo Work Phone: [facility]-Progressive Care Unit Work Phone: Start: 08-19-2022 End: 08-19-[address] Dianne Marmolejo Work Phone: [facility] Work Phone: Start: 08-19-2022 End: 08-19-[address] Dianne Marmolejo Work Phone: [facility] Start: 07-30-2022 End: 07-30-[address] Dianne Marmolejo Work Phone: [facility] Work Phone: Start: 07-30-2022 End: 07-30-[address] Dianne Marmolejo Work Phone: [facility]Laboratory Start: 07-30-2022 End: 07-30-[address] Dianne Marmolejo Work Phone: [facility] Start: 06-10-2022 End: 06-10-[address] Dianne Marmolejo Work Phone: [facility] Work Phone: Start: 06-10-2022 End: 06-10-[address] Dianne Marmolejo Work Phone: [facility]-Laboratory, Specimen Start: 06-09-2022 End: 06-09-[address] Dianne Marmolejo Work Phone: [facility] Start: 05-08-2022 Non-patient / Non-visit Dr. Jayant Marmolejo Work Phone: [facility] Start: 04-09-[address] Dianne Marmolejo Work Phone: [facility]-Cardiovascular Services Start: 04-07-2022 Non-patient / Non-visit Dr. Jayant Marmolejo Work Phone: [facility] Start: 04-07-2022 End: 04-07-[address] Dianne Marmolejo Work Phone: [facility] Work Phone: Start: 04-07-2022 End: 04-07-[address] [facility] Start: 04-01-2022 End: 04-01-[address] Dianne Marmolejo Work Phone: [facility] Work Phone: Start: 04-01-2022 End: 04-01-[address] Dianne Marmolejo Work Phone: [facility]Laboratory Start: 01-29-2022 End: 01-29-[address] Dianne Marmolejo Work Phone: [facility] Start: 11-27-2021 Non-patient / Non-visit Dr. Jayant Marmolejo Work Phone: [facility] Start: 11-27-2021 End: 11-27-[address] Dian[facility]armolejo [facility] Start: 11-18-2021 End: 12-13-[address] Dianne Marmolejo Work Phone: [facility]-Cardiac Rehab Start: 11-18-[address] Leah Marmolejo Work Phone: [facility]Card[facility] Start: 11-11-2021 End: 11-12-[address] Dianne Marmolejo Work Phone: [facility]Card[facility] Start: 10-26-[address] Leah Marmolejo Work Phone: [facility]Card[facility] Start: 10-23-2021 End: 10-23-[address] Dianne Marmolejo Work Phone: [facility]Laboratory Start: 10-09-2021 End: 10-13-[address] Dianne Marmolejo Work Phone: [facility]Card[facility] Start: 09-18-[address] Leah [facility]olejo [facility] Start: 09-16-2021 Non-patient / Non-visit Dr. Jayant Marmolejo Work Phone: [facility] Start: 09-16-2021 End: 09-16-[address] Dianne [facility]armolejo [facility] Start: 09-11-2021 End: 09-12-[address] Dianne Marmolejo Work Phone: [facility] Start: 08-24-[address] Leah Marmolejo Work Phone: [facility]Card[facility] Start: 08-20-2021 End: 08-20-[address] Dianne Marmolejo [facility] Start: 08-13-2021 End: 08-13-[address] Dianne Marmolejo Work Phone: [facility] Start: 07-20-2021 Non-patient / Non-visit Dr. Jayant Marmolejo Work Phone: [facility] Start: 07-15-2021 End: 07-15-[address] Dianne Marmolejo [facility] Start: 06-11-2021 Non-patient / Non-visit Dr. Jayant Marmolejo Work Phone: [facility] Start: 05-14-2021 End: 05-14-[address] Dianne Marmolejo Work Phone: [facility] [place] [facility] Procedures Date Procedure Procedure Detail Performing Clinician Start: 10-24-2022 CT angiography of ch est with contrast Dr. Dianne Marmolejo Work Phone: Start: 10-23-2022 Plain chest X-ray Dr. Shannan Marmolejo Work Phone: Start: 08-19-2022 MRI of brain with contrast Dr. Dianne Marmolejo Work Phone: Start: 03-16-2021 Antibody screen Comment on above: Performed By: #### T [id number] ####[facility] [place], [place] [phone] Dianne morel Work Phone: Plan of Treatment Date Care Activity Detail Author Start: 10-26-2022 Patient referral [facility] Work Phone: Start: 10-25-2022 Patient discharge [facility] Start: 10-25-2022 Notification of physician [facility] Start: 10-25-2022 Patient education [facility] Start: 10-25-2022 Provision of activity privileges [facility] Start: 10-25-2022 Pulse taking [facility] Start: 10-25-2022 Taking patient vital signs [facility] Start: 10-25-2022 Wound care [facility] Start: 10-25-2022 [facility] Start: 10-24-2022 Care planning and problem solving actions [facility] Start: 10-24-2022 Catheterization of vein [facility] Start: 10-24-2022 Medication not administered [facility] Start: 10-24-2022 Notification of physician [facility] Start: 10-24-2022 [facility] Start: 10-23-2022 Following clinical pathway protocol [facility] Start: 10-23-2022 Assessment of risk of venous thromboembolism [facility] Start: 10-23-2022 Insertion of catheter into peripheral vein [facility] Start: 10-23-2022 Measuring intake and output [facility] Start: 10-23-2022 Oxygen therapy [facility] Start: 10-23-2022 Providing care according to standard [facility] Start: 10-23-2022 Provision of activity privileges [facility] Start: 10-23-2022 Referral to director of strategic initiatives [facility] Start: 10-23-2022 Tobacco use cessation education [facility] Start: 10-23-2022 [facility] Start: 10-23-2022 Admission procedure [facility] Start: 10-21-2021 Patient referral to dietitian [facility] Work Phone: Start: 08-20-2021 [facility] Work Phone: Start: 08-20-[address] [facility] Work Phone: Start: 03-24-2021 Patient referral [facility] Work Phone: Patient Education [facility]omyopath [facility] Work Phone: Patient referral [facility] Work Phone: Immunizations Immunization Date Immunization Notes Care Provider [facility] 08-28-2021 Covid (Pfizer) Dr. Dianne kaplan Work Phone: [facility] 12-18-2020 Covid (Pfizer) Dr. Dianne kaplan Work Phone: [facility] 11-27-2020 Covid (Pfizer) Dr. Dianne kaplan Work Phone: [facility] Payers Date Payer Category Payer Self-pay [id number] 2023 Medicare [id number] 1950 Unknown [id number] 1950 Unknown [id number] Unknown [id number] Unknown [id number] Unknown [id number] Social History Date Type Detail Facility Start: 08-20-2021 End: 01-11-2023 Tobacco smoking status FLIS Unknown if ever smoked [facility] Start: 1950 Sex Assigned At Female [facility] Goals Date Patient Goal Desired Activity /State Functional Status Date Assessment Result Facility 10-25-2022 Functional status Ambulates [facility] Work Phone: Mental Status Date Assessment Result Facility 10-25-2022 Cognitive function Voice/Name [facility] Work Phone: Clinical Notes 03-16-2021 to 10-23-2022 Note Date & Type Note Facility 10-23-2022 Evaluation note Diagnosis Onset Date Non-ischemic cardiomyopathy chronic Elevated troponin October 23, 2022 resolve d Non-STEMI (non-ST elevated myocardial infarction) October 23, 2022 resolved Thoracic back pain resolved Hyperlipidemia acute Near syncope acute Postoperative atrial fibrillation March 25, 2021 acute Takotsubo cardiomyopathy October 25, 2022 acute Non-ischemic cardiomyopathy chronic Fatigue chronic Lightheaded chronic [facility] Work Phone: 1(982) 103-425011-18-2021 NoteHNO ID: [id number] Author: Airam Santiago APRN.[employer] 2ND [employer] Service: ? Author Type: Nurse Practitioner Type: Progress Notes Filed: 04/02/2021 3:02 PM Note Text: [facility] [place] Department of Cardiovascular Medicine DEPARTMENT OF CARDIAC SURGERY OUTPATIENT VISIT DATE April 02, 2021 OUTPATIENT VISIT TYPE POSTOPERATIVE Shine Gross is a 71 year old female who presents who is here for post operative follow up HPI: S/P on 03/24/2021 * Cristin Jasso MD - Primary * Tung Hemphill MD - Assisting ? CTS OP REPORTS ? PROCEDURE(S): Mitral Valve Repair ? Discharged on 03/28/2021 PAST MEDICAL HISTORY Diagnosis Date - - Hypertension - LBBB (left bundle branch block) - Mitral valve prolapse - Mitral valve regurgitation - PONV (postoperative nausea and vomiting) family history of No past surgical history on file. ALLERGIES No Known Allergies Current Outpatient Medications Medication Sig - acetaminophen (TYLENOL) 500 mg tablet Take 2 tablets by mouth every 6 hours as needed (for mild pain; do not exceed more than 4000mg of Tylenol oleg 24 hr period.). - aspirin 81 mg chewable tablet Take 1 tablet by mouth once daily. - ibuprofen (MOTRIN) 600 mg tablet Take 1 tablet by mouth every 8 hours as needed (for moderate pain; take with food as able.). - magnesium oxide (MAG-OX) 400 mg (241.3 mg magnesium) tablet Take 1 tablet by mouth twice daily. - metoprolol tartrate, short acting, (LOPRESSOR) 25 mg tablet Take 1 tablet by mouth every 12 hours. - scopolamine (TRANSDERM-SCOP) patch 1.5 mg/72 hr (1 mg over 3 days) Apply 1 Patch as directed every 72 hours. - furosemide (LASIX) 20 mg tablet Take 1 tablet by mouth once daily for 7 days. - potassium chloride (K-TAB) 10 mEq tablet Take 1 tablet by mouth once daily for 7 days. While taking Lasix only. - amoxicillin (POLYMOX, AMOXIL) 500 mg capsule TAKE FOUR CAPSULES BY MOUTH ONE HOUR PRIOR TO APPOINTMENT (Patient not taking: Reported on 04/02/2021) Current Facility-Administered Medications Medication Dose Route Frequency - perflutren lipid microspheres 1.3 mL in NaCl (PF) 0.9% 10 mL injection (DEFINITY) INTRAVENOUS DIRECTED PRN - sodium chloride 0.9 % (flush) 10 mL (BD POSIFLUSH) 10 mL INTRAVENOUS DIRECTED PRN Chief Complaints: Discharge Post Operative Course: Pain scale :No: 0 on a scale of 0 to 10 Appetite: appetite good Activity: Walking ad sherri around the house Elimination: normal, no constipation Sleep: no problems with sleep Mood: normal Incisions/Wounds: Not applicable Review of Systems: HEENT: No complaints offered and Negative for fevers since discharge Cardiac: Denies significant problems Respiratory: denies patient denies a history of any respiratory problems Musculoskeletal: No history of joint swelling, joint pain, or loss of range of motion. Neuro: Denies neurological complaints Physical Exam: BP 120/78 Pulse 84 Temp 36.6 ?C (97.8 ?F) (Oral) Ht 157.5 cm (5' 2) Wt 70.5 kg (155 lb 8 oz) SpO2 98% BMI 28.44 kg/m? Appearance: well developed, well nourished Neck: No neck vein distention Cardiac: regular S1, S2 Lungs: Clear breath sounds bilaterally without wheeze or dullness Abdomen: soft, non tender Extremities: No edema Sternum: stable Sternotomy site: healing Procedures: N/A Sutures removed from chest tube sites without difficulty. IMPRESSION AND PLAN: S/P on 03/24/2021 * Cristin Jasso MD - Primary * Tung Hemphill MD - Assisting ? CTS OP REPORTS ? PROCEDURE(S): Mitral Valve Repair ? Discharged on 03/28/2021 Post op Echo 03/26/2021 - Exam indication: S/P MVr - The left ventricle is normal in size. Left ventricular systolic function is mildly decreased. EF = 50 ? 5% (visual est.) - The right ventricle is normal in size. Right ventricular systolic function is normal. - Post mitral valve repair. Hardwick Mitral Valve Annuloplasty Ring (size #27). There ?is trace mitral valve regurgitation. The peak gradient is 7 mmHg and the mean gradient is 4 mmHg. - Exam was compared with the prior echocardiographic exam performed on 03/16/2021. Now s/p MV repair. 1. Paroxysmal atrial fibrillation (HCC) (primary encounter diagnosis): brief episode overnight of rate controlled AF, self conversion to SR. Increase BB as tolerated. ECG 04/02/2021 NORMAL SINUS RHYTHM POSSIBLE LEFT ATRIAL ENLARGEMENT LEFT AXIS DEVIATION COMPLETE LEFT BUNDLE BRANCH BLOCK ABNORMAL ECG 2. Atelectasis: Chest XR 04/02/2021- in process, reviewed 3. Postoperative pain; controlled on motrin and tylenol Summary: Post op care and discharge orders reviewed with the patient- all questions were answered. Surgical sites healing without complication Discussed new medications, dosage, route of administration and side effects Reviewed walking program at home Reviewed diet guidelines for recovery from surgery Return (more content not included)...[facility]11-18-2021 Note HNO ID: [id number] Author: RT Gallito(R) Service: Radiology Author Type: Technologist Type: Progress Notes Filed: 04/02/2021 1:46 PM Note Text: Radiology Service Progress Note PATIENT NAME: Shine Gross DATE OF SERVICE: April 02, 2021 TIME: 1:45 PM PATIENT IDENTITY VERIFICATION COMPLETED USING TWO (2) IDENTIFIERS: Name and Date of confirmed by patient verbally. FALL SCREENING: Has the patient had 2 falls in the last year or 1 fall with injury or currently using an Ambulatory Assistive Device (Walker, Cane, Wheelchair, Crutches, etc.)? No PATIENT GENDER DATA: Female. status: : No status: NO. PATIENT RELEVANT IMPLANT DATA REVIEWED: Not Applicable RADIOLOGY DEPARTMENT: General X-ray: Exam(s) Completed: Chest X-Ray PERIPHERAL IV DATA: Not applicable SIGNED BY: RT Gallito(R) April 02, 2021 1:45 [facility]11-13-2021 NoteHNO ID: [id number] Author: Oral Mayorga Service: ? Author Type: ? Type: Plan of Care Filed: 03/28/2021 2:28 PM Note Text: PHARMACY BEDSIDE DELIVERY SERVICE Patient Name: Shine Gross The marked outpatient medications were Filled at: [facility] and delivered to the patient's bedside to patient Medication List START taking these medications acetaminophen 500 mg tablet Commonly known as: TYLENOL Take 2 tablets by mouth every 6 hours as needed (for mild pain; do not exceed more than 4000mg of Tylenol oleg 24 hr period.). Delivered to patient aspirin 81 mg chewable tablet Take 1 tablet by mouth once daily. Delivered to patient furosemide 20 mg tablet Commonly known as: LASIX Take 1 tablet by mouth once daily for 7 days. Delivered to patient ibuprofen 600 mg tablet Commonly known as: MOTRIN Take 1 tablet by mouth every 8 hours as needed (for moderate pain; take with food as able.). Delivered to patient magnesium oxide 400 mg (241.3 mg magnesium) tablet Commonly known as: MAG-OX Take 1 tablet by mouth twice daily. Delivered to patient metoprolol tartrate (short acting) 25 mg tablet Commonly known as: LOPRESSOR Take 1 tablet by mouth every 12 hours. Delivered to patient potassium chloride 10 mEq tablet Commonly known as: K-TAB Take 1 tablet by mouth once daily for 7 days. While taking Lasix only. Delivered to patient scopolamine 1 mg over 3 days Commonly known as: TRANSDERM-SCOP Apply 1 Patch as directed every 72 hours. Delivered to patient CONTINUE taking these medications amoxicillin 500 mg capsule Commonly known as: POLYMOX, AMOXIL You might also be taking other medications not listed above. If you have questions about any of your other medications, talk to the person who prescribed them or your Primary Care Provider. Oral Mayorga PAGER: March 28, 2021 1:40 [facility]11-13-2021 NoteHNO ID: [id number] Author: Serina Bethea APRN.[employer] 2ND [employer] Service: Cardiac Surgery Author Type: Nurse Practitioner Type: Progress Notes Filed: 03/28/2021 11:23 AM Note Text: [facility] CTS POSTOP PROGRESS NOTE Day of Surgery:03/24/2021 S/P SURGERY: mitral valve repair INTERVAL EVENTS / PERTINENT ROS: - No events overnight. - Pain control improved. - Pt ready for discharge; will discharge today with f/u requested. Rhythm: SR Intake/Output Summary (Last 24 hours) at 03/28/2021 0914 Last data filed at 03/28/2021 0645 Gross per 24 hour Intake 480 ml Output 1990 ml Net -1510 ml EKG: most recent image reviewed, most recent report reviewed TELE: most recent recordings reviewed CXR: most recent image reviewed, most recent report reviewed Echocardiogram: most recent report reviewed PHYSICAL EXAM: BP 133/70 Pulse 63 Temp 36.4 ?C (97.5 ?F) (Oral) Resp 18 Ht 157.5 cm (5' 2) Wt 74.3 kg (163 lb 14.4 oz) SpO2 93% BMI 29.98 kg/m? Neuro: AANDO x 3 moves all extremities with no apparent weakness CV: no jugular venous distention Heart Exam: RRR without murmur, gallop, or rubs. No ectopy. Resp: diminished breath sounds Abd: The abdomen is soft, nontender, nondistended; BS normal; no masses or organomegaly noted. Skin: Skin color, texture, turgor normal, no suspicious rashes or lesions, Incisions well healed Ext: Trace edema Surgical incisions: clean, dry and intact Chest tube: No Pacer wires: No. 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 Endorses dyspnea and palpitations. Airway Difficulty: Grade I - No special instrumentation Pacing Wires: No Chronological List of Surgeries and Major Events (Diagnosis): (Surgeries in bold characters) 03/24/2021: MVr (#27 Hardwick) A/P of Major Active Problems (excluding routine care and common problems): Cardiac: Cardiac Insufficiency - EF 46% preop, 45-50% postop, arrived on 1mcg Epi, weaned off on arrival to CI >2.2. Postop Hypotension - Requiring Levophed postop, now off. pAF- brief episode overnight of rate controlled AF, self conversion to SR. Increase BB as tolerated. GI: PONV- 1 episode of emesis 03/25. Denies n/v. Scopolamine patch postop and prn antiemetics. To Do or to Watch: - s/p MVr: Post op echo completed and reviewed. ASA. - FVO: Now below pre-op weight; effusions improved. Weaned to RA. Continue IV diuresis. - PTx: small PTx on CXR 03/28. Asymptomatic. Will repeat CXR as outpatient. From [facility]. CTS OPD requested. Skilled needs unlikely. Discharge Planning: Anticipated Discharge Date: 03/28/2021 Barriers to Discharge: No Barriers to Discharge Care Management Discharge Needs: Needs Prior to Discharge: Other: See Comment (Ambulation, medical clearance) DAILY STEP DOWN CHECKLIST FOR CATHETER RELATED INFECTION PREVENTION CVC, PICC, Aram and/or Permacath present? No Does the patient have a urinary catheter beyond POD 2? No VTE Risk Assessment: High risk VTE Mechanical and/or Pharmacologic Prophylaxis: GCS and Subcutaneous Heparin Labs and medications reviewed in Epic Case discussed in depth with: Dr. Jasso SIGNATURE: Serina Bethea APRN.CNP PATIENT NAME: Shine Gross DATE: March 28, 2021 TIME: 9:14 AM ETX#[id number] NoteHNO ID: [id number] Author: RT Yana(R) Service: ? Author Type: Technologist Type: Progress Notes Filed: 03/27/2021 2:18 PM Note Text: Radiology Service Progress Note PATIENT NAME: Shine Gross DATE OF SERVICE: March 27, 2021 TIME: 2:17 PM PATIENT IDENTITY VERIFICATION COMPLETED USING TWO (2) IDENTIFIERS: Name and Date of confirmed by patient verbally and Name and Date of confirmed by identification band. FALL SCREENING: Has the patient had 2 falls in the last year or 1 fall with injury or currently using an Ambulatory Assistive Device (Walker, Cane, Wheelchair, Crutches, etc.)? Inpatient: Screened on floor PATIENT GENDER DATA: Female. status: : No status: NO. PATIENT RELEVANT IMPLANT DATA REVIEWED: Not Applicable RADIOLOGY DEPARTMENT: General X-ray: Exam(s) Completed: Chest X-Ray PERIPHERAL IV DATA: Not applicable SIGNED BY: RT Yana(R) March 27, 2021 2:17 [facility]11-12-2021 NoteHNO ID: [id number] Author: Dee Chavez RN Service: Care Management Author Type: Registered Nurse Type: Care Mgt Progress Note Filed: 03/27/2021 8:58 AM Note Text: CARE MANAGEMENT PROGRESS NOTE SERVICE DATE: 03/27/2021 SERVICE TIME: 8:57 AM LOS: 3 days IMM Follow Up Copy Given: Yes Copy given to:: Patient Method: In Person SIGNATURE: Dee Chavez RN PATIENT NAME: Shine Gross DATE: March 27, 2021 TIME: 8:57 AM PAGER/CONTACT #: [phone]11-[facility]21 NoteHNO ID: [id number] Author: Dee Chavez RN Service: Care Management Author Type: Registered Nurse Type: Care Mgt Progress Note Filed: 03/27/2021 8:06 AM Note Text: CARE MANAGEMENT PROGRESS NOTE SERVICE DATE: 03/27/2021 SERVICE TIME: 8:05 AM LOS: 3 days Needs Prior to Discharge: Other: See Comment (Ambulation, medical clearance) Change in Condition 71 year old female s/p MVr on 03/24. On RA. Nursing 6 clicks score 21. Await ambulation with CHRP. No skilled needs anticipated. CM following. Weekend CM pager [phone]. SIGNATURE: Dee Chavez RN PATIENT NAME: Shine Gross DATE: March 27, 2021 TIME: 8:05 AM PAGER/CONTACT #: [phone] Health [facility]11-12-2021 NoteHNO ID: [id number] Author: Serina Bethea APRN.MATERIAL HANDLER 2ND SHIFT Service: Cardiac Surgery Author Type: Nurse Practitioner Type: Progress Notes Filed: 03/27/2021 12:57 PM Note Text: [facility] POSTOP PROGRESS NOTE Day of Surgery:03/24/2021 S/P SURGERY: mitral valve repair INTERVAL EVENTS / PERTINENT ROS: - No events overnight. Seen in rounds with Dr. Jasso. - Post op echo completed and reviewed. - Continue IV diuresis for FVO, left pleural effusion. Follow CXR. - Adding Motrin to optimize pain control. Rhythm: SR Intake/Output Summary (Last 24 hours) at 03/27/2021 0722 Last data filed at 03/27/2021 0540 Gross per 24 hour Intake ? Output 1910 ml Net -1910 ml EKG: most recent image reviewed, most recent report reviewed TELE: most recent recordings reviewed CXR: most recent image reviewed, most recent report reviewed Echocardiogram: most recent report reviewed PHYSICAL EXAM: BP 143/69 Pulse 72 Temp 37 ?C (98.6 ?F) (Oral) Resp 18 Ht 157.5 cm (5' 2) Wt 73.7 kg (162 lb 6.4 oz) SpO2 91% BMI 29.70 kg/m? Neuro: AANDO x 3 moves all extremities with no apparent weakness CV: no jugular venous distention Heart Exam: RRR without murmur, gallop, or rubs. No ectopy. Resp: diminished breath sounds Abd: The abdomen is soft, nontender, nondistended; BS normal; no masses or organomegaly noted. Skin: Skin color, texture, turgor normal, no suspicious rashes or lesions, Incisions well healed Ext: Trace edema Surgical incisions: clean, dry and intact Chest tube: No Pacer wires: No. 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 Endorses dyspnea and palpitations. Airway Difficulty: Grade I - No special instrumentation Pacing Wires: No Chronological List of Surgeries and Major Events (Diagnosis): (Surgeries in bold characters) 03/24/2021: MVr (#27 [place]) A/P of Major Active Problems (excluding routine care and common problems): Cardiac: Cardiac Insufficiency - EF 46% preop, 45-50% postop, arrived on 1mcg Epi, weaned off on arrival to CI >2.2. Postop Hypotension - Requiring Levophed postop, now off. pAF- brief episode overnight of rate controlled AF, self conversion to SR. Increase BB as tolerated. GI: PONV- 1 episode of emesis 03/25. Denies n/v. Scopolamine patch postop and prn antiemetics. To Do or to Watch: - s/p MVr: Post op echo completed and reviewed. ASA. - FVO: Within 1kg of pre-op weight; L pleural effusions; weaned to RA. Continue IV diuresis. - pain: C/o pain control issues, no PRNs used overnight 03/26; adding scheduled Motrin. Follow response. From [facility]. CTS OPD requested for 03/30. Skilled needs unlikely. Discharge Planning: Anticipated Discharge Date: 03/28/2021 Barriers to Discharge: No Barriers to Discharge Care Management Discharge Needs: Needs Prior to Discharge: Other: See Comment (Ambulation, medical clearance) Nonrheumatic Mitral Valve Regurgitation History: 03/16/2021 echo: There is mild mitral annular calcification observed posterior. There is severe (3+ - 4+) mitral valve regurgitation due to prolapse. There is mild thickening. There is mild calcification. There is severe prolapse of the posterior mitral leaflet. Regurgitant orifice area (PISA) is 0.85 cm?. The peak mitral valve gradient is 6 mmHg. The mean mitral valve gradient is 2 mmHg. Assessment: 03/24/2021: MVr (#27 Hardwick). Trace residual MR on post op echo. Plan: ASA Atelectasis History: Postoperative. Assessment: Bibasilar atelectasis on CXR. Plan: Continue to encourage PEP/BPH, OOB, PT/OT, and optimize pain control. Paroxysmal Atrial Fibrillation (Hcc) History: postop. brief episode of rate controlled AF overnight (03/26) with return to SR 70s Assessment: Maintaining SR. Plan: Continue metoprolol, optimize and replete electrolytes as needed. Ponv (Postoperative Nausea and Vomiting) History: postop Assessment: denies n/v Plan: Scopolamine patch, prn antiemetics. Advance diet as tolerated. Postoperative Pain History: postop Assessment: breakthrough pain this AM however no pain medication given for over 12 hrs. Plan: Optimize pain control w/ scheduled Tylenol and prn Oxycodone. Scheduled motrin added. DAILY STEP DOWN CHECKLIST FOR CATHETER RELATED INFECTION PREVENTION CVC, PICC, Aram and/or Permacath present? No Does the patient have a urinary catheter beyond POD 2? No VTE Risk Assessment: High risk VTE Mechanical and/or Pharmacologic Prophylaxis: GCS and Subcutaneous Heparin Labs (more content not included)...[facility] NoteHNO ID: [id number] Author: Dinah Wynn APRN.MATERIAL HANDLER 2ND SHIFT Service: Critical Care Author Type: Nurse Practitioner Type: Progress Notes Filed: 03/26/2021 9:09 AM Note Text: [facility] CVICU Note Name: Shine Gross Coordination of Care Note: Indication for Surgery: Mitral Valve Regurgitation, MV Prolapse Preop LVEF: 46% RVF: Normal Postop LVEF: Mild and 45-50% RVF: Normal Important/Relevant PMH/PSH: HTN, MR, MVP, COVID-19, LBBB Preoperative Hospital Course: 71 yo F PMH hypertension, LBBB, 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 Endorses dyspnea and palpitations. Airway Difficulty: Grade I - No special instrumentation Pacing Wires: No Chronological List of Surgeries and Major Events (Diagnosis): (Surgeries in bold characters) 03/24/2021: MVr (#27 [place]wick) A/P of Major Active Problems (excluding routine care and common problems): Cardiac: Cardiac Insufficiency - EF 46% preop, 45-50% postop, arrived on 1mcg Epi, weaned off on arrival to CI >2.2. Postop Hypotension - Requiring Levophed postop, now off. pAF- brief episode overnight of rate controlled AF, self conversion to SR. Increase BB as tolerated. GI: PONV- 1 episode of emesis 03/25. Denies n/v. Scopolamine patch postop and prn antiemetics. To Do or to Watch: Transfer to SDU Postop echo ordered Discharge Planning: Anticipated Discharge Date: Unknown Barriers to Discharge: Unknown Care Management Discharge Needs: Other Problems I Reviewed and/or Managed During This Encounter: Problem Nonrheumatic Mitral Valve Regurgitation History: 03/16/2021 echo: There is mild mitral annular calcification observed posterior. There is severe (3+ - 4+) mitral valve regurgitation due to prolapse. There is mild thickening. There is mild calcification. There is severe prolapse of the posterior mitral leaflet. Regurgitant orifice area (PISA) is 0.85 cm?. The peak mitral valve gradient is 6 mmHg. The mean mitral valve gradient is 2 mmHg. Assessment: 03/24/2021: MVr (#27 Hardwick) Plan: ASA, ECHO prior to discharge. Atelectasis History: Postoperative. Assessment: Bibasilar atelectasis on CXR. Plan: Continue to encourage PEP/BPH, OOB, PT/OT, and optimize pain control. Paroxysmal Atrial Fibrillation (Hcc) History: postop Assessment: brief episode of rate controlled AF overnight (03/26) with return to SR 70s Plan: Continue metoprolol, optimize and replete electrolytes as needed. Postoperative Pain History: postop Assessment: controlled per patient Plan: Optimize pain control w/ scheduled Tylenol and prn Oxycodone. Toradol. Ponv (Postoperative Nausea and Vomiting) History: postop Assessment: denies n/v Plan: Scopolamine patch, prn antiemetics. Advance diet as tolerated. PHYSICAL EXAM: BP 110/59 Pulse 68 Temp (Src) 97.7 (Oral) Resp 16 SpO2 94% O2 Therapy: Room Air Intake/Output Summary (Last 24 hours) at 03/26/2021 0909 Last data filed at 03/26/2021 0730 Gross per 24 hour Intake 786.5 ml Output 1250 ml Net -463.5 ml WBC (k/uL) Date Value 03/26/2021 7.71 RBC (m/uL) Date Value 03/26/2021 3.23 (L) Hemoglobin (g/dL) Date Value 03/26/2021 9.9 (L) Hematocrit (%) Date Value 03/26/2021 29.8 (L) MCV (fL) Date Value 03/26/2021 92.3 MCH (pG) Date Value 03/26/2021 30.7 MCHC (g/dL) Date Value 03/26/2021 33.2 RDW-CV (%) Date Value 03/26/2021 13.7 Platelet Count (k/uL) Date Value 03/26/2021 87 (L) MPV (fL) Date Value 03/26/2021 12.5 Glucose (mg/dL) Date Value 03/26/2021 92 BUN (mg/dL) Date Value 03/26/2021 12 Creatinine (mg/dL) Date Value 03/26/2021 0.62 Sodium (mmol/L) Date Value 03/26/2021 137 Potassium (mmol/L) Date Value 03/26/2021 4.1 Chloride (mmol/L) Date Value 03/26/2021 108 (H) CO2 (mmol/L) Date Value 03/26/2021 22 Protein, Total (g/dL) Date Value 03/26/2021 4.9 (L) Albumin (g/dL) Date Value 03/26/2021 3.0 (L) Calcium (mg/dL) Date Value 03/26/2021 8.0 (L) Alkaline Phosphatase (U/L) Date Value 03/26/2021 47 Bilirubin, Total (mg/dL) Date Value 03/26/2021 0.4 AST (U/L) Date Value 03/26/2021 23 ALT (U/L) Date Value 03/26/2021 9 Neuro: Awake, Follows commands, Alert and oriented x 3 and HARTMANN Cardiovascular: Rhythm: regular rate and rhythm and Rate:normal sinus rhythm Pulmonary: Clear to auscultation and Breath sounds equal Ventilator: N/A, patient is extubated CXR Findings: Atelectasis Bilateral, Increased Vascular Markings Bilateral and CXR personally viewed and interpreted by ICU staff Nurse Practitioner Gastrointestinal: Abdominal: Soft and Non-tender DAILY CVICU CHECKLIST VTE Prophylaxis: Pharmacologic Yes VTE Prophylaxis: Mechanical: Yes Line infection prevention: Can CVC, PAC or arterial line be removed: Yes - Remove arterial line and Remove Central venous (more content not included)... [facility]11-10-[facility]21 NoteHNO ID: [id number] Author: Fabiana Melgar RN Service: Care Management Author Type: Registered Nurse Type: Care Mgt Initial Assessment Filed: 03/25/2021 9:59 AM Note Text: CARE MANAGEMENT: ASSESSMENT AND DISCHARGE PLAN SERVICE DATE: March 25, 2021 SERVICE TIME: 9:58AM PRIMARY CARE PHYSICIAN: Dianne Marmolejo MD ADMISSION STATUS: Inpatient Needs Prior to Discharge: None This patient has been screened for Care Management Transitional Planning Services. At this time, it does not appear this patient will require transition planning services. Should this change, and the patient require transition planning services during this admission, please contact Case Management. Case Management will continue to follow patient for discharge needs/planning. SIGNATURE: Fabiana Melgar RN PATIENT NAME: Shine Gross DATE: March 25, 2021 TIME: 9:58 AM PAGER/CONTACT #: [phone] Health [facility]11-10-2021 NoteHNO ID: [id number] Author: Gisselle Hodge APRN.MATERIAL HANDLER 2ND SHIFT Service: Critical Care Author Type: Nurse Practitioner Type: Progress Notes Filed: 03/25/2021 7:33 AM Note Text: [facility] CV[facility] Note Name: Shine Gross Coordination of Care Note: Indication for Surgery: Mitral Valve Regurgitation, MV Prolapse Preop LVEF: 46% RVF: Normal Postop LVEF: Mild and 45-50% RVF: Normal Important/Relevant PMH/PSH: HTN, MR, MVP, COVID-19, LBBB Preoperative Hospital Course: 71 yo F PMH hypertension, LBBB, 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 Endorses dyspnea and palpitations. Airway Difficulty: Grade I - No special instrumentation Pacing Wires: No Chronological List of Surgeries and Major Events (Diagnosis): (Surgeries in bold characters) 03/24/2021: Mitral Valve Repair A/P of Major Active Problems (excluding routine care and common problems): Cardiac: Cardiac Insufficiency - EF 46% preop, 45-50% postop, arrived on 1mcg Epi, weaned off on arrival to CI >2.2. Hypovolemia - postop fluid shifts, volume resuscitate PRN. Postop Hypotension - requiring Levo, volume resuscitate, wean Levo to maintain MAP 65-75. To Do or to Watch: 03/25/2021 MAP 65-75 Wean Levo Discharge Planning: Anticipated Discharge Date: Unknown Barriers to Discharge: Unknown Care Management Discharge Needs: Other Problems I Reviewed and/or Managed During This Encounter: Problem Nonrheumatic Mitral Valve Regurgitation History: 3-4+ MR due to prolapse Assessment: 03/24/2021 s/p Mitral Valve Repair Plan: ASA, ECHO prior to discharge. Mitral Valve Prolapse See MR Atelectasis History: postop Assessment: postop bibasilar. Stable oxygenation on 1L NC. Plan: BPH and OOB daily Cardiac Insufficiency (Hcc) History: EF 46% preop, 45-50% postop Assessment: arrived on 1mcg Epi, weaned off on arrival Plan: d/c [place] this AM Postoperative Hypotension History: postop Assessment: hypotensive requiring Levo Plan: volume resuscitate, wean Levo to maintain MAP 65-75. Postoperative Pain History: postop Assessment: controlled per patient Plan: Optimize pain control w/ Fentanyl SALES ASSOCIATE KEY HOLDER, scheduled Tylenol and prn Oxycodone. Toradol added. Hypovolemia History: OR Assessment: postop fluid shifts Plan: volume resuscitate PRN. Discharge Planning Issues Patient is a 71 year old female from [place], [place] here for open heart surgery. Patient may benefit from home health care PHYSICAL EXAM: BP 142/97 Pulse 69 Temp 36.8 ?C (98.2 ?F) (Core) Resp 17 SpO2 99% Intake/Output Summary (Last 24 hours) at 03/25/2021 0732 Last data filed at 03/25/2021 0630 Gross per 24 hour Intake 3295.7 ml Output 3130 ml Net 165.7 ml Neuro: Awake, Follows commands, Alert and oriented x 3 and HARTMANN Cardiovascular: Rhythm: regular rate and rhythm and Rate:normal sinus rhythm Pulmonary: Clear to auscultation and Breath sounds equal Ventilator: N/A, patient is extubated CXR Findings: Atelectasis Bilateral and CXR personally viewed and interpreted by ICU staff Nurse Practitioner Gastrointestinal: Abdominal: Soft, Non-tender and Bowel sounds yes WBC (k/uL) Date Value 03/25/2021 9.66 RBC (m/uL) Date Value 03/25/2021 3.37 (L) Hemoglobin (g/dL) Date Value 03/25/2021 10.3 (L) Hematocrit (%) Date Value 03/25/2021 31.4 (L) MCV (fL) Date Value 03/25/2021 93.2 MCH (pG) Date Value 03/25/2021 30.6 MCHC (g/dL) Date Value 03/25/2021 32.8 RDW-CV (%) Date Value 03/25/2021 13.5 Platelet Count (k/uL) Date Value 03/25/2021 98 (L) MPV (fL) Date Value 03/25/2021 12.2 Glucose (mg/dL) Date Value 03/25/2021 141 (H) BUN (mg/dL) Date Value 03/25/2021 9 Creatinine (mg/dL) Date Value 03/25/2021 0.64 Sodium (mmol/L) Date Value 03/25/2021 138 Potassium (mmol/L) Date Value 03/25/2021 3.8 Chloride (mmol/L) Date Value 03/25/2021 110 (H) CO2 (mmol/L) Date Value 03/25/2021 19 (L) CO2 Content, Venous (mmol/L) Date Value 03/25/2021 22 (L) Protein, Total (g/dL) Date Value 03/25/2021 5.0 (L) Albumin (g/dL) Date Value 03/25/2021 3.4 (L) Calcium (mg/dL) Date Value 03/25/2021 8.5 Alkaline Phosphatase (U/L) Date Value 03/25/2021 47 Bilirubin, Total (mg/dL) Date Value 03/25/2021 0.3 AST (U/L) Date Value 03/25/2021 34 ALT (U/L) Date Value 03/25/2021 14 DAILY CVICU CHECKLIST VTE Prophylaxis: Pharmacologic Yes - SQH VTE Prophylaxis: Mechanical: Yes Line infection prevention: Can CVC, PAC or arterial line be removed: Yes - Remove PA catheter Continued need for urinary catheter: Yes - clinical indication: Patient post major surgery requiring fluid balance and input and output measurement. Restraints needed: No SIGNATURE: Gisselle Hodge APRN.CNP DATE of SERVICE: 03/25/2021 TIME of SERVICE: 7:32 [facility]11-09-2021 Evaluation note* Diagnosis Onset Date Resolution Status History of mitral valve repair March 24, 2021 acute Non-ischemic cardiomyopathy acute History of mitral valve repair March 24, 2021 acute Non-ischemic cardiomyopathy [facility] Work Phone: 1(581) 305-203211-09-2021 Evaluation note* Diagnosis Onset Date Resolution Status History of mitral valve repair March 24, 2021 acute Non-ischemic cardiomyopathy acute [facility] Work Phone: 1(175) 742-917911-09-2021 Evaluation note* Diagnosis Onset Date Resolution Status History of mitral valve repair March 24, 2021 acute Left bundle branch block (LBBB) acute Non-ischemic cardiomyopathy [facility] Work Phone: 1(352) 786-439911-09-2021 Evaluation note* Diagnosis Onset Date Resolution Status Near syncope acute History of mitral valve repair March 24, 2021 chronic Left bundle branch block (LBBB) chronic Non-ischemic cardiomyopathy [facility] Work Phone: 1(170) 819-138811-09-2021 Evaluation note* Diagnosis Onset Date Resolution Status Near syncope acute History of mitral valve repair March 24, 2021 chronic Left bundle branch block (LBBB) chronic Non-ischemic cardiomyopathy chronic Near syncope acute History of mitral valve repair March 24, 2021 chronic Left bundle branch block (LBBB) chronic Non-ischemic cardiomyopathy [facility] Work Phone: 1(690) 886-930911-09-2021 NoteHNO ID: [id number] Author: iGsselle Hodge APRN.MATERIAL HANDLER 2ND SHIFT Service: Critical Care Author Type: Nurse Practitioner Type: Progress Notes Filed: 03/24/2021 11:05 AM Note Text: [facility] CV[facility] Admission Note Name: Shine Gross Principal Diagnosis: Nonrheumatic mitral valve regurgitation Indication for Surgery: Mitral Valve Regurgitation, MV Prolapse Preop LVEF: 46% RVF: Normal Postop LVEF: Mild and 45-50% RVF: Normal Important/Relevant PMH/PSH: HTN, MR, MVP, COVID-19, LBBB Preoperative Hospital Course: 71 yo F PMH hypertension, LBBB, 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 Endorses dyspnea and palpitations. Airway Difficulty: Grade I - No special instrumentation Pacing Wires: No Chronological List of Surgeries and Major Events (Diagnosis): (Surgeries in bold characters) 03/24/2021: Mitral Valve Repair A/P of Major Active Problems (excluding routine care and common problems): Cardiac: Cardiac Insufficiency - EF 46% preop, 45-50% postop, arrived on 1mcg Epi, wean to CI >2.2. Hypovolemia - postop fluid shifts, volume resuscitate PRN. Postop Hypotension - volume resuscitate, add Levo as indicated to maintain MAP 65-75. To Do or to Watch: 03/24/2021 WTE MAP 65-75 Wean Epi Discharge Planning: Anticipated Discharge Date: Unknown Barriers to Discharge: Unknown Care Management Discharge Needs: Additional Hospital Problems Problem Nonrheumatic Mitral Valve Regurgitation History: 3-4+ MR due to prolapse Assessment: 03/24/2021 s/p Mitral Valve Repair Plan: ASA, ECHO prior to discharge. Mitral Valve Prolapse See MR Atelectasis History: postop Assessment: intubated Plan: WTE and BPH Cardiac Insufficiency (Hcc) History: EF 46% preop, 45-50% postop Assessment: arrived on 1mcg Epi Plan: wean to CI >2.2. Postoperative Hypotension History: postop Assessment: hypotensive on arrival Plan: volume resuscitate, add Levo as indicated to maintain MAP 65-75. Postoperative Pain History: postop Assessment: intubated Plan: Optimize pain control w/ Fentanyl SALES ASSOCIATE KEY HOLDER, scheduled Tylenol and prn Oxycodone. Toradol added. Hypovolemia History: OR Assessment: postop fluid shifts Plan: volume resuscitate PRN. Discharge Planning Issues Patient is a 71 year old female from [place], [place] here for open heart surgery. Patient may benefit from home health care Infusions: Amicar Epinephrine Insulin Propofol CVICU Admission ECG: Reviewed CVICU Admission CXR: Reviewed Neuro: Sedation . Cardiovascular: Rhythm: regular rate and rhythm and Rate:normal sinus rhythm, LBBB unchanged from previous EKG MAP: 65 mmHg Cardiac Index: 2.1 L/min/m2 Pacemaker : None ICD: No Peripheral pulses present: All present Pulmonary: Clear to auscultation and Breath sounds equal Ventilator: Intubated Potential prolonged intubation : No Abdominal: Soft and Non-tender Continued need for urinary catheter: Yes - clinical indication: Patient post major surgery requiring fluid balance and input and output measurement. DAY OF SURGERY PLAN: Standard Protocol, intubated patient: Cardiovascular monitoring, stabilization of blood pressure and cardiac function, wean to extubate when ready per protocol. Pain control, glycemic control, DVT prophylaxis, antibiotic prophylaxis. SIGNATURE: Gisselle Hodge APRN.CNP DATE of SERVICE: 03/24/2021 TIME of SERVICE: 11:04 [facility]11-08-2021 NoteHNO ID: [id number] Author: Cristin Jasso MD Service: ? Author Type: Physician Type: Progress Notes Filed: 03/23/2021 1:34 PM Note Text: Summary: Preoperative visit I met with Ms. Gross and her daughter today. She is a 71-year-old female with severe degenerative mitral valve prolapse and a calcified posterior mitral leaflet and annulus. She has clean coronary arteries. Ejection fraction is in the 40 to 45% range. There is no other valvular heart disease. She was booked for open mitral valve repair, possible replacement with a bioprosthetic valve by Dr. Hudson today. Due to an emergency in the operating room the surgery has been delayed until tomorrow. Dr. Hudson asked me to take over care due to simultaneous commitments booke din the operating room tomorrow. I went to the preoperative holding area to meet with the patient and her daughter. We reviewed the indications, risks, benefits and alternatives of open mitral valve repair, possible replacement with a biological valve. I explained that there would be a 99% chance of valve repair only limited by the degree of valve/annular calcification. I also explained that it is somewhat unusual that her left ventricular ejection fraction is depressed in the 40 to 45% range-which leads me to believe that there was latent left ventricular dysfunction clinically unapparent given her mild palpitation-like symptoms alone.The consequence of this is that following elimination of severe mitral valve regurgitation after repair there may be a higher likelihood of depression of left ventricular systolic function postoperatively. I explained that this would be managed with medications and involvement of our heart failure team as necessary. We reviewed the informed consent which is been signed by Dr. Hudson and uploaded in the chart. We have answered all the patient and her daughter's questions to their satisfaction. We will proceed with surgery in an A round slot tomorrow morning. Thank you very much for the opportunity to be involved in the care of this patient.[facility]11-08-2021 NoteEducation (MARIJA) SHINE GROSS ([id number]) 1950 F Date Time Provider Department 03/23/21 CRISTIN JASSO Reason for Visit: Mitral Valve Regurgitation [568] During your visit today, we recorded the following information about you: Allergies As of Date: 03/23/2021 (No Known Allergies) Date Reviewed: 03/23/2021 Reviewed by: Wood Prieto RN - Fully Assessed Prescriptions as of 03/23/2021 - amoxicillin (POLYMOX, AMOXIL) 500 mg capsule TAKE FOUR CAPSULES BY MOUTH ONE HOUR PRIOR TO APPOINTMENT Encounter Status:Closed by CRISTIN JASSO on 03/23/21[facility] 03-17-2021 NoteHNO ID: [id number] Author: Marleny Mason Service: ? Author Type: ? Type: Progress Notes Filed: 03/17/2021 12:25 PM Note Text: CHART COPY-DO NOT DISCARD CARDIOVASCULAR SURGERY PRE-OPERATIVE ASSESSMENT NAME: Shine Gross Alert Notes: DATE: 03/17/2021 SEX: female : 1950 AGE: [age] year old Estimated body mass index is 28.53 kg/m? as calculated from the following: Height as of 03/16/21: 157.5 cm (5' 2). Weight as of 03/16/21: 70.8 kg (156 lb). STS Score PHYSICIAN: Peña Hudson M.D. [facility] MD: Rishabh Rdz M.D. Intended Procedure: MVr REDO: No Patient scheduled for surgery on: 03/23/2021. CHIEF COMPLAINT: Pre-Op Open Heart Surgery MEDICATIONS: Current Outpatient Medications: - amoxicillin (POLYMOX, AMOXIL) 500 mg capsule - mupirocin (BACTROBAN) 2% oint ALLERGIES: ALLERGIES No Known Allergies LATEX ALLERGY: No FOOD SENSITIVITIES: No ANTICOAGULANTS: No STEROIDS: No HISTORIES: FAMILY HISTORY Problem Relation Age of Onset - No Known Problems Mother - Heart Father fast and hard heartbeat no diagnosis - Heart Attack Father at 89 - Diabetes Sister Type 2 - Heart Sister MVP - Heart Sister MVP - Diabetes Maternal Grandmother - Heart Brother PPM - Heart Son - No Known Problems Son - No Known Problems Daughter PAST MEDICAL HISTORY Diagnosis Date - - Hypertension - LBBB (left bundle branch block) - Mitral valve prolapse - Mitral valve regurgitation No past surgical history on file. 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 Lost consciousness while sitting down. Began feeling hot and lightheaded GI: Denies Gastrointestinal Complaints : Nephrolithiasis remote history ENDO: Denies Endocrine Complaints HEME: Denies Hematological complaints MUSC/SKEL: Arthritis mild generalized PVD: Denies PVD Varicose Veins: Yes, mild LLE BRUITS (Carotid): No PULSES: Pedal Left 2 Right 2 NYHA CLASSIFICATION: Class 1 FAMILY HISTORY OF CAD: No ? PERFUSION INDEX: LT: RT: DOMINANT HAND: right-handed Pacer Check: NA CARDIAC EVALUATION: Cardiac Cath: Date - 10/30/2020 Ultrasound: Date - PFT: Date - ECHO: Date - 03/16/2021 CT Scan: Date - MRI: Date - CXR: Date - 03/16/2021 EKG: Date - 03/16/2021 Dental: cleared - in scanned documents ? Recent Labs 03/16/21 1118 03/16/21 1110 WBC -- 6.31 HB -- 13.6 HCT -- 41.9 PLT -- 212 INR -- 1.0 APTT -- 26.2 PTSEC -- 10.6 NA -- 140 K -- 4.4 BUN -- 16 CREAT -- 0.79 ABORHD O POSITIVE O POSITIVE Pre Op Instructions per protocol reviewed and handout given to patient . Patient Education completed and documented. Instructed to start Bactroban per protocol. Emotional support provided to patient and family. All questions and concerns adressed. Signature: Marleny Mason See Cardiology History and Physical dated 03/16/2021[facility] 03-17-2021 NoteHNO ID: [id number] Author: Marleny Mason Service: ? Author Type: ? Type: Progress Notes Filed: 03/17/2021 12:01 PM Note Text: AMBULATORY PATIENT EDUCATION READINESS TO LEARN Cognitive Ability: Alert and oriented Motivation To Learn: Interested Family Support: High - Very involved in pt care Instruction Provided To: Patient AND Family Patient Learns Best By: Multiple Methods Factors Affecting Learning: None Physical Limitations Affecting Learning: None LEARNING RESPONSE Diagnosis: MR/MVP Education Topic: Pre-Op Open Heart Surgery Instructions Teaching Points: Logistics / Protocols /Complication Prevention How prepared do you feel you are for this visit: 6 Instruction/Supplemental Materials: Cardiac Surgery Information Binder Individual Instruction Patient/Family Response: Somewhat Follow up plan: Patient/Family to call [facility] with any further questions Referral (Recommendation): None Teach completed, topic: Patient provided with Cardiac Surgery binder and reviewed pre-operative instructions. Patient advised to call [facility] with [facility] questions[facility] NoteEducation (CARTMN) GINNYSHINE GriffithGayathri ([id number]) 1950 F Date Time Provider Department 03/17/21 Ebony HUDSON Reason for Visit: Patient Education [91] Progress Notes: Marleny Mason 03/17/2021 12:01 PM Signed AMBULATORY PATIENT EDUCATION READINESS TO LEARN Cognitive Ability: Alert and oriented Motivation To Learn: Interested Family Support: High - Very involved in pt care Instruction Provided To: Patient AND Family Patient Learns Best By: Multiple Methods Factors Affecting Learning: None Physical Limitations Affecting Learning: None LEARNING RESPONSE Diagnosis: MR/MVP Education Topic: Pre-Op Open Heart Surgery Instructions Teaching Points: Logistics / Protocols /Complication Prevention How prepared do you feel you are for this visit: 6 Instruction/Supplemental Materials: Cardiac Surgery Information Binder Individual Instruction Patient/Family Response: Somewhat Follow up plan: Patient/Family to call [facility] with any further questions Referral (Recommendation): None Teach completed, topic: Patient provided with Cardiac Surgery binder and reviewed pre-operative instructions. Patient advised to call [facility] with any further questions During your visit today, we recorded the following information about you: Allergies As of Date: 03/17/2021 (No Known Allergies) Date Reviewed: 03/17/2021 Reviewed by: Norma Almazan - Fully Assessed Prescriptions as of 03/17/2021 - mupirocin (BACTROBAN) 2% oint Use 0.5 g in the nose twice daily for 3 doses. Apply intranasally two times the day before surgery and one time the morning of surgery - amoxicillin (POLYMOX, AMOXIL) 500 mg capsule TAKE FOUR CAPSULES BY MOUTH ONE HOUR PRIOR TO APPOINTMENT Encounter Status:Closed by MARLENY MASON on 03/17/21[facility]11-02-2021 NoteHNO ID: [id number] Author: Ebony Hudson MD Service: ? Author Type: Physician Type: Progress Notes Filed: 03/17/2021 11:54 AM Note Text: [facility] V[facility] [place] DEPARTMENT OF CARDIAC SURGERY OUTPATIENT VISIT DATE March 17, 2021 OUTPATIENT VISIT Patient Type: Consult Visit to determine Surgery: Yes PCP: Dianne Marmolejo MD [address] [place] [place] [address] Referring Physician:: Aubrey Beltre MD ([facility]) [address] [place] [address] HPI: Ms. Shine Gross is a 71 year old female seen in consultation at the request of Aubrey Beltre for opinion regarding treatment options for Mitral Insufficiency. Comorbidities include MAC and reduced LVEF. The echocardiogram reveals: Last ECHO Result Conclusion ECHO Collected: 03/16/2021 9:19 AM (Final result) Impression: CONCLUSIONS: - Technically difficult exam due to body habitus. - Exam indication: pre op mitral valve surgery - The left ventricle is normal in size. Left ventricular systolic function is mildly decreased. EF = 46 ? 5% (2D biplane) Left ventricular diastolic function was not evaluated due to >2+ MR. - The right ventricle is normal in size. Right ventricular systolic function is normal. - The left atrial cavity is mildly dilated. - The visualized aorta is borderline dilated with a maximal dimension of 3.8 cm. - There is severe (3+ - 4+) mitral valve regurgitation due to prolapse. Regurgitant orifice area (PISA) is 0.85 cm?. There is severe prolapse of the posterior leaflet, with eccentric anteriorly directed MR, which is likely understimated in regards to the severity as the MR jet is not entirely visualized. Mild posterior MAC. - The patient has not had a prior CC echocardiographic exam for comparison. * * * Final * * * Complete Results Based on my evaluation she is a high risk for cardiac surgery. Impression: Mitral Insufficiency Plan: Full Sternotomy. MV repair or SJ Biocor. Note MAC and reduced LVEF. Buckberg antegrade and retrograde (Pettersson retrograde). Iced slush. MONTEZ. [place]. [place]. I spent more than 50% of the visit face to face counseling the patient on the plan and treatment options. The time spent counseling was 30 minutes. The total time of the face to face visit was 30 minutes. The risks, benefits and anticipated outcomes of the procedure, the risks and benefits of the alternatives to the procedure, and the roles and tasks of the personnel to be involved, were discussed with the patient, and the patient consents to the procedure and agrees to proceed. We discussed the possibility that there could be two patients undergoing surgery in two separate rooms (concurrent surgery) and that I would be present for the critical components of all operations. We also discussed that in an emergency situation, a qualified backup surgeon is available and in the rare event of such a serious situation, that colleague might take over the operation. These findings will be communicated back to the requesting physician via electronic medical record A Peña Hudson, [facility]11-02-2021 NoteHNO ID: [id number] Author: Liliane Rodríguez MD Service: ? Author Type: Resident Type: Progress Notes Filed: 03/17/2021 1:27 PM Note Text: [facility] PREOP EVALUATION CARDIOTHORACIC ANESTHESIA CARDIAC SURGERY SERVICE DATE: 03/17/2021 SERVICE TIME: 10:59 AM Proposed Surgical Procedure: Mitral Valve Surgery Re-do: No ASA Class: 4 Surgeon: Carl Surgery Date: 03/23/21 Last Wt 03/16/21 : 70.8 kg (156 lb) Last Ht 03/16/21 : 157.5 cm (5' 2) Estimated body mass index is 28.53 kg/m? as calculated from the following: Height as of 03/16/21: 157.5 cm (5' 2). Weight as of 03/16/21: 70.8 kg (156 lb). Melissa body weight: 50.1 kg (110 lb 7.2 oz) Adjusted ideal body weight: 58.4 kg (128 lb 10.7 oz) Estimated body surface area is 1.76 meters squared as calculated from the following: Height as of 03/16/21: 157.5 cm (5' 2). Weight as of 03/16/21: 70.8 kg (156 lb). 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 Endorses dyspnea and palpitations. PAST MEDICAL HISTORY Diagnosis Date - COVID - Hypertension - LBBB (left bundle branch block) - Mitral valve prolapse - Mitral valve regurgitation No past surgical history on file. Social History Tobacco Use - Smoking status: Never Smoker - Smokeless tobacco: Never Used Substance Use Topics - Alcohol use: Not Currently - Drug use: Not Currently ALLERGIES No Known Allergies ANESTHETIC HISTORY: History of general anesthesia without complications. AIRWAY ASSESSMENT: Airway History: No abnormal airway history Airway Exam: General: Normal appearance Mallampati Score: CLASS I Dentition: Upper denture Mouth: Normal tongue size Temporo-Mandibular Displacement Test: Position A (lower teeth can be advanced beyond upper teeth) Thyromental Distance: 3 cm Neck Circumference: < 20 cm Cervical Mobility: Normal Facial Hair: No ANTICIPATED DIFFICULT AIRWAY: NO Lines, Drains, Airway: Lines, Drains, and Airways None LABS: Lab Results Past 6 Months Component Value Date HB 13.6 03/16/2021 HCT 41.9 03/16/2021 PLT 212 03/16/2021 WBC 6.31 03/16/2021 NA 140 03/16/2021 K 4.4 03/16/2021 CREAT 0.79 03/16/2021 CA 9.9 03/16/2021 APTT 26.2 03/16/2021 INR 1.0 03/16/2021 Lab Results Past 6 Months Component Value Date GLUC 107 (H) 03/16/2021 K 4.4 03/16/2021 NA 140 03/16/2021 CHLOR 105 03/16/2021 CO2 22 03/16/2021 CREAT 0.79 03/16/2021 BUN 16 03/16/2021 ANION 13 03/16/2021 CA 9.9 03/16/2021 TPROT 7.5 03/16/2021 ALB 4.6 03/16/2021 TBILI 0.4 03/16/2021 ALKPHOS 80 03/16/2021 AST 25 03/16/2021 ALT 22 03/16/2021 ABO/RH(D) (no units) Date Value 03/16/2021 O POSITIVE Antibody Screen (no units) Date Value 03/16/2021 NEG Historical Ab Scr Status (no units) Date Value 03/16/2021 NEGATIVE Anticipated Blood Products Ordered: No blood product orders needed. Will the Patient Accept Blood: Yes IMAGING AND TESTS: See cardiology note 03/16/21 DEVICES: none MEDICATIONS: Current Outpatient Medications Medication Sig - amoxicillin (POLYMOX, AMOXIL) 500 mg capsule TAKE FOUR CAPSULES BY MOUTH ONE HOUR PRIOR TO APPOINTMENT No current facility-administered medications for this visit. Is the patient currently on any anticoagulant medications: No Additional Comments: none I have reviewed the Cardiothoracic Surgical Assessment and agree with its findings. During the course of the encounter the patient was prepared for anesthetic care. This conversation included anesthetic options, possible use of invasive monitoring, the risks, benefits, alternatives, and personnel that will be present for the anesthetic encounter. The patient agreed to proceed with the planned anesthetic. Instructed to take no with a small sip of water on the morning of surgery. ANESTHESIA CONCERNS: None BETA BHUMI COMPLIANCE: Is the Patient Scheduled for a CABG: No SIGNATURE: Liliane Rodríguez MD PATIENT NAME: Shine Gross DATE: March 17, 2021 TIME: 10:59 [facility]11-01-2021 NoteHNO ID: [id number] Author: Petra Rdz MD Service: ? Author Type: Physician Type: Progress Notes Filed: 03/16/2021 2:22 PM Note Text: [facility] V[facility] [place] [facility] Department of Cardiovascular Medicine SECTION OF CARDIOVASCULAR IMAGING March 16, 2021 Visit Type: New patient Reason for visit: MR HPI: 71 year old pleasant lady with significant MR referred to Dr. uHdson for MV surgery NURSING HISTORY INTAKE: Mrs. Gross is a 71 year old female from [place], [place], presenting today for pre-operative cardiac evaluation prior to mitral valve surgery with Dr. Hudson on . 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 Mrs. Gross states that in late 2019 she started noticing an increase in shortness of breath and palpitations. She went to her PCP who found a heart murmur and skipped heartbeats. Her PCP had her follow up with cardiology. She underwent an echocardiogram which revealed global hypokinesis, posterior mitral valve leaflet and 3+ eccentric mitral valve regurgitation. She presents today with complaints of her heart skipping beats and pounding in her chest when she sits down. She also states she sometimes has some discomfort or shortness of breath upon extreme exertion and occasional lightheadedness at times. About a week and a half ago she states she had an episode of which she passed out and the ED she went to diagnosised the episode as a vaso vagel response. Relevant Studies: Outside cath with normal cors REVIEW OF SYSTEMS: Positive in BOLD GENERAL: Negative for: Weight loss or gain, Fever or Chills, Weakness and Sleep difficulties. HEENT: Negative for: Headache, Impaired Vision, Glasses (reading), Hearing Impairment, Ringing in Ears, Nosebleeds, Poor dental care, Bleeding Gums, Dentures (uppers) NECK: Negative for: Swelling, Pain, Stiffness RESPIRATORY: Negative for: Cough, Blood in Sputum, Shortness of breath, Wheezing, Apnea GASTROINTESTINAL: Negative for: Trouble swallowing, Heartburn, Change in bowel habits, Blood in stool, Dark black stools MUSCULOSKELETAL: Negative for: Muscle or joint pain, Stiffness , Joint swelling NEUROLOGIC/PSYCHIATRIC: Negative for: Weakness, Paralysis, Numbness, Tingling, Tremor, Nervousness, Depressed mood, Memory loss SKIN: Negative for: Rashes, Itching HEMATOLOGICAL/LYMPHATIC: Negative for: Easy bruising , Easy bleeding ENDOCRINE: Negative for: Heat or cold intolerance, Excessive sweating, Frequent urination, Frequent thirst Medical History: PAST MEDICAL HISTORY Diagnosis Date - - Hypertension - LBBB (left bundle branch block) - Mitral valve prolapse - Mitral valve regurgitation Surgical History: History reviewed. No pertinent surgical history. Family History: FAMILY HISTORY Problem Relation Age of Onset - No Known Problems Mother - Heart Father fast and hard heartbeat no diagnosis - Heart Attack Father at 89 - Diabetes Sister Type 2 - Heart Sister MVP - Heart Sister MVP - Diabetes Maternal Grandmother - Heart Brother PPM - Heart Son - No Known Problems Son - No Known Problems Daughter Social History: Social History Tobacco Use - Smoking status: Never Smoker - Smokeless tobacco: Never Used Substance Use Topics - Alcohol use: Not Currently - Drug use: Not Currently Allergies: ALLERGIES No Known Allergies Current Medications amoxicillin (POLYMOX, AMOXIL) 500 mg capsule TAKE FOUR CAPSULES BY MOUTH ONE HOUR PRIOR TO APPOINTMENT Physical Exam BP 150/100 (BP Site: Left Arm, BP Position: Sitting, BP Cuff Size: Regular Adult) Pulse 106 Ht 157.5 cm (5' 2) Wt 70.8 kg (156 lb) SpO2 97% BMI 28.53 kg/m? GENERAL: Alert, no distress, cooperative. SKIN: Skin color, texture, turgor normal. No rashes or lesions. HEENT: Normocephalic. No masses, lesions. Conjunctivae/corneas clear. NECK: No jugulovenous distention. No carotid bruits. Carotid pulse normal contour. Supple. LUNGS: Lungs clear to auscultation. No wheezing or rhonchi. CARDIAC: Normal S1 and S2; Severe systolic murmur ABDOMEN: Abdomen soft, non-tender. No masses or organomegaly. EXTREMITIES: Extremities normal, no deformities, edema, clubbing or skin discoloration. Distal pulses present bilaterally. NEURO: Oriented to person, place and time, cooperative. No focal deficits. PSYCH: Pleasant; affect, mood and behavior appropriate. ECG, Labs and Imaging tests were reviewed. Last ECHO Result Conclusion ECHO Collected: 03/16/2021 9:19 AM (Final result) Impression: CONCLUSIONS: - Technically difficult exam due to body habitus. - Exam indication: pre op mitral valve surgery - The left ventricle is normal in size. Left ventricular systolic function is mildly decreased. EF = 46 ? 5% (2D biplane) Left ventricular diastolic function was not evaluated (more content not included)...[facility] 03-16-2021 NoteHNO ID: [id number] Author: RT Kwame(R) Service: Radiology Author Type: Technologist Type: Progress Notes Filed: 03/16/2021 10:40 AM Note Text: Radiology Service Progress Note PATIENT NAME: Shine Gross DATE OF SERVICE: March 16, 2021 TIME: 10:40 AM PATIENT IDENTITY VERIFICATION COMPLETED USING TWO (2) IDENTIFIERS: Name and Date of confirmed by patient verbally. FALL SCREENING: Has the patient had 2 falls in the last year or 1 fall with injury or currently using an Ambulatory Assistive Device (Walker, Cane, Wheelchair, Crutches, etc.)? No PATIENT GENDER DATA: Female. status: : No status: NO. PATIENT RELEVANT IMPLANT DATA REVIEWED: Not Applicable RADIOLOGY DEPARTMENT: General X-ray: Exam(s) Completed: Chest X-Ray PERIPHERAL IV DATA: Not applicable SIGNED BY: RT Kwame(R) March 16, 2021 10:40 [facility] noteNo assessment information availableWMercy Health [facility] Work Phone: Summary Purpose Family History No Family History Records Found Relationship Condition Age at Onset Recorded Date/T whit sister Cardiac disease Unknown brother Cardiac disease Unknown father Myocardial infarction 89 son Disorder of thyroid Unknown Advance Directives No Advanced Directives Records Found Advance Directive Response Recorded Date/ Time Advance Directives No October 30 10:46am Living Will No August 20, 2021 9:31am Power of [employer] Crane Operator Yes August 20 9:31am Advance Directive Response Recorded Date/ Time Advance Directives on File No August 20, 2021 9:31am Advance Directives No October 30 10:46am Living Will No August 20, 2021 9:31am Power of [employer] Crane Operator Yes August 20 9:31am Advance Directive Response Recorded Date/ Time Advance Directives No October 30 9:46am Living Will No August 20, 2021 8:31am Power of [employer] Crane Operator Yes August 20 8:31am Advance Directive Response Recorded Date/ Time Name of Medical Power of [employer] Yard Crane Operator Richard Gross October 23, 2022 3:42pm Advance Directives No October 30 10:46am Living Will No October 23, 2022 8:22pm Power of [employer] Crane Operator No October 23 8:22pm Chief Complaint and Reason for Visit Chief Complaint 6 wk FU dizziness 3 M FU HEART VALVE REPAIR MITRAL VALVE REPAIR Reason for Visit History of mitral va lve repair Non-ischemic cardiomyopathy History of mitral valve repair Non-ischemic cardiomyopathy Chief Complaint dizziness 3 M FU HEART VALVE REPAIR MITRAL VALVE REPAIR MVP MITRAL VALVE REPAIR Reason for Visit History of mitral va lve repair Non-ischemic cardiomyopathy Chief Complaint dizziness 3 M FU HEART VALVE REPAIR MITRAL VALVE REPAIR MVP MITRAL VALVE REPAIR MITRAL VALVE REPAIR Reason for Visit History of mitral va lve repair Non-ischemic cardiomyopathy Chief Complaint 3 M FU HEART VALVE REPAIR MITRAL VALVE REPAIR MVP MITRAL VALVE REPAIR MITRAL VALVE REPAIR Reason for Visit History of mitral va lve repair Non-ischemic cardiomyopathy Chief Complaint 3 M FU HEART VALVE REPAIR MITRAL VALVE REPAIR MVP MITRAL VALVE REPAIR MITRAL VALVE REPAIR MITRAL VALVE REPAIR DIZZINESS Reason for Visit History of mitral va lve repair Non-ischemic cardiomyopathy Chief Complaint HEART VALVE REPAIR MITRAL VALVE REPAIR MVP MITRAL VALVE REPAIR MITRAL VALVE REPAIR MITRAL VALVE REPAIR DIZZINESS Chief Complaint 6 M FU E ORDER Syncope and collapse Reason for Visit History of mitral va lve repair Left bundle branch block (LBBB) Non-ischemic cardiomyopathy Chief Complaint E ORDER Syncope and collapse 8 WK FU Reason for Visit Near syncope History of mitral valve repair Left bundle branch block (LBBB) Non-ischemic cardiomyopathy Chief Complaint Syncope and collapse 30 DAY MONITOR 8 WK FU 4-8 WK F/U E ORDER Reason for Visit Near syncope History of mitral valve repair Left bundle branch block (LBBB) Non-ischemic cardiomyopathy Near syncope History of mitral valve repair Left bundle branch block (LBBB) Non-ischemic cardiomyopathy Chief Complaint 30 DAY MONITOR 8 WK FU 4-8 WK F/U E ORDER RIGHT SIDE HEARING LOSS Reason for Visit Near syncope History of mitral valve repair Left bundle branch block (LBBB) Non-ischemic cardiomyopathy Near syncope History of mitral valve repair Left bundle branch block (LBBB) Non-ischemic cardiomyopathy Chief Complaint NSTEMI NSTEMI NSTEMI NSTEMI NSTEMI NSTEMI S/P [facility] 10-26-22 ALTERED BALANCE/LIGHTHEADNESS Takotsubo syndrome E ORDERS Amb Documentation Reason for Visit Non-ischemic cardiom yopathy Elevated troponin Non-STEMI (non-ST elevated myocardial infarction) Thoracic back pain Hyperlipidemia Near syncope Postoperative atrial fibrillation Takotsubo cardiomyopathy Non-ischemic cardiomyopathy Fatigue Lightheaded Additional Source Comments INFORMATION SOURCE (unrecogn ized section and content) DATE CREATED AUTHOR 05/23/2020 [facility] DATE CREATED AUTHOR AUTHOR'S ORGANIZ ATION 06/17/2021 [facility] DATE CREATED AUTHOR AUTHOR'S ORGANIZ ATION 03/16/2025 [facility] DATE CREATED AUTHOR AUTHOR'S ORGANIZ ATION 03/22/2025 [facility] Goals (unrecognized section and content) Goals may be documented in a n alternate sectionGoals may be documented in an alternate sectionGoals may be documented in an alternate sectionGoals may be documented in an alternate sectionGoals may be documented in an alternate sectionGoals may be documented in an alternate sectionGoals may be documented in an alternate sectionGoals may be documented in an alternate sectionGoals may be documented in an alternate sectionGoals may be documented in an alternate sectionGoals may be documented in an alternate section Care Teams (unrecognized sec tion and content) Team Status: Active Member Role Status Dates Dr. Valencia Soriano MD Family Provider Active Dr. Dianne Marmolejo MD Primary Care Provider Active Team Status: Active Member Role Status Dates Dr. Dianne Marmolejo MD Primary Care Provider Active Dr. Aubrey Beltre MD Attending Provider Active Team Status: Inactive Member Role Status Dates Dr. Dianne Marmolejo MD Primary Care Provider, Referrin g Provider Active Kavin Tanner SAND SHOVELER, SAND SHOVELER-C Attending Provider Active Team Status: Inactive Member Role Status Dates Dr. Dianne Marmolejo MD Primary Care Provider Active Dr. Aubrey Beltre MD Attending Provider Active Team Status: Inactive Member Role Status Dates Dr. Dianne Marmolejo MD Primary Care Provider, Attendin g Provider Active Team Status: Active Member Role Status Dates Dr. Dianne Marmolejo MD Primary Care Provider Active Dr. Aubrey Beltre MD Attending Provider, Referring Pro vider Active Team Status: Inactive Member Role Status Dates Dr. Dianne Marmolejo MD Primary Care Provider Active Kavin Tanner SAND SHOVELER, SAND SHOVELER-C Attending Provider Active Team Status: Inactive Member Role Status Dates Dr. Dianne Marmolejo MD Primary Care Prov ider, Attending Provider, Referring Provider Active Team Status: Inactive Member Role Status Dates Dr. Dianne Marmolejo MD Primary Care Provider, Referrin g Provider Active Dr. Uri Crain MD Attending Provider Active Team Status: Active Member Role Status Dates Dr. Dianne Marmolejo MD Primary Care Provider Active Dr. Ulices Clayton DO Emergency Provider Active Dr. Christiano Sapp MD Admit Provider, Attending Provider, Other Provider Active Dr. Aubrey Beltre MD Other Provider Active Team Status: Active Member Role Status Dates Dr. Dianne Marmolejo MD Primary Care Provider Active Dr. Ulices Clayton DO Emergency Provider Active Dr. Christiano Sapp MD Admit Provider, Other Provide r Active Dr. Aubrey Beltre MD Attending Provider, Other Provide r Active Dr. Linda Mitchell MD Other Provider Active Team Status: Active Member Role Status Dates Dr. Dianne Marmolejo MD Primary Care Provider Active Dr. Ulices Clayton DO Emergency Provider Active Dr. Christiano Sapp MD Admit Provider, Other Provide r Active Dr. Aubrey Beltre MD Other Provider Active Dr. Linda Mitchell MD Attending Provider, Other Prov ider Active Team Status: Active Member Role Status Dates Dr. Dianne Marmolejo MD Primary Care Provider Active Dr. Ulices Clayton DO Emergency Provider Active Dr. Christiano Sapp MD Admit Provider, Other Provide r Active Dr. Aubrey Beltre MD Attending Provider, Referring Provider, Other Provider Active Dr. Linda Mitchell MD Other Provider Active Team Status: Active Member Role Status Dates Dr. Dianne Marmolejo MD Primary Care Provider Active Kavin Tanner SAND SHOVELER, SAND SHOVELER-C Attending Provider Active Team Status: Inactive Member Role Status Dates Dr. Dianne Marmolejo MD Primary Care Provider Active Dr. Ulices Clayton , Emergency Provider Active Dr. Christiano Sapp MD Admit Provider, Other Provide r Active Dr. Aubrey Beltre MD Other Provider Active Dr. Linda Mitchell MD Attending Provider Active Team Status: Active Member Role Status Dates Dr. Dianne Marmolejo MD Primary Care Provider Active Dr. Uri Crain MD Attending Provider, Referring Provider Active Team Status: Inactive Member Role Status Dates Dr. Dianne Marmolejo MD Primary Care Provider Active Kavin Tanner SAND SHOVELER, SAND SHOVELER-C Attending Provider, Referring Pro vider Active Team Status: Inactive Member Role Status Dates Dr. Dianne Marmolejo MD Primary Care Provider Active Dr. Uri Crain MD Attending Provider, Referring Provider Active FOR RECORDS PERTAINING TO PATIENTS WHO ARE OR HAVE BEEN ENROLLED IN A CHEMICAL DEPENDENCY/SUBSTANCEABUSE PROGRAM, SOME INFORMATION MAY BE OMITTED. This clinical summary was aggregated from multiple sources. Caution should be exercised in using it in the provision of clinical care. This summary normalizes information from multiple sources, and as a consequence, information in this document may materially change the coding, format and clinical context of patient data. In addition, data may be omitted in some cases. CLINICAL DECISIONS SHOULD BE BASED ON THE PRIMARY CLINICAL RECORDS. [employer] provides no warranty or guarantee of the accuracy or completeness of information in this document.
== END | disposition home or self-care (01) ==
LOC: CVS 14:55
PROVIDERS: PCP Family Medicine; Referring Provider Nurse Practitioner Family; Visit Provider Nurse Practitioner Family
DX: I44.7 Left bundle-branch block, unspecified (principal); I42.8 Other cardiomyopathies; Z98.890 Other specified postprocedural states
CPT/HCPCS: 93306